=== PATIENT | female | born 1965 | race Caucasian/White ===

== ENCOUNTER 2020-07-19 11:17 | Inpatient (IN) | payer MEDICARE, MEDICAID ==
[2020-07-19] MEDS ORDERED: Sodium Chloride 0.9% 10 ML Syringe FLUSH PRN (11:39)
[2020-07-19] MEDS ORDERED: Sodium Chloride 0.9% 1,000 ML IV ONE (12:42)
--- NOTE | 2020-07-19 14:11 | EDM.PDOC ---
ED HPI GENERAL MEDICAL PROBLEM - General Chief Complaint: Respiratory Problem Stated Complaint: [facility] Time Seen by Provider: 07/19/20 11:24 Source of Information: Reports: Patient History Limitations: Reports: No Limitations - History of Present Illness INITIAL COMMENTS - FREE TEXT/NARRATIVE: The patient presents by [facility] ambulance from [facility] for a cough, fever, chills, shortness of breath and low oxygen saturations. She is there for chronic A-fib, obesity, schizophrenia, and CHF. Her oxygen saturations were 86% no room air. Four liters of oxygen did bring her up. She was isolated in the COVID unit but no test was done yet. She has no chest pain, abdominal pain, nausea, vomiting or diarrhea. Onset: Gradual Duration: Day(s): Severity: Moderate Improves with: Reports: None Worsens with: Reports: None Associated Symptoms: Reports: Cough, Fever/Chills, Shortness of Breath. Denies: Chest Pain, Headaches, Nausea/Vomiting - Related Data Allergies Allergy/AdvReac Type Severity Reaction Status Date / Time amoxicillin Allergy Rash Verified 07/19/20 11:26 Home Meds: Home Meds B/P/Diuretic 1 tab PO DAILY 12/25/14 [History] Hydrocodone/Acetaminophen [Hydrocodone-Acetamin 5-325 mg] 1 each PO Q8H PRN #8 tablet 12/25/14 [Rx] LORazepam [Ativan] 1 mg PO BID 12/25/14 [History] Potassium Chloride 0 meq PO DAILY 12/25/14 [History] Sertraline [Zoloft] 25 mg PO DAILY 12/25/14 [History] allopurinoL [Zyloprim] 100 mg PO DAILY 12/25/14 [History] Diltiazem IR [Cardizem] 60 mg PO TID #90 tablet 01/05/15 [Rx] predniSONE [Prednisone] 20 mg PO DAILY #10 tablet 01/05/15 [Rx] Warfarin [Coumadin] 7 mg PO DAILY #15 tab 01/12/15 [Rx] Past Medical History Cardiovascular History: Reports: Afib Gastrointestinal History: Reports: GERD Psychiatric History: Reports: Anxiety, Depression Social & Family History - Tobacco Use Smoking Status *Q: Never Smoker ED ROS GENERAL - Review of Systems Review Of Systems: See Below Constitutional: Reports: Fever, Chills, Malaise, Weakness HEENT: Reports: No Symptoms Respiratory: Reports: Shortness of Breath, Cough Cardiovascular: Reports: No Symptoms Endocrine: Reports: No Symptoms GI/Abdominal: Reports: No Symptoms : Reports: No Symptoms Musculoskeletal: Reports: No Symptoms Skin: Reports: No Symptoms ED EXAM, GENERAL - Physical Exam Exam: See Below Exam Limited By: No Limitations General Appearance: Alert, No Apparent Distress Ears: Normal External Exam Nose: Normal Inspection Head: Atraumatic, Normocephalic Neck: Normal Inspection Respiratory/Chest: No Respiratory Distress, Rhonchi Cardiovascular: Regular Rate, Rhythm, No Edema, No Murmur GI/Abdominal: Soft, Non-Tender, No Organomegaly, No Mass Back Exam: Normal Inspection Extremities: Normal Inspection EKG INTERPRETATION EKG Date: 07/19/20 Time: 11:28 Rhythm: A-Fib Rate (Beats/Min): 112 [place]: Normal P-Wave: Absent QRS: Normal ST-T: Normal QT: Normal Course - Vital Signs Last Recorded V/S: Last Vital Signs Temp 97.7 F 07/19/20 11:23 Pulse 102 H 07/19/20 11:23 Resp 24 H 07/19/20 11:23 BP 95/81 07/19/20 11:23 Pulse Ox 86 L 07/19/20 11:23 - Orders/Labs/Meds Orders: Active Orders 24 hr Category Date Time Status Cardiac Monitoring [RC] . DIRECTED Care 07/19/20 11:39 Active EKG Documentation Completion [RC] STAT Care 07/19/20 11:40 Active Oxygen Therapy [RC] PRN Care 07/19/20 11:39 Active Peripheral IV Care [RC] . DIRECTED Care 07/19/20 11:40 Active Chest 1V Frontal [CR] Stat Exams 07/19/20 11:40 Taken CULTURE BLOOD [BC] Stat Lab 07/19/20 12:05 Received CULTURE BLOOD [BC] Stat Lab 07/19/20 12:10 Received Sodium Chloride 0.9% [Saline Flush] Med 07/19/20 11:39 Active 10 ml FLUSH ASDIRECTED PRN Blood Culture x2 Reflex Set [OM.PC] Stat Oth 07/19/20 11:41 Ordered Peripheral IV Insertion Adult [OM.PC] Stat Oth 07/19/20 11:39 Ordered Medication Orders Sodium Chloride (Saline Flush) 10 ml FLUSH ASDIRECTED PRN PRN Reason: Keep Vein Open Last Admin: 07/19/20 11:46 Dose: 10 ml Documented by: NELA Labs: Laboratory Tests 07/19/20 07/19/20 07/19/20 Range/Units 11:30 11:30 11:30 WBC 7.05 (3.98-10.04) K/mm3 RBC 4.72 (3.98-5.22) M/mm3 Hgb 15.4 D (11.2-15.7) gm/dl Hct 46.9 H (34.1-44.9) % MCV 99.4 H (79.4-94.8) fl MCH 32.6 H (25.6-32.2) pg MCHC 32.8 (32.2-35.5) g/dl RDW Std Deviation 55.9 H (36.4-46.3) fL Plt Count 214 D (182-369) K/mm3 MPV 8.9 L (9.4-12.3) fl Neut % (Auto) 80.3 H (34.0-71.1) % Lymph % (Auto) 10.4 L (19.3-51.7) % [place] % (Auto) 8.7 (4.7-12.5) % Eos % (Auto) 0.1 L (0.7-5.8) Baso % (Auto) 0.1 (0.1-1.2) % Neut # (Auto) 5.66 (1.56-6.13) K/mm3 Lymph # (Auto) 0.73 L (1.18-3.74) K/mm3 [place] # (Auto) 0.61 H (0.24-0.36) K/mm3 Eos # (Auto) 0.01 L (0.04-0.36) K/mm3 Baso # (Auto) 0.01 (0.01-0.08) K/mm3 PT 16.1 H (9.7-11.7) SECONDS INR 1.52 APTT 33 H (22-31) SECONDS D-Dimer, Quantitative 0.34 (0.19-0.50) mg/L Puncture Site ABG pH (7.35-7.45) ABG pCO2 (35.0-45.0) mmHg ABG pO2 (80.0-100.0) mmHg ABG HCO3 (22.0-26.0) meq/L ABG O2 Saturation (96.0-97.0) % ABG Base Excess (-2-2.0) Salvatore Test A-a Gradient mmHg O2 Delivery Device Oxygen Flow Rate FiO2 (21.00-100.00) % Sodium 142 (136-145) mEq/L Potassium 4.0 (3.5-5.1) mEq/L Chloride 102 (98-107) mEq/L Carbon Dioxide 29 (21-32) mEq/L Anion Gap 15.0 (5-15) BUN 23 H (7-18) mg/dL Creatinine 1.3 H (0.55-1.02) mg/dL Est Cr Clr Drug Dosing TNP Estimated GFR (MDRD) 43 (>60) mL/min BUN/Creatinine Ratio 17.7 (14-18) Glucose 139 H (74-106) mg/dL Lactic Acid (0.4-2.0) mmol/L Calcium 9.3 (8.5-10.1) mg/dL Ferritin (8-252) ng/ml Total Bilirubin 0.4 (0.2-1.0) mg/dL AST 27 (15-37) U/L ALT 25 (14-59) U/L Alkaline Phosphatase 40 L (46-116) U/L Lactate Dehydrogenase 262 H (81-234) U/L C-Reactive Protein 10.1 H* (<1.0) mg/dL Total Protein 9.0 H (6.4-8.2) g/dl Albumin 3.3 L (3.4-5.0) g/dl Globulin 5.7 gm/dL Albumin/Globulin Ratio 0.6 L (1-2) SARS-CoV-2 RNA (GIOVANNI) (NEGATIVE) 07/19/20 07/19/20 07/19/20 Range/Units 11:30 11:30 12:03 WBC (3.98-10.04) K/mm3 RBC (3.98-5.22) M/mm3 Hgb (11.2-15.7) gm/dl Hct (34.1-44.9) % MCV (79.4-94.8) fl MCH (25.6-32.2) pg MCHC (32.2-35.5) g/dl RDW Std Deviation (36.4-46.3) fL Plt Count (182-369) K/mm3 MPV (9.4-12.3) fl Neut % (Auto) (34.0-71.1) % Lymph % (Auto) (19.3-51.7) % [place] % (Auto) (4.7-12.5) % Eos % (Auto) (0.7-5.8) Baso % (Auto) (0.1-1.2) % Neut # (Auto) (1.56-6.13) K/mm3 Lymph # (Auto) (1.18-3.74) K/mm3 [place] # (Auto) (0.24-0.36) K/mm3 Eos # (Auto) (0.04-0.36) K/mm3 Baso # (Auto) (0.01-0.08) K/mm3 PT (9.7-11.7) SECONDS INR APTT (22-31) SECONDS D-Dimer, Quantitative (0.19-0.50) mg/L Puncture Site Rt radial ABG pH 7.42 (7.35-7.45) ABG pCO2 45.0 (35.0-45.0) mmHg ABG pO2 64.0 L (80.0-100.0) mmHg ABG HCO3 28.4 H (22.0-26.0) meq/L ABG O2 Saturation 90.4 L (96.0-97.0) % ABG Base Excess 3.7 H (-2-2.0) Salvatore Test Positive A-a Gradient 150 mmHg O2 Delivery Device Nasal cannula Oxygen Flow Rate 4.5 FiO2 38.00 (21.00-100.00) % Sodium (136-145) mEq/L Potassium (3.5-5.1) mEq/L Chloride (98-107) mEq/L Carbon Dioxide (21-32) mEq/L Anion Gap (5-15) BUN (7-18) mg/dL Creatinine (0.55-1.02) mg/dL Est Cr Clr Drug Dosing Estimated GFR (MDRD) (>60) mL/min BUN/Creatinine Ratio (14-18) Glucose (74-106) mg/dL Lactic Acid 3.1 H* (0.4-2.0) mmol/L Calcium (8.5-10.1) mg/dL Ferritin 226 (8-252) ng/ml Total Bilirubin (0.2-1.0) mg/dL AST (15-37) U/L ALT (14-59) U/L Alkaline Phosphatase (46-116) U/L Lactate Dehydrogenase (81-234) U/L C-Reactive Protein (<1.0) mg/dL Total Protein (6.4-8.2) g/dl Albumin (3.4-5.0) g/dl Globulin gm/dL Albumin/Globulin Ratio (1-2) SARS-CoV-2 RNA (GIOVANNI) (NEGATIVE) 07/19/20 Range/Units 12:25 WBC (3.98-10.04) K/mm3 RBC (3.98-5.22) M/mm3 Hgb (11.2-15.7) gm/dl Hct (34.1-44.9) % MCV (79.4-94.8) fl MCH (25.6-32.2) pg MCHC (32.2-35.5) g/dl RDW Std Deviation (36.4-46.3) fL Plt Count (182-369) K/mm3 MPV (9.4-12.3) fl Neut % (Auto) (34.0-71.1) % Lymph % (Auto) (19.3-51.7) % [place] % (Auto) (4.7-12.5) % Eos % (Auto) (0.7-5.8) Baso % (Auto) (0.1-1.2) % Neut # (Auto) (1.56-6.13) K/mm3 Lymph # (Auto) (1.18-3.74) K/mm3 [place] # (Auto) (0.24-0.36) K/mm3 Eos # (Auto) (0.04-0.36) K/mm3 Baso # (Auto) (0.01-0.08) K/mm3 PT (9.7-11.7) SECONDS INR APTT (22-31) SECONDS D-Dimer, Quantitative (0.19-0.50) mg/L Puncture Site ABG pH (7.35-7.45) ABG pCO2 (35.0-45.0) mmHg ABG pO2 (80.0-100.0) mmHg ABG HCO3 (22.0-26.0) meq/L ABG O2 Saturation (96.0-97.0) % ABG Base Excess (-2-2.0) Salvatore Test A-a Gradient mmHg O2 Delivery Device Oxygen Flow Rate FiO2 (21.00-100.00) % Sodium (136-145) mEq/L Potassium (3.5-5.1) mEq/L Chloride (98-107) mEq/L Carbon Dioxide (21-32) mEq/L Anion Gap (5-15) BUN (7-18) mg/dL Creatinine (0.55-1.02) mg/dL Est Cr Clr Drug Dosing Estimated GFR (MDRD) (>60) mL/min BUN/Creatinine Ratio (14-18) Glucose (74-106) mg/dL Lactic Acid (0.4-2.0) mmol/L Calcium (8.5-10.1) mg/dL Ferritin (8-252) ng/ml Total Bilirubin (0.2-1.0) mg/dL AST (15-37) U/L ALT (14-59) U/L Alkaline Phosphatase (46-116) U/L Lactate Dehydrogenase (81-234) U/L C-Reactive Protein (<1.0) mg/dL Total Protein (6.4-8.2) g/dl Albumin (3.4-5.0) g/dl Globulin gm/dL Albumin/Globulin Ratio (1-2) SARS-CoV-2 RNA (GIOVANNI) Positive H (NEGATIVE) Meds: Medications Generic Name Dose Route Start Last Admin Trade Name Freq PRN Reason Stop Dose Admin Sodium Chloride 10 ml 07/19/20 11:39 07/19/20 11:46 Saline Flush FLUSH 10 ml ASDIRECTED PRN Administration Keep Vein Open Discontinued Medications Generic Name Dose Route Start Last Admin Trade Name Freq PRN Reason Stop Dose Admin Sodium Chloride 1,000 mls @ 1,000 mls/hr 07/19/20 12:42 Normal Saline IV 07/19/20 13:41 ONETIME ONE - Re-Assessments/Exams Free Text/Narrative Re-Assessment/Exam: 07/19/20 14:12 I ordered oxygen, EKG, CXR, labs, COVID 19, blood cultures, lactic acid and ABG. Her EKG shows atrial fibrillation with no acute changes. Her CXR shows multiple abnormalities including focal left upper lobe lung consolidation suspicious for acute disease including pneumonia and other findings indicating pulmonary edema. In the absence of any signs or symptoms of pneumonia, consideration should be given to other disease such as pulmonary embolism and lung infarct. Her CBC looks good. Her D-dimer is negative. Her ph was 7.42. Her pCO2 is 45. Her pO2 is 64. Her creatinine is elevated at 1.3. Her glucose is 139. Her lactic acid is elevated at 3.1. I have ordered a liter of fluid. Her LDH is elevated at 262. Her CRP is elevated at 10.4. Her COVID 19 is positive. She has COVID pneumonia with hypoxia. 07/19/20 14:[address] Allen and he agreed to the admission. Departure - Departure Time of Disposition: 14:20 Disposition: Admitted As Inpatient 66 Condition: Fair Clinical Impression: COVID-19, Pneumonia due to COVID-19 virus, Hypoxia, Renal insufficiency - Discharge Information Referrals: Mark Anthony Burns MD [Primary Care Provider] - Sepsis Event Note (ED) - Evaluation Sepsis Screening Result: No Definite Risk - Focused Exam Vital Signs: Vital Signs Temp Pulse Resp BP Pulse Ox 07/19/20 11:23 97.7 F 102 H 24 H 95/81 86 L - My Orders Last 24 Hours: My Active Orders 07/19/20 11:39 Cardiac Monitoring [RC] . DIRECTED Oxygen Therapy [RC] PRN Sodium Chloride 0.9% [Saline Flush] 10 ml FLUSH ASDIRECTED PRN Peripheral IV Insertion Adult [OM.PC] Stat 07/19/20 11:40 EKG Documentation Completion [RC] STAT Peripheral IV Care [RC] . DIRECTED Chest 1V Frontal [CR] Stat 07/19/20 11:41 Blood Culture x2 Reflex Set [OM.PC] Stat 07/19/20 12:05 CULTURE BLOOD [BC] Stat 07/19/20 12:10 CULTURE BLOOD [BC] Stat - Assessment/Plan Last 24 Hours: My Active Orders 07/19/20 11:39 Cardiac Monitoring [RC] . DIRECTED Oxygen Therapy [RC] PRN Sodium Chloride 0.9% [Saline Flush] 10 ml FLUSH ASDIRECTED PRN Peripheral IV Insertion Adult [OM.PC] Stat 07/19/20 11:40 EKG Documentation Completion [RC] STAT Peripheral IV Care [RC] . DIRECTED Chest 1V Frontal [CR] Stat 07/19/20 11:41 Blood Culture x2 Reflex Set [OM.PC] Stat 07/19/20 12:05 CULTURE BLOOD [BC] Stat 07/19/20 12:10 CULTURE BLOOD [BC] Stat
[2020-07-19] MEDS ORDERED: Dexamethasone 4 MG/ML SDV IVPUSH ONE (14:19)
[2020-07-19] MEDS ORDERED: Ondansetron 4 MG/2 ML SDV IV PRN (19:04)
[2020-07-19] MEDS ORDERED: Calcium Carbonate 500 MG Tab.Chew PO PRN (19:09)
[2020-07-19] MEDS ORDERED: Sodium Chloride 0.9% 1,000 ML IV SCH (19:15)
--- NOTE | 2020-07-19 19:17 | PCM.HP.2 ---
H&P History of Present Illness - General Date of Service: 07/19/20 Admit Problem/Dx: Admission Diagnosis/Problem Admission Diagnosis/Problem Pneumonia - History of Present Illness Initial Comments - Free Text/Narative: 55-year-old female from [facility] presented to the emergency department with cough, fever, chills, shortness of breath, and previously diagnosed with COVID- 19. Patient states that on Saturday they put her in isolation because she had a positive COVID test. She has a history of chronic atrial fibrillation, obesity, schizophrenia, and CHF. When she arrived to the emergency department her oxygen saturations were 86% on room air. In the emergency department they also started her on 4 L which improved her oxygen saturations. Patient is a poor historian and history was partly obtained through the chart notes. Initial lab work significant for white count of 7.05, INR 1.52 (she is on Coumadin) d-dimer 0.34, C-reactive protein 10.1, LDH 262, estimated GFR 43, creatinine 1.3, BUN 23. ABG: pH 7.42, PCO2 45, PO2 64, HCO3 28.4, oxygen saturation 90.4% on 4.5 L of O2 via nasal cannula, lactic acid 3.1, ferritin 226, SARS-CoV-2 RNA positive chest x-ray shows multiple diffuse infiltrates suspicious for viral pneumonia. - Related Data Allergies/Adverse Reactions: Allergies Allergy/AdvReac Type Severity Reaction Status Date / Time amoxicillin Allergy Rash Verified 07/19/20 11:26 Home Medications: Home Meds Acetaminophen 650 mg PO Q4H PRN 07/19/20 [History] Acetaminophen [Tylenol] 650 mg PO DAILY 07/19/20 [History] Allopurinol [Zyloprim] 200 mg PO DAILY 07/19/20 [History] Benzoyl Peroxide [Benzoyl Peroxide 10% Lotion] 1 applic TOP BID PRN 07/19/20 [History] Calcium Carbonate [Tums] 500 mg PO DAILY PRN 07/19/20 [History] Clotrimazole [Clotrimazole 1%] 1 applic TOP BID PRN 07/19/20 [History] Diltiazem [Cardizem] 60 mg PO BID 07/19/20 [History] Fish Oil/Jewett-3 Fatty Acids [Fish Oil 1,000 MG] 2,000 mg PO BID 07/19/20 [History] LORazepam [Ativan] 1 mg PO BEDTIME 07/19/20 [History] Mag Hydrox/Aluminum Hyd/Simeth [Mylanta Maximum Strength Liq] 10 ml PO DAILY PRN 07/19/20 [History] Multivitamin 1 tab PO DAILY 07/19/20 [History] PARoxetine HCL [Paxil] 30 mg PO DAILY 07/19/20 [History] Pantoprazole Sodium [Protonix] 20 mg PO DAILY 07/19/20 [History] Potassium Chloride 20 meq PO DAILY 07/19/20 [History] Sertraline [Zoloft] 150 mg PO DAILY 07/19/20 [History] Triamcinolone Acetonide [Triamcinolone Acetonide 0.5% Oint] 1 applic TOP BID PRN 07/19/20 [History] Warfarin [Coumadin] 5 mg PO DAILY 07/19/20 [History] atenoloL [Atenolol] 25 mg PO DAILY 07/19/20 [History] hydroCHLOROthiazide [Hydrochlorothiazide] 12.5 mg PO DAILY 07/19/20 [History] risperiDONE [Risperdal] 2 mg PO DAILY 07/19/20 [History] risperiDONE [Risperdal] 4 mg PO BEDTIME 07/19/20 [History] Past Medical History Cardiovascular History: Reports: Afib, Hypertension, SOB on Exertion Respiratory History: Reports: SOB Gastrointestinal History: Reports: GERD Genitourinary History: Reports: UTI, Recurrent, Other (See Below) Musculoskeletal History: Reports: Arthritis, Gout Other Musculoskeletal History: athritis/gout to bilateral lower extremities Neurological History: Reports: Headaches, Chronic Psychiatric History: Reports: Anxiety, Depression, Panic Attack Endocrine/Metabolic History: Reports: Obesity/BMI 30+ Oncologic (Cancer) History: Reports: Other (See Below) Other Oncologic History: 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 - Infectious Disease History Infectious Disease History: Reports: Novel Coronavirus - Past Surgical History GI Surgical History: Reports: None Female Surgical History: Reports: Hysterectomy Endocrine Surgical History: Reports: None Neurological Surgical History: Reports: None Musculoskeletal Surgical History: Reports: None Oncologic Surgical History: Reports: None Dermatological Surgical History: Reports: None Social & Family History - Family History Cardiac: Reports: [place] Respiratory: Reports: COPD GI: Reports: None Hematologic: Reports: None Immunologic: Reports: None Oncologic: Reports: Brain, Lung - Tobacco Use Smoking Status *Q: Never Smoker Used Tobacco, but Quit: No Second Hand Smoke Exposure: No - Caffeine Use Caffeine Use: Reports: None - Recreational Drug Use Recreational Drug Use: No H&P Review of Systems - Review of Systems: Review Of Systems: Comprehensive ROS is negative, except as noted in HPI. Exam - Exam Exam: See Below - Vital Signs Vital Signs: Last Vital Signs Temp 99.0 F 07/19/20 16:31 Pulse 76 07/19/20 16:31 Resp 24 H 07/19/20 16:31 BP 143/90 H 07/19/20 16:31 Pulse Ox 91 L 07/19/20 18:52 Weight: 171.458 kg - Exam Quality Assessment: Supplemental Oxygen General: Alert, Oriented, 4 HEENT: Conjunctiva Clear, Hearing Intact, Mucosa Moist & [place], Normal Nasal Sept um Neck: Supple, Trachea Midline. No: JVD (Unable to determine secondary to obesity) Cardiovascular: Irregular Rhythm (Irregularly irregular) GI/Abdominal Exam: Normal Bowel Sounds, Soft, Non-Tender, No Distention Extremities: Normal Inspection, Non-Tender, Normal Capillary Refill, Pedal Edema (1+) Peripheral Pulses: 1+: Posterior Tibial (L), Posterior Tibial (R), Dorsalis Pedis (L), Dorsalis Pedis (R) Skin: Warm, Dry, Intact Neuro Extensive - Mental Status: Alert, Oriented x3, Normal Mood/Affect, Normal Cognition, Memory Intact Neuro Extensive - Motor, Sensory, Reflexes: CN II-XII Intact Psychiatric: Alert, Normal Affect, Normal Mood - Patient Data Lab Results Last 24 hrs: Laboratory Results - last 24 hr 07/19/20 07/19/20 07/19/20 Range/Units 11:30 11:30 11:30 WBC 7.05 (3.98-10.04) K/mm3 RBC 4.72 (3.98-5.22) M/mm3 Hgb 15.4 D (11.2-15.7) gm/dl Hct 46.9 H (34.1-44.9) % MCV 99.4 H (79.4-94.8) fl MCH 32.6 H (25.6-32.2) pg MCHC 32.8 (32.2-35.5) g/dl RDW Std Deviation 55.9 H (36.4-46.3) fL Plt Count 214 D (182-369) K/mm3 MPV 8.9 L (9.4-12.3) fl Neut % (Auto) 80.3 H (34.0-71.1) % Lymph % (Auto) 10.4 L (19.3-51.7) % [place] % (Auto) 8.7 (4.7-12.5) % Eos % (Auto) 0.1 L (0.7-5.8) Baso % (Auto) 0.1 (0.1-1.2) % Neut # (Auto) 5.66 (1.56-6.13) K/mm3 Lymph # (Auto) 0.73 L (1.18-3.74) K/mm3 [place] # (Auto) 0.61 H (0.24-0.36) K/mm3 Eos # (Auto) 0.01 L (0.04-0.36) K/mm3 Baso # (Auto) 0.01 (0.01-0.08) K/mm3 PT 16.1 H (9.7-11.7) SECONDS INR 1.52 APTT 33 H (22-31) SECONDS D-Dimer, Quantitative 0.34 (0.19-0.50) mg/L Puncture Site ABG pH (7.35-7.45) ABG pCO2 (35.0-45.0) mmHg ABG pO2 (80.0-100.0) mmHg ABG HCO3 (22.0-26.0) meq/L ABG O2 Saturation (96.0-97.0) % ABG Base Excess (-2-2.0) Salvatore Test A-a Gradient mmHg O2 Delivery Device Oxygen Flow Rate FiO2 (21.00-100.00) % Sodium 142 (136-145) mEq/L Potassium 4.0 (3.5-5.1) mEq/L Chloride 102 (98-107) mEq/L Carbon Dioxide 29 (21-32) mEq/L Anion Gap 15.0 (5-15) BUN 23 H (7-18) mg/dL Creatinine 1.3 H (0.55-1.02) mg/dL Est Cr Clr Drug Dosing TNP Estimated GFR (MDRD) 43 (>60) mL/min BUN/Creatinine Ratio 17.7 (14-18) Glucose 139 H (74-106) mg/dL Lactic Acid (0.4-2.0) mmol/L Calcium 9.3 (8.5-10.1) mg/dL Ferritin (8-252) ng/ml Total Bilirubin 0.4 (0.2-1.0) mg/dL AST 27 (15-37) U/L ALT 25 (14-59) U/L Alkaline Phosphatase 40 L (46-116) U/L Lactate Dehydrogenase 262 H (81-234) U/L C-Reactive Protein 10.1 H* (<1.0) mg/dL Total Protein 9.0 H (6.4-8.2) g/dl Albumin 3.3 L (3.4-5.0) g/dl Globulin 5.7 gm/dL Albumin/Globulin Ratio 0.6 L (1-2) SARS-CoV-2 RNA (GIOVANNI) (NEGATIVE) 07/19/20 07/19/20 07/19/20 Range/Units 11:30 11:30 12:03 WBC (3.98-10.04) K/mm3 RBC (3.98-5.22) M/mm3 Hgb (11.2-15.7) gm/dl Hct (34.1-44.9) % MCV (79.4-94.8) fl MCH (25.6-32.2) pg MCHC (32.2-35.5) g/dl RDW Std Deviation (36.4-46.3) fL Plt Count (182-369) K/mm3 MPV (9.4-12.3) fl Neut % (Auto) (34.0-71.1) % Lymph % (Auto) (19.3-51.7) % [place] % (Auto) (4.7-12.5) % Eos % (Auto) (0.7-5.8) Baso % (Auto) (0.1-1.2) % Neut # (Auto) (1.56-6.13) K/mm3 Lymph # (Auto) (1.18-3.74) K/mm3 [place] # (Auto) (0.24-0.36) K/mm3 Eos # (Auto) (0.04-0.36) K/mm3 Baso # (Auto) (0.01-0.08) K/mm3 PT (9.7-11.7) SECONDS INR APTT (22-31) SECONDS D-Dimer, Quantitative (0.19-0.50) mg/L Puncture Site Rt radial ABG pH 7.42 (7.35-7.45) ABG pCO2 45.0 (35.0-45.0) mmHg ABG pO2 64.0 L (80.0-100.0) mmHg ABG HCO3 28.4 H (22.0-26.0) meq/L ABG O2 Saturation 90.4 L (96.0-97.0) % ABG Base Excess 3.7 H (-2-2.0) Salvatore Test Positive A-a Gradient 150 mmHg O2 Delivery Device Nasal cannula Oxygen Flow Rate 4.5 FiO2 38.00 (21.00-100.00) % Sodium (136-145) mEq/L Potassium (3.5-5.1) mEq/L Chloride (98-107) mEq/L Carbon Dioxide (21-32) mEq/L Anion Gap (5-15) BUN (7-18) mg/dL Creatinine (0.55-1.02) mg/dL Est Cr Clr Drug Dosing Estimated GFR (MDRD) (>60) mL/min BUN/Creatinine Ratio (14-18) Glucose (74-106) mg/dL Lactic Acid 3.1 H* (0.4-2.0) mmol/L Calcium (8.5-10.1) mg/dL Ferritin 226 (8-252) ng/ml Total Bilirubin (0.2-1.0) mg/dL AST (15-37) U/L ALT (14-59) U/L Alkaline Phosphatase (46-116) U/L Lactate Dehydrogenase (81-234) U/L C-Reactive Protein (<1.0) mg/dL Total Protein (6.4-8.2) g/dl Albumin (3.4-5.0) g/dl Globulin gm/dL Albumin/Globulin Ratio (1-2) SARS-CoV-2 RNA (GIOVANNI) (NEGATIVE) 07/19/20 Range/Units 12:25 WBC (3.98-10.04) K/mm3 RBC (3.98-5.22) M/mm3 Hgb (11.2-15.7) gm/dl Hct (34.1-44.9) % MCV (79.4-94.8) fl MCH (25.6-32.2) pg MCHC (32.2-35.5) g/dl RDW Std Deviation (36.4-46.3) fL Plt Count (182-369) K/mm3 MPV (9.4-12.3) fl Neut % (Auto) (34.0-71.1) % Lymph % (Auto) (19.3-51.7) % [place] % (Auto) (4.7-12.5) % Eos % (Auto) (0.7-5.8) Baso % (Auto) (0.1-1.2) % Neut # (Auto) (1.56-6.13) K/mm3 Lymph # (Auto) (1.18-3.74) K/mm3 [place] # (Auto) (0.24-0.36) K/mm3 Eos # (Auto) (0.04-0.36) K/mm3 Baso # (Auto) (0.01-0.08) K/mm3 PT (9.7-11.7) SECONDS INR APTT (22-31) SECONDS D-Dimer, Quantitative (0.19-0.50) mg/L Puncture Site ABG pH (7.35-7.45) ABG pCO2 (35.0-45.0) mmHg ABG pO2 (80.0-100.0) mmHg ABG HCO3 (22.0-26.0) meq/L ABG O2 Saturation (96.0-97.0) % ABG Base Excess (-2-2.0) Salvatore Test A-a Gradient mmHg O2 Delivery Device Oxygen Flow Rate FiO2 (21.00-100.00) % Sodium (136-145) mEq/L Potassium (3.5-5.1) mEq/L Chloride (98-107) mEq/L Carbon Dioxide (21-32) mEq/L Anion Gap (5-15) BUN (7-18) mg/dL Creatinine (0.55-1.02) mg/dL Est Cr Clr Drug Dosing Estimated GFR (MDRD) (>60) mL/min BUN/Creatinine Ratio (14-18) Glucose (74-106) mg/dL Lactic Acid (0.4-2.0) mmol/L Calcium (8.5-10.1) mg/dL Ferritin (8-252) ng/ml Total Bilirubin (0.2-1.0) mg/dL AST (15-37) U/L ALT (14-59) U/L Alkaline Phosphatase (46-116) U/L Lactate Dehydrogenase (81-234) U/L C-Reactive Protein (<1.0) mg/dL Total Protein (6.4-8.2) g/dl Albumin (3.4-5.0) g/dl Globulin gm/dL Albumin/Globulin Ratio (1-2) SARS-CoV-2 RNA (GIOVANNI) Positive H (NEGATIVE) Result Diagrams: 07/19/20 11:30 07/19/20 11:30 Sepsis Event Note - Evaluation Sepsis Screening Result: Severe Sepsis Risk - Focused Exam Vital Signs: Vital Signs Temp Pulse Resp BP Pulse Ox Pulse Ox 07/19/20 18:52 91 L 07/19/20 16:31 99.0 F 76 24 H 143/90 H 87 L 07/19/20 11:23 97.7 F 102 H 24 H 95/81 86 L - Problem List (1) Pneumonia due to COVID-19 virus SNOMED Code(s): 073862165552233261 ICD Code: U07.1 - COVID-19; J12.89 - OTHER VIRAL PNEUMONIA Status: Acute Current Visit: No (2) Renal insufficiency SNOMED Code(s): 917661572, 791736501 ICD Code: N28.9 - DISORDER OF KIDNEY AND URETER, UNSPECIFIED Status: Acute Current Visit: No (3) Afib, Atrial fibrillation SNOMED Code(s): 99099849 ICD Code: I48.91 - UNSPECIFIED ATRIAL FIBRILLATION Status: Chronic Priority: Medium Current Visit: No (4) HTN, Essential hypertension SNOMED Code(s): 23034722 ICD Code: I10 - ESSENTIAL (PRIMARY) HYPERTENSION Status: Chronic Priority: Medium Current Visit: No (5) Morbid obesity SNOMED Code(s): 790886710 ICD Code: E66.01 - MORBID (SEVERE) OBESITY DUE TO EXCESS CALORIES Status: C hronic Priority: Medium Current Visit: No Problem List Initiated/Reviewed/Updated: Yes Orders Last 24hrs: Active Orders 24 hr Category Date Time Status Admission Status [Patient Status] [ADT] Routine ADT 07/19/20 16:01 Active Acapella [RT Chest Physiotherapy] [RC] ASDIRECTED Care 07/19/20 19:09 Ordered Cardiac Monitoring [RC] . DIRECTED Care 07/19/20 11:39 Active EKG Documentation Completion [RC] STAT Care 07/19/20 11:40 Active Oxygen Therapy [RC] PRN Care 07/19/20 11:39 Active Peripheral IV Care [RC] . DIRECTED Care 07/19/20 11:40 Active RT Incentive Spirometry [RC] ASDIRECTED Care 07/19/20 19:08 Ordered Up With Assistance [RC] ASDIRECTED Care 07/19/20 19:04 Ordered VTE/DVT Education [RC] PER UNIT ROUTINE Care 07/19/20 19:04 Ordered Verify Patient Consent Obtain [RC] ASDIRECTED Care 07/19/20 19:04 Ordered Vital Signs [RC] Q4H Care 07/19/20 19:04 Ordered Respiratory Care Assess and Treatment [CONS] Routine Cons 07/19/20 19:04 Ordered Regular Diet [DIET] Diet 07/19/20 Dinner Ordered Chest 1V Frontal [CR] Stat Exams 07/19/20 11:40 Taken ABO/RH TYPE [BBK] Routine Lab 07/19/20 19:04 Ordered C-REACTIVE PROTEIN [CHEM] AM Lab 07/20/20 05:11 Ordered C-REACTIVE PROTEIN [CHEM] AM Lab 07/21/20 05:11 Ordered C-REACTIVE PROTEIN [CHEM] AM Lab 07/22/20 05:11 Ordered C-REACTIVE PROTEIN [CHEM] AM Lab 07/23/20 05:11 Ordered CBC WITH AUTO DIFF [HEME] AM Lab 07/20/20 05:11 Ordered CBC WITH AUTO DIFF [HEME] AM Lab 07/21/20 05:11 Ordered CBC WITH AUTO DIFF [HEME] AM Lab 07/22/20 05:11 Ordered CBC WITH AUTO DIFF [HEME] AM Lab 07/23/20 05:11 Ordered CMP [COMPREHENSIVE METABOLIC PN,CMP] [CHEM] AM Lab 07/20/20 05:11 Ordered CMP [COMPREHENSIVE METABOLIC PN,CMP] [CHEM] AM Lab 07/21/20 05:11 Ordered CMP [COMPREHENSIVE METABOLIC PN,CMP] [CHEM] AM Lab 07/22/20 05:11 Ordered CMP [COMPREHENSIVE METABOLIC PN,CMP] [CHEM] AM Lab 07/23/20 05:11 Ordered CULTURE BLOOD [BC] Stat Lab 07/19/20 12:05 Received CULTURE BLOOD [BC] Stat Lab 07/19/20 12:10 Received DD [D-DIMER QUANTITATIVE] [COAG] AM Lab 07/20/20 05:11 Ordered DD [D-DIMER QUANTITATIVE] [COAG] AM Lab 07/21/20 05:11 Ordered DD [D-DIMER QUANTITATIVE] [COAG] AM Lab 07/22/20 05:11 Ordered DD [D-DIMER QUANTITATIVE] [COAG] AM Lab 07/23/20 05:11 Ordered FRESH FROZEN PLASMA [BBK] Routine Lab 07/19/20 19:04 Ordered INR,PT,PROTHROMBIN TIME [COAG] AM Lab 07/20/20 05:11 Ordered INR,PT,PROTHROMBIN TIME [COAG] AM Lab 07/21/20 05:11 Ordered INR,PT,PROTHROMBIN TIME [COAG] AM Lab 07/22/20 05:11 Ordered INR,PT,PROTHROMBIN TIME [COAG] AM Lab 07/23/20 05:11 Ordered LACTIC ACID [CHEM] Stat Lab 07/19/20 19:04 Ordered MAGNESIUM [CHEM] AM Lab 07/20/20 05:11 Ordered MAGNESIUM [CHEM] AM Lab 07/21/20 05:11 Ordered MAGNESIUM [CHEM] AM Lab 07/22/20 05:11 Ordered MAGNESIUM [CHEM] AM Lab 07/23/20 05:11 Ordered PHOSPHORUS [CHEM] AM Lab 07/20/20 05:11 Ordered PHOSPHORUS [CHEM] AM Lab 07/21/20 05:11 Ordered PHOSPHORUS [CHEM] AM Lab 07/22/20 05:11 Ordered PHOSPHORUS [CHEM] AM Lab 07/23/20 05:11 Ordered UA RFX JUWAN AND CULT IF INDIC [URIN] Stat Lab 07/19/20 14:18 Ordered VITAMIN D,25-HYDROXY [CHEM] AM Lab 07/20/20 05:11 Ordered Acetaminophen [TylenoL] Med 07/19/20 19:04 Ordered 650 mg PO Q4H PRN Calcium Carbonate [Tums] Med 07/19/20 19:09 Ordered 500 mg PO DAILY PRN Diltiazem [Cardizem] Med 07/19/20 21:00 Ordered 60 mg PO BID LORazepam [Ativan] Med 07/19/20 21:00 Ordered 1 mg PO BEDTIME Ondansetron [Zofran] Med 07/19/20 19:04 Ordered 4 mg IV Q4H PRN Pantoprazole Sodium Med 07/20/20 09:00 Ordered 20 mg PO DAILY Pharmacy to Dose - Warfarin Med 07/19/20 19:15 Ordered 1 dose .XX ASDIRECTED Potassium Chloride [Potassium Chloride] Med 07/20/20 09:00 Ordered 20 meq PO DAILY Remdesivir (Eua) [Remdesivir (EUA)] 100 mg Med 07/20/20 09:00 Ordered Sodium Chloride 0.9% [Normal Saline] 100 ml IV DAILY Remdesivir (Eua) [Remdesivir (EUA)] 200 mg Med 07/19/20 19:04 Ordered Sodium Chloride 0.9% [Normal Saline] 250 ml IV ONETIME Sodium Chloride 0.9% @ 75 MLS/HR(1000ml Bag) Med 07/19/20 19:15 Ordered Sodium Chloride 0.9% [Normal Saline] 1,000 ml IV ASDIRECTED Sodium Chloride 0.9% [Saline Flush] Med 07/19/20 11:39 Active 10 ml FLUSH ASDIRECTED PRN allopurinoL [Zyloprim] Med 07/20/20 09:00 Ordered 200 mg PO DAILY atenoloL [Tenormin] Med 07/20/20 09:00 Ordered 25 mg PO DAILY hydroCHLOROthiazide Med 07/20/20 09:00 Ordered 12.5 mg PO DAILY risperiDONE [Risperdal] Med 07/20/20 09:00 Ordered 2 mg PO DAILY risperiDONE [Risperdal] Med 07/19/20 21:00 Ordered 4 mg PO BEDTIME Blood Culture x2 Reflex Set [OM.PC] Stat Oth 07/19/20 11:41 Ordered Isolation [COMM] Stat Oth 07/19/20 19:04 Ordered Peripheral IV Insertion Adult [OM.PC] Stat Oth 07/19/20 11:39 Ordered Transfuse Fresh Frozen Plasma [COMM] Routine Oth 07/19/20 19:04 Ordered Resuscitation Status Routine Resus Stat 07/19/20 19:03 Ordered Medication Orders Acetaminophen (Tylenol) 650 mg PO Q4H PRN PRN Reason: Fever Greater Than 101 Allopurinol (Zyloprim) 200 mg PO DAILY ALYSON Atenolol (Tenormin) 25 mg PO DAILY ALYSON Calcium Carbonate/Glycine (Tums) 500 mg PO DAILY PRN PRN Reason: GERD Hydrochlorothiazide (Hydrochlorothiazide) 12.5 mg PO DAILY ALYSON Sodium Chloride (Normal Saline) 1,000 mls @ 75 mls/hr IV ASDIRECTED ALYSON Remdesivir 200 mg/ Sodium (Chloride) 250 mls @ 250 mls/hr IV ONETIME ONE Stop: 07/19/20 21:29 Remdesivir 100 mg/ Sodium (Chloride) 100 mls @ 100 mls/hr IV DAILY ALYSON Stop: 07/24/20 19:06 Lorazepam (Ativan) 1 mg PO BEDTIME AL[facility] Non-Formulary Medication (Diltiazem [Cardizem]) 60 mg PO BID [facility] Non-Formulary Medication (Pantoprazole Sodium) 20 mg PO DAILY [facility] Non-Formulary Medication (Potassium Chloride [Potassium Chloride]) 20 meq PO DAILY [facility] Non-Formulary Medication (Risperidone [Risperdal]) 2 mg PO DAILY [facility] Non-Formulary Medication (Risperidone [Risperdal]) 4 mg PO BEDTIME ALYSON Ondansetron HCl (Zofran) 4 mg IV Q4H PRN PRN Reason: Nausea/Vomiting Sodium Chloride (Saline Flush) 10 ml FLUSH ASDIRECTED PRN PRN Reason: Keep Vein Open Last Admin: 07/19/20 11:46 Dose: 10 ml Documented by: NELA Warfarin Sodium (Pharmacy To Dose - Warfarin) 1 dose .XX ASDIRECTED [facility] Assessment/Plan Comment:: COVID-19 with pneumonia and hypoxemia Lactic acidosis * Requiring 4+ liters per minute of FiO2 to keep SPO2 greater than 90%. * WBC 7.0, C-reactive protein 10.1, LDH 262, ferritin is normal at 226, normal d -dimer at 0.34 * Lactic acid 3.1. No signs of bacterial infection. Likely secondary to hypovolemia. Recheck after fluid bolus: Lactic acid 1.0 * ABG: PO2 64 on 4-1/2 L nasal cannula Atrial fibrillation, hypertension, CHF, hyperlipidemia, peripheral edema * Currently not rate controlled on atenolol and diltiazem. Unknown when she got her last medication. * On warfarin 5 mg daily. INR is subtherapeutic at 1.5. Anxiety, depression, schizophrenia * It appears she is on both Zoloft and Paxil at [place]. * Risperdal twice daily Plan * Admit to medical floor and telemetry on continuous oximetry * Start remdesivir, dexamethasone, and convalescent plasma * I spoke with the patient to provide information about remdesivir and convalescent plasma. I offered the "fax sheet for patients and parents/caregivers, for COVID-19 convalescent plasma to read and review. I stated that therapy has been approved by an emergency use authorization process and has not fully been FDA reviewed or approved. I shared potential r isks from the therapy including transmission of blood borne pathogen such as HIV and hepatitis C, allergic and transfusion related reactions, post transfusion purpura. Additionally theoretical risks include a phenomenon called antibodydependent enhancement of infection such as is seen in dengue or attenuation of an immune response that may make patients more susceptible to reinfection. . Patient meets the EUA requirements. I shared that the drug may cause l liver abnormalities and infusion related side effects. Additionally, other side effects are possible but are not known as the drug has limited studies. I discussed there are other potential treatment options that are currently not FDA approved to treat COVID-19. Offered opportunity to ask questions and all questions were answered. Patient voiced understanding and agreed to proceed with treatment. * Chest x-ray in the morning * FiO2 to keep SPO2 between 88 and 94%. Currently on 5 L. * Monitor I's and O's closely. Patient is at risk for fluid overload which is dangerous in this patient population. * Get proBNP, troponin. * Continue atenolol and diltiazem for rate control. * Pharmacy to dose warfarin. * Continue Zoloft. Hold Paxil at this time. I am uncomfortable with patient being on 2 SSRIs at moderately high dose. * Continue Risperdal * CBC, CMP, mag, phosphorus, CRP, d-dimer in the morning * Mcneal catheter for strict I's and O's * Limited echocardiogram in the morning to assess for left heart function and diastolic dysfunction VTE prophylaxis with warfarin CODE STATUS: Full code Disposition: Admit to medical floor for treatment of COVID-19. - Mortality Measure Prognosis:: Poor (Due to history of heart disease and obesity.)
[2020-07-19] MEDS ORDERED: Sodium Chloride 0.9% 250 ML IV SCH (21:15)
[2020-07-19] MEDS: Acetaminophen 325 MG Tab PO PRN (21:55)
[2020-07-19] MEDS: LORazepam 1 MG Tab PO SCH (21:56)
[2020-07-19] MEDS: Diltiazem IR 60 MG Tab PO SCH (21:56)
[2020-07-19] MEDS: risperiDONE 1 MG Tab PO SCH (21:57)
[2020-07-19] MEDS ORDERED: Warfarin 5 MG Tab PO ONE (23:00)
[2020-07-19] MEDS ORDERED: Furosemide 20 MG/2 ML VIAL IVPUSH ONE (23:30)
[2020-07-19] MEDS ORDERED: Azithromycin 500 MG AdvVial IV SCH (23:45)
[2020-07-20] MEDS: cefTRIAXone 2 GM in Sodium Chloride 0.9% 100 ML IV SCH ×2 (00:49→23:23)
[2020-07-20] MEDS: Azithromycin 500 MG in Sodium Chloride 0.9% 250 ML IV SCH (01:14)
[2020-07-20] MEDS: Pantoprazole 40 MG Tab.CR PO SCH (06:38)
[2020-07-20] MEDS ORDERED: Pantoprazole 40 MG Tab.CR PO SCH (07:00)
[2020-07-20] MEDS: Hydrochlorothiazide 12.5 MG Cap PO SCH (09:00)
[2020-07-20] MEDS: risperiDONE 1 MG Tab PO SCH ×2 (09:01→21:39)
[2020-07-20] MEDS: Diltiazem IR 60 MG Tab PO SCH ×2 (09:01→21:38)
[2020-07-20] MEDS: Allopurinol 100 MG Tab PO SCH (09:02)
[2020-07-20] MEDS: Sertraline 50 MG Tab PO SCH (09:02)
[2020-07-20] MEDS: Acetaminophen 325 MG Tab PO PRN ×3 (09:03→22:44)
[2020-07-20] MEDS: Potassium Chloride 20 MEQ Tab.ER PO SCH (09:04)
[2020-07-20] MEDS: Atenolol 25 MG Tab PO SCH (09:05)
--- NOTE | 2020-07-20 10:04 | PCM.PN ---
- General Info Date of Service: 07/20/20 Admission Dx/Problem (Free Text): Admission Diagnosis/Problem Admission Diagnosis/Problem Pneumonia Subjective Update: States that she feels ok but is more short of breath today. Functional Status: Reports: Pain Controlled, Tolerating Diet, Urinating (teixeira catheter), Incentive Spirometry - Review of Systems General: Reports: Fatigue, Appetite HEENT: Reports: Headaches Pulmonary: Reports: Shortness of Breath, Cough. Denies: Sputum, Wheezing Cardiovascular: Reports: No Symptoms Gastrointestinal: Reports: Diarrhea Genitourinary: Reports: Other (teixeira catheter) Musculoskeletal: Reports: No Symptoms Skin: Reports: No Symptoms Neurological: Reports: No Symptoms Psychiatric: Reports: No Symptoms - Patient Data Vitals - Most Recent: Last Vital Signs Temp 97.9 F 07/20/20 08:17 Pulse 101 H 07/20/20 09:05 Resp 28 H 07/20/20 04:27 BP 130/84 07/20/20 09:05 Pulse Ox 90 L 07/20/20 08:17 Weight - Most Recent: 379 lb 9.6 oz I&O - Last 24 Hours: Intake & Output 07/19/20 07/20/20 07/20/20 22:59 06:59 14:59 Intake Total 1065 50 Output Total 1775 100 Balance -710 -50 Lab Results Last 24 Hours: Laboratory Results - last 24 hr 07/19/20 07/19/20 07/19/20 Range/Units 11:30 11:30 11:30 WBC 7.05 (3.98-10.04) K/mm3 RBC 4.72 (3.98-5.22) M/mm3 Hgb 15.4 D (11.2-15.7) gm/dl Hct 46.9 H (34.1-44.9) % MCV 99.4 H (79.4-94.8) fl MCH 32.6 H (25.6-32.2) pg MCHC 32.8 (32.2-35.5) g/dl RDW Std Deviation 55.9 H (36.4-46.3) fL Plt Count 214 D (182-369) K/mm3 MPV 8.9 L (9.4-12.3) fl Neut % (Auto) 80.3 H (34.0-71.1) % Lymph % (Auto) 10.4 L (19.3-51.7) % [place] % (Auto) 8.7 (4.7-12.5) % Eos % (Auto) 0.1 L (0.7-5.8) Baso % (Auto) 0.1 (0.1-1.2) % Neut # (Auto) 5.66 (1.56-6.13) K/mm3 Lymph # (Auto) 0.73 L (1.18-3.74) K/mm3 [place] # (Auto) 0.61 H (0.24-0.36) K/mm3 Eos # (Auto) 0.01 L (0.04-0.36) K/mm3 Baso # (Auto) 0.01 (0.01-0.08) K/mm3 Manual Slide Review PT 16.1 H (9.7-11.7) SECONDS INR 1.52 APTT 33 H (22-31) SECONDS D-Dimer, Quantitative 0.34 (0.19-0.50) mg/L Puncture Site ABG pH (7.35-7.45) ABG pCO2 (35.0-45.0) mmHg ABG pO2 (80.0-100.0) mmHg ABG HCO3 (22.0-26.0) meq/L ABG O2 Saturation (96.0-97.0) % ABG Base Excess (-2-2.0) Salvatore Test A-a Gradient mmHg O2 Delivery Device Oxygen Flow Rate FiO2 (21.00-100.00) % Sodium 142 (136-145) mEq/L Potassium 4.0 (3.5-5.1) mEq/L Chloride 102 (98-107) mEq/L Carbon Dioxide 29 (21-32) mEq/L Anion Gap 15.0 (5-15) BUN 23 H (7-18) mg/dL Creatinine 1.3 H (0.55-1.02) mg/dL Est Cr Clr Drug Dosing TNP Estimated GFR (MDRD) 43 (>60) mL/min BUN/Creatinine Ratio 17.7 (14-18) Glucose 139 H (74-106) mg/dL Lactic Acid (0.4-2.0) mmol/L Calcium 9.3 (8.5-10.1) mg/dL Phosphorus (2.6-4.7) mg/dL Magnesium (1.8-2.4) mg/dl Ferritin (8-252) ng/ml Total Bilirubin 0.4 (0.2-1.0) mg/dL AST 27 (15-37) U/L ALT 25 (14-59) U/L Alkaline Phosphatase 40 L (46-116) U/L Lactate Dehydrogenase 262 H (81-234) U/L Troponin I (0.00-0.056) ng/mL C-Reactive Protein 10.1 H* (<1.0) mg/dL Total Protein 9.0 H (6.4-8.2) g/dl Albumin 3.3 L (3.4-5.0) g/dl Globulin 5.7 gm/dL Albumin/Globulin Ratio 0.6 L (1-2) Urine Color (Yellow) Urine Appearance (Clear) Urine pH (5.0-8.0) Ur Specific [place] (1.005-1.030) Urine Protein (Negative) Urine Glucose (UA) (Negative) Urine Ketones (Negative) Urine Occult Blood (Negative) Urine Nitrite (Negative) Urine Bilirubin (Negative) Urine Urobilinogen (0.2-1.0) Ur Leukocyte Esterase (Negative) Urine RBC (0-5) /hpf Urine WBC (0-5) /hpf Ur Squamous Epith Cells (0-5) /hpf Urine Bacteria (FEW) /hpf Urine Mucus (FEW) /hpf SARS-CoV-2 RNA (GIOVANNI) (NEGATIVE) MRSA (PCR) Blood Type 07/19/20 07/19/20 07/19/20 Range/Units 11:30 11:30 11:30 WBC (3.98-10.04) K/mm3 RBC (3.98-5.22) M/mm3 Hgb (11.2-15.7) gm/dl Hct (34.1-44.9) % MCV (79.4-94.8) fl MCH (25.6-32.2) pg MCHC (32.2-35.5) g/dl RDW Std Deviation (36.4-46.3) fL Plt Count (182-369) K/mm3 MPV (9.4-12.3) fl Neut % (Auto) (34.0-71.1) % Lymph % (Auto) (19.3-51.7) % [place] % (Auto) (4.7-12.5) % Eos % (Auto) (0.7-5.8) Baso % (Auto) (0.1-1.2) % Neut # (Auto) (1.56-6.13) K/mm3 Lymph # (Auto) (1.18-3.74) K/mm3 [place] # (Auto) (0.24-0.36) K/mm3 Eos # (Auto) (0.04-0.36) K/mm3 Baso # (Auto) (0.01-0.08) K/mm3 Manual Slide Review PT (9.7-11.7) SECONDS INR APTT (22-31) SECONDS D-Dimer, Quantitative (0.19-0.50) mg/L Puncture Site ABG pH (7.35-7.45) ABG pCO2 (35.0-45.0) mmHg ABG pO2 (80.0-100.0) mmHg ABG HCO3 (22.0-26.0) meq/L ABG O2 Saturation (96.0-97.0) % ABG Base Excess (-2-2.0) Salvatore Test A-a Gradient mmHg O2 Delivery Device Oxygen Flow Rate FiO2 (21.00-100.00) % Sodium (136-145) mEq/L Potassium (3.5-5.1) mEq/L Chloride (98-107) mEq/L Carbon Dioxide (21-32) mEq/L Anion Gap (5-15) BUN (7-18) mg/dL Creatinine (0.55-1.02) mg/dL Est Cr Clr Drug Dosing Estimated GFR (MDRD) (>60) mL/min BUN/Creatinine Ratio (14-18) Glucose (74-106) mg/dL Lactic Acid 3.1 H* (0.4-2.0) mmol/L Calcium (8.5-10.1) mg/dL Phosphorus (2.6-4.7) mg/dL Magnesium (1.8-2.4) mg/dl Ferritin 226 (8-252) ng/ml Total Bilirubin (0.2-1.0) mg/dL AST (15-37) U/L ALT (14-59) U/L Alkaline Phosphatase (46-116) U/L Lactate Dehydrogenase (81-234) U/L Troponin I (0.00-0.056) ng/mL C-Reactive Protein (<1.0) mg/dL Total Protein (6.4-8.2) g/dl Albumin (3.4-5.0) g/dl Globulin gm/dL Albumin/Globulin Ratio (1-2) Urine Color (Yellow) Urine Appearance (Clear) Urine pH (5.0-8.0) Ur Specific [place] (1.005-1.030) Urine Protein (Negative) Urine Glucose (UA) (Negative) Urine Ketones (Negative) Urine Occult Blood (Negative) Urine Nitrite (Negative) Urine Bilirubin (Negative) Urine Urobilinogen (0.2-1.0) Ur Leukocyte Esterase (Negative) Urine RBC (0-5) /hpf Urine WBC (0-5) /hpf Ur Squamous Epith Cells (0-5) /hpf Urine Bacteria (FEW) /hpf Urine Mucus (FEW) /hpf SARS-CoV-2 RNA (GIOVANNI) (NEGATIVE) MRSA (PCR) Blood Type B POSITIVE 07/19/20 07/19/20 07/19/20 Range/Units 12:03 12:25 17:35 WBC (3.98-10.04) K/mm3 RBC (3.98-5.22) M/mm3 Hgb (11.2-15.7) gm/dl Hct (34.1-44.9) % MCV (79.4-94.8) fl MCH (25.6-32.2) pg MCHC (32.2-35.5) g/dl RDW Std Deviation (36.4-46.3) fL Plt Count (182-369) K/mm3 MPV (9.4-12.3) fl Neut % (Auto) (34.0-71.1) % Lymph % (Auto) (19.3-51.7) % [place] % (Auto) (4.7-12.5) % Eos % (Auto) (0.7-5.8) Baso % (Auto) (0.1-1.2) % Neut # (Auto) (1.56-6.13) K/mm3 Lymph # (Auto) (1.18-3.74) K/mm3 [place] # (Auto) (0.24-0.36) K/mm3 Eos # (Auto) (0.04-0.36) K/mm3 Baso # (Auto) (0.01-0.08) K/mm3 Manual Slide Review PT (9.7-11.7) SECONDS INR APTT (22-31) SECONDS D-Dimer, Quantitative (0.19-0.50) mg/L Puncture Site Rt radial ABG pH 7.42 (7.35-7.45) ABG pCO2 45.0 (35.0-45.0) mmHg ABG pO2 64.0 L (80.0-100.0) mmHg ABG HCO3 28.4 H (22.0-26.0) meq/L ABG O2 Saturation 90.4 L (96.0-97.0) % ABG Base Excess 3.7 H (-2-2.0) Salvatore Test Positive A-a Gradient 150 mmHg O2 Delivery Device Nasal cannula Oxygen Flow Rate 4.5 FiO2 38.00 (21.00-100.00) % Sodium (136-145) mEq/L Potassium (3.5-5.1) mEq/L Chloride (98-107) mEq/L Carbon Dioxide (21-32) mEq/L Anion Gap (5-15) BUN (7-18) mg/dL Creatinine (0.55-1.02) mg/dL Est Cr Clr Drug Dosing Estimated GFR (MDRD) (>60) mL/min BUN/Creatinine Ratio (14-18) Glucose (74-106) mg/dL Lactic Acid 1.0 (0.4-2.0) mmol/L Calcium (8.5-10.1) mg/dL Phosphorus (2.6-4.7) mg/dL Magnesium (1.8-2.4) mg/dl Ferritin (8-252) ng/ml Total Bilirubin (0.2-1.0) mg/dL AST (15-37) U/L ALT (14-59) U/L Alkaline Phosphatase (46-116) U/L Lactate Dehydrogenase (81-234) U/L Troponin I (0.00-0.056) ng/mL C-Reactive Protein (<1.0) mg/dL Total Protein (6.4-8.2) g/dl Albumin (3.4-5.0) g/dl Globulin gm/dL Albumin/Globulin Ratio (1-2) Urine Color (Yellow) Urine Appearance (Clear) Urine pH (5.0-8.0) Ur Specific [place] (1.005-1.030) Urine Protein (Negative) Urine Glucose (UA) (Negative) Urine Ketones (Negative) Urine Occult Blood (Negative) Urine Nitrite (Negative) Urine Bilirubin (Negative) Urine Urobilinogen (0.2-1.0) Ur Leukocyte Esterase (Negative) Urine RBC (0-5) /hpf Urine WBC (0-5) /hpf Ur Squamous Epith Cells (0-5) /hpf Urine Bacteria (FEW) /hpf Urine Mucus (FEW) /hpf SARS-CoV-2 RNA (GIOVANNI) Positive H (NEGATIVE) MRSA (PCR) Blood Type 07/19/20 07/19/20 07/20/20 Range/Units 20:34 21:02 04:37 WBC 5.24 (3.98-10.04) K/mm3 RBC 4.40 (3.98-5.22) M/mm3 Hgb 13.8 D (11.2-15.7) gm/dl Hct 44.6 (34.1-44.9) % MCV 101.4 H (79.4-94.8) fl MCH 31.4 (25.6-32.2) pg MCHC 30.9 L (32.2-35.5) g/dl RDW Std Deviation 55.2 H (36.4-46.3) fL Plt Count 188 (182-369) K/mm3 MPV 8.9 L (9.4-12.3) fl Neut % (Auto) 80.8 H (34.0-71.1) % Lymph % (Auto) 9.4 L (19.3-51.7) % [place] % (Auto) 9.2 (4.7-12.5) % Eos % (Auto) 0 L (0.7-5.8) Baso % (Auto) 0.2 (0.1-1.2) % Neut # (Auto) 4.24 (1.56-6.13) K/mm3 Lymph # (Auto) 0.49 L (1.18-3.74) K/mm3 [place] # (Auto) 0.48 H (0.24-0.36) K/mm3 Eos # (Auto) 0.00 L (0.04-0.36) K/mm3 Baso # (Auto) 0.01 (0.01-0.08) K/mm3 Manual Slide Review Abnormal smear PT (9.7-11.7) SECONDS INR APTT (22-31) SECONDS D-Dimer, Quantitative (0.19-0.50) mg/L Puncture Site ABG pH (7.35-7.45) ABG pCO2 (35.0-45.0) mmHg ABG pO2 (80.0-100.0) mmHg ABG HCO3 (22.0-26.0) meq/L ABG O2 Saturation (96.0-97.0) % ABG Base Excess (-2-2.0) Salvatore Test A-a Gradient mmHg O2 Delivery Device Oxygen Flow Rate FiO2 (21.00-100.00) % Sodium (136-145) mEq/L Potassium (3.5-5.1) mEq/L Chloride (98-107) mEq/L Carbon Dioxide (21-32) mEq/L Anion Gap (5-15) BUN (7-18) mg/dL Creatinine (0.55-1.02) mg/dL Est Cr Clr Drug Dosing Estimated GFR (MDRD) (>60) mL/min BUN/Creatinine Ratio (14-18) Glucose (74-106) mg/dL Lactic Acid (0.4-2.0) mmol/L Calcium (8.5-10.1) mg/dL Phosphorus (2.6-4.7) mg/dL Magnesium (1.8-2.4) mg/dl Ferritin (8-252) ng/ml Total Bilirubin (0.2-1.0) mg/dL AST (15-37) U/L ALT (14-59) U/L Alkaline Phosphatase (46-116) U/L Lactate Dehydrogenase (81-234) U/L Troponin I (0.00-0.056) ng/mL C-Reactive Protein (<1.0) mg/dL Total Protein (6.4-8.2) g/dl Albumin (3.4-5.0) g/dl Globulin gm/dL Albumin/Globulin Ratio (1-2) Urine Color Yellow (Yellow) Urine Appearance Slt cloudy H (Clear) Urine pH 6.0 (5.0-8.0) Ur Specific [place] > or = 1.030 (1.005-1.030) Urine Protein 3+ H (Negative) Urine Glucose (UA) Negative (Negative) Urine Ketones Negative (Negative) Urine Occult Blood 2+ H (Negative) Urine Nitrite Positive H (Negative) Urine Bilirubin Negative (Negative) Urine Urobilinogen 0.2 (0.2-1.0) Ur Leukocyte Esterase Negative (Negative) Urine RBC 10-20 H (0-5) /hpf Urine WBC 20-30 H (0-5) /hpf Ur Squamous Epith Cells 5-10 H (0-5) /hpf Urine Bacteria Many H (FEW) /hpf Urine Mucus Few (FEW) /hpf SARS-CoV-2 RNA (GIOVANNI) (NEGATIVE) MRSA (PCR) Negative Blood Type 07/20/20 07/20/20 Range/Units 04:37 04:37 WBC (3.98-10.04) K/mm3 RBC (3.98-5.22) M/mm3 Hgb (11.2-15.7) gm/dl Hct (34.1-44.9) % MCV (79.4-94.8) fl MCH (25.6-32.2) pg MCHC (32.2-35.5) g/dl RDW Std Deviation (36.4-46.3) fL Plt Count (182-369) K/mm3 MPV (9.4-12.3) fl Neut % (Auto) (34.0-71.1) % Lymph % (Auto) (19.3-51.7) % [place] % (Auto) (4.7-12.5) % Eos % (Auto) (0.7-5.8) Baso % (Auto) (0.1-1.2) % Neut # (Auto) (1.56-6.13) K/mm3 Lymph # (Auto) (1.18-3.74) K/mm3 [place] # (Auto) (0.24-0.36) K/mm3 Eos # (Auto) (0.04-0.36) K/mm3 Baso # (Auto) (0.01-0.08) K/mm3 Manual Slide Review PT 15.1 H (9.7-11.7) SECONDS INR 1.42 APTT (22-31) SECONDS D-Dimer, Quantitative 0.27 (0.19-0.50) mg/L Puncture Site ABG pH (7.35-7.45) ABG pCO2 (35.0-45.0) mmHg ABG pO2 (80.0-100.0) mmHg ABG HCO3 (22.0-26.0) meq/L ABG O2 Saturation (96.0-97.0) % ABG Base Excess (-2-2.0) Salvatore Test A-a Gradient mmHg O2 Delivery Device Oxygen Flow Rate FiO2 (21.00-100.00) % Sodium 142 (136-145) mEq/L Potassium 3.6 (3.5-5.1) mEq/L Chloride 103 (98-107) mEq/L Carbon Dioxide 29 (21-32) mEq/L Anion Gap 13.6 (5-15) BUN 22 H (7-18) mg/dL Creatinine 1.0 (0.55-1.02) mg/dL Est Cr Clr Drug Dosing 59.51 Estimated GFR (MDRD) 58 (>60) mL/min BUN/Creatinine Ratio 22.0 H (14-18) Glucose 202 H (74-106) mg/dL Lactic Acid (0.4-2.0) mmol/L Calcium 8.7 (8.5-10.1) mg/dL Phosphorus 2.7 (2.6-4.7) mg/dL Magnesium 1.9 (1.8-2.4) mg/dl Ferritin (8-252) ng/ml Total Bilirubin 0.2 (0.2-1.0) mg/dL AST 23 (15-37) U/L ALT 23 (14-59) U/L Alkaline Phosphatase 39 L (46-116) U/L Lactate Dehydrogenase (81-234) U/L Troponin I < 0.017 (0.00-0.056) ng/mL C-Reactive Protein 8.0 H* (<1.0) mg/dL Total Protein 8.1 (6.4-8.2) g/dl Albumin 3.0 L (3.4-5.0) g/dl Globulin 5.1 gm/dL Albumin/Globulin Ratio 0.6 L (1-2) Urine Color (Yellow) Urine Appearance (Clear) Urine pH (5.0-8.0) Ur Specific [place] (1.005-1.030) Urine Protein (Negative) Urine Glucose (UA) (Negative) Urine Ketones (Negative) Urine Occult Blood (Negative) Urine Nitrite (Negative) Urine Bilirubin (Negative) Urine Urobilinogen (0.2-1.0) Ur Leukocyte Esterase (Negative) Urine RBC (0-5) /hpf Urine WBC (0-5) /hpf Ur Squamous Epith Cells (0-5) /hpf Urine Bacteria (FEW) /hpf Urine Mucus (FEW) /hpf SARS-CoV-2 RNA (GIOVANNI) (NEGATIVE) MRSA (PCR) Blood Type Med Orders - Current: Current Medications Acetaminophen (Tylenol) 650 mg PO Q4H PRN PRN Reason: Fever Greater Than 101 Last Admin: 07/20/20 09:03 Dose: 650 mg Documented by: Allopurinol (Zyloprim) 200 mg PO DAILY ON LICENSE OF [facility] Last Admin: 07/20/20 09:02 Dose: 200 mg Documented by: Atenolol (Tenormin) 25 mg PO DAILY ON LICENSE OF [facility] Last Admin: 07/20/20 09:05 Dose: 25 mg Documented by: Calcium Carbonate/Glycine (Tums) 500 mg PO DAILY PRN PRN Reason: GERD Diltiazem HCl (Cardizem) 60 mg PO BID ON LICENSE OF [facility] Last Admin: 07/20/20 09:01 Dose: 60 mg Documented by: Hydrochlorothiazide (Hydrochlorothiazide) 12.5 mg PO DAILY ON LICENSE OF [facility] Last Admin: 07/20/20 09:00 Dose: 12.5 mg Documented by: Remdesivir 100 mg/ Sodium (Chloride) 100 mls @ 100 mls/hr IV Q24H ON LICENSE OF [facility] Stop: 07/23/20 21:59 Ceftriaxone Sodium 2 gm/ (Sodium Chloride) 100 mls @ 200 mls/hr IV Q24H ON LICENSE OF [facility] Stop: 07/24/20 00:29 Last Admin: 07/20/20 00:49 Dose: 200 mls/hr Documented by: Azithromycin 500 mg/ Sodium (Chloride) 250 mls @ 250 mls/hr IV Q24H ON LICENSE OF [facility] Stop: 07/22/20 01:29 Last Admin: 07/20/20 01:14 Dose: 250 mls/hr Documented by: Insulin Human Lispro (Humalog) 0 unit SUBCUT QIDACANDBED ON LICENSE OF [facility]; Protocol Lorazepam (Ativan) 1 mg PO BEDTIME ON LICENSE OF [facility] Last Admin: 07/19/20 21:56 Dose: 1 mg Documented by: Ondansetron HCl (Zofran) 4 mg IV Q4H PRN PRN Reason: Nausea/Vomiting Pantoprazole Sodium (Protonix) 40 mg PO DAILY@0700 ON LICENSE OF [facility] Last Admin: 07/20/20 06:38 Dose: 40 mg Documented by: Potassium Chloride (Klor-Con M20) 20 meq PO DAILY ON LICENSE OF [facility] Last Admin: 07/20/20 09:04 Dose: 20 meq Documented by: Risperidone (Risperidal) 2 mg PO DAILY ON LICENSE OF [facility] Last Admin: 07/20/20 09:01 Dose: 2 mg Documented by: Risperidone (Risperidal) 4 mg PO BEDTIME ON LICENSE OF [facility] Last Admin: 07/19/20 21:57 Dose: 4 mg Documented by: Sertraline HCl (Zoloft) 150 mg PO DAILY ON LICENSE OF [facility] Last Admin: 07/20/20 09:02 Dose: 150 mg Documented by: Simvastatin (Zocor) 20 mg PO BEDTIME ON LICENSE OF [facility] Sodium Chloride (Saline Flush) 10 ml FLUSH ASDIRECTED PRN PRN Reason: Keep Vein Open Last Admin: 07/19/20 11:46 Dose: 10 ml Documented by: Warfarin Sodium (Pharmacy To Dose - Warfarin) 1 dose .XX ASDIRECTED PRN PRN Reason: RX TO DOSE WARFARIN Discontinued Medications Dexamethasone (Dexamethasone) 6 mg IVPUSH ONETIME ONE Stop: 07/19/20 14:20 Last Admin: 07/19/20 15:07 Dose: 6 mg Documented by: Furosemide (Lasix) 20 mg IVPUSH ONETIME ONE Stop: 07/19/20 23:31 Last Admin: 07/20/20 00:05 Dose: 20 mg Documented by: Sodium Chloride (Normal Saline) 1,000 mls @ 1,000 mls/hr IV ONETIME ONE Stop: 07/19/20 13:41 Last Admin: 07/19/20 14:24 Dose: 1,000 mls/hr Documented by: Sodium Chloride (Normal Saline) 1,000 mls @ 75 mls/hr IV ASDIRECTED ALYSON Remdesivir 200 mg/ Sodium (Chloride) 250 mls @ 250 mls/hr IV ONETIME ONE Stop: 07/19/20 21:29 Last Admin: 07/19/20 21:49 Dose: 250 mls/hr Documented by: Sodium Chloride (Normal Saline) 250 mls @ 50 mls/hr IV ASDIRECTED ON LICENSE OF [facility] Last Admin: 07/19/20 23:30 Dose: 50 mls/hr Documented by: Pantoprazole Sodium (Protonix) 40 mg PO DAILY@0700 ON LICENSE OF [facility] Warfarin Sodium (Coumadin) 5 mg PO ONETIME ONE Stop: 07/19/20 23:01 Last Admin: 07/19/20 23:32 Dose: 5 mg Documented by: - Exam Quality Assessment: Supplemental Oxygen General: Alert, Oriented, Cooperative, Moderate Distress HEENT: Pupils Equal, Pupils Reactive, Mucous Membr. Moist/[place] Neck: Supple, Trachea Midline. No: Lymphadenopathy Lungs: Normal Respiratory Effort, Decreased Breath Sounds Cardiovascular: Irregular Rhythm GI/Abdominal Exam: Normal Bowel Sounds, Soft, Non-Tender, No Distention (Female) Exam: Deferred Back Exam: Normal Inspection, Full Range of Motion Extremities: Normal Inspection, Normal Range of Motion, Non-Tender, No Pedal Edema, Normal Capillary Refill Peripheral Pulses: 2+: Radial (L), Radial (R), Dorsalis Pedis (L), Dorsalis Pedis (R) Skin: Warm, Dry, Intact Neurological: No New Focal Deficit Psy/Mental Status: Alert, Normal Affect, Normal Mood Sepsis Event Note - Evaluation Sepsis Screening Result: Sepsis Risk - Focused Exam Vital Signs: Vital Signs Temp Pulse Pulse Resp BP BP Pulse Ox 07/20/20 09:05 101 H 130/84 07/20/20 08:17 97.9 F 101 H 130/84 90 L 07/20/20 05:44 07/20/20 04:27 97.7 F 98 28 H 129/85 87 L 07/20/20 00:46 97.6 F 89 28 H 132/88 07/20/20 00:45 91 L 07/20/20 00:44 97.5 F 95 28 H 122/76 07/20/20 00:30 97.5 F 68 28 H 122/76 07/20/20 00:15 98.1 F 90 28 H 134/79 07/20/20 00:11 98.1 F 98 28 H 134/79 90 L 07/20/20 00:08 98.1 F 114 H 28 H 134/79 90 L 07/19/20 23:53 98.2 F 90 28 H 127/81 91 L 07/19/20 23:46 98.2 F 64 28 H 127/81 92 L 07/19/20 23:28 98.1 F 109 H 90 L 07/19/20 23:27 85 24 H 141/96 H 90 L 07/19/20 23:24 98.1 F 107 H 24 H 141/96 H Pulse Ox 07/20/20 09:05 07/20/20 08:17 07/20/20 05:44 91 L 07/20/20 04:27 07/20/20 00:46 07/20/20 00:45 07/20/20 00:44 07/20/20 00:30 07/20/20 00:15 07/20/20 00:11 07/20/20 00:08 07/19/20 23:53 07/19/20 23:46 07/19/20 23:28 07/19/20 23:27 07/19/20 23:24 - Problem List & Annotations (1) Pneumonia due to COVID-19 virus SNOMED Code(s): 015061793777097669 Code(s): U07.1 - COVID-19; J12.89 - OTHER VIRAL PNEUMONIA Status: Acute Priority: High Current Visit: Yes (2) Renal insufficiency SNOMED Code(s): 023222429, 505534901 Code(s): N28.9 - DISORDER OF KIDNEY AND URETER, UNSPECIFIED Status: Acute Priority: High Current Visit: Yes (3) Afib, Atrial fibrillation SNOMED Code(s): 94595247 Code(s): I48.91 - UNSPECIFIED ATRIAL FIBRILLATION Status: Chronic Priority: Medium Current Visit: No (4) HTN, Essential hypertension SNOMED Code(s): 73347665 Code(s): I10 - ESSENTIAL (PRIMARY) HYPERTENSION Status: Chronic Priority: Medium Current Visit: No (5) Morbid obesity SNOMED Code(s): 663595495 Code(s): E66.01 - MORBID (SEVERE) OBESITY DUE TO EXCESS CALORIES Status: Chronic Priority: Medium Current Visit: No - Problem List Review Problem List Initiated/Reviewed/Updated: Yes - My Orders Last 24 Hours: My Active Orders 07/20/20 04:37 A1C [GLYCOSYLATED HEMOGLOBIN,HGBA1C] [CHEM] Stat 07/20/20 08:23 Accu Check [Blood Glucose Check, Bedside] [RC] QIDACANDBED 07/20/20 11:00 Insulin Lispro [HumaLOG] See Protocol SUBCUT QIDACANDBED - Assessment Assessment:: 07/20/20 * Requiring 6L/NC * Requiring sliding scale insulin starting today * Day 2 Remdesivir and Dexamethasone * Day 2 Rocephin and Zithromax * Awaiting BC results * Diabetic diet * Awaiting A1C results Plan * Chest x-ray in the morning * FiO2 to keep SPO2 between 88 and 94%. Currently on 6L/NC * Monitor I's and O's closely. Patient is at risk for fluid overload which is dangerous in this patient population. * Continue atenolol and diltiazem for rate control. * Pharmacy to dose warfarin. * Teixeira catheter for strict I's and O's * Limited echocardiogram in the morning to assess for left heart function and diastolic dysfunction * Monitor for hypoxemia - Plan Plan:: COVID-19 with pneumonia and hypoxemia Lactic acidosis * On 6L/NC to keep O2 sats >90% * Day 2 Remdesivir and Dexamethasone * Has received convalescent plasma * Sliding scale started due to hyperglycemic effects of Dexamethasone * Incentive spirometer * Encourage prone positioning * Repeat labs as needed. * Repeat chest xray today * CRP and D-dimer trending down Atrial fibrillation, hypertension, CHF, hyperlipidemia, peripheral edema * Limited echo today * On warfarin 5 mg daily. INR is subtherapeutic at 1.5. * Continue strict I&O Anxiety, depression, schizophrenia * It appears she is on both Zoloft and Paxil at [place]. * Risperdal twice daily PROPHYLAXIS: DVT- home Warfarin GI-home CODE STATUS: Full Code DISPOSITION: Admit to medical floor for treatment of COVID-19. Length of stay will likely be greater than 96 hours due to treatment for COVID.
[2020-07-20] MEDS: Insulin Lispro 100 Units/ML 3 ML Vial SUBCUT SCH ×3 (11:21→22:49)
[2020-07-20 15:46] LABS: HEMOGLOBIN A1C 6.4 % (4.50-6.20)
[2020-07-20 15:56] LABS: VITAMIN D,25-HYDROXY 15.3 ng/ml (30.0-100.0)
[2020-07-20] MEDS: Dexamethasone 4 MG Tab PO SCH (16:16)
[2020-07-20] MEDS ORDERED: Warfarin 7.5 MG Tab PO SCH (18:00)
[2020-07-20] MEDS ORDERED: Non-Formulary Medication 1 Each (Pravastatin Sodium 40 MG) PO SCH (21:00)
[2020-07-20] MEDS: REMDESIVIR (EUA) 100 MG in Sodium Chloride 0.9% 100 ML IV SCH (21:38)
[2020-07-20] MEDS: LORazepam 1 MG Tab PO SCH (21:39)
[2020-07-20] MEDS: Simvastatin 20 MG Tab PO SCH (21:39)
[2020-07-21] MEDS: Azithromycin 500 MG in Sodium Chloride 0.9% 250 ML IV SCH (01:02)
[2020-07-21] MEDS: Pantoprazole 40 MG Tab.CR PO SCH (06:55)
[2020-07-21] MEDS: Acetaminophen 325 MG Tab PO PRN ×3 (07:30→16:35)
[2020-07-21] MEDS: Insulin Lispro 100 Units/ML 3 ML Vial SUBCUT SCH ×4 (08:17→21:11)
[2020-07-21] MEDS: Diltiazem IR 60 MG Tab PO SCH ×2 (08:18→21:09)
[2020-07-21] MEDS: Hydrochlorothiazide 12.5 MG Cap PO SCH (08:19)
[2020-07-21] MEDS: risperiDONE 1 MG Tab PO SCH ×2 (08:19→21:09)
[2020-07-21] MEDS: Allopurinol 100 MG Tab PO SCH (08:19)
[2020-07-21] MEDS: Atenolol 25 MG Tab PO SCH (08:20)
[2020-07-21] MEDS: Sertraline 50 MG Tab PO SCH (08:20)
[2020-07-21] MEDS: Potassium Chloride 20 MEQ Tab.ER PO SCH (08:24)
--- NOTE | 2020-07-21 11:31 | PCM.PN ---
- General Info Date of Service: 07/21/20 Admission Dx/Problem (Free Text): Admission Diagnosis/Problem Admission Diagnosis/Problem Pneumonia Subjective Update: Increasing O2 demands. Now on high-flow O2. Lungs are course with rales and rhonchi throughout. Functional Status: Reports: Pain Controlled, Tolerating Diet, Urinating (teixeira catheter), Incentive Spirometry - Review of Systems General: Reports: Weakness, Fatigue HEENT: Reports: Headaches Pulmonary: Reports: Shortness of Breath, Cough. Denies: Sputum Cardiovascular: Reports: Dyspnea on Exertion Gastrointestinal: Reports: No Symptoms Genitourinary: Reports: No Symptoms (teixeira catheter in place) Musculoskeletal: Reports: No Symptoms Skin: Reports: No Symptoms Neurological: Reports: No Symptoms Psychiatric: Reports: No Symptoms - Patient Data Vitals - Most Recent: Last Vital Signs Temp 98.2 F 07/21/20 08:23 Pulse 87 07/21/20 08:23 Resp 24 H 07/21/20 08:23 BP 149/78 H 07/21/20 08:23 Pulse Ox 92 L 07/21/20 08:23 Weight - Most Recent: 379 lb 11.2 oz I&O - Last 24 Hours: Intake & Output 07/20/20 07/21/20 07/21/20 22:59 06:59 14:59 Intake Total 2110 1450 430 Output Total 625 400 95 Balance 1485 1050 335 Lab Results Last 24 Hours: Laboratory Results - last 24 hr 07/20/20 07/20/20 07/20/20 Range/Units 04:37 04:37 17:06 WBC (3.98-10.04) K/mm3 RBC (3.98-5.22) M/mm3 Hgb (11.2-15.7) gm/dl Hct (34.1-44.9) % MCV (79.4-94.8) fl MCH (25.6-32.2) pg MCHC (32.2-35.5) g/dl RDW Std Deviation (36.4-46.3) fL Plt Count (182-369) K/mm3 MPV (9.4-12.3) fl Neut % (Auto) (34.0-71.1) % Lymph % (Auto) (19.3-51.7) % Burt % (Auto) (4.7-12.5) % Eos % (Auto) (0.7-5.8) Baso % (Auto) (0.1-1.2) % Neut # (Auto) (1.56-6.13) K/mm3 Lymph # (Auto) (1.18-3.74) K/mm3 Burt # (Auto) (0.24-0.36) K/mm3 Eos # (Auto) (0.04-0.36) K/mm3 Baso # (Auto) (0.01-0.08) K/mm3 Manual Slide Review PT (9.7-11.7) SECONDS INR D-Dimer, Quantitative (0.19-0.50) mg/L Sodium (136-145) mEq/L Potassium (3.5-5.1) mEq/L Chloride (98-107) mEq/L Carbon Dioxide (21-32) mEq/L Anion Gap (5-15) BUN (7-18) mg/dL Creatinine (0.55-1.02) mg/dL Est Cr Clr Drug Dosing mL/min Estimated GFR (MDRD) (>60) mL/min BUN/Creatinine Ratio (14-18) Glucose (74-106) mg/dL POC Glucose 129 H (70-105) mg/dL Hemoglobin A1c 6.40 H (4.50-6.20) % Calcium (8.5-10.1) mg/dL Phosphorus (2.6-4.7) mg/dL Magnesium (1.8-2.4) mg/dl Total Bilirubin (0.2-1.0) mg/dL AST (15-37) U/L ALT (14-59) U/L Alkaline Phosphatase (46-116) U/L C-Reactive Protein (<1.0) mg/dL Total Protein (6.4-8.2) g/dl Albumin (3.4-5.0) g/dl Globulin gm/dL Albumin/Globulin Ratio (1-2) Vitamin D 25-Hydroxy 15.3 L (30.0-100.0) ng/ml 07/20/20 07/21/20 07/21/20 Range/Units 22:46 05:44 05:44 WBC 6.81 (3.98-10.04) K/mm3 RBC 4.43 (3.98-5.22) M/mm3 Hgb 14.0 (11.2-15.7) gm/dl Hct 45.2 H (34.1-44.9) % MCV 102.0 H (79.4-94.8) fl MCH 31.6 (25.6-32.2) pg MCHC 31.0 L (32.2-35.5) g/dl RDW Std Deviation 55.5 H (36.4-46.3) fL Plt Count 229 (182-369) K/mm3 MPV 8.9 L (9.4-12.3) fl Neut % (Auto) 87.4 H (34.0-71.1) % Lymph % (Auto) 6.8 L (19.3-51.7) % Burt % (Auto) 5.3 (4.7-12.5) % Eos % (Auto) 0 L (0.7-5.8) Baso % (Auto) 0.1 (0.1-1.2) % Neut # (Auto) 5.95 (1.56-6.13) K/mm3 Lymph # (Auto) 0.46 L (1.18-3.74) K/mm3 Burt # (Auto) 0.36 (0.24-0.36) K/mm3 Eos # (Auto) 0.00 L (0.04-0.36) K/mm3 Baso # (Auto) 0.01 (0.01-0.08) K/mm3 Manual Slide Review Abnormal smear PT 17.2 H (9.7-11.7) SECONDS INR 1.62 D-Dimer, Quantitative 0.32 (0.19-0.50) mg/L Sodium (136-145) mEq/L Potassium (3.5-5.1) mEq/L Chloride (98-107) mEq/L Carbon Dioxide (21-32) mEq/L Anion Gap (5-15) BUN (7-18) mg/dL Creatinine (0.55-1.02) mg/dL Est Cr Clr Drug Dosing mL/min Estimated GFR (MDRD) (>60) mL/min BUN/Creatinine Ratio (14-18) Glucose (74-106) mg/dL POC Glucose 192 H (70-105) mg/dL Hemoglobin A1c (4.50-6.20) % Calcium (8.5-10.1) mg/dL Phosphorus (2.6-4.7) mg/dL Magnesium (1.8-2.4) mg/dl Total Bilirubin (0.2-1.0) mg/dL AST (15-37) U/L ALT (14-59) U/L Alkaline Phosphatase (46-116) U/L C-Reactive Protein (<1.0) mg/dL Total Protein (6.4-8.2) g/dl Albumin (3.4-5.0) g/dl Globulin gm/dL Albumin/Globulin Ratio (1-2) Vitamin D 25-Hydroxy (30.0-100.0) ng/ml 07/21/20 07/21/20 07/21/20 Range/Units 05:44 06:58 10:59 WBC (3.98-10.04) K/mm3 RBC (3.98-5.22) M/mm3 Hgb (11.2-15.7) gm/dl Hct (34.1-44.9) % MCV (79.4-94.8) fl MCH (25.6-32.2) pg MCHC (32.2-35.5) g/dl RDW Std Deviation (36.4-46.3) fL Plt Count (182-369) K/mm3 MPV (9.4-12.3) fl Neut % (Auto) (34.0-71.1) % Lymph % (Auto) (19.3-51.7) % Burt % (Auto) (4.7-12.5) % Eos % (Auto) (0.7-5.8) Baso % (Auto) (0.1-1.2) % Neut # (Auto) (1.56-6.13) K/mm3 Lymph # (Auto) (1.18-3.74) K/mm3 Burt # (Auto) (0.24-0.36) K/mm3 Eos # (Auto) (0.04-0.36) K/mm3 Baso # (Auto) (0.01-0.08) K/mm3 Manual Slide Review PT (9.7-11.7) SECONDS INR D-Dimer, Quantitative (0.19-0.50) mg/L Sodium 140 (136-145) mEq/L Potassium 4.1 (3.5-5.1) mEq/L Chloride 101 (98-107) mEq/L Carbon Dioxide 30 (21-32) mEq/L Anion Gap 13.1 (5-15) BUN 24 H (7-18) mg/dL Creatinine 0.8 (0.55-1.02) mg/dL Est Cr Clr Drug Dosing 74.38 mL/min Estimated GFR (MDRD) > 60 (>60) mL/min BUN/Creatinine Ratio 30.0 H (14-18) Glucose 194 H (74-106) mg/dL POC Glucose 152 H 218 H (70-105) mg/dL Hemoglobin A1c (4.50-6.20) % Calcium 9.0 (8.5-10.1) mg/dL Phosphorus 3.2 (2.6-4.7) mg/dL Magnesium 1.9 (1.8-2.4) mg/dl Total Bilirubin 0.3 (0.2-1.0) mg/dL AST 23 (15-37) U/L ALT 20 (14-59) U/L Alkaline Phosphatase 36 L (46-116) U/L C-Reactive Protein 6.7 H* (<1.0) mg/dL Total Protein 8.1 (6.4-8.2) g/dl Albumin 2.8 L (3.4-5.0) g/dl Globulin 5.3 gm/dL Albumin/Globulin Ratio 0.5 L (1-2) Vitamin D 25-Hydroxy (30.0-100.0) ng/ml [place] Results Last 24 Hours: Microbiology 07/19/20 12:05 Aerobic Blood Culture - Preliminary Blood - Venous NO GROWTH AFTER 1 DAY Anaerobic Blood Culture - Preliminary NO GROWTH AFTER 1 DAY 07/19/20 12:10 Aerobic Blood Culture - Preliminary Blood - Venous - Lab Draw NO GROWTH AFTER 1 DAY Anaerobic Blood Culture - Preliminary NO GROWTH AFTER 1 DAY Med Orders - Current: Current Medications Acetaminophen (Tylenol) 650 mg PO Q4H PRN PRN Reason: Fever Greater Than 101 Last Admin: 07/21/20 07:30 Dose: 650 mg Documented by: Allopurinol (Zyloprim) 200 mg PO DAILY [facility] Last Admin: 07/21/20 08:19 Dose: 200 mg Documented by: Atenolol (Tenormin) 25 mg PO DAILY [facility] Last Admin: 07/21/20 08:20 Dose: 25 mg Documented by: Calcium Carbonate/Glycine (Tums) 500 mg PO DAILY PRN PRN Reason: GERD Dexamethasone (Dexamethasone) 6 mg PO Q24H [facility] Stop: 07/28/20 15:01 Last Admin: 07/20/20 16:16 Dose: 6 mg Documented by: Diltiazem HCl (Cardizem) 60 mg PO BID [facility] Last Admin: 07/21/20 08:18 Dose: 60 mg Documented by: Hydrochlorothiazide (Hydrochlorothiazide) 12.5 mg PO DAILY [facility] Last Admin: 07/21/20 08:19 Dose: 12.5 mg Documented by: Remdesivir 100 mg/ Sodium (Chloride) 100 mls @ 100 mls/hr IV Q24H [facility] Stop: 07/23/20 21:59 Last Admin: 07/20/20 21:38 Dose: 100 mls/hr Documented by: Ceftriaxone Sodium 2 gm/ (Sodium Chloride) 100 mls @ 200 mls/hr IV Q24H [facility] Stop: 07/24/20 00:29 Last Admin: 07/20/20 23:23 Dose: 200 mls/hr Documented by: Azithromycin 500 mg/ Sodium (Chloride) 250 mls @ 250 mls/hr IV Q24H [facility] Stop: 07/22/20 01:29 Last Admin: 07/21/20 01:02 Dose: 250 mls/hr Documented by: Insulin Human Lispro (Humalog) 0 unit SUBCUT QIDACANDBED [facility]; Protocol Last Admin: 07/21/20 08:17 Dose: 1 units Documented by: Lorazepam (Ativan) 1 mg PO BEDTIME [facility] Last Admin: 07/20/20 21:39 Dose: 1 mg Documented by: Ondansetron HCl (Zofran) 4 mg IV Q4H PRN PRN Reason: Nausea/Vomiting Pantoprazole Sodium (Protonix) 40 mg PO DAILY@0700 [facility] Last Admin: 07/21/20 06:55 Dose: 40 mg Documented by: Potassium Chloride (Klor-Con M20) 20 meq PO DAILY [facility] Last Admin: 07/21/20 08:24 Dose: 20 meq Documented by: Risperidone (Risperidal) 2 mg PO DAILY [facility] Last Admin: 07/21/20 08:19 Dose: 2 mg Documented by: Risperidone (Risperidal) 4 mg PO BEDTIME [facility] Last Admin: 07/20/20 21:39 Dose: 4 mg Documented by: Sertraline HCl (Zoloft) 150 mg PO DAILY [facility] Last Admin: 07/21/20 08:20 Dose: 150 mg Documented by: Simvastatin (Zocor) 20 mg PO BEDTIME [facility] Last Admin: 07/20/20 21:39 Dose: 20 mg Documented by: Sodium Chloride (Saline Flush) 10 ml FLUSH ASDIRECTED PRN PRN Reason: Keep Vein Open Last Admin: 07/19/20 11:46 Dose: 10 ml Documented by: Warfarin Sodium (Pharmacy To Dose - Warfarin) 1 dose .XX ASDIRECTED PRN PRN Reason: RX TO DOSE WARFARIN Warfarin Sodium (Coumadin) 7.5 mg PO QPM [facility] Stop: 07/21/20 18:01 Discontinued Medications Dexamethasone (Dexamethasone) 6 mg IVPUSH ONETIME ONE Stop: 07/19/20 14:20 Last Admin: 07/19/20 15:07 Dose: 6 mg Documented by: Furosemide (Lasix) 20 mg IVPUSH ONETIME ONE Stop: 07/19/20 23:31 Last Admin: 07/20/20 00:05 Dose: 20 mg Documented by: Sodium Chloride (Normal Saline) 1,000 mls @ 1,000 mls/hr IV ONETIME ONE Stop: 07/19/20 13:41 Last Admin: 07/19/20 14:24 Dose: 1,000 mls/hr Documented by: Sodium Chloride (Normal Saline) 1,000 mls @ 75 mls/hr IV ASDIRECTED [facility] Remdesivir 200 mg/ Sodium (Chloride) 250 mls @ 250 mls/hr IV ONETIME ONE Stop: 07/19/20 21:29 Last Admin: 07/19/20 21:49 Dose: 250 mls/hr Documented by: Sodium Chloride (Normal Saline) 250 mls @ 50 mls/hr IV ASDIRECTED [facility] Last Admin: 07/19/20 23:30 Dose: 50 mls/hr Documented by: Pantoprazole Sodium (Protonix) 40 mg PO DAILY@0700 [facility] Warfarin Sodium (Coumadin) 5 mg PO ONETIME ONE Stop: 07/19/20 23:01 Last Admin: 07/19/20 23:32 Dose: 5 mg Documented by: Warfarin Sodium (Coumadin) 7.5 mg PO QPM [facility] Stop: 07/20/20 18:01 Last Admin: 07/20/20 17:09 Dose: 7.5 mg Documented by: - Exam Quality Assessment: Supplemental Oxygen (high flow O2), Urine Catheter, DVT Prophylaxis (on coumadin) General: Alert, Oriented, Cooperative, Moderate Distress HEENT: Pupils Equal, Mucous Membr. Moist/[place] Neck: Supple, Trachea Midline. No: Lymphadenopathy Lungs: Decreased Breath Sounds, Rales, Rhonchi (throughout) Cardiovascular: Irregular Rhythm GI/Abdominal Exam: Normal Bowel Sounds, Soft, Non-Tender, No Distention, Other (obese) (Female) Exam: Deferred Back Exam: Normal Inspection, Full Range of Motion Extremities: Normal Inspection, Normal Range of Motion, Non-Tender, No Pedal Edema, Normal Capillary Refill Peripheral Pulses: 2+: Radial (L), Radial (R), Dorsalis Pedis (L), Dorsalis Pedis (R) Skin: Warm, Dry, Intact Neurological: No New Focal Deficit Psy/Mental Status: Alert, Normal Affect, Normal Mood Sepsis Event Note - Evaluation Sepsis Screening Result: Sepsis Risk - Focused Exam Vital Signs: Vital Signs Temp Pulse Resp BP Pulse Ox Pulse Ox 07/21/20 08:23 98.2 F 87 24 H 149/78 H 92 L 07/21/20 08:20 82 149/78 H 07/21/20 06:48 98.4 F 110 H 18 130/98 H 92 L 07/21/20 05:58 90 L 07/21/20 02:40 90 L - Problem List & Annotations (1) Pneumonia due to COVID-19 virus SNOMED Code(s): 619832644511943237 Code(s): U07.1 - COVID-19; J12.89 - OTHER VIRAL PNEUMONIA Status: Acute Priority: High Current Visit: Yes (2) Renal insufficiency SNOMED Code(s): 849342703, 656484532 Code(s): N28.9 - DISORDER OF KIDNEY AND URETER, UNSPECIFIED Status: Acute Priority: High Current Visit: Yes (3) Afib, Atrial fibrillation SNOMED Code(s): 93921511 Code(s): I48.91 - UNSPECIFIED ATRIAL FIBRILLATION Status: Chronic Priority: Medium Current Visit: No (4) HTN, Essential hypertension SNOMED Code(s): 22325631 Code(s): I10 - ESSENTIAL (PRIMARY) HYPERTENSION Status: Chronic Priority: Medium Current Visit: No (5) Morbid obesity SNOMED Code(s): 201143952 Code(s): E66.01 - MORBID (SEVERE) OBESITY DUE TO EXCESS CALORIES Status: Chronic Priority: Medium Current Visit: No - Problem List Review Problem List Initiated/Reviewed/Updated: Yes - My Orders Last 24 Hours: My Active Orders 07/20/20 10:27 Chest 1V Frontal [CR] Routine 07/20/20 11:00 Insulin Lispro [HumaLOG] See Protocol SUBCUT QIDACANDBED 07/20/20 15:00 dexAMETHasone 6 mg PO Q24H 07/20/20 Dinner Consistent Carbohydrate Diet [DIET] - Assessment Assessment:: 07/20/20 * Requiring 6L/NC * Requiring sliding scale insulin starting today * Day 2 Remdesivir and Dexamethasone * Day 2 Rocephin and Zithromax * Awaiting BC results * Diabetic diet * Awaiting A1C Plan * Chest x-ray in the morning * FiO2 to keep SPO2 between 88 and 94%. Currently on 6L/NC * Monitor I's and O's closely. Patient is at risk for fluid overload which is dangerous in this patient population. * Continue atenolol and diltiazem for rate control. * Pharmacy to dose warfarin. * Teixeira catheter for strict I's and O's * Limited echocardiogram in the morning to assess for left heart function and diastolic dysfunction * Monitor for hypoxemia 07/21/20 * Requiring high-flow O2. * Requiring sliding scale insulin starting today * Day 3 Remdesivir and Dexamethasone * Day 3 Rocephin and Zithromax * Blood cultures show no growth after 24 hours * Diabetic diet * A1C is 6.40 * Limited echo technically difficult study with suboptimal image quality related to body habitus. Unable to assess left ventricular ejection fraction or regional wall motion. Valves not well visualized. Recommend use of Definity contrast with future studies. * D-dimer is up from 0.27 to 0.32 * BUN 24 * creatinine 0.8 * GFR greater than 60 * C-reactive protein 6.7 * Blood cultures show no growth after two days * UA is unremarkable for infection. Plan * FiO2 to keep SPO2 between 88 and 94%. High flow O2 * Monitor I's and O's closely. Patient is at risk for fluid overload which is dangerous in this patient population. * Continue atenolol and diltiazem for rate control. * Pharmacy to dose warfarin. * Teixeira catheter for strict I's and O's * Start alogliptin today * Monitor for hypoxemia - Plan Plan:: COVID-19 with pneumonia and hypoxemia Lactic acidosis * On high-flow O2 to keep O2 sats >90% * Day 3 Remdesivir and Dexamethasone * Has received convalescent plasma * Sliding scale started due to hyperglycemic effects of Dexamethasone * Incentive spirometer * Encourage prone positioning * Repeat labs as needed. * Day 3 of zithromax and rocephin Atrial fibrillation, hypertension, CHF, hyperlipidemia, peripheral edema * On warfarin 5 mg daily. * Continue strict I&O * Pharmacy to dose warfarin Anxiety, depression, schizophrenia * It appears she is on both Zoloft and Paxil at [place]. * Risperdal twice daily PROPHYLAXIS: DVT- home Warfarin GI-home CODE STATUS: Full Code DISPOSITION: Admit to medical floor for treatment of COVID-19. Length of stay will likely be greater than 96 hours due to treatment for COVID. PT/OT to eval and treat patient.
[2020-07-21] MEDS: Dexamethasone 4 MG Tab PO SCH (14:24)
[2020-07-21] MEDS ORDERED: Warfarin 7.5 MG Tab PO SCH (18:00)
[2020-07-21] MEDS: Aluminum Hydroxide/Magnesium Hydroxide/Simethicone Susp 30 ML Cup PO PRN (18:58)
[2020-07-21] MEDS: REMDESIVIR (EUA) 100 MG in Sodium Chloride 0.9% 100 ML IV SCH (21:05)
[2020-07-21] MEDS: Simvastatin 20 MG Tab PO SCH (21:10)
[2020-07-21] MEDS: LORazepam 1 MG Tab PO SCH (21:10)
[2020-07-22] MEDS: cefTRIAXone 2 GM in Sodium Chloride 0.9% 100 ML IV SCH (00:06)
[2020-07-22] MEDS: Azithromycin 500 MG in Sodium Chloride 0.9% 250 ML IV SCH (00:45)
[2020-07-22] MEDS: Pantoprazole 40 MG Tab.CR PO SCH (06:29)
[2020-07-22] MEDS ORDERED: Potassium Chloride 20 MEQ Tab.ER PO ONE (09:01)
[2020-07-22] MEDS: Sertraline 50 MG Tab PO SCH (09:29)
[2020-07-22] MEDS: risperiDONE 1 MG Tab PO SCH ×2 (09:30→21:17)
[2020-07-22] MEDS: Diltiazem IR 60 MG Tab PO SCH ×2 (09:30→21:16)
[2020-07-22] MEDS ORDERED: Magnesium Sulfate/Water 2 GM/50 ML BAG IV ONE (09:30)
[2020-07-22] MEDS: Allopurinol 100 MG Tab PO SCH (09:31)
[2020-07-22] MEDS: Hydrochlorothiazide 12.5 MG Cap PO SCH (09:32)
[2020-07-22] MEDS: Atenolol 25 MG Tab PO SCH (09:32)
[2020-07-22] MEDS: Potassium Chloride 20 MEQ Tab.ER PO SCH (09:33)
[2020-07-22] MEDS: Insulin Lispro 100 Units/ML 3 ML Vial SUBCUT SCH ×4 (09:34→22:30)
--- NOTE | 2020-07-22 11:42 | PCM.PN ---
- General Info Date of Service: 07/22/20 Admission Dx/Problem (Free Text): Admission Diagnosis/Problem Admission Diagnosis/Problem Pneumonia Subjective Update: Feels tired. More shortness of breath noted. Functional Status: Reports: Pain Controlled, Tolerating Diet, Urinating (catheter), Incentive Spirometry - Review of Systems General: Reports: Weakness, Fatigue HEENT: Reports: No Symptoms Pulmonary: Reports: Shortness of Breath, Cough, Wheezing. Denies: Sputum Cardiovascular: Reports: Dyspnea on Exertion. Denies: Edema Gastrointestinal: Reports: No Symptoms Genitourinary: Reports: Other (teixeira catheter for strict I&O) Musculoskeletal: Reports: No Symptoms Skin: Reports: No Symptoms Neurological: Reports: No Symptoms Psychiatric: Reports: No Symptoms - Patient Data Vitals - Most Recent: Last Vital Signs Temp 98.1 F 07/22/20 09:07 Pulse 65 07/22/20 09:32 Resp 24 H 07/22/20 09:07 BP 134/91 H 07/22/20 09:32 Pulse Ox 92 L 07/22/20 09:07 Weight - Most Recent: 384 lb I&O - Last 24 Hours: Intake & Output 07/21/20 07/22/20 07/22/20 22:59 06:59 14:59 Intake Total 390 1100 Output Total 350 Balance 40 1100 Lab Results Last 24 Hours: Laboratory Results - last 24 hr 07/21/20 07/21/20 07/21/20 Range/Units 12:15 16:21 20:56 WBC (3.98-10.04) K/mm3 RBC (3.98-5.22) M/mm3 Hgb (11.2-15.7) gm/dl Hct (34.1-44.9) % MCV (79.4-94.8) fl MCH (25.6-32.2) pg MCHC (32.2-35.5) g/dl RDW Std Deviation (36.4-46.3) fL Plt Count (182-369) K/mm3 MPV (9.4-12.3) fl Neut % (Auto) (34.0-71.1) % Lymph % (Auto) (19.3-51.7) % [place] % (Auto) (4.7-12.5) % Eos % (Auto) (0.7-5.8) Baso % (Auto) (0.1-1.2) % Neut # (Auto) (1.56-6.13) K/mm3 Lymph # (Auto) (1.18-3.74) K/mm3 [place] # (Auto) (0.24-0.36) K/mm3 Eos # (Auto) (0.04-0.36) K/mm3 Baso # (Auto) (0.01-0.08) K/mm3 Manual Slide Review PT (9.7-11.7) SECONDS INR D-Dimer, Quantitative (0.19-0.50) mg/L Sodium (136-145) mEq/L Potassium (3.5-5.1) mEq/L Chloride (98-107) mEq/L Carbon Dioxide (21-32) mEq/L Anion Gap (5-15) BUN (7-18) mg/dL Creatinine (0.55-1.02) mg/dL Est Cr Clr Drug Dosing mL/min Estimated GFR (MDRD) (>60) mL/min BUN/Creatinine Ratio (14-18) Glucose (74-106) mg/dL POC Glucose 130 H 264 H (70-105) mg/dL Calcium (8.5-10.1) mg/dL Phosphorus (2.6-4.7) mg/dL Magnesium (1.8-2.4) mg/dl Total Bilirubin (0.2-1.0) mg/dL AST (15-37) U/L ALT (14-59) U/L Alkaline Phosphatase (46-116) U/L C-Reactive Protein (<1.0) mg/dL Total Protein (6.4-8.2) g/dl Albumin (3.4-5.0) g/dl Globulin gm/dL Albumin/Globulin Ratio (1-2) Urine Color Yellow (Yellow) Urine Appearance Clear (Clear) Urine pH 5.5 (5.0-8.0) Ur Specific [place] > or = 1.030 (1.005-1.030) Urine Protein 3+ H (Negative) Urine Glucose (UA) Negative (Negative) Urine Ketones Negative (Negative) Urine Occult Blood 3+ H (Negative) Urine Nitrite Negative (Negative) Urine Bilirubin Negative (Negative) Urine Urobilinogen 0.2 (0.2-1.0) Ur Leukocyte Esterase Negative (Negative) Urine RBC 30-40 H (0-5) /hpf Urine WBC 0-5 (0-5) /hpf Ur Squamous Epith Cells 0-5 (0-5) /hpf Urine Bacteria Few (FEW) /hpf Urine Mucus Few (FEW) /hpf 07/22/20 07/22/20 07/22/20 Range/Units 04:28 04:28 04:28 WBC 5.20 (3.98-10.04) K/mm3 RBC 4.14 (3.98-5.22) M/mm3 Hgb 12.9 (11.2-15.7) gm/dl Hct 41.9 (34.1-44.9) % MCV 101.2 H (79.4-94.8) fl MCH 31.2 (25.6-32.2) pg MCHC 30.8 L (32.2-35.5) g/dl RDW Std Deviation 53.2 H (36.4-46.3) fL Plt Count 228 (182-369) K/mm3 MPV 8.9 L (9.4-12.3) fl Neut % (Auto) 85.2 H (34.0-71.1) % Lymph % (Auto) 7.3 L (19.3-51.7) % [place] % (Auto) 6.9 (4.7-12.5) % Eos % (Auto) 0 L (0.7-5.8) Baso % (Auto) 0.0 L (0.1-1.2) % Neut # (Auto) 4.43 (1.56-6.13) K/mm3 Lymph # (Auto) 0.38 L (1.18-3.74) K/mm3 [place] # (Auto) 0.36 (0.24-0.36) K/mm3 Eos # (Auto) 0.00 L (0.04-0.36) K/mm3 Baso # (Auto) 0.00 L (0.01-0.08) K/mm3 Manual Slide Review Abnormal smear PT 19.9 H (9.7-11.7) SECONDS INR 1.88 D-Dimer, Quantitative 0.35 (0.19-0.50) mg/L Sodium 141 (136-145) mEq/L Potassium 3.8 (3.5-5.1) mEq/L Chloride 103 (98-107) mEq/L Carbon Dioxide 32 (21-32) mEq/L Anion Gap 9.8 (5-15) BUN 22 H (7-18) mg/dL Creatinine 0.8 (0.55-1.02) mg/dL Est Cr Clr Drug Dosing 74.38 mL/min Estimated GFR (MDRD) > 60 (>60) mL/min BUN/Creatinine Ratio 27.5 H (14-18) Glucose 239 H (74-106) mg/dL POC Glucose (70-105) mg/dL Calcium 8.7 (8.5-10.1) mg/dL Phosphorus 2.8 (2.6-4.7) mg/dL Magnesium 1.8 (1.8-2.4) mg/dl Total Bilirubin 0.2 (0.2-1.0) mg/dL AST 19 (15-37) U/L ALT 22 (14-59) U/L Alkaline Phosphatase 31 L (46-116) U/L C-Reactive Protein 5.8 H* (<1.0) mg/dL Total Protein 7.1 (6.4-8.2) g/dl Albumin 2.4 L (3.4-5.0) g/dl Globulin 4.7 gm/dL Albumin/Globulin Ratio 0.5 L (1-2) Urine Color (Yellow) Urine Appearance (Clear) Urine pH (5.0-8.0) Ur Specific [place] (1.005-1.030) Urine Protein (Negative) Urine Glucose (UA) (Negative) Urine Ketones (Negative) Urine Occult Blood (Negative) Urine Nitrite (Negative) Urine Bilirubin (Negative) Urine Urobilinogen (0.2-1.0) Ur Leukocyte Esterase (Negative) Urine RBC (0-5) /hpf Urine WBC (0-5) /hpf Ur Squamous Epith Cells (0-5) /hpf Urine Bacteria (FEW) /hpf Urine Mucus (FEW) /hpf 07/22/20 Range/Units 06:31 WBC (3.98-10.04) K/mm3 RBC (3.98-5.22) M/mm3 Hgb (11.2-15.7) gm/dl Hct (34.1-44.9) % MCV (79.4-94.8) fl MCH (25.6-32.2) pg MCHC (32.2-35.5) g/dl RDW Std Deviation (36.4-46.3) fL Plt Count (182-369) K/mm3 MPV (9.4-12.3) fl Neut % (Auto) (34.0-71.1) % Lymph % (Auto) (19.3-51.7) % [place] % (Auto) (4.7-12.5) % Eos % (Auto) (0.7-5.8) Baso % (Auto) (0.1-1.2) % Neut # (Auto) (1.56-6.13) K/mm3 Lymph # (Auto) (1.18-3.74) K/mm3 [place] # (Auto) (0.24-0.36) K/mm3 Eos # (Auto) (0.04-0.36) K/mm3 Baso # (Auto) (0.01-0.08) K/mm3 Manual Slide Review PT (9.7-11.7) SECONDS INR D-Dimer, Quantitative (0.19-0.50) mg/L Sodium (136-145) mEq/L Potassium (3.5-5.1) mEq/L Chloride (98-107) mEq/L Carbon Dioxide (21-32) mEq/L Anion Gap (5-15) BUN (7-18) mg/dL Creatinine (0.55-1.02) mg/dL Est Cr Clr Drug Dosing mL/min Estimated GFR (MDRD) (>60) mL/min BUN/Creatinine Ratio (14-18) Glucose (74-106) mg/dL POC Glucose 173 H (70-105) mg/dL Calcium (8.5-10.1) mg/dL Phosphorus (2.6-4.7) mg/dL Magnesium (1.8-2.4) mg/dl Total Bilirubin (0.2-1.0) mg/dL AST (15-37) U/L ALT (14-59) U/L Alkaline Phosphatase (46-116) U/L C-Reactive Protein (<1.0) mg/dL Total Protein (6.4-8.2) g/dl Albumin (3.4-5.0) g/dl Globulin gm/dL Albumin/Globulin Ratio (1-2) Urine Color (Yellow) Urine Appearance (Clear) Urine pH (5.0-8.0) Ur Specific [place] (1.005-1.030) Urine Protein (Negative) Urine Glucose (UA) (Negative) Urine Ketones (Negative) Urine Occult Blood (Negative) Urine Nitrite (Negative) Urine Bilirubin (Negative) Urine Urobilinogen (0.2-1.0) Ur Leukocyte Esterase (Negative) Urine RBC (0-5) /hpf Urine WBC (0-5) /hpf Ur Squamous Epith Cells (0-5) /hpf Urine Bacteria (FEW) /hpf Urine Mucus (FEW) /hpf [place] Results Last 24 Hours: Microbiology 07/19/20 12:05 Aerobic Blood Culture - Preliminary Blood - Venous NO GROWTH AFTER 2 DAYS Anaerobic Blood Culture - Preliminary NO GROWTH AFTER 2 DAYS 07/19/20 12:10 Aerobic Blood Culture - Preliminary Blood - Venous - Lab Draw NO GROWTH AFTER 2 DAYS Anaerobic Blood Culture - Preliminary NO GROWTH AFTER 2 DAYS Med Orders - Current: Current Medications Acetaminophen (Tylenol) 650 mg PO Q4H PRN PRN Reason: Fever Greater Than 101 Last Admin: 07/21/20 16:35 Dose: 650 mg Documented by: Al Hydroxide/Mg Hydroxide (Mag-Al Plus) 30 ml PO Q4H PRN PRN Reason: Dyspepsia Last Admin: 07/21/20 18:58 Dose: 30 ml Documented by: Allopurinol (Zyloprim) 200 mg PO DAILY [facility] Last Admin: 07/22/20 09:31 Dose: 200 mg Documented by: Alogliptin Benzoate (Alogliptin) 25 mg PO DAILY [facility] Last Admin: 07/22/20 09:32 Dose: 25 mg Documented by: Atenolol (Tenormin) 25 mg PO DAILY [facility] Last Admin: 07/22/20 09:32 Dose: 25 mg Documented by: Calcium Carbonate/Glycine (Tums) 500 mg PO DAILY PRN PRN Reason: GERD Dexamethasone (Dexamethasone) 6 mg PO Q24H [facility] Stop: 07/28/20 15:01 Last Admin: 07/21/20 14:24 Dose: 6 mg Documented by: Diltiazem HCl (Cardizem) 60 mg PO BID [facility] Last Admin: 07/22/20 09:30 Dose: 60 mg Documented by: Hydrochlorothiazide (Hydrochlorothiazide) 12.5 mg PO DAILY [facility] Last Admin: 07/22/20 09:32 Dose: 12.5 mg Documented by: Remdesivir 100 mg/ Sodium (Chloride) 100 mls @ 100 mls/hr IV Q24H [facility] Stop: 07/23/20 21:59 Last Admin: 07/21/20 21:05 Dose: 100 mls/hr Documented by: Ceftriaxone Sodium 2 gm/ (Sodium Chloride) 100 mls @ 200 mls/hr IV Q24H [facility] Stop: 07/24/20 00:29 Last Admin: 07/22/20 00:06 Dose: 200 mls/hr Documented by: Insulin Human Lispro (Humalog) 0 unit SUBCUT QIDACANDBED [facility]; Protocol Last Admin: 07/22/20 09:34 Dose: 1 units Documented by: Lorazepam (Ativan) 1 mg PO BEDTIME [facility] Last Admin: 07/21/20 21:10 Dose: 1 mg Documented by: Ondansetron HCl (Zofran) 4 mg IV Q4H PRN PRN Reason: Nausea/Vomiting Pantoprazole Sodium (Protonix) 40 mg PO DAILY@0700 [facility] Last Admin: 07/22/20 06:29 Dose: 40 mg Documented by: Potassium Chloride (Klor-Con M20) 20 meq PO DAILY [facility] Last Admin: 07/22/20 09:33 Dose: 20 meq Documented by: Risperidone (Risperidal) 2 mg PO DAILY [facility] Last Admin: 07/22/20 09:30 Dose: 2 mg Documented by: Risperidone (Risperidal) 4 mg PO BEDTIME [facility] Last Admin: 07/21/20 21:09 Dose: 4 mg Documented by: Sertraline HCl (Zoloft) 150 mg PO DAILY [facility] Last Admin: 07/22/20 09:29 Dose: 150 mg Documented by: Simvastatin (Zocor) 20 mg PO BEDTIME [facility] Last Admin: 07/21/20 21:10 Dose: 20 mg Documented by: Sodium Chloride (Saline Flush) 10 ml FLUSH ASDIRECTED PRN PRN Reason: Keep Vein Open Last Admin: 07/19/20 11:46 Dose: 10 ml Documented by: Warfarin Sodium (Pharmacy To Dose - Warfarin) 1 dose .XX ASDIRECTED PRN PRN Reason: RX TO DOSE WARFARIN Warfarin Sodium (Coumadin) 7.5 mg PO QPM [facility] Stop: 07/22/20 18:01 Discontinued Medications Dexamethasone (Dexamethasone) 6 mg IVPUSH ONETIME ONE Stop: 07/19/20 14:20 Last Admin: 07/19/20 15:07 Dose: 6 mg Documented by: Furosemide (Lasix) 20 mg IVPUSH ONETIME ONE Stop: 07/19/20 23:31 Last Admin: 07/20/20 00:05 Dose: 20 mg Documented by: Sodium Chloride (Normal Saline) 1,000 mls @ 1,000 mls/hr IV ONETIME ONE Stop: 07/19/20 13:41 Last Admin: 07/19/20 14:24 Dose: 1,000 mls/hr Documented by: Sodium Chloride (Normal Saline) 1,000 mls @ 75 mls/hr IV ASDIRECTED [facility] Remdesivir 200 mg/ Sodium (Chloride) 250 mls @ 250 mls/hr IV ONETIME ONE Stop: 07/19/20 21:29 Last Admin: 07/19/20 21:49 Dose: 250 mls/hr Documented by: Sodium Chloride (Normal Saline) 250 mls @ 50 mls/hr IV ASDIRECTED [facility] Last Admin: 07/19/20 23:30 Dose: 50 mls/hr Documented by: Azithromycin 500 mg/ Sodium (Chloride) 250 mls @ 250 mls/hr IV Q24H [facility] Stop: 07/22/20 01:29 Last Admin: 07/22/20 00:45 Dose: 250 mls/hr Documented by: Magnesium Sulfate (Magnesium Sulfate In Water Premix) 2 gm in 50 mls @ 25 mls/hr IV ONETIME ONE Stop: 07/22/20 11:29 Last Admin: 07/22/20 09:34 Dose: 25 mls/hr Documented by: Pantoprazole Sodium (Protonix) 40 mg PO DAILY@0700 [facility] Potassium Chloride (Klor-Con M20) 20 meq PO ONETIME ONE Stop: 07/22/20 09:02 Last Admin: 07/22/20 09:33 Dose: 20 meq Documented by: Warfarin Sodium (Coumadin) 5 mg PO ONETIME ONE Stop: 07/19/20 23:01 Last Admin: 07/19/20 23:32 Dose: 5 mg Documented by: Warfarin Sodium (Coumadin) 7.5 mg PO QPM [facility] Stop: 07/20/20 18:01 Last Admin: 07/20/20 17:09 Dose: 7.5 mg Documented by: Warfarin Sodium (Coumadin) 7.5 mg PO QPM [facility] Stop: 07/21/20 18:01 Last Admin: 07/21/20 17:33 Dose: 7.5 mg Documented by: - Exam Quality Assessment: Supplemental Oxygen (high flow O2), Urine Catheter, DVT Prophylaxis (on coumadin for afib) General: Alert, Oriented, Cooperative, Moderate Distress HEENT: Pupils Equal, Mucous Membr. Moist/[place] Neck: Supple, Trachea Midline. No: Lymphadenopathy Lungs: Decreased Breath Sounds, Rales, Rhonchi, Wheezing Cardiovascular: Irregular Rhythm GI/Abdominal Exam: Normal Bowel Sounds, Soft, Non-Tender, No Distention (Female) Exam: Deferred Back Exam: Normal Inspection, Full Range of Motion Extremities: Normal Inspection, Normal Range of Motion, Non-Tender, No Pedal Edema, Normal Capillary Refill Peripheral Pulses: 2+: Radial (L), Radial (R), Dorsalis Pedis (L), Dorsalis Pedis (R) Skin: Warm, Dry, Intact Neurological: No New Focal Deficit Psy/Mental Status: Alert, Normal Affect, Normal Mood Sepsis Event Note - Evaluation Sepsis Screening Result: No Definite Risk - Focused Exam Vital Signs: Vital Signs Temp Pulse Resp BP Pulse Ox Pulse Ox 07/22/20 09:32 65 134/91 H 07/22/20 09:07 98.1 F 65 24 H 134/91 H 92 L 07/22/20 09:04 90 L 07/22/20 05:37 91 L 07/22/20 03:43 98.1 F 79 16 130/51 L 91 L 07/22/20 01:14 94 L 07/22/20 00:14 97.5 F 96 20 144/78 H 91 L - Problem List & Annotations (1) Pneumonia due to COVID-19 virus SNOMED Code(s): 918188230956224283 Code(s): U07.1 - COVID-19; J12.89 - OTHER VIRAL PNEUMONIA Status: Acute Priority: High Current Visit: Yes (2) Renal insufficiency SNOMED Code(s): 121530658, 618714207 Code(s): N28.9 - DISORDER OF KIDNEY AND URETER, UNSPECIFIED Status: Acute Priority: High Current Visit: Yes (3) Afib, Atrial fibrillation SNOMED Code(s): 66640121 Code(s): I48.91 - UNSPECIFIED ATRIAL FIBRILLATION Status: Chronic Priority: Medium Current Visit: No (4) HTN, Essential hypertension SNOMED Code(s): 96964795 Code(s): I10 - ESSENTIAL (PRIMARY) HYPERTENSION Status: Chronic Priority: Medium Current Visit: No (5) Morbid obesity SNOMED Code(s): 475517683 Code(s): E66.01 - MORBID (SEVERE) OBESITY DUE TO EXCESS CALORIES Status: Chronic Priority: Medium Current Visit: No - Problem List Review Problem List Initiated/Reviewed/Updated: Yes - My Orders Last 24 Hours: My Active Orders 07/21/20 12:00 Alogliptin Benzoate [Alogliptin] 25 mg PO DAILY - Assessment Assessment:: 07/20/20 * Requiring 6L/NC * Requiring sliding scale insulin starting today * Day 2 Remdesivir and Dexamethasone * Day 2 Rocephin and Zithromax * Awaiting BC results * Diabetic diet * Awaiting A1C Plan * Chest x-ray in the morning * FiO2 to keep SPO2 between 88 and 94%. Currently on 6L/NC * Monitor I's and O's closely. Patient is at risk for fluid overload which is dangerous in this patient population. * Continue atenolol and diltiazem for rate control. * Pharmacy to dose warfarin. * Teixeira catheter for strict I's and O's * Limited echocardiogram in the morning to assess for left heart function and diastolic dysfunction * Monitor for hypoxemia 07/21/20 * Requiring high-flow O2. * Requiring sliding scale insulin starting today * Day 3 Remdesivir and Dexamethasone * Day 3 Rocephin and Zithromax * Blood cultures show no growth after 24 hours * Diabetic diet * A1C is 6.40 * Limited echo technically difficult study with suboptimal image quality related to body habitus. Unable to assess left ventricular ejection fraction or regional wall motion. Valves not well visualized. Recommend use of Definity contrast with future studies. * D-dimer is up from 0.27 to 0.32 * BUN 24 * creatinine 0.8 * GFR greater than 60 * C-reactive protein 6.7 * Blood cultures show no growth after two days * UA is unremarkable for infection. Plan * FiO2 to keep SPO2 between 88 and 94%. High flow O2 * Monitor I's and O's closely. Patient is at risk for fluid overload which is dangerous in this patient population. * Continue atenolol and diltiazem for rate control. * Pharmacy to dose warfarin. * Teixeira catheter for strict I's and O's * Start alogliptin today * Monitor for hypoxemia 07/22/20 * Requiring high-flow O2. * Requiring sliding scale insulin * Day 4 Remdesivir and Dexamethasone * Day 4 Rocephin * Diabetiic diet * D-dimer 0.35 * Potassium 3.8 * BUN 22 * Creatinine 0.8 * Phosphorus 2.8 * Magnesium 1.8 * CRP 5.8 * Blood cultures show no growth after 3 days Plan * FiO2 to keep SPO2 between 88 and 94%. High flow O2 * Monitor I's and O's closely. Patient is at risk for fluid overload which is dangerous in this patient population. * Continue atenolol and diltiazem for rate control. * Pharmacy to dose warfarin. * Teixeira catheter for strict I's and O's * Monitor for hypoxemia * Magnesium 2 g IV today * Potassium 20 mEq by mouth today * Respiratory therapy to continue monitor and attempting to titrate O2 for patient - Plan Plan:: COVID-19 with pneumonia and hypoxemia Lactic acidosis * On high-flow O2 to keep O2 sats >90% * Day 4 Remdesivir and Dexamethasone * Has received convalescent plasma * Continue on sliding scale insulin * Incentive spirometer * Encourage prone positioning * Repeat labs as needed. * Day 4 Rocephin Atrial fibrillation, hypertension, CHF, hyperlipidemia, peripheral edema * On warfarin 5 mg daily. * Continue strict I&O * Pharmacy to dose warfarin Anxiety, depression, schizophrenia * It appears she is on both Zoloft and Paxil at [place]. * Risperdal twice daily PROPHYLAXIS: DVT- home Warfarin GI-home CODE STATUS: Full Code DISPOSITION: Admit to medical floor for treatment of COVID-19. Length of stay will likely be greater than 96 hours due to treatment for COVID. PT/OT to eval and treat patient.
[2020-07-22] MEDS: Acetaminophen 325 MG Tab PO PRN (12:14)
[2020-07-22] MEDS: Dexamethasone 4 MG Tab PO SCH (15:58)
[2020-07-22] MEDS ORDERED: Warfarin 7.5 MG Tab PO SCH (18:00)
[2020-07-22] MEDS: LORazepam 1 MG Tab PO SCH (21:16)
[2020-07-22] MEDS: REMDESIVIR (EUA) 100 MG in Sodium Chloride 0.9% 100 ML IV SCH (21:16)
[2020-07-22] MEDS: Simvastatin 20 MG Tab PO SCH (21:18)
[2020-07-23] MEDS: cefTRIAXone 2 GM in Sodium Chloride 0.9% 100 ML IV SCH (01:12)
[2020-07-23] MEDS: Pantoprazole 40 MG Tab.CR PO SCH (07:02)
[2020-07-23] MEDS: Sertraline 50 MG Tab PO SCH (09:17)
[2020-07-23] MEDS: risperiDONE 1 MG Tab PO SCH ×2 (09:18→21:41)
[2020-07-23] MEDS: Allopurinol 100 MG Tab PO SCH (09:19)
[2020-07-23] MEDS: Atenolol 25 MG Tab PO SCH (09:19)
[2020-07-23] MEDS: Potassium Chloride 20 MEQ Tab.ER PO SCH (09:20)
[2020-07-23] MEDS: Diltiazem IR 60 MG Tab PO SCH ×2 (09:20→21:42)
[2020-07-23] MEDS: Hydrochlorothiazide 12.5 MG Cap PO SCH (09:20)
[2020-07-23] MEDS: Insulin Lispro 100 Units/ML 3 ML Vial SUBCUT SCH ×4 (09:21→21:43)
--- NOTE | 2020-07-23 09:49 | PCM.PN ---
- General Info Date of Service: 07/23/20 Admission Dx/Problem (Free Text): Admission Diagnosis/Problem Admission Diagnosis/Problem Pneumonia Subjective Update: The patient is a 55-year-old lady who was admitted on July 19, 2022 acute hospitalization. This was secondary to cough, fever and chills. Patient today says that she is feeling better. She has been tolerating diet. Functional Status: Reports: Pain Controlled, Tolerating Diet - Review of Systems General: Reports: Weakness HEENT: Reports: No Symptoms Pulmonary: Reports: Shortness of Breath Cardiovascular: Reports: No Symptoms Gastrointestinal: Reports: No Symptoms Genitourinary: Reports: No Symptoms Musculoskeletal: Reports: No Symptoms Skin: Reports: No Symptoms Neurological: Reports: No Symptoms Psychiatric: Reports: No Symptoms - Patient Data Vitals - Most Recent: Last Vital Signs Temp 36.5 C 07/23/20 07:56 Pulse 79 07/23/20 09:19 Resp 21 H 07/23/20 07:56 BP 142/68 H 07/23/20 09:19 Pulse Ox 90 L 07/23/20 08:45 Weight - Most Recent: 174.089 kg I&O - Last 24 Hours: Intake & Output 07/22/20 07/23/20 07/23/20 22:59 06:59 14:59 Intake Total 1880 680 Output Total 300 Balance 1880 380 Lab Results Last 24 Hours: Laboratory Results - last 24 hr 07/22/20 07/22/20 07/22/20 Range/Units 04:28 12:59 17:23 WBC (3.98-10.04) K/mm3 RBC (3.98-5.22) M/mm3 Hgb (11.2-15.7) gm/dl Hct (34.1-44.9) % MCV (79.4-94.8) fl MCH (25.6-32.2) pg MCHC (32.2-35.5) g/dl RDW Std Deviation (36.4-46.3) fL Plt Count (182-369) K/mm3 MPV (9.4-12.3) fl Neut % (Auto) (34.0-71.1) % Lymph % (Auto) (19.3-51.7) % [place] % (Auto) (4.7-12.5) % Eos % (Auto) (0.7-5.8) Baso % (Auto) (0.1-1.2) % Neut # (Auto) (1.56-6.13) K/mm3 Lymph # (Auto) (1.18-3.74) K/mm3 [place] # (Auto) (0.24-0.36) K/mm3 Eos # (Auto) (0.04-0.36) K/mm3 Baso # (Auto) (0.01-0.08) K/mm3 Manual Slide Review PT (9.7-11.7) SECONDS INR D-Dimer, Quantitative (0.19-0.50) mg/L Sodium (136-145) mEq/L Potassium (3.5-5.1) mEq/L Chloride (98-107) mEq/L Carbon Dioxide (21-32) mEq/L Anion Gap (5-15) BUN (7-18) mg/dL Creatinine (0.55-1.02) mg/dL Est Cr Clr Drug Dosing mL/min Estimated GFR (MDRD) (>60) mL/min BUN/Creatinine Ratio (14-18) Glucose (74-106) mg/dL POC Glucose 152 H 203 H (70-105) mg/dL Calcium (8.5-10.1) mg/dL Phosphorus (2.6-4.7) mg/dL Magnesium (1.8-2.4) mg/dl Total Bilirubin (0.2-1.0) mg/dL AST (15-37) U/L ALT (14-59) U/L Alkaline Phosphatase (46-116) U/L C-Reactive Protein (<1.0) mg/dL Total Protein (6.4-8.2) g/dl Albumin (3.4-5.0) g/dl Globulin gm/dL Albumin/Globulin Ratio (1-2) Procalcitonin <0.05 (<0.10) ng/mL 07/22/20 07/23/20 07/23/20 Range/Units 21:35 04:57 04:57 WBC 4.49 (3.98-10.04) K/mm3 RBC 4.43 (3.98-5.22) M/mm3 Hgb 13.9 (11.2-15.7) gm/dl Hct 44.5 (34.1-44.9) % MCV 100.5 H (79.4-94.8) fl MCH 31.4 (25.6-32.2) pg MCHC 31.2 L (32.2-35.5) g/dl RDW Std Deviation 51.7 H (36.4-46.3) fL Plt Count 243 (182-369) K/mm3 MPV 9.1 L (9.4-12.3) fl Neut % (Auto) 82.6 H (34.0-71.1) % Lymph % (Auto) 9.4 L (19.3-51.7) % [place] % (Auto) 7.1 (4.7-12.5) % Eos % (Auto) 0 L (0.7-5.8) Baso % (Auto) 0.2 (0.1-1.2) % Neut # (Auto) 3.71 (1.56-6.13) K/mm3 Lymph # (Auto) 0.42 L (1.18-3.74) K/mm3 [place] # (Auto) 0.32 (0.24-0.36) K/mm3 Eos # (Auto) 0.00 L (0.04-0.36) K/mm3 Baso # (Auto) 0.01 (0.01-0.08) K/mm3 Manual Slide Review Abnormal smear PT 25.5 H (9.7-11.7) SECONDS INR 2.42 D-Dimer, Quantitative 0.37 (0.19-0.50) mg/L Sodium (136-145) mEq/L Potassium (3.5-5.1) mEq/L Chloride (98-107) mEq/L Carbon Dioxide (21-32) mEq/L Anion Gap (5-15) BUN (7-18) mg/dL Creatinine (0.55-1.02) mg/dL Est Cr Clr Drug Dosing mL/min Estimated GFR (MDRD) (>60) mL/min BUN/Creatinine Ratio (14-18) Glucose (74-106) mg/dL POC Glucose 268 H (70-105) mg/dL Calcium (8.5-10.1) mg/dL Phosphorus (2.6-4.7) mg/dL Magnesium (1.8-2.4) mg/dl Total Bilirubin (0.2-1.0) mg/dL AST (15-37) U/L ALT (14-59) U/L Alkaline Phosphatase (46-116) U/L C-Reactive Protein (<1.0) mg/dL Total Protein (6.4-8.2) g/dl Albumin (3.4-5.0) g/dl Globulin gm/dL Albumin/Globulin Ratio (1-2) Procalcitonin (<0.10) ng/mL 07/23/20 07/23/20 Range/Units 04:57 07:03 WBC (3.98-10.04) K/mm3 RBC (3.98-5.22) M/mm3 Hgb (11.2-15.7) gm/dl Hct (34.1-44.9) % MCV (79.4-94.8) fl MCH (25.6-32.2) pg MCHC (32.2-35.5) g/dl RDW Std Deviation (36.4-46.3) fL Plt Count (182-369) K/mm3 MPV (9.4-12.3) fl Neut % (Auto) (34.0-71.1) % Lymph % (Auto) (19.3-51.7) % [place] % (Auto) (4.7-12.5) % Eos % (Auto) (0.7-5.8) Baso % (Auto) (0.1-1.2) % Neut # (Auto) (1.56-6.13) K/mm3 Lymph # (Auto) (1.18-3.74) K/mm3 [place] # (Auto) (0.24-0.36) K/mm3 Eos # (Auto) (0.04-0.36) K/mm3 Baso # (Auto) (0.01-0.08) K/mm3 Manual Slide Review PT (9.7-11.7) SECONDS INR D-Dimer, Quantitative (0.19-0.50) mg/L Sodium 139 (136-145) mEq/L Potassium 4.1 (3.5-5.1) mEq/L Chloride 101 (98-107) mEq/L Carbon Dioxide 31 (21-32) mEq/L Anion Gap 11.1 (5-15) BUN 23 H (7-18) mg/dL Creatinine 0.8 (0.55-1.02) mg/dL Est Cr Clr Drug Dosing 74.38 mL/min Estimated GFR (MDRD) > 60 (>60) mL/min BUN/Creatinine Ratio 28.8 H (14-18) Glucose 245 H (74-106) mg/dL POC Glucose 218 H (70-105) mg/dL Calcium 9.3 (8.5-10.1) mg/dL Phosphorus 3.4 (2.6-4.7) mg/dL Magnesium 1.8 (1.8-2.4) mg/dl Total Bilirubin 0.3 (0.2-1.0) mg/dL AST 17 (15-37) U/L ALT 25 (14-59) U/L Alkaline Phosphatase 33 L (46-116) U/L C-Reactive Protein 4.7 H* (<1.0) mg/dL Total Protein 7.7 (6.4-8.2) g/dl Albumin 2.6 L (3.4-5.0) g/dl Globulin 5.1 gm/dL Albumin/Globulin Ratio 0.5 L (1-2) Procalcitonin (<0.10) ng/mL [place] Results Last 24 Hours: Microbiology 07/19/20 12:05 Aerobic Blood Culture - Preliminary Blood - Venous NO GROWTH AFTER 3 DAYS Anaerobic Blood Culture - Preliminary NO GROWTH AFTER 3 DAYS 07/19/20 12:10 Aerobic Blood Culture - Preliminary Blood - Venous - Lab Draw NO GROWTH AFTER 3 DAYS Anaerobic Blood Culture - Preliminary NO GROWTH AFTER 3 DAYS Med Orders - Current: Current Medications Acetaminophen (Tylenol) 650 mg PO Q4H PRN PRN Reason: Fever Greater Than 101 Last Admin: 07/22/20 12:14 Dose: 650 mg Documented by: Al Hydroxide/Mg Hydroxide (Mag-Al Plus) 30 ml PO Q4H PRN PRN Reason: Dyspepsia Last Admin: 07/21/20 18:58 Dose: 30 ml Documented by: Allopurinol (Zyloprim) 200 mg PO DAILY [facility] Last Admin: 07/23/20 09:19 Dose: 200 mg Documented by: Alogliptin Benzoate (Alogliptin) 25 mg PO DAILY [facility] Last Admin: 07/23/20 09:20 Dose: 25 mg Documented by: Atenolol (Tenormin) 25 mg PO DAILY [facility] Last Admin: 07/23/20 09:19 Dose: 25 mg Documented by: Calcium Carbonate/Glycine (Tums) 500 mg PO DAILY PRN PRN Reason: GERD Dexamethasone (Dexamethasone) 6 mg PO Q24H [facility] Stop: 07/28/20 15:01 Last Admin: 07/22/20 15:58 Dose: 6 mg Documented by: Diltiazem HCl (Cardizem) 60 mg PO BID [facility] Last Admin: 07/23/20 09:20 Dose: 60 mg Documented by: Hydrochlorothiazide (Hydrochlorothiazide) 12.5 mg PO DAILY [facility] Last Admin: 07/23/20 09:20 Dose: 12.5 mg Documented by: Remdesivir 100 mg/ Sodium (Chloride) 100 mls @ 100 mls/hr IV Q24H [facility] Stop: 07/23/20 21:59 Last Admin: 07/22/20 21:16 Dose: 100 mls/hr Documented by: Ceftriaxone Sodium 2 gm/ (Sodium Chloride) 100 mls @ 200 mls/hr IV Q24H [facility] Stop: 07/24/20 00:29 Last Admin: 07/23/20 01:12 Dose: 200 mls/hr Documented by: Insulin Human Lispro (Humalog) 0 unit SUBCUT QIDACANDBED [facility]; Protocol Last Admin: 07/23/20 09:21 Dose: 2 units Documented by: Lorazepam (Ativan) 1 mg PO BEDTIME [facility] Last Admin: 07/22/20 21:16 Dose: 1 mg Documented by: Ondansetron HCl (Zofran) 4 mg IV Q4H PRN PRN Reason: Nausea/Vomiting Pantoprazole Sodium (Protonix) 40 mg PO DAILY@0700 [facility] Last Admin: 07/23/20 07:02 Dose: 40 mg Documented by: Potassium Chloride (Klor-Con M20) 20 meq PO DAILY [facility] Last Admin: 07/23/20 09:20 Dose: 20 meq Documented by: Risperidone (Risperidal) 2 mg PO DAILY [facility] Last Admin: 07/23/20 09:18 Dose: 2 mg Documented by: Risperidone (Risperidal) 4 mg PO BEDTIME [facility] Last Admin: 07/22/20 21:17 Dose: 4 mg Documented by: Sertraline HCl (Zoloft) 150 mg PO DAILY [facility] Last Admin: 07/23/20 09:17 Dose: 150 mg Documented by: Simvastatin (Zocor) 20 mg PO BEDTIME [facility] Last Admin: 07/22/20 21:18 Dose: 20 mg Documented by: Sodium Chloride (Saline Flush) 10 ml FLUSH ASDIRECTED PRN PRN Reason: Keep Vein Open Last Admin: 07/19/20 11:46 Dose: 10 ml Documented by: Warfarin Sodium (Pharmacy To Dose - Warfarin) 1 dose .XX ASDIRECTED PRN PRN Reason: RX TO DOSE WARFARIN Discontinued Medications Dexamethasone (Dexamethasone) 6 mg IVPUSH ONETIME ONE Stop: 07/19/20 14:20 Last Admin: 07/19/20 15:07 Dose: 6 mg Documented by: Furosemide (Lasix) 20 mg IVPUSH ONETIME ONE Stop: 07/19/20 23:31 Last Admin: 07/20/20 00:05 Dose: 20 mg Documented by: Sodium Chloride (Normal Saline) 1,000 mls @ 1,000 mls/hr IV ONETIME ONE Stop: 07/19/20 13:41 Last Admin: 07/19/20 14:24 Dose: 1,000 mls/hr Documented by: Sodium Chloride (Normal Saline) 1,000 mls @ 75 mls/hr IV ASDIRECTED [facility] Remdesivir 200 mg/ Sodium (Chloride) 250 mls @ 250 mls/hr IV ONETIME ONE Stop: 07/19/20 21:29 Last Admin: 07/19/20 21:49 Dose: 250 mls/hr Documented by: Sodium Chloride (Normal Saline) 250 mls @ 50 mls/hr IV ASDIRECTED [facility] Last Admin: 07/19/20 23:30 Dose: 50 mls/hr Documented by: Azithromycin 500 mg/ Sodium (Chloride) 250 mls @ 250 mls/hr IV Q24H [facility] Stop: 07/22/20 01:29 Last Admin: 07/22/20 00:45 Dose: 250 mls/hr Documented by: Magnesium Sulfate (Magnesium Sulfate In Water Premix) 2 gm in 50 mls @ 25 mls/hr IV ONETIME ONE Stop: 07/22/20 11:29 Last Admin: 07/22/20 09:34 Dose: 25 mls/hr Documented by: Pantoprazole Sodium (Protonix) 40 mg PO DAILY@0700 [facility] Potassium Chloride (Klor-Con M20) 20 meq PO ONETIME ONE Stop: 07/22/20 09:02 Last Admin: 07/22/20 09:33 Dose: 20 meq Documented by: Warfarin Sodium (Coumadin) 5 mg PO ONETIME ONE Stop: 07/19/20 23:01 Last Admin: 07/19/20 23:32 Dose: 5 mg Documented by: Warfarin Sodium (Coumadin) 7.5 mg PO QPM [facility] Stop: 07/20/20 18:01 Last Admin: 07/20/20 17:09 Dose: 7.5 mg Documented by: Warfarin Sodium (Coumadin) 7.5 mg PO QPM [facility] Stop: 07/21/20 18:01 Last Admin: 07/21/20 17:33 Dose: 7.5 mg Documented by: Warfarin Sodium (Coumadin) 7.5 mg PO QPM [facility] Stop: 07/22/20 18:01 Last Admin: 07/22/20 18:10 Dose: 7.5 mg Documented by: - Exam Quality Assessment: Supplemental Oxygen General: Alert, Oriented, Cooperative, No Acute Distress HEENT: Pupils Equal, Pupils Reactive Neck: Supple, Trachea Midline Lungs: Clear to Auscultation, Normal Respiratory Effort Cardiovascular: Regular Rate, Regular Rhythm GI/Abdominal Exam: Normal Bowel Sounds, No Distention (Obese) (Female) Exam: Deferred Back Exam: Normal Inspection, Full Range of Motion Extremities: Normal Inspection, No Pedal Edema Skin: Warm, Dry, Intact Neurological: No New Focal Deficit Psy/Mental Status: Alert, Normal Affect Sepsis Event Note - Evaluation Sepsis Screening Result: No Definite Risk - Focused Exam Vital Signs: Vital Signs Temp Pulse Pulse Resp BP BP Pulse Ox 07/23/20 09:19 79 142/68 H 07/23/20 08:45 07/23/20 07:56 36.5 C 79 21 H 142/68 H 90 L 07/23/20 05:44 07/23/20 05:10 136/88 94 L 07/23/20 05:01 36.8 C 80 13 152/94 H 07/23/20 00:43 07/23/20 00:00 68 93 L Pulse Ox 07/23/20 09:19 07/23/20 08:45 90 L 07/23/20 07:56 07/23/20 05:44 93 L 07/23/20 05:10 07/23/20 05:01 07/23/20 00:43 92 L 07/23/20 00:00 - Problem List & Annotations (1) Pneumonia due to COVID-19 virus SNOMED Code(s): 229460165329262322 Code(s): U07.1 - COVID-19; J12.89 - OTHER VIRAL PNEUMONIA Status: Acute Priority: High Current Visit: Yes (2) HTN, Essential hypertension SNOMED Code(s): 31440162 Code(s): I10 - ESSENTIAL (PRIMARY) HYPERTENSION Status: Chronic Priority: Medium Current Visit: No (3) Morbid obesity SNOMED Code(s): 201614946 Code(s): E66.01 - MORBID (SEVERE) OBESITY DUE TO EXCESS CALORIES Status: Chronic Priority: Medium Current Visit: No - Problem List Review Problem List Initiated/Reviewed/Updated: Yes - Assessment Assessment:: 07/20/20 * Requiring 6L/NC * Requiring sliding scale insulin starting today * Day 2 Remdesivir and Dexamethasone * Day 2 Rocephin and Zithromax * Awaiting BC results * Diabetic diet * Awaiting A1C Plan * Chest x-ray in the morning * FiO2 to keep SPO2 between 88 and 94%. Currently on 6L/NC * Monitor I's and O's closely. Patient is at risk for fluid overload which is dangerous in this patient population. * Continue atenolol and diltiazem for rate control. * Pharmacy to dose warfarin. * Mcneal catheter for strict I's and O's * Limited echocardiogram in the morning to assess for left heart function and diastolic dysfunction * Monitor for hypoxemia 07/21/20 * Requiring high-flow O2. * Requiring sliding scale insulin starting today * Day 3 Remdesivir and Dexamethasone * Day 3 Rocephin and Zithromax * Blood cultures show no growth after 24 hours * Diabetic diet * A1C is 6.40 * Limited echo technically difficult study with suboptimal image quality related to body habitus. Unable to assess left ventricular ejection fraction or regional wall motion. Valves not well visualized. Recommend use of Definity contrast with future studies. * D-dimer is up from 0.27 to 0.32 * BUN 24 * creatinine 0.8 * GFR greater than 60 * C-reactive protein 6.7 * Blood cultures show no growth after two days * UA is unremarkable for infection. Plan * FiO2 to keep SPO2 between 88 and 94%. High flow O2 * Monitor I's and O's closely. Patient is at risk for fluid overload which is dangerous in this patient population. * Continue atenolol and diltiazem for rate control. * Pharmacy to dose warfarin. * Mcneal catheter for strict I's and O's * Start alogliptin today * Monitor for hypoxemia 07/22/20 * Requiring high-flow O2. * Requiring sliding scale insulin * Day 4 Remdesivir and Dexamethasone * Day 4 Rocephin * Diabetiic diet * D-dimer 0.35 * Potassium 3.8 * BUN 22 * Creatinine 0.8 * Phosphorus 2.8 * Magnesium 1.8 * CRP 5.8 * Blood cultures show no growth after 3 days Plan * FiO2 to keep SPO2 between 88 and 94%. High flow O2 * Monitor I's and O's closely. Patient is at risk for fluid overload which is dangerous in this patient population. * Continue atenolol and diltiazem for rate control. * Pharmacy to dose warfarin. * Mcneal catheter for strict I's and O's * Monitor for hypoxemia * Magnesium 2 g IV today * Potassium 20 mEq by mouth today * Respiratory therapy to continue monitor and attempting to titrate O2 for patient - Plan Plan:: COVID-19 with pneumonia and hypoxemia Lactic acidosis * On high-flow O2 to keep O2 sats >90% * Day 4 Remdesivir and Dexamethasone * Has received convalescent plasma * Continue on sliding scale insulin * Incentive spirometer * Encourage prone positioning * Repeat labs as needed. * Day 4 Rocephin Atrial fibrillation, hypertension, CHF, hyperlipidemia, peripheral edema * On warfarin 5 mg daily. * Continue strict I&O * Pharmacy to dose warfarin Anxiety, depression, schizophrenia * It appears she is on both Zoloft and Paxil at [facility]. * Risperdal twice daily PROPHYLAXIS: DVT- home Warfarin GI-home CODE STATUS: Full Code DISPOSITION: Admit to medical floor for treatment of COVID-19. Length of stay will likely be greater than 96 hours due to treatment for COVID. PT/OT to eval and treat patient. 07/23/2020 The patient will be kept on high flow oxygen to keep her saturations greater than 90%. The patient will also be maintained on appropriate ADA diet and sliding scale insulin for her blood sugars. She also has been encouraged and taught how to use the incentive spirometer. Patient has been encouraged to ambulate. We will continue with DVT prophylaxis with use of warfarin. Repeat laboratory studies have been ordered.
[2020-07-23] MEDS: Dexamethasone 4 MG Tab PO SCH (16:20)
[2020-07-23] MEDS ORDERED: Warfarin 4 MG Tab PO SCH (18:00)
[2020-07-23] MEDS: Acetaminophen 325 MG Tab PO PRN (18:07)
[2020-07-23] MEDS: LORazepam 1 MG Tab PO SCH (21:42)
[2020-07-23] MEDS: Simvastatin 20 MG Tab PO SCH (21:42)
[2020-07-23] MEDS: REMDESIVIR (EUA) 100 MG in Sodium Chloride 0.9% 100 ML IV SCH (21:43)
[2020-07-24] MEDS: cefTRIAXone 2 GM in Sodium Chloride 0.9% 100 ML IV SCH (00:01)
[2020-07-24] MEDS: Pantoprazole 40 MG Tab.CR PO SCH (06:46)
[2020-07-24] MEDS: Potassium Chloride 20 MEQ Tab.ER PO SCH ×2 (07:57→10:24)
[2020-07-24] MEDS: Sertraline 50 MG Tab PO SCH ×2 (07:57→10:25)
[2020-07-24] MEDS: Atenolol 25 MG Tab PO SCH ×2 (07:58→10:24)
[2020-07-24] MEDS: Hydrochlorothiazide 12.5 MG Cap PO SCH ×2 (07:58→10:24)
[2020-07-24] MEDS: risperiDONE 1 MG Tab PO SCH ×2 (07:59→23:02)
[2020-07-24] MEDS: Diltiazem IR 60 MG Tab PO SCH ×2 (07:59→23:02)
[2020-07-24] MEDS: Allopurinol 100 MG Tab PO SCH (07:59)
[2020-07-24] MEDS: Insulin Lispro 100 Units/ML 3 ML Vial SUBCUT SCH ×4 (08:00→23:03)
--- NOTE | 2020-07-24 12:36 | PCM.PN ---
- General Info Date of Service: 07/24/20 Admission Dx/Problem (Free Text): Admission Diagnosis/Problem Admission Diagnosis/Problem Pneumonia Subjective Update: The patient is a 55-year-old lady who was admitted on July 19, 2022 acute hospitalization. The patient has no other complaints today. She says that she is doing better. The patient has been up in a chair. She has been tolerating diet. Functional Status: Reports: Pain Controlled - Review of Systems General: Reports: Weakness HEENT: Reports: No Symptoms Pulmonary: Reports: No Symptoms Cardiovascular: Reports: No Symptoms Gastrointestinal: Reports: No Symptoms Genitourinary: Reports: No Symptoms Musculoskeletal: Reports: No Symptoms Skin: Reports: No Symptoms Neurological: Reports: No Symptoms Psychiatric: Reports: No Symptoms - Patient Data Vitals - Most Recent: Last Vital Signs Temp 36.4 C 07/24/20 07:27 Pulse 79 07/24/20 07:58 Resp 18 07/24/20 07:27 BP 138/69 07/24/20 07:58 Pulse Ox 93 L 07/24/20 07:27 Weight - Most Recent: 174.316 kg I&O - Last 24 Hours: Intake & Output 07/23/20 07/24/20 07/24/20 22:59 06:59 14:59 Intake Total 1150 680 120 Output Total 400 Balance 750 680 120 Lab Results Last 24 Hours: Laboratory Results - last 24 hr 07/23/20 07/23/20 07/24/20 Range/Units 16:22 21:37 04:40 WBC (3.98-10.04) K/mm3 RBC (3.98-5.22) M/mm3 Hgb (11.2-15.7) gm/dl Hct (34.1-44.9) % MCV (79.4-94.8) fl MCH (25.6-32.2) pg MCHC (32.2-35.5) g/dl RDW Std Deviation (36.4-46.3) fL Plt Count (182-369) K/mm3 MPV (9.4-12.3) fl Neut % (Auto) (34.0-71.1) % Lymph % (Auto) (19.3-51.7) % [place] % (Auto) (4.7-12.5) % Eos % (Auto) (0.7-5.8) Baso % (Auto) (0.1-1.2) % Neut # (Auto) (1.56-6.13) K/mm3 Lymph # (Auto) (1.18-3.74) K/mm3 [place] # (Auto) (0.24-0.36) K/mm3 Eos # (Auto) (0.04-0.36) K/mm3 Baso # (Auto) (0.01-0.08) K/mm3 Manual Slide Review PT 28.9 H (9.7-11.7) SECONDS INR 2.76 D-Dimer, Quantitative 0.44 (0.19-0.50) mg/L Sodium (136-145) mEq/L Potassium (3.5-5.1) mEq/L Chloride (98-107) mEq/L Carbon Dioxide (21-32) mEq/L Anion Gap (5-15) BUN (7-18) mg/dL Creatinine (0.55-1.02) mg/dL Est Cr Clr Drug Dosing mL/min Estimated GFR (MDRD) (>60) mL/min BUN/Creatinine Ratio (14-18) Glucose (74-106) mg/dL POC Glucose 206 H 295 H (70-105) mg/dL Calcium (8.5-10.1) mg/dL 07/24/20 07/24/20 07/24/20 Range/Units 04:40 04:40 06:45 WBC 4.82 (3.98-10.04) K/mm3 RBC 5.06 (3.98-5.22) M/mm3 Hgb 15.6 D (11.2-15.7) gm/dl Hct 49.6 H (34.1-44.9) % MCV 98.0 H (79.4-94.8) fl MCH 30.8 (25.6-32.2) pg MCHC 31.5 L (32.2-35.5) g/dl RDW Std Deviation 49.8 H (36.4-46.3) fL Plt Count 263 (182-369) K/mm3 MPV 9.0 L (9.4-12.3) fl Neut % (Auto) 75.5 H (34.0-71.1) % Lymph % (Auto) 15.8 L (19.3-51.7) % [place] % (Auto) 7.7 (4.7-12.5) % Eos % (Auto) 0 L (0.7-5.8) Baso % (Auto) 0.2 (0.1-1.2) % Neut # (Auto) 3.64 (1.56-6.13) K/mm3 Lymph # (Auto) 0.76 L (1.18-3.74) K/mm3 [place] # (Auto) 0.37 H (0.24-0.36) K/mm3 Eos # (Auto) 0.00 L (0.04-0.36) K/mm3 Baso # (Auto) 0.01 (0.01-0.08) K/mm3 Manual Slide Review Normal smear PT (9.7-11.7) SECONDS INR D-Dimer, Quantitative (0.19-0.50) mg/L Sodium 138 (136-145) mEq/L Potassium 4.3 (3.5-5.1) mEq/L Chloride 99 (98-107) mEq/L Carbon Dioxide 28 (21-32) mEq/L Anion Gap 15.3 H (5-15) BUN 26 H (7-18) mg/dL Creatinine 0.8 (0.55-1.02) mg/dL Est Cr Clr Drug Dosing 74.38 mL/min Estimated GFR (MDRD) > 60 (>60) mL/min BUN/Creatinine Ratio 32.5 H (14-18) Glucose 272 H (74-106) mg/dL POC Glucose 251 H (70-105) mg/dL Calcium 9.8 (8.5-10.1) mg/dL 07/24/20 Range/Units 12:04 WBC (3.98-10.04) K/mm3 RBC (3.98-5.22) M/mm3 Hgb (11.2-15.7) gm/dl Hct (34.1-44.9) % MCV (79.4-94.8) fl MCH (25.6-32.2) pg MCHC (32.2-35.5) g/dl RDW Std Deviation (36.4-46.3) fL Plt Count (182-369) K/mm3 MPV (9.4-12.3) fl Neut % (Auto) (34.0-71.1) % Lymph % (Auto) (19.3-51.7) % [place] % (Auto) (4.7-12.5) % Eos % (Auto) (0.7-5.8) Baso % (Auto) (0.1-1.2) % Neut # (Auto) (1.56-6.13) K/mm3 Lymph # (Auto) (1.18-3.74) K/mm3 [place] # (Auto) (0.24-0.36) K/mm3 Eos # (Auto) (0.04-0.36) K/mm3 Baso # (Auto) (0.01-0.08) K/mm3 Manual Slide Review PT (9.7-11.7) SECONDS INR D-Dimer, Quantitative (0.19-0.50) mg/L Sodium (136-145) mEq/L Potassium (3.5-5.1) mEq/L Chloride (98-107) mEq/L Carbon Dioxide (21-32) mEq/L Anion Gap (5-15) BUN (7-18) mg/dL Creatinine (0.55-1.02) mg/dL Est Cr Clr Drug Dosing mL/min Estimated GFR (MDRD) (>60) mL/min BUN/Creatinine Ratio (14-18) Glucose (74-106) mg/dL POC Glucose 200 H (70-105) mg/dL Calcium (8.5-10.1) mg/dL [place] Results Last 24 Hours: Microbiology 07/19/20 12:05 Aerobic Blood Culture - Preliminary Blood - Venous NO GROWTH AFTER 5 DAYS Anaerobic Blood Culture - Preliminary NO GROWTH AFTER 5 DAYS 07/19/20 12:10 Aerobic Blood Culture - Preliminary Blood - Venous - Lab Draw NO GROWTH AFTER 5 DAYS Anaerobic Blood Culture - Preliminary NO GROWTH AFTER 5 DAYS Med Orders - Current: Current Medications Acetaminophen (Tylenol) 650 mg PO Q4H PRN PRN Reason: Fever Greater Than 101 Last Admin: 07/23/20 18:07 Dose: 650 mg Documented by: Al Hydroxide/Mg Hydroxide (Mag-Al Plus) 30 ml PO Q4H PRN PRN Reason: Dyspepsia Last Admin: 07/21/20 18:58 Dose: 30 ml Documented by: Allopurinol (Zyloprim) 200 mg PO DAILY [facility] Last Admin: 07/24/20 07:59 Dose: 200 mg Documented by: Alogliptin Benzoate (Alogliptin) 25 mg PO DAILY [facility] Last Admin: 07/24/20 07:59 Dose: 25 mg Documented by: Atenolol (Tenormin) 25 mg PO DAILY [facility] Last Admin: 07/24/20 10:24 Dose: Not Given Documented by: Calcium Carbonate/Glycine (Tums) 500 mg PO DAILY PRN PRN Reason: GERD Dexamethasone (Dexamethasone) 6 mg PO Q24H [facility] Stop: 07/28/20 15:01 Last Admin: 07/23/20 16:20 Dose: 6 mg Documented by: Diltiazem HCl (Cardizem) 60 mg PO BID [facility] Last Admin: 07/24/20 07:59 Dose: 60 mg Documented by: Hydrochlorothiazide (Hydrochlorothiazide) 12.5 mg PO DAILY [facility] Last Admin: 07/24/20 10:24 Dose: Not Given Documented by: Insulin Human Lispro (Humalog) 0 unit SUBCUT QIDACANDBED [facility]; Protocol Last Admin: 07/24/20 12:23 Dose: 2 units Documented by: Lorazepam (Ativan) 1 mg PO BEDTIME [facility] Last Admin: 07/23/20 21:42 Dose: 1 mg Documented by: Ondansetron HCl (Zofran) 4 mg IV Q4H PRN PRN Reason: Nausea/Vomiting Pantoprazole Sodium (Protonix) 40 mg PO DAILY@0700 [facility] Last Admin: 07/24/20 06:46 Dose: 40 mg Documented by: Potassium Chloride (Klor-Con M20) 20 meq PO DAILY [facility] Last Admin: 07/24/20 10:24 Dose: Not Given Documented by: Risperidone (Risperidal) 2 mg PO DAILY [facility] Last Admin: 07/24/20 07:59 Dose: 2 mg Documented by: Risperidone (Risperidal) 4 mg PO BEDTIME [facility] Last Admin: 07/23/20 21:41 Dose: 4 mg Documented by: Sertraline HCl (Zoloft) 150 mg PO DAILY [facility] Last Admin: 07/24/20 10:25 Dose: Not Given Documented by: Simvastatin (Zocor) 20 mg PO BEDTIME [facility] Last Admin: 07/23/20 21:42 Dose: 20 mg Documented by: Sodium Chloride (Saline Flush) 10 ml FLUSH ASDIRECTED PRN PRN Reason: Keep Vein Open Last Admin: 07/19/20 11:46 Dose: 10 ml Documented by: Warfarin Sodium (Pharmacy To Dose - Warfarin) 1 dose .XX ASDIRECTED PRN PRN Reason: RX TO DOSE WARFARIN Warfarin Sodium (Coumadin) 4 mg PO QPM [facility] Stop: 07/24/20 18:01 Discontinued Medications Dexamethasone (Dexamethasone) 6 mg IVPUSH ONETIME ONE Stop: 07/19/20 14:20 Last Admin: 07/19/20 15:07 Dose: 6 mg Documented by: Furosemide (Lasix) 20 mg IVPUSH ONETIME ONE Stop: 07/19/20 23:31 Last Admin: 07/20/20 00:05 Dose: 20 mg Documented by: Sodium Chloride (Normal Saline) 1,000 mls @ 1,000 mls/hr IV ONETIME ONE Stop: 07/19/20 13:41 Last Admin: 07/19/20 14:24 Dose: 1,000 mls/hr Documented by: Sodium Chloride (Normal Saline) 1,000 mls @ 75 mls/hr IV ASDIRECTED [facility] Remdesivir 200 mg/ Sodium (Chloride) 250 mls @ 250 mls/hr IV ONETIME ONE Stop: 07/19/20 21:29 Last Admin: 07/19/20 21:49 Dose: 250 mls/hr Documented by: Remdesivir 100 mg/ Sodium (Chloride) 100 mls @ 100 mls/hr IV Q24H [facility] Stop: 07/23/20 21:59 Last Admin: 07/23/20 21:43 Dose: 100 mls/hr Documented by: Sodium Chloride (Normal Saline) 250 mls @ 50 mls/hr IV ASDIRECTED [facility] Last Admin: 07/19/20 23:30 Dose: 50 mls/hr Documented by: Ceftriaxone Sodium 2 gm/ (Sodium Chloride) 100 mls @ 200 mls/hr IV Q24H [facility] Stop: 07/24/20 00:29 Last Admin: 07/24/20 00:01 Dose: 200 mls/hr Documented by: Azithromycin 500 mg/ Sodium (Chloride) 250 mls @ 250 mls/hr IV Q24H [facility] Stop: 07/22/20 01:29 Last Admin: 07/22/20 00:45 Dose: 250 mls/hr Documented by: Magnesium Sulfate (Magnesium Sulfate In Water Premix) 2 gm in 50 mls @ 25 mls/hr IV ONETIME ONE Stop: 07/22/20 11:29 Last Admin: 07/22/20 09:34 Dose: 25 mls/hr Documented by: Pantoprazole Sodium (Protonix) 40 mg PO DAILY@0700 [facility] Potassium Chloride (Klor-Con M20) 20 meq PO ONETIME ONE Stop: 07/22/20 09:02 Last Admin: 07/22/20 09:33 Dose: 20 meq Documented by: Warfarin Sodium (Coumadin) 5 mg PO ONETIME ONE Stop: 07/19/20 23:01 Last Admin: 07/19/20 23:32 Dose: 5 mg Documented by: Warfarin Sodium (Coumadin) 7.5 mg PO QPM [facility] Stop: 07/20/20 18:01 Last Admin: 07/20/20 17:09 Dose: 7.5 mg Documented by: Warfarin Sodium (Coumadin) 7.5 mg PO QPM [facility] Stop: 07/21/20 18:01 Last Admin: 07/21/20 17:33 Dose: 7.5 mg Documented by: Warfarin Sodium (Coumadin) 7.5 mg PO QPM [facility] Stop: 07/22/20 18:01 Last Admin: 07/22/20 18:10 Dose: 7.5 mg Documented by: Warfarin Sodium (Coumadin) 4 mg PO QPM [facility] Stop: 07/23/20 18:01 Last Admin: 07/23/20 18:07 Dose: 4 mg Documented by: - Exam Quality Assessment: Supplemental Oxygen General: Alert, Oriented, Cooperative, Other (Morbidly obese) HEENT: Pupils Equal, Pupils Reactive Neck: Supple, Trachea Midline Lungs: Clear to Auscultation, Decreased Breath Sounds Cardiovascular: Regular Rate, Regular Rhythm GI/Abdominal Exam: Normal Bowel Sounds, Soft, No Distention (Female) Exam: Deferred Back Exam: Normal Inspection Extremities: Normal Inspection, No Pedal Edema Skin: Warm, Dry, Intact Neurological: No New Focal Deficit Psy/Mental Status: Alert, Normal Affect Sepsis Event Note - Evaluation Sepsis Screening Result: No Definite Risk - Focused Exam Vital Signs: Vital Signs Temp Temp Pulse Pulse Resp BP BP 07/24/20 07:58 79 138/69 07/24/20 07:27 36.4 C 79 18 138/69 07/24/20 05:38 07/24/20 03:42 36.7 C 68 18 126/78 07/24/20 00:40 Pulse Ox Pulse Ox 07/24/20 07:58 07/24/20 07:27 93 L 07/24/20 05:38 98 07/24/20 03:42 93 L 07/24/20 00:40 92 L - Problem List & Annotations (1) Pneumonia due to COVID-19 virus SNOMED Code(s): 506382637153574348 Code(s): U07.1 - COVID-19; J12.89 - OTHER VIRAL PNEUMONIA Status: Acute Priority: High Current Visit: Yes (2) HTN, Essential hypertension SNOMED Code(s): 44258241 Code(s): I10 - ESSENTIAL (PRIMARY) HYPERTENSION Status: Chronic Priority: Medium Current Visit: No (3) Morbid obesity SNOMED Code(s): 423790997 Code(s): E66.01 - MORBID (SEVERE) OBESITY DUE TO EXCESS CALORIES Status: Chronic Priority: Medium Current Visit: No - Problem List Review Problem List Initiated/Reviewed/Updated: Yes - My Orders Last 24 Hours: My Active Orders 07/24/20 04:40 CRP, HIGH SENSITIVITY [REF] Routine - Assessment Assessment:: 07/20/20 * Requiring 6L/NC * Requiring sliding scale insulin starting today * Day 2 Remdesivir and Dexamethasone * Day 2 Rocephin and Zithromax * Awaiting BC results * Diabetic diet * Awaiting A1C Plan * Chest x-ray in the morning * FiO2 to keep SPO2 between 88 and 94%. Currently on 6L/NC * Monitor I's and O's closely. Patient is at risk for fluid overload which is dangerous in this patient population. * Continue atenolol and diltiazem for rate control. * Pharmacy to dose warfarin. * Mcneal catheter for strict I's and O's * Limited echocardiogram in the morning to assess for left heart function and diastolic dysfunction * Monitor for hypoxemia 07/21/20 * Requiring high-flow O2. * Requiring sliding scale insulin starting today * Day 3 Remdesivir and Dexamethasone * Day 3 Rocephin and Zithromax * Blood cultures show no growth after 24 hours * Diabetic diet * A1C is 6.40 * Limited echo technically difficult study with suboptimal image quality related to body habitus. Unable to assess left ventricular ejection fraction or regional wall motion. Valves not well visualized. Recommend use of Definity contrast with future studies. * D-dimer is up from 0.27 to 0.32 * BUN 24 * creatinine 0.8 * GFR greater than 60 * C-reactive protein 6.7 * Blood cultures show no growth after two days * UA is unremarkable for infection. Plan * FiO2 to keep SPO2 between 88 and 94%. High flow O2 * Monitor I's and O's closely. Patient is at risk for fluid overload which is dangerous in this patient population. * Continue atenolol and diltiazem for rate control. * Pharmacy to dose warfarin. * Mcneal catheter for strict I's and O's * Start alogliptin today * Monitor for hypoxemia 07/22/20 * Requiring high-flow O2. * Requiring sliding scale insulin * Day 4 Remdesivir and Dexamethasone * Day 4 Rocephin * Diabetiic diet * D-dimer 0.35 * Potassium 3.8 * BUN 22 * Creatinine 0.8 * Phosphorus 2.8 * Magnesium 1.8 * CRP 5.8 * Blood cultures show no growth after 3 days Plan * FiO2 to keep SPO2 between 88 and 94%. High flow O2 * Monitor I's and O's closely. Patient is at risk for fluid overload which is dangerous in this patient population. * Continue atenolol and diltiazem for rate control. * Pharmacy to dose warfarin. * Mcneal catheter for strict I's and O's * Monitor for hypoxemia * Magnesium 2 g IV today * Potassium 20 mEq by mouth today * Respiratory therapy to continue monitor and attempting to titrate O2 for patient - Plan Plan:: COVID-19 with pneumonia and hypoxemia Lactic acidosis * On high-flow O2 to keep O2 sats >90% * Day 4 Remdesivir and Dexamethasone * Has received convalescent plasma * Continue on sliding scale insulin * Incentive spirometer * Encourage prone positioning * Repeat labs as needed. * Day 4 Rocephin Atrial fibrillation, hypertension, CHF, hyperlipidemia, peripheral edema * On warfarin 5 mg daily. * Continue strict I&O * Pharmacy to dose warfarin Anxiety, depression, schizophrenia * It appears she is on both Zoloft and Paxil at [place]. * Risperdal twice daily PROPHYLAXIS: DVT- home Warfarin GI-home CODE STATUS: Full Code DISPOSITION: Admit to medical floor for treatment of COVID-19. Length of stay will likely be greater than 96 hours due to treatment for COVID. PT/OT to eval and treat patient. 07/23/2020 The patient will be kept on high flow oxygen to keep her saturations greater than 90%. The patient will also be maintained on appropriate ADA diet and sliding scale insulin for her blood sugars. She also has been encouraged and taught how to use the incentive spirometer. Patient has been encouraged to ambulate. We will continue with DVT prophylaxis with use of warfarin. Repeat laboratory studies have been ordered. 07/24/2020 Patient would kept on oxygen to help keep her saturations above 90%. She will be maintained on appropriate diet as tolerated. The patient is to be using the incentive spirometer. Continue with DVT prophylaxis with use of warfarin. Repeat laboratory studies have been ordered. It should be appropriate for discharge back to [facility] once her oxygen demands have improved.
[2020-07-24] MEDS: Dexamethasone 4 MG Tab PO SCH (15:29)
[2020-07-24] MEDS ORDERED: Warfarin 4 MG Tab PO SCH (18:00)
[2020-07-24] MEDS: Acetaminophen 325 MG Tab PO PRN (18:04)
[2020-07-24] MEDS: Simvastatin 20 MG Tab PO SCH (23:02)
[2020-07-24] MEDS: LORazepam 1 MG Tab PO SCH (23:02)
[2020-07-25] MEDS: Pantoprazole 40 MG Tab.CR PO SCH (06:45)
[2020-07-25] MEDS: Insulin Lispro 100 Units/ML 3 ML Vial SUBCUT SCH ×4 (08:48→22:48)
[2020-07-25] MEDS: Sertraline 50 MG Tab PO SCH (08:50)
[2020-07-25] MEDS: Hydrochlorothiazide 12.5 MG Cap PO SCH (08:51)
[2020-07-25] MEDS: risperiDONE 1 MG Tab PO SCH ×2 (08:51→22:11)
[2020-07-25] MEDS: Atenolol 25 MG Tab PO SCH (08:51)
[2020-07-25] MEDS: Potassium Chloride 20 MEQ Tab.ER PO SCH (08:54)
[2020-07-25] MEDS: Diltiazem IR 60 MG Tab PO SCH ×2 (08:54→22:11)
[2020-07-25] MEDS: Allopurinol 100 MG Tab PO SCH (08:54)
[2020-07-25] MEDS ORDERED: Magnesium Sulfate/Water 2 GM/50 ML BAG IV ONE (11:00)
--- NOTE | 2020-07-25 12:53 | PCM.PN ---
<Sarah Bryant M - Last Filed: 07/25/20 13:39> - General Info Date of Service: 07/25/20 Admission Dx/Problem (Free Text): Admission Diagnosis/Problem Admission Diagnosis/Problem Pneumonia Subjective Update: States she is feeling better. Still is short of breath with activity, but is able to tolerate activity better. Still having diarrhea stools. Functional Status: Reports: Tolerating Diet, Urinating (incontinent), Incentive Spirometry (needs encouragement) - Review of Systems General: Reports: Fatigue HEENT: Reports: No Symptoms Pulmonary: Reports: Shortness of Breath, Cough. Denies: Sputum Cardiovascular: Reports: Dyspnea on Exertion Gastrointestinal: Reports: Diarrhea Genitourinary: Reports: Incontinence Musculoskeletal: Reports: No Symptoms Skin: Reports: No Symptoms Neurological: Reports: No Symptoms Psychiatric: Reports: No Symptoms - Patient Data Vitals - Most Recent: Last Vital Signs Temp 97.5 F 07/25/20 11:29 Pulse 82 07/25/20 11:29 Resp 26 H 07/25/20 11:29 BP 116/79 07/25/20 11:29 Pulse Ox 93 L 07/25/20 11:29 Weight - Most Recent: 173.544 kg I&O - Last 24 Hours: Intake & Output 07/24/20 07/25/20 07/25/20 22:59 06:59 14:59 Intake Total 500 500 240 Balance 500 500 240 Lab Results Last 24 Hours: Laboratory Results - last 24 hr 07/24/20 07/24/20 07/25/20 Range/Units 17:03 21:02 04:46 WBC (3.98-10.04) K/mm3 RBC (3.98-5.22) M/mm3 Hgb (11.2-15.7) gm/dl Hct (34.1-44.9) % MCV (79.4-94.8) fl MCH (25.6-32.2) pg MCHC (32.2-35.5) g/dl RDW Std Deviation (36.4-46.3) fL Plt Count (182-369) K/mm3 MPV (9.4-12.3) fl Neut % (Auto) (34.0-71.1) % Lymph % (Auto) (19.3-51.7) % [place] % (Auto) (4.7-12.5) % Eos % (Auto) (0.7-5.8) Baso % (Auto) (0.1-1.2) % Neut # (Auto) (1.56-6.13) K/mm3 Lymph # (Auto) (1.18-3.74) K/mm3 [place] # (Auto) (0.24-0.36) K/mm3 Eos # (Auto) (0.04-0.36) K/mm3 Baso # (Auto) (0.01-0.08) K/mm3 PT 25.4 H (9.7-11.7) SECONDS INR 2.42 D-Dimer, Quantitative (0.19-0.50) mg/L Sodium (136-145) mEq/L Potassium (3.5-5.1) mEq/L Chloride (98-107) mEq/L Carbon Dioxide (21-32) mEq/L Anion Gap (5-15) BUN (7-18) mg/dL Creatinine (0.55-1.02) mg/dL Est Cr Clr Drug Dosing mL/min Estimated GFR (MDRD) (>60) mL/min BUN/Creatinine Ratio (14-18) Glucose (74-106) mg/dL POC Glucose 224 H 254 H (70-105) mg/dL Calcium (8.5-10.1) mg/dL Phosphorus (2.6-4.7) mg/dL Magnesium (1.8-2.4) mg/dl Total Bilirubin (0.2-1.0) mg/dL AST (15-37) U/L ALT (14-59) U/L Alkaline Phosphatase (46-116) U/L Total Protein (6.4-8.2) g/dl Albumin (3.4-5.0) g/dl Globulin gm/dL Albumin/Globulin Ratio (1-2) 07/25/20 07/25/20 07/25/20 Range/Units 06:43 07:57 07:57 WBC 6.44 (3.98-10.04) K/mm3 RBC 4.77 (3.98-5.22) M/mm3 Hgb 15.0 (11.2-15.7) gm/dl Hct 46.4 H (34.1-44.9) % MCV 97.3 H (79.4-94.8) fl MCH 31.4 (25.6-32.2) pg MCHC 32.3 (32.2-35.5) g/dl RDW Std Deviation 49.0 H (36.4-46.3) fL Plt Count 305 (182-369) K/mm3 MPV 8.7 L (9.4-12.3) fl Neut % (Auto) 78.4 H (34.0-71.1) % Lymph % (Auto) 12.4 L (19.3-51.7) % [place] % (Auto) 7.3 (4.7-12.5) % Eos % (Auto) 0.2 L (0.7-5.8) Baso % (Auto) 0.3 (0.1-1.2) % Neut # (Auto) 5.05 (1.56-6.13) K/mm3 Lymph # (Auto) 0.80 L (1.18-3.74) K/mm3 [place] # (Auto) 0.47 H (0.24-0.36) K/mm3 Eos # (Auto) 0.01 L (0.04-0.36) K/mm3 Baso # (Auto) 0.02 (0.01-0.08) K/mm3 PT (9.7-11.7) SECONDS INR D-Dimer, Quantitative 0.33 (0.19-0.50) mg/L Sodium (136-145) mEq/L Potassium (3.5-5.1) mEq/L Chloride (98-107) mEq/L Carbon Dioxide (21-32) mEq/L Anion Gap (5-15) BUN (7-18) mg/dL Creatinine (0.55-1.02) mg/dL Est Cr Clr Drug Dosing mL/min Estimated GFR (MDRD) (>60) mL/min BUN/Creatinine Ratio (14-18) Glucose (74-106) mg/dL POC Glucose 211 H (70-105) mg/dL Calcium (8.5-10.1) mg/dL Phosphorus (2.6-4.7) mg/dL Magnesium (1.8-2.4) mg/dl Total Bilirubin (0.2-1.0) mg/dL AST (15-37) U/L ALT (14-59) U/L Alkaline Phosphatase (46-116) U/L Total Protein (6.4-8.2) g/dl Albumin (3.4-5.0) g/dl Globulin gm/dL Albumin/Globulin Ratio (1-2) 07/25/20 07/25/20 Range/Units 07:57 11:10 WBC (3.98-10.04) K/mm3 RBC (3.98-5.22) M/mm3 Hgb (11.2-15.7) gm/dl Hct (34.1-44.9) % MCV (79.4-94.8) fl MCH (25.6-32.2) pg MCHC (32.2-35.5) g/dl RDW Std Deviation (36.4-46.3) fL Plt Count (182-369) K/mm3 MPV (9.4-12.3) fl Neut % (Auto) (34.0-71.1) % Lymph % (Auto) (19.3-51.7) % [place] % (Auto) (4.7-12.5) % Eos % (Auto) (0.7-5.8) Baso % (Auto) (0.1-1.2) % Neut # (Auto) (1.56-6.13) K/mm3 Lymph # (Auto) (1.18-3.74) K/mm3 [place] # (Auto) (0.24-0.36) K/mm3 Eos # (Auto) (0.04-0.36) K/mm3 Baso # (Auto) (0.01-0.08) K/mm3 PT (9.7-11.7) SECONDS INR D-Dimer, Quantitative (0.19-0.50) mg/L Sodium 140 (136-145) mEq/L Potassium 4.1 (3.5-5.1) mEq/L Chloride 101 (98-107) mEq/L Carbon Dioxide 29 (21-32) mEq/L Anion Gap 14.1 (5-15) BUN 30 H (7-18) mg/dL Creatinine 0.9 (0.55-1.02) mg/dL Est Cr Clr Drug Dosing 66.12 mL/min Estimated GFR (MDRD) > 60 (>60) mL/min BUN/Creatinine Ratio 33.3 H (14-18) Glucose 217 H (74-106) mg/dL POC Glucose 197 H (70-105) mg/dL Calcium 9.8 (8.5-10.1) mg/dL Phosphorus 4.0 (2.6-4.7) mg/dL Magnesium 1.7 L (1.8-2.4) mg/dl Total Bilirubin 0.4 (0.2-1.0) mg/dL AST 17 (15-37) U/L ALT 28 (14-59) U/L Alkaline Phosphatase 33 L (46-116) U/L Total Protein 7.5 (6.4-8.2) g/dl Albumin 2.6 L (3.4-5.0) g/dl Globulin 4.9 gm/dL Albumin/Globulin Ratio 0.5 L (1-2) [place] Results Last 24 Hours: Microbiology 07/19/20 12:05 Aerobic Blood Culture - Preliminary Blood - Venous NO GROWTH AFTER 6 DAYS Anaerobic Blood Culture - Preliminary NO GROWTH AFTER 6 DAYS 07/19/20 12:10 Aerobic Blood Culture - Preliminary Blood - Venous - Lab Draw NO GROWTH AFTER 6 DAYS Anaerobic Blood Culture - Preliminary NO GROWTH AFTER 6 DAYS Med Orders - Current: Current Medications Acetaminophen (Tylenol) 650 mg PO Q4H PRN PRN Reason: Fever Greater Than 101 Last Admin: 07/24/20 18:04 Dose: 650 mg Documented by: Al Hydroxide/Mg Hydroxide (Mag-Al Plus) 30 ml PO Q4H PRN PRN Reason: Dyspepsia Last Admin: 07/21/20 18:58 Dose: 30 ml Documented by: Allopurinol (Zyloprim) 200 mg PO DAILY [facility] Last Admin: 07/25/20 08:54 Dose: 200 mg Documented by: Alogliptin Benzoate (Alogliptin) 25 mg PO DAILY [facility] Last Admin: 07/25/20 08:54 Dose: 25 mg Documented by: Atenolol (Tenormin) 25 mg PO DAILY [facility] Last Admin: 07/25/20 08:51 Dose: 25 mg Documented by: Calcium Carbonate/Glycine (Tums) 500 mg PO DAILY PRN PRN Reason: GERD Dexamethasone (Dexamethasone) 6 mg PO Q24H [facility] Stop: 07/28/20 15:01 Last Admin: 07/24/20 15:29 Dose: 6 mg Documented by: Diltiazem HCl (Cardizem) 60 mg PO BID [facility] Last Admin: 07/25/20 08:54 Dose: 60 mg Documented by: Hydrochlorothiazide (Hydrochlorothiazide) 12.5 mg PO DAILY [facility] Last Admin: 07/25/20 08:51 Dose: 12.5 mg Documented by: Magnesium Sulfate (Magnesium Sulfate In Water Premix) 2 gm in 50 mls @ 25 mls/hr IV ONETIME ONE Stop: 07/25/20 12:59 Last Admin: 07/25/20 11:13 Dose: 25 mls/hr Documented by: Insulin Human Lispro (Humalog) 0 unit SUBCUT QIDACANDBED [facility]; Protocol Last Admin: 07/25/20 11:12 Dose: 1 units Documented by: Lorazepam (Ativan) 1 mg PO BEDTIME [facility] Last Admin: 07/24/20 23:02 Dose: 1 mg Documented by: Ondansetron HCl (Zofran) 4 mg IV Q4H PRN PRN Reason: Nausea/Vomiting Pantoprazole Sodium (Protonix) 40 mg PO DAILY@0700 [facility] Last Admin: 07/25/20 06:45 Dose: 40 mg Documented by: Potassium Chloride (Klor-Con M20) 20 meq PO DAILY [facility] Last Admin: 07/25/20 08:54 Dose: 20 meq Documented by: Risperidone (Risperidal) 2 mg PO DAILY [facility] Last Admin: 07/25/20 08:51 Dose: 2 mg Documented by: Risperidone (Risperidal) 4 mg PO BEDTIME [facility] Last Admin: 07/24/20 23:02 Dose: 4 mg Documented by: Sertraline HCl (Zoloft) 150 mg PO DAILY [facility] Last Admin: 07/25/20 08:50 Dose: 150 mg Documented by: Simvastatin (Zocor) 20 mg PO BEDTIME [facility] Last Admin: 07/24/20 23:02 Dose: 20 mg Documented by: Sodium Chloride (Saline Flush) 10 ml FLUSH ASDIRECTED PRN PRN Reason: Keep Vein Open Last Admin: 07/19/20 11:46 Dose: 10 ml Documented by: Warfarin Sodium (Pharmacy To Dose - Warfarin) 1 dose .XX ASDIRECTED PRN PRN Reason: RX TO DOSE WARFARIN Discontinued Medications Dexamethasone (Dexamethasone) 6 mg IVPUSH ONETIME ONE Stop: 07/19/20 14:20 Last Admin: 07/19/20 15:07 Dose: 6 mg Documented by: Furosemide (Lasix) 20 mg IVPUSH ONETIME ONE Stop: 07/19/20 23:31 Last Admin: 07/20/20 00:05 Dose: 20 mg Documented by: Sodium Chloride (Normal Saline) 1,000 mls @ 1,000 mls/hr IV ONETIME ONE Stop: 07/19/20 13:41 Last Admin: 07/19/20 14:24 Dose: 1,000 mls/hr Documented by: Sodium Chloride (Normal Saline) 1,000 mls @ 75 mls/hr IV ASDIRECTED [facility] Remdesivir 200 mg/ Sodium (Chloride) 250 mls @ 250 mls/hr IV ONETIME ONE Stop: 07/19/20 21:29 Last Admin: 07/19/20 21:49 Dose: 250 mls/hr Documented by: Remdesivir 100 mg/ Sodium (Chloride) 100 mls @ 100 mls/hr IV Q24H [facility] Stop: 07/23/20 21:59 Last Admin: 07/23/20 21:43 Dose: 100 mls/hr Documented by: Sodium Chloride (Normal Saline) 250 mls @ 50 mls/hr IV ASDIRECTED [facility] Last Admin: 07/19/20 23:30 Dose: 50 mls/hr Documented by: Ceftriaxone Sodium 2 gm/ (Sodium Chloride) 100 mls @ 200 mls/hr IV Q24H [facility] Stop: 07/24/20 00:29 Last Admin: 07/24/20 00:01 Dose: 200 mls/hr Documented by: Azithromycin 500 mg/ Sodium (Chloride) 250 mls @ 250 mls/hr IV Q24H [facility] Stop: 07/22/20 01:29 Last Admin: 07/22/20 00:45 Dose: 250 mls/hr Documented by: Magnesium Sulfate (Magnesium Sulfate In Water Premix) 2 gm in 50 mls @ 25 mls/hr IV ONETIME ONE Stop: 07/22/20 11:29 Last Admin: 07/22/20 09:34 Dose: 25 mls/hr Documented by: Pantoprazole Sodium (Protonix) 40 mg PO DAILY@0700 [facility] Potassium Chloride (Klor-Con M20) 20 meq PO ONETIME ONE Stop: 07/22/20 09:02 Last Admin: 07/22/20 09:33 Dose: 20 meq Documented by: Warfarin Sodium (Coumadin) 5 mg PO ONETIME ONE Stop: 07/19/20 23:01 Last Admin: 07/19/20 23:32 Dose: 5 mg Documented by: Warfarin Sodium (Coumadin) 7.5 mg PO QPM [facility] Stop: 07/20/20 18:01 Last Admin: 07/20/20 17:09 Dose: 7.5 mg Documented by: Warfarin Sodium (Coumadin) 7.5 mg PO QPM [facility] Stop: 07/21/20 18:01 Last Admin: 07/21/20 17:33 Dose: 7.5 mg Documented by: Warfarin Sodium (Coumadin) 7.5 mg PO QPM [facility] Stop: 07/22/20 18:01 Last Admin: 07/22/20 18:10 Dose: 7.5 mg Documented by: Warfarin Sodium (Coumadin) 4 mg PO QPM [facility] Stop: 07/23/20 18:01 Last Admin: 07/23/20 18:07 Dose: 4 mg Documented by: Warfarin Sodium (Coumadin) 4 mg PO QPM [facility] Stop: 07/24/20 18:01 Last Admin: 07/24/20 17:17 Dose: 4 mg Documented by: - Exam Quality Assessment: Supplemental Oxygen (high flow O2), DVT Prophylaxis (on coumadin) General: Alert, Oriented, Cooperative, Moderate Distress HEENT: Pupils Equal, Pupils Reactive, Mucous Membr. Moist/[place] Neck: Supple, Trachea Midline. No: Lymphadenopathy Lungs: Decreased Breath Sounds, Wheezing (fine exp wheeze on the right side) Cardiovascular: Regular Rate, Irregular Rhythm GI/Abdominal Exam: Normal Bowel Sounds, Soft, Non-Tender, No Distention (Female) Exam: Deferred Back Exam: Normal Inspection, Full Range of Motion Extremities: Normal Inspection, Normal Range of Motion, Non-Tender, No Pedal Edema, Normal Capillary Refill Peripheral Pulses: 2+: Radial (L), Radial (R), Dorsalis Pedis (L), Dorsalis Pedis (R) Skin: Warm, Dry, Intact Neurological: No New Focal Deficit Psy/Mental Status: Alert, Normal Affect, Normal Mood Sepsis Event Note - Evaluation Sepsis Screening Result: Sepsis Risk - Focused Exam Vital Signs: Vital Signs Temp Pulse Resp BP Pulse Ox Pulse Ox 07/25/20 11:29 97.5 F 82 26 H 116/79 93 L 07/25/20 08:53 97.9 F 105 H 23 H 137/60 94 L 07/25/20 08:51 105 H 137/60 07/25/20 05:29 92 L 07/25/20 04:55 97.9 F 63 20 123/71 95 - Problem List & Annotations (1) Pneumonia due to COVID-19 virus SNOMED Code(s): 349510771579441888 Code(s): U07.1 - COVID-19; J12.89 - OTHER VIRAL PNEUMONIA Status: Acute Priority: High Current Visit: Yes (2) Renal insufficiency SNOMED Code(s): 921472596, 533376255 Code(s): N28.9 - DISORDER OF KIDNEY AND URETER, UNSPECIFIED Status: Acute Priority: High Current Visit: Yes (3) Afib, Atrial fibrillation SNOMED Code(s): 01305615 Code(s): I48.91 - UNSPECIFIED ATRIAL FIBRILLATION Status: Chronic Priority: Medium Current Visit: No (4) HTN, Essential hypertension SNOMED Code(s): 36814946 Code(s): I10 - ESSENTIAL (PRIMARY) HYPERTENSION Status: Chronic Priority: Medium Current Visit: No (5) Morbid obesity SNOMED Code(s): 925299330 Code(s): E66.01 - MORBID (SEVERE) OBESITY DUE TO EXCESS CALORIES Status: Chronic Priority: Medium Current Visit: No - Problem List Review Problem List Initiated/Reviewed/Updated: Yes - My Orders Last 24 Hours: My Active Orders 07/25/20 11:00 Magnesium Sulfate/Water [Magnesium Sulfate in Water Premix] 2 gm in 50 ml IV ONETIME - Assessment Assessment:: 07/20/20 * Requiring 6L/NC * Requiring sliding scale insulin starting today * Day 2 Remdesivir and Dexamethasone * Day 2 Rocephin and Zithromax * Awaiting BC results * Diabetic diet * Awaiting A1C Plan * Chest x-ray in the morning * FiO2 to keep SPO2 between 88 and 94%. Currently on 6L/NC * Monitor I's and O's closely. Patient is at risk for fluid overload which is dangerous in this patient population. * Continue atenolol and diltiazem for rate control. * Pharmacy to dose warfarin. * Mcneal catheter for strict I's and O's * Limited echocardiogram in the morning to assess for left heart function and diastolic dysfunction * Monitor for hypoxemia 07/21/20 * Requiring high-flow O2. * Requiring sliding scale insulin starting today * Day 3 Remdesivir and Dexamethasone * Day 3 Rocephin and Zithromax * Blood cultures show no growth after 24 hours * Diabetic diet * A1C is 6.40 * Limited echo technically difficult study with suboptimal image quality related to body habitus. Unable to assess left ventricular ejection fraction or regional wall motion. Valves not well visualized. Recommend use of Definity contrast with future studies. * D-dimer is up from 0.27 to 0.32 * BUN 24 * creatinine 0.8 * GFR greater than 60 * C-reactive protein 6.7 * Blood cultures show no growth after two days * UA is unremarkable for infection. Plan * FiO2 to keep SPO2 between 88 and 94%. High flow O2 * Monitor I's and O's closely. Patient is at risk for fluid overload which is dangerous in this patient population. * Continue atenolol and diltiazem for rate control. * Pharmacy to dose warfarin. * Mcneal catheter for strict I's and O's * Start alogliptin today * Monitor for hypoxemia 07/22/20 * Requiring high-flow O2. * Requiring sliding scale insulin * Day 4 Remdesivir and Dexamethasone * Day 4 Rocephin * Diabetiic diet * D-dimer 0.35 * Potassium 3.8 * BUN 22 * Creatinine 0.8 * Phosphorus 2.8 * Magnesium 1.8 * CRP 5.8 * Blood cultures show no growth after 3 days Plan * FiO2 to keep SPO2 between 88 and 94%. High flow O2 * Monitor I's and O's closely. Patient is at risk for fluid overload which is dangerous in this patient population. * Continue atenolol and diltiazem for rate control. * Pharmacy to dose warfarin. * Mcneal catheter for strict I's and O's * Monitor for hypoxemia * Magnesium 2 g IV today * Potassium 20 mEq by mouth today * Respiratory therapy to continue monitor and attempting to titrate O2 for patient 07/23/2020 The patient will be kept on high flow oxygen to keep her saturations greater than 90%. The patient will also be maintained on appropriate ADA diet and sliding scale insulin for her blood sugars. She also has been encouraged and taught how to use the incentive spirometer. Patient has been encouraged to ambulate. We will continue with DVT prophylaxis with use of warfarin. Repeat laboratory studies have been ordered. 07/24/2020 Patient would kept on oxygen to help keep her saturations above 90%. She will be maintained on appropriate diet as tolerated. The patient is to be using the incentive spirometer. Continue with DVT prophylaxis with use of warfarin. Repeat laboratory studies have been ordered. It should be appropriate [facility] back [facility] once her oxygen demands have improved. 07/25/20 Patient is still requiring high flow O2 to keep saturations greater than 90%. Respiratory care continues to titrate this down. She continues to use her incentive spirometer. Magnesium was 1.7 today she received 2 g of IV magnesium for replacement. Continue to monitor intake and output. Pharmacy is dosing Coumadin. Patient will remain in the hospital until we can get her oxygen levels titrated down. Hopefully we can look at discharge back to the jail towards the end of this week. - Plan Plan:: COVID-19 with pneumonia and hypoxemia Lactic acidosis * On high-flow O2 to keep O2 sats >90% * Day 4 Remdesivir and Dexamethasone * Has received convalescent plasma * Continue on sliding scale insulin * Incentive spirometer * Encourage prone positioning * Repeat labs as needed. * Day 4 Rocephin Atrial fibrillation, hypertension, CHF, hyperlipidemia, peripheral edema * On warfarin 5 mg daily. * Continue strict I&O * Pharmacy to dose warfarin Anxiety, depression, schizophrenia * It appears she is on both Zoloft and Paxil at [place]. * Risperdal twice daily PROPHYLAXIS: DVT- home Warfarin GI-home CODE STATUS: Full Code DISPOSITION: Admit to medical floor for treatment of COVID-19. Length of stay will likely be greater than 96 hours due to treatment for COVID. PT/OT to eval and treat patient. 07/23/2020 The patient will be kept on high flow oxygen to keep her saturations greater ellen n 90%. The patient will also be maintained on appropriate ADA diet and sliding scale insulin for her blood sugars. She also has been encouraged and taught how to use the incentive spirometer. Patient has been encouraged to ambulate. We will continue with DVT prophylaxis with use of warfarin. Repeat laboratory studies have been ordered. 07/24/2020 Patient would kept on oxygen to help keep her saturations above 90%. She will be maintained on appropriate diet as tolerated. The patient is to be using the incentive spirometer. Continue with DVT prophylaxis with use of warfarin. Repeat laboratory studies have been ordered. It should be appropriate for discharge back to jail once her oxygen demands have improved. 07/25/20 Continue on oxygen to keep O2 saturations greater than 90%. Once O2 is titrated down to around 2 L we can anticipate discharge back to the jail. PT and OT are no longer working with this patient. Will repeat labs in the morning. <Minh Amaya - Last Filed: 07/25/20 14:41> - Patient Data Vitals - Most Recent: Last Vital Signs Temp 36.4 C 07/25/20 11:29 Pulse 82 07/25/20 11:29 Resp 26 H 07/25/20 11:29 BP 116/79 07/25/20 11:29 Pulse Ox 93 L 07/25/20 13:14 I&O - Last 24 Hours: Intake & Output 07/24/20 07/25/20 07/25/20 22:59 06:59 14:59 Intake Total 500 500 240 Balance 500 500 240 Lab Results Last 24 Hours: Laboratory Results - last 24 hr 07/24/20 07/24/20 07/25/20 Range/Units 17:03 21:02 04:46 WBC (3.98-10.04) K/mm3 RBC (3.98-5.22) M/mm3 Hgb (11.2-15.7) gm/dl Hct (34.1-44.9) % MCV (79.4-94.8) fl MCH (25.6-32.2) pg MCHC (32.2-35.5) g/dl RDW Std Deviation (36.4-46.3) fL Plt Count (182-369) K/mm3 MPV (9.4-12.3) fl Neut % (Auto) (34.0-71.1) % Lymph % (Auto) (19.3-51.7) % [place] % (Auto) (4.7-12.5) % Eos % (Auto) (0.7-5.8) Baso % (Auto) (0.1-1.2) % Neut # (Auto) (1.56-6.13) K/mm3 Lymph # (Auto) (1.18-3.74) K/mm3 [place] # (Auto) (0.24-0.36) K/mm3 Eos # (Auto) (0.04-0.36) K/mm3 Baso # (Auto) (0.01-0.08) K/mm3 PT 25.4 H (9.7-11.7) SECONDS INR 2.42 D-Dimer, Quantitative (0.19-0.50) mg/L Sodium (136-145) mEq/L Potassium (3.5-5.1) mEq/L Chloride (98-107) mEq/L Carbon Dioxide (21-32) mEq/L Anion Gap (5-15) BUN (7-18) mg/dL Creatinine (0.55-1.02) mg/dL Est Cr Clr Drug Dosing mL/min Estimated GFR (MDRD) (>60) mL/min BUN/Creatinine Ratio (14-18) Glucose (74-106) mg/dL POC Glucose 224 H 254 H (70-105) mg/dL Calcium (8.5-10.1) mg/dL Phosphorus (2.6-4.7) mg/dL Magnesium (1.8-2.4) mg/dl Total Bilirubin (0.2-1.0) mg/dL AST (15-37) U/L ALT (14-59) U/L Alkaline Phosphatase (46-116) U/L Total Protein (6.4-8.2) g/dl Albumin (3.4-5.0) g/dl Globulin gm/dL Albumin/Globulin Ratio (1-2) 07/25/20 07/25/20 07/25/20 Range/Units 06:43 07:57 07:57 WBC 6.44 (3.98-10.04) K/mm3 RBC 4.77 (3.98-5.22) M/mm3 Hgb 15.0 (11.2-15.7) gm/dl Hct 46.4 H (34.1-44.9) % MCV 97.3 H (79.4-94.8) fl MCH 31.4 (25.6-32.2) pg MCHC 32.3 (32.2-35.5) g/dl RDW Std Deviation 49.0 H (36.4-46.3) fL Plt Count 305 (182-369) K/mm3 MPV 8.7 L (9.4-12.3) fl Neut % (Auto) 78.4 H (34.0-71.1) % Lymph % (Auto) 12.4 L (19.3-51.7) % [place] % (Auto) 7.3 (4.7-12.5) % Eos % (Auto) 0.2 L (0.7-5.8) Baso % (Auto) 0.3 (0.1-1.2) % Neut # (Auto) 5.05 (1.56-6.13) K/mm3 Lymph # (Auto) 0.80 L (1.18-3.74) K/mm3 [place] # (Auto) 0.47 H (0.24-0.36) K/mm3 Eos # (Auto) 0.01 L (0.04-0.36) K/mm3 Baso # (Auto) 0.02 (0.01-0.08) K/mm3 PT (9.7-11.7) SECONDS INR D-Dimer, Quantitative 0.33 (0.19-0.50) mg/L Sodium (136-145) mEq/L Potassium (3.5-5.1) mEq/L Chloride (98-107) mEq/L Carbon Dioxide (21-32) mEq/L Anion Gap (5-15) BUN (7-18) mg/dL Creatinine (0.55-1.02) mg/dL Est Cr Clr Drug Dosing mL/min Estimated GFR (MDRD) (>60) mL/min BUN/Creatinine Ratio (14-18) Glucose (74-106) mg/dL POC Glucose 211 H (70-105) mg/dL Calcium (8.5-10.1) mg/dL Phosphorus (2.6-4.7) mg/dL Magnesium (1.8-2.4) mg/dl Total Bilirubin (0.2-1.0) mg/dL AST (15-37) U/L ALT (14-59) U/L Alkaline Phosphatase (46-116) U/L Total Protein (6.4-8.2) g/dl Albumin (3.4-5.0) g/dl Globulin gm/dL Albumin/Globulin Ratio (1-2) 07/25/20 07/25/20 Range/Units 07:57 11:10 WBC (3.98-10.04) K/mm3 RBC (3.98-5.22) M/mm3 Hgb (11.2-15.7) gm/dl Hct (34.1-44.9) % MCV (79.4-94.8) fl MCH (25.6-32.2) pg MCHC (32.2-35.5) g/dl RDW Std Deviation (36.4-46.3) fL Plt Count (182-369) K/mm3 MPV (9.4-12.3) fl Neut % (Auto) (34.0-71.1) % Lymph % (Auto) (19.3-51.7) % [place] % (Auto) (4.7-12.5) % Eos % (Auto) (0.7-5.8) Baso % (Auto) (0.1-1.2) % Neut # (Auto) (1.56-6.13) K/mm3 Lymph # (Auto) (1.18-3.74) K/mm3 [place] # (Auto) (0.24-0.36) K/mm3 Eos # (Auto) (0.04-0.36) K/mm3 Baso # (Auto) (0.01-0.08) K/mm3 PT (9.7-11.7) SECONDS INR D-Dimer, Quantitative (0.19-0.50) mg/L Sodium 140 (136-145) mEq/L Potassium 4.1 (3.5-5.1) mEq/L Chloride 101 (98-107) mEq/L Carbon Dioxide 29 (21-32) mEq/L Anion Gap 14.1 (5-15) BUN 30 H (7-18) mg/dL Creatinine 0.9 (0.55-1.02) mg/dL Est Cr Clr Drug Dosing 66.12 mL/min Estimated GFR (MDRD) > 60 (>60) mL/min BUN/Creatinine Ratio 33.3 H (14-18) Glucose 217 H (74-106) mg/dL POC Glucose 197 H (70-105) mg/dL Calcium 9.8 (8.5-10.1) mg/dL Phosphorus 4.0 (2.6-4.7) mg/dL Magnesium 1.7 L (1.8-2.4) mg/dl Total Bilirubin 0.4 (0.2-1.0) mg/dL AST 17 (15-37) U/L ALT 28 (14-59) U/L Alkaline Phosphatase 33 L (46-116) U/L Total Protein 7.5 (6.4-8.2) g/dl Albumin 2.6 L (3.4-5.0) g/dl Globulin 4.9 gm/dL Albumin/Globulin Ratio 0.5 L (1-2) [place] Results Last 24 Hours: Microbiology 07/19/20 12:05 Aerobic Blood Culture - Preliminary Blood - Venous NO GROWTH AFTER 6 DAYS Anaerobic Blood Culture - Preliminary NO GROWTH AFTER 6 DAYS 07/19/20 12:10 Aerobic Blood Culture - Preliminary Blood - Venous - Lab Draw NO GROWTH AFTER 6 DAYS Anaerobic Blood Culture - Preliminary NO GROWTH AFTER 6 DAYS Med Orders - Current: Current Medications Acetaminophen (Tylenol) 650 mg PO Q4H PRN PRN Reason: Fever Greater Than 101 Last Admin: 07/24/20 18:04 Dose: 650 mg Documented by: Al Hydroxide/Mg Hydroxide (Mag-Al Plus) 30 ml PO Q4H PRN PRN Reason: Dyspepsia Last Admin: 07/21/20 18:58 Dose: 30 ml Documented by: Allopurinol (Zyloprim) 200 mg PO DAILY [facility] Last Admin: 07/25/20 08:54 Dose: 200 mg Documented by: Alogliptin Benzoate (Alogliptin) 25 mg PO DAILY [facility] Last Admin: 07/25/20 08:54 Dose: 25 mg Documented by: Atenolol (Tenormin) 25 mg PO DAILY [facility] Last Admin: 07/25/20 08:51 Dose: 25 mg Documented by: Calcium Carbonate/Glycine (Tums) 500 mg PO DAILY PRN PRN Reason: GERD Dexamethasone (Dexamethasone) 6 mg PO Q24H [facility] Stop: 07/28/20 15:01 Last Admin: 07/24/20 15:29 Dose: 6 mg Documented by: Diltiazem HCl (Cardizem) 60 mg PO BID [facility] Last Admin: 07/25/20 08:54 Dose: 60 mg Documented by: Hydrochlorothiazide (Hydrochlorothiazide) 12.5 mg PO DAILY [facility] Last Admin: 07/25/20 08:51 Dose: 12.5 mg Documented by: Insulin Human Lispro (Humalog) 0 unit SUBCUT QIDACANDBED [facility]; Protocol Last Admin: 07/25/20 11:12 Dose: 1 units Documented by: Lorazepam (Ativan) 1 mg PO BEDTIME [facility] Last Admin: 07/24/20 23:02 Dose: 1 mg Documented by: Ondansetron HCl (Zofran) 4 mg IV Q4H PRN PRN Reason: Nausea/Vomiting Pantoprazole Sodium (Protonix) 40 mg PO DAILY@0700 [facility] Last Admin: 07/25/20 06:45 Dose: 40 mg Documented by: Potassium Chloride (Klor-Con M20) 20 meq PO DAILY [facility] Last Admin: 07/25/20 08:54 Dose: 20 meq Documented by: Risperidone (Risperidal) 2 mg PO DAILY [facility] Last Admin: 07/25/20 08:51 Dose: 2 mg Documented by: Risperidone (Risperidal) 4 mg PO BEDTIME [facility] Last Admin: 07/24/20 23:02 Dose: 4 mg Documented by: Sertraline HCl (Zoloft) 150 mg PO DAILY [facility] Last Admin: 07/25/20 08:50 Dose: 150 mg Documented by: Simvastatin (Zocor) 20 mg PO BEDTIME [facility] Last Admin: 07/24/20 23:02 Dose: 20 mg Documented by: Sodium Chloride (Saline Flush) 10 ml FLUSH ASDIRECTED PRN PRN Reason: Keep Vein Open Last Admin: 07/19/20 11:46 Dose: 10 ml Documented by: Warfarin Sodium (Pharmacy To Dose - Warfarin) 1 dose .XX ASDIRECTED PRN PRN Reason: RX TO DOSE WARFARIN Warfarin Sodium (Coumadin) 5 mg PO QPM [facility] Stop: 07/25/20 18:01 Discontinued Medications Dexamethasone (Dexamethasone) 6 mg IVPUSH ONETIME ONE Stop: 07/19/20 14:20 Last Admin: 07/19/20 15:07 Dose: 6 mg Documented by: Furosemide (Lasix) 20 mg IVPUSH ONETIME ONE Stop: 07/19/20 23:31 Last Admin: 07/20/20 00:05 Dose: 20 mg Documented by: Sodium Chloride (Normal Saline) 1,000 mls @ 1,000 mls/hr IV ONETIME ONE Stop: 07/19/20 13:41 Last Admin: 07/19/20 14:24 Dose: 1,000 mls/hr Documented by: Sodium Chloride (Normal Saline) 1,000 mls @ 75 mls/hr IV ASDIRECTED [facility] Remdesivir 200 mg/ Sodium (Chloride) 250 mls @ 250 mls/hr IV ONETIME ONE Stop: 07/19/20 21:29 Last Admin: 07/19/20 21:49 Dose: 250 mls/hr Documented by: Remdesivir 100 mg/ Sodium (Chloride) 100 mls @ 100 mls/hr IV Q24H [facility] Stop: 07/23/20 21:59 Last Admin: 07/23/20 21:43 Dose: 100 mls/hr Documented by: Sodium Chloride (Normal Saline) 250 mls @ 50 mls/hr IV ASDIRECTED [facility] Last Admin: 07/19/20 23:30 Dose: 50 mls/hr Documented by: Ceftriaxone Sodium 2 gm/ (Sodium Chloride) 100 mls @ 200 mls/hr IV Q24H [facility] Stop: 07/24/20 00:29 Last Admin: 07/24/20 00:01 Dose: 200 mls/hr Documented by: Azithromycin 500 mg/ Sodium (Chloride) 250 mls @ 250 mls/hr IV Q24H [facility] Stop: 07/22/20 01:29 Last Admin: 07/22/20 00:45 Dose: 250 mls/hr Documented by: Magnesium Sulfate (Magnesium Sulfate In Water Premix) 2 gm in 50 mls @ 25 mls/hr IV ONETIME ONE Stop: 07/22/20 11:29 Last Admin: 07/22/20 09:34 Dose: 25 mls/hr Documented by: Magnesium Sulfate (Magnesium Sulfate In Water Premix) 2 gm in 50 mls @ 25 mls/hr IV ONETIME ONE Stop: 07/25/20 12:59 Last Admin: 07/25/20 11:13 Dose: 25 mls/hr Documented by: Pantoprazole Sodium (Protonix) 40 mg PO DAILY@0700 [facility] Potassium Chloride (Klor-Con M20) 20 meq PO ONETIME ONE Stop: 07/22/20 09:02 Last Admin: 07/22/20 09:33 Dose: 20 meq Documented by: Warfarin Sodium (Coumadin) 5 mg PO ONETIME ONE Stop: 07/19/20 23:01 Last Admin: 07/19/20 23:32 Dose: 5 mg Documented by: Warfarin Sodium (Coumadin) 7.5 mg PO QPM [facility] Stop: 07/20/20 18:01 Last Admin: 07/20/20 17:09 Dose: 7.5 mg Documented by: Warfarin Sodium (Coumadin) 7.5 mg PO QPM [facility] Stop: 07/21/20 18:01 Last Admin: 07/21/20 17:33 Dose: 7.5 mg Documented by: Warfarin Sodium (Coumadin) 7.5 mg PO QPM [facility] Stop: 07/22/20 18:01 Last Admin: 07/22/20 18:10 Dose: 7.5 mg Documented by: Warfarin Sodium (Coumadin) 4 mg PO QPM [facility] Stop: 07/23/20 18:01 Last Admin: 07/23/20 18:07 Dose: 4 mg Documented by: Warfarin Sodium (Coumadin) 4 mg PO QPM [facility] Stop: 07/24/20 18:01 Last Admin: 07/24/20 17:17 Dose: 4 mg Documented by: Sepsis Event Note - Focused Exam Vital Signs: Vital Signs Temp Pulse Resp BP Pulse Ox Pulse Ox 07/25/20 13:14 93 L 07/25/20 11:29 36.4 C 82 26 H 116/79 93 L 07/25/20 08:53 36.6 C 105 H 23 H 137/60 94 L 07/25/20 08:51 105 H 137/60 07/25/20 05:29 92 L 07/25/20 04:55 36.6 C 63 20 123/71 95 - Problem List & Annotations (1) Pneumonia due to COVID-19 virus SNOMED Code(s): 286339544184906968 Code(s): U07.1 - COVID-19; J12.89 - OTHER VIRAL PNEUMONIA Status: Acute Priority: High Current Visit: Yes (2) HTN, Essential hypertension SNOMED Code(s): 94972246 Code(s): I10 - ESSENTIAL (PRIMARY) HYPERTENSION Status: Chronic Priority: Medium Current Visit: No (3) Morbid obesity SNOMED Code(s): 770617229 Code(s): E66.01 - MORBID (SEVERE) OBESITY DUE TO EXCESS CALORIES Status: Chronic Priority: Medium Current Visit: No - My Orders Last 24 Hours: My Active Orders 07/25/20 18:00 Warfarin [Coumadin] 5 mg PO QPM - Plan Plan:: I have seen valuated the patient independently of Sarah Bryant, Nurse Practitioner, and have discussed the case with her. I have reviewed and agree with the orders placed by her. Please see orders.
[2020-07-25] MEDS: Acetaminophen 325 MG Tab PO PRN (16:35)
[2020-07-25] MEDS: Dexamethasone 4 MG Tab PO SCH ×2 (16:36→20:24)
[2020-07-25] MEDS ORDERED: Warfarin 5 MG Tab PO SCH (18:00)
[2020-07-25] MEDS: Simvastatin 20 MG Tab PO SCH (22:12)
[2020-07-25] MEDS: LORazepam 1 MG Tab PO SCH (22:12)
[2020-07-26] MEDS: Pantoprazole 40 MG Tab.CR PO SCH (06:44)
[2020-07-26] MEDS: Sertraline 50 MG Tab PO SCH (10:54)
[2020-07-26] MEDS: Potassium Chloride 20 MEQ Tab.ER PO SCH (10:54)
[2020-07-26] MEDS: Acetaminophen 325 MG Tab PO PRN ×2 (10:56→16:02)
[2020-07-26] MEDS: Hydrochlorothiazide 12.5 MG Cap PO SCH (10:56)
[2020-07-26] MEDS: Allopurinol 100 MG Tab PO SCH (10:57)
[2020-07-26] MEDS: Atenolol 25 MG Tab PO SCH (10:57)
[2020-07-26] MEDS: Diltiazem IR 60 MG Tab PO SCH ×2 (10:57→21:48)
[2020-07-26] MEDS: risperiDONE 1 MG Tab PO SCH ×2 (10:58→21:48)
[2020-07-26] MEDS: Insulin Lispro 100 Units/ML 3 ML Vial SUBCUT SCH ×4 (10:58→22:14)
--- NOTE | 2020-07-26 13:22 | PCM.PN ---
<Sarah Bryant M - Last Filed: 07/26/20 13:28> - General Info Date of Service: 07/26/20 Admission Dx/Problem (Free Text): Admission Diagnosis/Problem Admission Diagnosis/Problem Pneumonia Subjective Update: Continues to require less oxygen. Doing much better overall. Used cough. And states she has not had diarrhea today. Functional Status: Reports: Pain Controlled, Tolerating Diet, Urinating (Continent), Incentive Spirometry - Review of Systems General: Reports: No Symptoms HEENT: Reports: No Symptoms Pulmonary: Reports: Cough. Denies: Sputum Cardiovascular: Reports: No Symptoms Gastrointestinal: Reports: No Symptoms. Denies: Diarrhea Genitourinary: Reports: Incontinence Musculoskeletal: Reports: No Symptoms Skin: Reports: No Symptoms Neurological: Reports: No Symptoms Psychiatric: Reports: No Symptoms - Patient Data Vitals - Most Recent: Last Vital Signs Temp 97.7 F 07/26/20 10:56 Pulse 81 07/26/20 10:57 Resp 16 07/26/20 10:56 BP 121/74 07/26/20 10:57 Pulse Ox 94 L 07/26/20 12:07 Weight - Most Recent: 168.147 kg I&O - Last 24 Hours: Intake & Output 07/25/20 07/26/20 07/26/20 22:59 06:59 14:59 Intake Total 110 400 120 Output Total 50 Balance 60 400 120 Lab Results Last 24 Hours: Laboratory Results - last 24 hr 07/24/20 07/24/20 07/25/20 Range/Units 04:40 04:40 16:30 WBC (3.98-10.04) K/mm3 RBC (3.98-5.22) M/mm3 Hgb (11.2-15.7) gm/dl Hct (34.1-44.9) % MCV (79.4-94.8) fl MCH (25.6-32.2) pg MCHC (32.2-35.5) g/dl RDW Std Deviation (36.4-46.3) fL Plt Count (182-369) K/mm3 MPV (9.4-12.3) fl Neut % (Auto) (34.0-71.1) % Lymph % (Auto) (19.3-51.7) % [place] % (Auto) (4.7-12.5) % Eos % (Auto) (0.7-5.8) Baso % (Auto) (0.1-1.2) % Neut # (Auto) (1.56-6.13) K/mm3 Lymph # (Auto) (1.18-3.74) K/mm3 [place] # (Auto) (0.24-0.36) K/mm3 Eos # (Auto) (0.04-0.36) K/mm3 Baso # (Auto) (0.01-0.08) K/mm3 Manual Slide Review PT (9.7-11.7) SECONDS INR Sodium (136-145) mEq/L Potassium (3.5-5.1) mEq/L Chloride (98-107) mEq/L Carbon Dioxide (21-32) mEq/L Anion Gap (5-15) BUN (7-18) mg/dL Creatinine (0.55-1.02) mg/dL Est Cr Clr Drug Dosing mL/min Estimated GFR (MDRD) (>60) mL/min BUN/Creatinine Ratio (14-18) Glucose (74-106) mg/dL POC Glucose 223 H (70-105) mg/dL Calcium (8.5-10.1) mg/dL Magnesium (1.8-2.4) mg/dl Total Bilirubin (0.2-1.0) mg/dL AST (15-37) U/L ALT (14-59) U/L Alkaline Phosphatase (46-116) U/L C-React Prot High Sens 21.34 mg/L Total Protein (6.4-8.2) g/dl Albumin (3.4-5.0) g/dl Globulin gm/dL Albumin/Globulin Ratio (1-2) Procalcitonin <0.05 (<0.10) ng/mL 07/25/20 07/26/20 07/26/20 Range/Units 22:40 05:58 06:00 WBC (3.98-10.04) K/mm3 RBC (3.98-5.22) M/mm3 Hgb (11.2-15.7) gm/dl Hct (34.1-44.9) % MCV (79.4-94.8) fl MCH (25.6-32.2) pg MCHC (32.2-35.5) g/dl RDW Std Deviation (36.4-46.3) fL Plt Count (182-369) K/mm3 MPV (9.4-12.3) fl Neut % (Auto) (34.0-71.1) % Lymph % (Auto) (19.3-51.7) % [place] % (Auto) (4.7-12.5) % Eos % (Auto) (0.7-5.8) Baso % (Auto) (0.1-1.2) % Neut # (Auto) (1.56-6.13) K/mm3 Lymph # (Auto) (1.18-3.74) K/mm3 [place] # (Auto) (0.24-0.36) K/mm3 Eos # (Auto) (0.04-0.36) K/mm3 Baso # (Auto) (0.01-0.08) K/mm3 Manual Slide Review PT 25.6 H (9.7-11.7) SECONDS INR 2.43 Sodium (136-145) mEq/L Potassium (3.5-5.1) mEq/L Chloride (98-107) mEq/L Carbon Dioxide (21-32) mEq/L Anion Gap (5-15) BUN (7-18) mg/dL Creatinine (0.55-1.02) mg/dL Est Cr Clr Drug Dosing mL/min Estimated GFR (MDRD) (>60) mL/min BUN/Creatinine Ratio (14-18) Glucose (74-106) mg/dL POC Glucose 330 H 207 H (70-105) mg/dL Calcium (8.5-10.1) mg/dL Magnesium (1.8-2.4) mg/dl Total Bilirubin (0.2-1.0) mg/dL AST (15-37) U/L ALT (14-59) U/L Alkaline Phosphatase (46-116) U/L C-React Prot High Sens mg/L Total Protein (6.4-8.2) g/dl Albumin (3.4-5.0) g/dl Globulin gm/dL Albumin/Globulin Ratio (1-2) Procalcitonin (<0.10) ng/mL 07/26/20 07/26/20 07/26/20 Range/Units 06:00 06:00 12:14 WBC 7.62 (3.98-10.04) K/mm3 RBC 4.70 (3.98-5.22) M/mm3 Hgb 14.8 (11.2-15.7) gm/dl Hct 46.1 H (34.1-44.9) % MCV 98.1 H (79.4-94.8) fl MCH 31.5 (25.6-32.2) pg MCHC 32.1 L (32.2-35.5) g/dl RDW Std Deviation 49.2 H (36.4-46.3) fL Plt Count 317 (182-369) K/mm3 MPV 9.2 L (9.4-12.3) fl Neut % (Auto) 79.9 H (34.0-71.1) % Lymph % (Auto) 9.7 L (19.3-51.7) % [place] % (Auto) 8.5 (4.7-12.5) % Eos % (Auto) 0 L (0.7-5.8) Baso % (Auto) 0.1 (0.1-1.2) % Neut # (Auto) 6.08 (1.56-6.13) K/mm3 Lymph # (Auto) 0.74 L (1.18-3.74) K/mm3 [place] # (Auto) 0.65 H (0.24-0.36) K/mm3 Eos # (Auto) 0.00 L (0.04-0.36) K/mm3 Baso # (Auto) 0.01 (0.01-0.08) K/mm3 Manual Slide Review Normal smear PT (9.7-11.7) SECONDS INR Sodium 139 (136-145) mEq/L Potassium 4.2 (3.5-5.1) mEq/L Chloride 100 (98-107) mEq/L Carbon Dioxide 28 (21-32) mEq/L Anion Gap 15.2 H (5-15) BUN 34 H (7-18) mg/dL Creatinine 0.8 (0.55-1.02) mg/dL Est Cr Clr Drug Dosing 74.38 mL/min Estimated GFR (MDRD) > 60 (>60) mL/min BUN/Creatinine Ratio 42.5 H (14-18) Glucose 221 H (74-106) mg/dL POC Glucose 201 H (70-105) mg/dL Calcium 9.1 (8.5-10.1) mg/dL Magnesium 1.8 (1.8-2.4) mg/dl Total Bilirubin 0.4 (0.2-1.0) mg/dL AST 19 (15-37) U/L ALT 27 (14-59) U/L Alkaline Phosphatase 37 L (46-116) U/L C-React Prot High Sens mg/L Total Protein 7.2 (6.4-8.2) g/dl Albumin 2.6 L (3.4-5.0) g/dl Globulin 4.6 gm/dL Albumin/Globulin Ratio 0.6 L (1-2) Procalcitonin (<0.10) ng/mL [place] Results Last 24 Hours: Microbiology 07/19/20 12:05 Aerobic Blood Culture - Final Blood - Venous NO GROWTH AFTER 7 DAYS Anaerobic Blood Culture - Final NO GROWTH AFTER 7 DAYS 07/19/20 12:10 Aerobic Blood Culture - Final Blood - Venous - Lab Draw NO GROWTH AFTER 7 DAYS Anaerobic Blood Culture - Final NO GROWTH AFTER 7 DAYS Med Orders - Current: Current Medications Acetaminophen (Tylenol) 650 mg PO Q4H PRN PRN Reason: Fever Greater Than 101 Last Admin: 07/26/20 10:56 Dose: 650 mg Documented by: Al Hydroxide/Mg Hydroxide (Mag-Al Plus) 30 ml PO Q4H PRN PRN Reason: Dyspepsia Last Admin: 07/21/20 18:58 Dose: 30 ml Documented by: Allopurinol (Zyloprim) 200 mg PO DAILY [facility] Last Admin: 07/26/20 10:57 Dose: 200 mg Documented by: Alogliptin Benzoate (Alogliptin) 25 mg PO DAILY [facility] Last Admin: 07/26/20 10:58 Dose: 25 mg Documented by: Atenolol (Tenormin) 25 mg PO DAILY [facility] Last Admin: 07/26/20 10:57 Dose: 25 mg Documented by: Calcium Carbonate/Glycine (Tums) 500 mg PO DAILY PRN PRN Reason: GERD Dexamethasone (Dexamethasone) 6 mg PO Q24H [facility] Stop: 07/28/20 17:01 Last Admin: 07/25/20 16:36 Dose: 6 mg Documented by: Diltiazem HCl (Cardizem) 60 mg PO BID [facility] Last Admin: 07/26/20 10:57 Dose: 60 mg Documented by: Hydrochlorothiazide (Hydrochlorothiazide) 12.5 mg PO DAILY [facility] Last Admin: 07/26/20 10:56 Dose: 12.5 mg Documented by: Insulin Human Lispro (Humalog) 0 unit SUBCUT QIDACANDBED [facility]; Protocol Last Admin: 07/26/20 10:58 Dose: 2 units Documented by: Lorazepam (Ativan) 1 mg PO BEDTIME [facility] Last Admin: 07/25/20 22:12 Dose: 1 mg Documented by: Ondansetron HCl (Zofran) 4 mg IV Q4H PRN PRN Reason: Nausea/Vomiting Pantoprazole Sodium (Protonix) 40 mg PO DAILY@0700 [facility] Last Admin: 07/26/20 06:44 Dose: 40 mg Documented by: Potassium Chloride (Klor-Con M20) 20 meq PO DAILY [facility] Last Admin: 07/26/20 10:54 Dose: 20 meq Documented by: Risperidone (Risperidal) 2 mg PO DAILY [facility] Last Admin: 07/26/20 10:58 Dose: 2 mg Documented by: Risperidone (Risperidal) 4 mg PO BEDTIME [facility] Last Admin: 07/25/20 22:11 Dose: 4 mg Documented by: Sertraline HCl (Zoloft) 150 mg PO DAILY [facility] Last Admin: 07/26/20 10:54 Dose: 150 mg Documented by: Simvastatin (Zocor) 20 mg PO BEDTIME [facility] Last Admin: 07/25/20 22:12 Dose: 20 mg Documented by: Sodium Chloride (Saline Flush) 10 ml FLUSH ASDIRECTED PRN PRN Reason: Keep Vein Open Last Admin: 07/19/20 11:46 Dose: 10 ml Documented by: Warfarin Sodium (Pharmacy To Dose - Warfarin) 1 dose .XX ASDIRECTED PRN PRN Reason: RX TO DOSE WARFARIN Warfarin Sodium (Coumadin) 5 mg PO ONETIME ONE Stop: 07/26/20 18:01 Discontinued Medications Dexamethasone (Dexamethasone) 6 mg IVPUSH ONETIME ONE Stop: 07/19/20 14:20 Last Admin: 07/19/20 15:07 Dose: 6 mg Documented by: Dexamethasone (Dexamethasone) 6 mg PO Q24H [facility] Stop: 07/28/20 15:01 Last Admin: 07/25/20 20:24 Dose: Not Given Documented by: Furosemide (Lasix) 20 mg IVPUSH ONETIME ONE Stop: 07/19/20 23:31 Last Admin: 07/20/20 00:05 Dose: 20 mg Documented by: Sodium Chloride (Normal Saline) 1,000 mls @ 1,000 mls/hr IV ONETIME ONE Stop: 07/19/20 13:41 Last Admin: 07/19/20 14:24 Dose: 1,000 mls/hr Documented by: Sodium Chloride (Normal Saline) 1,000 mls @ 75 mls/hr IV ASDIRECTED [facility] Remdesivir 200 mg/ Sodium (Chloride) 250 mls @ 250 mls/hr IV ONETIME ONE Stop: 07/19/20 21:29 Last Admin: 07/19/20 21:49 Dose: 250 mls/hr Documented by: Remdesivir 100 mg/ Sodium (Chloride) 100 mls @ 100 mls/hr IV Q24H [facility] Stop: 07/23/20 21:59 Last Admin: 07/23/20 21:43 Dose: 100 mls/hr Documented by: Sodium Chloride (Normal Saline) 250 mls @ 50 mls/hr IV ASDIRECTED [facility] Last Admin: 07/19/20 23:30 Dose: 50 mls/hr Documented by: Ceftriaxone Sodium 2 gm/ (Sodium Chloride) 100 mls @ 200 mls/hr IV Q24H [facility] Stop: 07/24/20 00:29 Last Admin: 07/24/20 00:01 Dose: 200 mls/hr Documented by: Azithromycin 500 mg/ Sodium (Chloride) 250 mls @ 250 mls/hr IV Q24H [facility] Stop: 07/22/20 01:29 Last Admin: 07/22/20 00:45 Dose: 250 mls/hr Documented by: Magnesium Sulfate (Magnesium Sulfate In Water Premix) 2 gm in 50 mls @ 25 mls/hr IV ONETIME ONE Stop: 07/22/20 11:29 Last Admin: 07/22/20 09:34 Dose: 25 mls/hr Documented by: Magnesium Sulfate (Magnesium Sulfate In Water Premix) 2 gm in 50 mls @ 25 mls/hr IV ONETIME ONE Stop: 07/25/20 12:59 Last Admin: 07/25/20 11:13 Dose: 25 mls/hr Documented by: Pantoprazole Sodium (Protonix) 40 mg PO DAILY@0700 [facility] Potassium Chloride (Klor-Con M20) 20 meq PO ONETIME ONE Stop: 07/22/20 09:02 Last Admin: 07/22/20 09:33 Dose: 20 meq Documented by: Warfarin Sodium (Coumadin) 5 mg PO ONETIME ONE Stop: 07/19/20 23:01 Last Admin: 07/19/20 23:32 Dose: 5 mg Documented by: Warfarin Sodium (Coumadin) 7.5 mg PO QPM [facility] Stop: 07/20/20 18:01 Last Admin: 07/20/20 17:09 Dose: 7.5 mg Documented by: Warfarin Sodium (Coumadin) 7.5 mg PO QPM [facility] Stop: 07/21/20 18:01 Last Admin: 07/21/20 17:33 Dose: 7.5 mg Documented by: Warfarin Sodium (Coumadin) 7.5 mg PO QPM [facility] Stop: 07/22/20 18:01 Last Admin: 07/22/20 18:10 Dose: 7.5 mg Documented by: Warfarin Sodium (Coumadin) 4 mg PO QPM [facility] Stop: 07/23/20 18:01 Last Admin: 07/23/20 18:07 Dose: 4 mg Documented by: Warfarin Sodium (Coumadin) 4 mg PO QPM [facility] Stop: 07/24/20 18:01 Last Admin: 07/24/20 17:17 Dose: 4 mg Documented by: Warfarin Sodium (Coumadin) 5 mg PO QPM [facility] Stop: 07/25/20 18:01 Last Admin: 07/25/20 19:36 Dose: 5 mg Documented by: - Exam Quality Assessment: Supplemental Oxygen (Flow O2 30 L 40% FiO2), DVT Prophylaxis (Limited) General: Alert, Oriented, Cooperative, Mild Distress HEENT: Pupils Equal, Pupils Reactive, Mucous Membr. Moist/[place] Neck: Supple, Trachea Midline. No: Lymphadenopathy Lungs: Decreased Breath Sounds, Crackles (Fine crackles in the posterior bases) Cardiovascular: Irregular Rhythm GI/Abdominal Exam: Normal Bowel Sounds, Soft, Non-Tender, No Distention (Female) Exam: Deferred Back Exam: Normal Inspection, Full Range of Motion Extremities: Normal Inspection, Normal Range of Motion, Non-Tender, No Pedal Edema, Normal Capillary Refill Peripheral Pulses: 2+: Radial (L), Radial (R), Dorsalis Pedis (L), Dorsalis Pedis (R) Skin: Warm, Dry, Intact Neurological: No New Focal Deficit Psy/Mental Status: Alert, Normal Affect, Normal Mood Sepsis Event Note - Evaluation Sepsis Screening Result: No Definite Risk - Focused Exam Vital Signs: Vital Signs Temp Pulse Resp BP Pulse Ox Pulse Ox Pulse Ox 07/26/20 12:07 94 L 07/26/20 10:57 81 121/74 07/26/20 10:56 97.7 F 81 16 121/74 95 07/26/20 08:53 94 L 07/26/20 07:24 97.9 F 73 149/71 H 88 L 07/26/20 06:25 97 07/26/20 03:25 97.9 F 72 20 148/94 H 93 L 07/26/20 02:47 95 - Problem List & Annotations (1) Pneumonia due to COVID-19 virus SNOMED Code(s): 465056449467190462 Code(s): U07.1 - COVID-19; J12.89 - OTHER VIRAL PNEUMONIA Status: Acute Priority: High Current Visit: Yes (2) Renal insufficiency SNOMED Code(s): 003431515, 722766169 Code(s): N28.9 - DISORDER OF KIDNEY AND URETER, UNSPECIFIED Status: Acute Priority: High Current Visit: Yes (3) Afib, Atrial fibrillation SNOMED Code(s): 74420006 Code(s): I48.91 - UNSPECIFIED ATRIAL FIBRILLATION Status: Chronic Priority: Medium Current Visit: No (4) HTN, Essential hypertension SNOMED Code(s): 26287480 Code(s): I10 - ESSENTIAL (PRIMARY) HYPERTENSION Status: Chronic Priority: Medium Current Visit: No (5) Morbid obesity SNOMED Code(s): 222773563 Code(s): E66.01 - MORBID (SEVERE) OBESITY DUE TO EXCESS CALORIES Status: Chronic Priority: Medium Current Visit: No - Problem List Review Problem List Initiated/Reviewed/Updated: Yes - My Orders Last 24 Hours: My Active Orders 07/25/20 17:00 dexAMETHasone 6 mg PO Q24H 07/27/20 05:11 C-REACTIVE PROTEIN [CHEM] AM CBC WITH AUTO DIFF [HEME] AM COMPREHENSIVE METABOLIC PN,CMP [CHEM] AM D-DIMER QUANTITATIVE [COAG] AM MAGNESIUM [CHEM] AM PHOSPHORUS [CHEM] AM - Assessment Assessment:: 07/20/20 * Requiring 6L/NC * Requiring sliding scale insulin starting today * Day 2 Remdesivir and Dexamethasone * Day 2 Rocephin and Zithromax * Awaiting BC results * Diabetic diet * Awaiting A1C Plan * Chest x-ray in the morning * FiO2 to keep SPO2 between 88 and 94%. Currently on 6L/NC * Monitor I's and O's closely. Patient is at risk for fluid overload which is dangerous in this patient population. * Continue atenolol and diltiazem for rate control. * Pharmacy to dose warfarin. * Mcneal catheter for strict I's and O's * Limited echocardiogram in the morning to assess for left heart function and diastolic dysfunction * Monitor for hypoxemia 07/21/20 * Requiring high-flow O2. * Requiring sliding scale insulin starting today * Day 3 Remdesivir and Dexamethasone * Day 3 Rocephin and Zithromax * Blood cultures show no growth after 24 hours * Diabetic diet * A1C is 6.40 * Limited echo technically difficult study with suboptimal image quality related to body habitus. Unable to assess left ventricular ejection fraction or regional wall motion. Valves not well visualized. Recommend use of Definity contrast with future studies. * D-dimer is up from 0.27 to 0.32 * BUN 24 * creatinine 0.8 * GFR greater than 60 * C-reactive protein 6.7 * Blood cultures show no growth after two days * UA is unremarkable for infection. Plan * FiO2 to keep SPO2 between 88 and 94%. High flow O2 * Monitor I's and O's closely. Patient is at risk for fluid overload which is dangerous in this patient population. * Continue atenolol and diltiazem for rate control. * Pharmacy to dose warfarin. * Mcneal catheter for strict I's and O's * Start alogliptin today * Monitor for hypoxemia 07/22/20 * Requiring high-flow O2. * Requiring sliding scale insulin * Day 4 Remdesivir and Dexamethasone * Day 4 Rocephin * Diabetiic diet * D-dimer 0.35 * Potassium 3.8 * BUN 22 * Creatinine 0.8 * Phosphorus 2.8 * Magnesium 1.8 * CRP 5.8 * Blood cultures show no growth after 3 days Plan * FiO2 to keep SPO2 between 88 and 94%. High flow O2 * Monitor I's and O's closely. Patient is at risk for fluid overload which is dangerous in this patient population. * Continue atenolol and diltiazem for rate control. * Pharmacy to dose warfarin. * Mcneal catheter for strict I's and O's * Monitor for hypoxemia * Magnesium 2 g IV today * Potassium 20 mEq by mouth today * Respiratory therapy to continue monitor and attempting to titrate O2 for patient 07/23/2020 The patient will be kept on high flow oxygen to keep her saturations greater than 90%. The patient will also be maintained on appropriate ADA diet and sliding scale insulin for her blood sugars. She also has been encouraged and taught how to use the incentive spirometer. Patient has been encouraged to ambulate. We will continue with DVT prophylaxis with use of warfarin. Repeat laboratory studies have been ordered. 07/24/2020 Patient would kept on oxygen to help keep her saturations above 90%. She will be maintained on appropriate diet as tolerated. The patient is to be using the incentive spirometer. Continue with DVT prophylaxis with use of warfarin. Repeat laboratory studies have been ordered. It should be appropriate for discharge back to assisted once her oxygen demands have improved. 07/25/20 Patient is still requiring high flow O2 to keep saturations greater than 90%. Respiratory care continues to titrate this down. She continues to use her incentive spirometer. Magnesium was 1.7 today she received 2 g of IV magnesium for replacement. Continue to monitor intake and output. Pharmacy is dosing Coumadin. Patient will remain in the hospital until we can get her oxygen levels titrated down. Hopefully we can look at discharge back to the assisted towards the end of this week. 07/26/20 Still on high flow O2, but respiratory is able to decrease this. She is down to 30 L and 40% FiO2. She is on day 8 of dexamethasone. Blood sugars remain elevated with this. And ranging from 197-330. Have increased her sliding scale dosage to medium range. Continue Accu-Checks 4 times daily. Continue strict I&O. Respiratory therapy to continue to titrate oxygen. I anticipate discharge back to the assisted towards the end of the week when her O2 requirements are less. - Plan Plan:: I have seen valuated the patient independently of Sarah Bryant, Nurse Practitioner, and have discussed the case with her. I have reviewed and agree with the orders placed by her. Please see orders. 07/26/20 Continue to monitor for hypoxia Continue to titrate oxygen Strict I&O's and daily weights. Accu-Cheks 4 times daily with sliding scale insulin coverage PT and OT to work with patient. Will repeat lab work in the a.m. Pharmacy dosing Coumadin Dietitian consulting on caloric needs. The patient has received Rocephin and Zithromax for treatment of COVID associated pneumonia. The patient has received convalescent plasma, remdesivir, and dexamethasone for treatment of COVID. nutrition services associate for assistance with discharge planning and patient returning to the assisted. <Mnih Amaya - Last Filed: 07/26/20 14:55> - Patient Data Vitals - Most Recent: Last Vital Signs Temp 36.5 C 07/26/20 10:56 Pulse 81 07/26/20 10:57 Resp 16 07/26/20 10:56 BP 121/74 07/26/20 10:57 Pulse Ox 94 L 07/26/20 12:07 I&O - Last 24 Hours: Intake & Output 07/25/20 07/26/20 07/26/20 22:59 06:59 14:59 Intake Total 110 400 120 Output Total 50 Balance 60 400 120 Lab Results Last 24 Hours: Laboratory Results - last 24 hr 07/24/20 07/24/20 07/25/20 Range/Units 04:40 04:40 16:30 WBC (3.98-10.04) K/mm3 RBC (3.98-5.22) M/mm3 Hgb (11.2-15.7) gm/dl Hct (34.1-44.9) % MCV (79.4-94.8) fl MCH (25.6-32.2) pg MCHC (32.2-35.5) g/dl RDW Std Deviation (36.4-46.3) fL Plt Count (182-369) K/mm3 MPV (9.4-12.3) fl Neut % (Auto) (34.0-71.1) % Lymph % (Auto) (19.3-51.7) % [place] % (Auto) (4.7-12.5) % Eos % (Auto) (0.7-5.8) Baso % (Auto) (0.1-1.2) % Neut # (Auto) (1.56-6.13) K/mm3 Lymph # (Auto) (1.18-3.74) K/mm3 [place] # (Auto) (0.24-0.36) K/mm3 Eos # (Auto) (0.04-0.36) K/mm3 Baso # (Auto) (0.01-0.08) K/mm3 Manual Slide Review PT (9.7-11.7) SECONDS INR Sodium (136-145) mEq/L Potassium (3.5-5.1) mEq/L Chloride (98-107) mEq/L Carbon Dioxide (21-32) mEq/L Anion Gap (5-15) BUN (7-18) mg/dL Creatinine (0.55-1.02) mg/dL Est Cr Clr Drug Dosing mL/min Estimated GFR (MDRD) (>60) mL/min BUN/Creatinine Ratio (14-18) Glucose (74-106) mg/dL POC Glucose 223 H (70-105) mg/dL Calcium (8.5-10.1) mg/dL Magnesium (1.8-2.4) mg/dl Total Bilirubin (0.2-1.0) mg/dL AST (15-37) U/L ALT (14-59) U/L Alkaline Phosphatase (46-116) U/L C-React Prot High Sens 21.34 mg/L Total Protein (6.4-8.2) g/dl Albumin (3.4-5.0) g/dl Globulin gm/dL Albumin/Globulin Ratio (1-2) Procalcitonin <0.05 (<0.10) ng/mL 07/25/20 07/26/20 07/26/20 Range/Units 22:40 05:58 06:00 WBC (3.98-10.04) K/mm3 RBC (3.98-5.22) M/mm3 Hgb (11.2-15.7) gm/dl Hct (34.1-44.9) % MCV (79.4-94.8) fl MCH (25.6-32.2) pg MCHC (32.2-35.5) g/dl RDW Std Deviation (36.4-46.3) fL Plt Count (182-369) K/mm3 MPV (9.4-12.3) fl Neut % (Auto) (34.0-71.1) % Lymph % (Auto) (19.3-51.7) % [place] % (Auto) (4.7-12.5) % Eos % (Auto) (0.7-5.8) Baso % (Auto) (0.1-1.2) % Neut # (Auto) (1.56-6.13) K/mm3 Lymph # (Auto) (1.18-3.74) K/mm3 [place] # (Auto) (0.24-0.36) K/mm3 Eos # (Auto) (0.04-0.36) K/mm3 Baso # (Auto) (0.01-0.08) K/mm3 Manual Slide Review PT 25.6 H (9.7-11.7) SECONDS INR 2.43 Sodium (136-145) mEq/L Potassium (3.5-5.1) mEq/L Chloride (98-107) mEq/L Carbon Dioxide (21-32) mEq/L Anion Gap (5-15) BUN (7-18) mg/dL Creatinine (0.55-1.02) mg/dL Est Cr Clr Drug Dosing mL/min Estimated GFR (MDRD) (>60) mL/min BUN/Creatinine Ratio (14-18) Glucose (74-106) mg/dL POC Glucose 330 H 207 H (70-105) mg/dL Calcium (8.5-10.1) mg/dL Magnesium (1.8-2.4) mg/dl Total Bilirubin (0.2-1.0) mg/dL AST (15-37) U/L ALT (14-59) U/L Alkaline Phosphatase (46-116) U/L C-React Prot High Sens mg/L Total Protein (6.4-8.2) g/dl Albumin (3.4-5.0) g/dl Globulin gm/dL Albumin/Globulin Ratio (1-2) Procalcitonin (<0.10) ng/mL 07/26/20 07/26/20 07/26/20 Range/Units 06:00 06:00 12:14 WBC 7.62 (3.98-10.04) K/mm3 RBC 4.70 (3.98-5.22) M/mm3 Hgb 14.8 (11.2-15.7) gm/dl Hct 46.1 H (34.1-44.9) % MCV 98.1 H (79.4-94.8) fl MCH 31.5 (25.6-32.2) pg MCHC 32.1 L (32.2-35.5) g/dl RDW Std Deviation 49.2 H (36.4-46.3) fL Plt Count 317 (182-369) K/mm3 MPV 9.2 L (9.4-12.3) fl Neut % (Auto) 79.9 H (34.0-71.1) % Lymph % (Auto) 9.7 L (19.3-51.7) % [place] % (Auto) 8.5 (4.7-12.5) % Eos % (Auto) 0 L (0.7-5.8) Baso % (Auto) 0.1 (0.1-1.2) % Neut # (Auto) 6.08 (1.56-6.13) K/mm3 Lymph # (Auto) 0.74 L (1.18-3.74) K/mm3 [place] # (Auto) 0.65 H (0.24-0.36) K/mm3 Eos # (Auto) 0.00 L (0.04-0.36) K/mm3 Baso # (Auto) 0.01 (0.01-0.08) K/mm3 Manual Slide Review Normal smear PT (9.7-11.7) SECONDS INR Sodium 139 (136-145) mEq/L Potassium 4.2 (3.5-5.1) mEq/L Chloride 100 (98-107) mEq/L Carbon Dioxide 28 (21-32) mEq/L Anion Gap 15.2 H (5-15) BUN 34 H (7-18) mg/dL Creatinine 0.8 (0.55-1.02) mg/dL Est Cr Clr Drug Dosing 74.38 mL/min Estimated GFR (MDRD) > 60 (>60) mL/min BUN/Creatinine Ratio 42.5 H (14-18) Glucose 221 H (74-106) mg/dL POC Glucose 201 H (70-105) mg/dL Calcium 9.1 (8.5-10.1) mg/dL Magnesium 1.8 (1.8-2.4) mg/dl Total Bilirubin 0.4 (0.2-1.0) mg/dL AST 19 (15-37) U/L ALT 27 (14-59) U/L Alkaline Phosphatase 37 L (46-116) U/L C-React Prot High Sens mg/L Total Protein 7.2 (6.4-8.2) g/dl Albumin 2.6 L (3.4-5.0) g/dl Globulin 4.6 gm/dL Albumin/Globulin Ratio 0.6 L (1-2) Procalcitonin (<0.10) ng/mL [place] Results Last 24 Hours: Microbiology 07/19/20 12:05 Aerobic Blood Culture - Final Blood - Venous NO GROWTH AFTER 7 DAYS Anaerobic Blood Culture - Final NO GROWTH AFTER 7 DAYS 07/19/20 12:10 Aerobic Blood Culture - Final Blood - Venous - Lab Draw NO GROWTH AFTER 7 DAYS Anaerobic Blood Culture - Final NO GROWTH AFTER 7 DAYS Med Orders - Current: Current Medications Acetaminophen (Tylenol) 650 mg PO Q4H PRN PRN Reason: Fever Greater Than 101 Last Admin: 07/26/20 10:56 Dose: 650 mg Documented by: Al Hydroxide/Mg Hydroxide (Mag-Al Plus) 30 ml PO Q4H PRN PRN Reason: Dyspepsia Last Admin: 07/21/20 18:58 Dose: 30 ml Documented by: Allopurinol (Zyloprim) 200 mg PO DAILY [facility] Last Admin: 07/26/20 10:57 Dose: 200 mg Documented by: Alogliptin Benzoate (Alogliptin) 25 mg PO DAILY [facility] Last Admin: 07/26/20 10:58 Dose: 25 mg Documented by: Atenolol (Tenormin) 25 mg PO DAILY [facility] Last Admin: 07/26/20 10:57 Dose: 25 mg Documented by: Calcium Carbonate/Glycine (Tums) 500 mg PO DAILY PRN PRN Reason: GERD Dexamethasone (Dexamethasone) 6 mg PO Q24H [facility] Stop: 07/28/20 17:01 Last Admin: 07/25/20 16:36 Dose: 6 mg Documented by: Diltiazem HCl (Cardizem) 60 mg PO BID [facility] Last Admin: 07/26/20 10:57 Dose: 60 mg Documented by: Hydrochlorothiazide (Hydrochlorothiazide) 12.5 mg PO DAILY [facility] Last Admin: 07/26/20 10:56 Dose: 12.5 mg Documented by: Insulin Human Lispro (Humalog) 0 unit SUBCUT QIDACANDBED [facility]; Protocol Last Admin: 07/26/20 13:18 Dose: 4 units Documented by: Lorazepam (Ativan) 1 mg PO BEDTIME [facility] Last Admin: 07/25/20 22:12 Dose: 1 mg Documented by: Ondansetron HCl (Zofran) 4 mg IV Q4H PRN PRN Reason: Nausea/Vomiting Pantoprazole Sodium (Protonix) 40 mg PO DAILY@0700 [facility] Last Admin: 07/26/20 06:44 Dose: 40 mg Documented by: Potassium Chloride (Klor-Con M20) 20 meq PO DAILY [facility] Last Admin: 07/26/20 10:54 Dose: 20 meq Documented by: Risperidone (Risperidal) 2 mg PO DAILY [facility] Last Admin: 07/26/20 10:58 Dose: 2 mg Documented by: Risperidone (Risperidal) 4 mg PO BEDTIME [facility] Last Admin: 07/25/20 22:11 Dose: 4 mg Documented by: Sertraline HCl (Zoloft) 150 mg PO DAILY [facility] Last Admin: 07/26/20 10:54 Dose: 150 mg Documented by: Simvastatin (Zocor) 20 mg PO BEDTIME [facility] Last Admin: 07/25/20 22:12 Dose: 20 mg Documented by: Sodium Chloride (Saline Flush) 10 ml FLUSH ASDIRECTED PRN PRN Reason: Keep Vein Open Last Admin: 07/19/20 11:46 Dose: 10 ml Documented by: Warfarin Sodium (Pharmacy To Dose - Warfarin) 1 dose .XX ASDIRECTED PRN PRN Reason: RX TO DOSE WARFARIN Warfarin Sodium (Coumadin) 5 mg PO ONETIME ONE Stop: 07/26/20 18:01 Discontinued Medications Dexamethasone (Dexamethasone) 6 mg IVPUSH ONETIME ONE Stop: 07/19/20 14:20 Last Admin: 07/19/20 15:07 Dose: 6 mg Documented by: Dexamethasone (Dexamethasone) 6 mg PO Q24H [facility] Stop: 07/28/20 15:01 Last Admin: 07/25/20 20:24 Dose: Not Given Documented by: Furosemide (Lasix) 20 mg IVPUSH ONETIME ONE Stop: 07/19/20 23:31 Last Admin: 07/20/20 00:05 Dose: 20 mg Documented by: Sodium Chloride (Normal Saline) 1,000 mls @ 1,000 mls/hr IV ONETIME ONE Stop: 07/19/20 13:41 Last Admin: 07/19/20 14:24 Dose: 1,000 mls/hr Documented by: Sodium Chloride (Normal Saline) 1,000 mls @ 75 mls/hr IV ASDIRECTED [facility] Remdesivir 200 mg/ Sodium (Chloride) 250 mls @ 250 mls/hr IV ONETIME ONE Stop: 07/19/20 21:29 Last Admin: 07/19/20 21:49 Dose: 250 mls/hr Documented by: Remdesivir 100 mg/ Sodium (Chloride) 100 mls @ 100 mls/hr IV Q24H [facility] Stop: 07/23/20 21:59 Last Admin: 07/23/20 21:43 Dose: 100 mls/hr Documented by: Sodium Chloride (Normal Saline) 250 mls @ 50 mls/hr IV ASDIRECTED [facility] Last Admin: 07/19/20 23:30 Dose: 50 mls/hr Documented by: Ceftriaxone Sodium 2 gm/ (Sodium Chloride) 100 mls @ 200 mls/hr IV Q24H [facility] Stop: 07/24/20 00:29 Last Admin: 07/24/20 00:01 Dose: 200 mls/hr Documented by: Azithromycin 500 mg/ Sodium (Chloride) 250 mls @ 250 mls/hr IV Q24H [facility] Stop: 07/22/20 01:29 Last Admin: 07/22/20 00:45 Dose: 250 mls/hr Documented by: Magnesium Sulfate (Magnesium Sulfate In Water Premix) 2 gm in 50 mls @ 25 mls/hr IV ONETIME ONE Stop: 07/22/20 11:29 Last Admin: 07/22/20 09:34 Dose: 25 mls/hr Documented by: Magnesium Sulfate (Magnesium Sulfate In Water Premix) 2 gm in 50 mls @ 25 mls/hr IV ONETIME ONE Stop: 07/25/20 12:59 Last Admin: 07/25/20 11:13 Dose: 25 mls/hr Documented by: Pantoprazole Sodium (Protonix) 40 mg PO DAILY@0700 [facility] Potassium Chloride (Klor-Con M20) 20 meq PO ONETIME ONE Stop: 07/22/20 09:02 Last Admin: 07/22/20 09:33 Dose: 20 meq Documented by: Warfarin Sodium (Coumadin) 5 mg PO ONETIME ONE Stop: 07/19/20 23:01 Last Admin: 07/19/20 23:32 Dose: 5 mg Documented by: Warfarin Sodium (Coumadin) 7.5 mg PO QPM [facility] Stop: 07/20/20 18:01 Last Admin: 07/20/20 17:09 Dose: 7.5 mg Documented by: Warfarin Sodium (Coumadin) 7.5 mg PO QPM [facility] Stop: 07/21/20 18:01 Last Admin: 07/21/20 17:33 Dose: 7.5 mg Documented by: Warfarin Sodium (Coumadin) 7.5 mg PO QPM [facility] Stop: 07/22/20 18:01 Last Admin: 07/22/20 18:10 Dose: 7.5 mg Documented by: Warfarin Sodium (Coumadin) 4 mg PO QPM [facility] Stop: 07/23/20 18:01 Last Admin: 07/23/20 18:07 Dose: 4 mg Documented by: Warfarin Sodium (Coumadin) 4 mg PO QPM [facility] Stop: 07/24/20 18:01 Last Admin: 07/24/20 17:17 Dose: 4 mg Documented by: Warfarin Sodium (Coumadin) 5 mg PO QPM [facility] Stop: 07/25/20 18:01 Last Admin: 07/25/20 19:36 Dose: 5 mg Documented by: Sepsis Event Note - Focused Exam Vital Signs: Vital Signs Temp Pulse Resp BP Pulse Ox Pulse Ox Pulse Ox 07/26/20 12:07 94 L 07/26/20 10:57 81 121/74 07/26/20 10:56 36.5 C 81 16 121/74 95 07/26/20 08:53 94 L 07/26/20 07:24 36.6 C 73 149/71 H 88 L 07/26/20 06:25 97 07/26/20 03:25 36.6 C 72 20 148/94 H 93 L - Problem List & Annotations (1) Pneumonia due to COVID-19 virus SNOMED Code(s): 929155566374122985 Code(s): U07.1 - COVID-19; J12.89 - OTHER VIRAL PNEUMONIA Status: Acute Priority: High Current Visit: Yes (2) HTN, Essential hypertension SNOMED Code(s): 69143720 Code(s): I10 - ESSENTIAL (PRIMARY) HYPERTENSION Status: Chronic Priority: Medium Current Visit: No (3) Morbid obesity SNOMED Code(s): 942938239 Code(s): E66.01 - MORBID (SEVERE) OBESITY DUE TO EXCESS CALORIES Status: Chronic Priority: Medium Current Visit: No - My Orders Last 24 Hours: My Active Orders 07/26/20 18:00 Warfarin [Coumadin] 5 mg PO ONETIME ONE - Plan Plan:: I have seen and examined the patient independent of nurse practitioner Sarah Bryant and I have discussed the case with her. I have reviewed and agree with the assessment and plan as outlined for this patient by her. Please see orders.
[2020-07-26] MEDS: Dexamethasone 4 MG Tab PO SCH (17:53)
[2020-07-26] MEDS ORDERED: Warfarin 5 MG Tab PO ONE (18:00)
[2020-07-26] MEDS: LORazepam 1 MG Tab PO SCH (21:47)
[2020-07-26] MEDS: Simvastatin 20 MG Tab PO SCH (21:48)
[2020-07-27] MEDS: Pantoprazole 40 MG Tab.CR PO SCH (06:51)
[2020-07-27] MEDS: Insulin Lispro 100 Units/ML 3 ML Vial SUBCUT SCH ×4 (09:00→21:45)
[2020-07-27] MEDS: Potassium Chloride 20 MEQ Tab.ER PO SCH (09:01)
[2020-07-27] MEDS: Sertraline 50 MG Tab PO SCH (09:01)
[2020-07-27] MEDS: Atenolol 25 MG Tab PO SCH (09:02)
[2020-07-27] MEDS: risperiDONE 1 MG Tab PO SCH ×2 (09:02→21:43)
[2020-07-27] MEDS: Hydrochlorothiazide 12.5 MG Cap PO SCH (09:02)
[2020-07-27] MEDS: Allopurinol 100 MG Tab PO SCH (09:02)
[2020-07-27] MEDS: Diltiazem IR 60 MG Tab PO SCH ×2 (09:03→21:45)
--- NOTE | 2020-07-27 14:25 | PCM.PN ---
<Sarah Bryant M - Last Filed: 07/27/20 14:26> - General Info Date of Service: 07/27/20 Admission Dx/Problem (Free Text): Admission Diagnosis/Problem Admission Diagnosis/Problem Pneumonia Subjective Update: Doing very well today. She feels much stronger and has no shortness of breath when doing activities. Her appetite is good she denies cough headache body aches or diarrhea. Functional Status: Reports: Pain Controlled, Tolerating Diet, Urinating, Incentive Spirometry (Needs encouragement) - Review of Systems General: Reports: No Symptoms HEENT: Reports: No Symptoms Pulmonary: Reports: No Symptoms Cardiovascular: Reports: No Symptoms Gastrointestinal: Reports: No Symptoms Genitourinary: Reports: No Symptoms Musculoskeletal: Reports: No Symptoms Skin: Reports: No Symptoms Neurological: Reports: No Symptoms Psychiatric: Reports: No Symptoms - Patient Data Vitals - Most Recent: Last Vital Signs Temp 96.1 F L 07/27/20 07:59 Pulse 76 07/27/20 11:02 Resp 20 07/27/20 11:02 BP 125/65 07/27/20 11:02 Pulse Ox 98 07/27/20 11:02 Weight - Most Recent: 167.648 kg I&O - Last 24 Hours: Intake & Output 07/26/20 07/27/20 07/27/20 22:59 06:59 14:59 Intake Total 940 400 Balance 940 400 Lab Results Last 24 Hours: Laboratory Results - last 24 hr 07/26/20 07/26/20 07/27/20 Range/Units 16:46 21:41 06:18 WBC (3.98-10.04) K/mm3 RBC (3.98-5.22) M/mm3 Hgb (11.2-15.7) gm/dl Hct (34.1-44.9) % MCV (79.4-94.8) fl MCH (25.6-32.2) pg MCHC (32.2-35.5) g/dl RDW Std Deviation (36.4-46.3) fL Plt Count (182-369) K/mm3 MPV (9.4-12.3) fl Neut % (Auto) (34.0-71.1) % Lymph % (Auto) (19.3-51.7) % [place] % (Auto) (4.7-12.5) % Eos % (Auto) (0.7-5.8) Baso % (Auto) (0.1-1.2) % Neut # (Auto) (1.56-6.13) K/mm3 Lymph # (Auto) (1.18-3.74) K/mm3 [place] # (Auto) (0.24-0.36) K/mm3 Eos # (Auto) (0.04-0.36) K/mm3 Baso # (Auto) (0.01-0.08) K/mm3 Manual Slide Review PT 29.2 H (9.7-11.7) SECONDS INR 2.78 D-Dimer, Quantitative 0.24 (0.19-0.50) mg/L Sodium (136-145) mEq/L Potassium (3.5-5.1) mEq/L Chloride (98-107) mEq/L Carbon Dioxide (21-32) mEq/L Anion Gap (5-15) BUN (7-18) mg/dL Creatinine (0.55-1.02) mg/dL Est Cr Clr Drug Dosing mL/min Estimated GFR (MDRD) (>60) mL/min BUN/Creatinine Ratio (14-18) Glucose (74-106) mg/dL POC Glucose 142 H 185 H (70-105) mg/dL Calcium (8.5-10.1) mg/dL Phosphorus (2.6-4.7) mg/dL Magnesium (1.8-2.4) mg/dl Total Bilirubin (0.2-1.0) mg/dL AST (15-37) U/L ALT (14-59) U/L Alkaline Phosphatase (46-116) U/L C-Reactive Protein (<1.0) mg/dL Total Protein (6.4-8.2) g/dl Albumin (3.4-5.0) g/dl Globulin gm/dL Albumin/Globulin Ratio (1-2) 07/27/20 07/27/20 07/27/20 Range/Units 06:18 06:18 06:28 WBC 8.57 (3.98-10.04) K/mm3 RBC 4.90 (3.98-5.22) M/mm3 Hgb 15.3 (11.2-15.7) gm/dl Hct 48.3 H (34.1-44.9) % MCV 98.6 H (79.4-94.8) fl MCH 31.2 (25.6-32.2) pg MCHC 31.7 L (32.2-35.5) g/dl RDW Std Deviation 50.4 H (36.4-46.3) fL Plt Count 339 (182-369) K/mm3 MPV 9.0 L (9.4-12.3) fl Neut % (Auto) 84.6 H (34.0-71.1) % Lymph % (Auto) 6.9 L (19.3-51.7) % [place] % (Auto) 6.1 (4.7-12.5) % Eos % (Auto) 0.1 L (0.7-5.8) Baso % (Auto) 0.1 (0.1-1.2) % Neut # (Auto) 7.25 H (1.56-6.13) K/mm3 Lymph # (Auto) 0.59 L (1.18-3.74) K/mm3 [place] # (Auto) 0.52 H (0.24-0.36) K/mm3 Eos # (Auto) 0.01 L (0.04-0.36) K/mm3 Baso # (Auto) 0.01 (0.01-0.08) K/mm3 Manual Slide Review Abnormal smear PT (9.7-11.7) SECONDS INR D-Dimer, Quantitative (0.19-0.50) mg/L Sodium 139 (136-145) mEq/L Potassium 4.4 (3.5-5.1) mEq/L Chloride 101 (98-107) mEq/L Carbon Dioxide 30 (21-32) mEq/L Anion Gap 12.4 (5-15) BUN 35 H (7-18) mg/dL Creatinine 0.9 (0.55-1.02) mg/dL Est Cr Clr Drug Dosing 66.12 mL/min Estimated GFR (MDRD) > 60 (>60) mL/min BUN/Creatinine Ratio 38.9 H (14-18) Glucose 210 H (74-106) mg/dL POC Glucose 192 H (70-105) mg/dL Calcium 9.0 (8.5-10.1) mg/dL Phosphorus 3.6 (2.6-4.7) mg/dL Magnesium 1.8 (1.8-2.4) mg/dl Total Bilirubin 0.4 (0.2-1.0) mg/dL AST 20 (15-37) U/L ALT 33 (14-59) U/L Alkaline Phosphatase 38 L (46-116) U/L C-Reactive Protein 0.3 (<1.0) mg/dL Total Protein 7.2 (6.4-8.2) g/dl Albumin 2.7 L (3.4-5.0) g/dl Globulin 4.5 gm/dL Albumin/Globulin Ratio 0.6 L (1-2) 07/27/20 Range/Units 11:15 WBC (3.98-10.04) K/mm3 RBC (3.98-5.22) M/mm3 Hgb (11.2-15.7) gm/dl Hct (34.1-44.9) % MCV (79.4-94.8) fl MCH (25.6-32.2) pg MCHC (32.2-35.5) g/dl RDW Std Deviation (36.4-46.3) fL Plt Count (182-369) K/mm3 MPV (9.4-12.3) fl Neut % (Auto) (34.0-71.1) % Lymph % (Auto) (19.3-51.7) % [place] % (Auto) (4.7-12.5) % Eos % (Auto) (0.7-5.8) Baso % (Auto) (0.1-1.2) % Neut # (Auto) (1.56-6.13) K/mm3 Lymph # (Auto) (1.18-3.74) K/mm3 [place] # (Auto) (0.24-0.36) K/mm3 Eos # (Auto) (0.04-0.36) K/mm3 Baso # (Auto) (0.01-0.08) K/mm3 Manual Slide Review PT (9.7-11.7) SECONDS INR D-Dimer, Quantitative (0.19-0.50) mg/L Sodium (136-145) mEq/L Potassium (3.5-5.1) mEq/L Chloride (98-107) mEq/L Carbon Dioxide (21-32) mEq/L Anion Gap (5-15) BUN (7-18) mg/dL Creatinine (0.55-1.02) mg/dL Est Cr Clr Drug Dosing mL/min Estimated GFR (MDRD) (>60) mL/min BUN/Creatinine Ratio (14-18) Glucose (74-106) mg/dL POC Glucose 228 H (70-105) mg/dL Calcium (8.5-10.1) mg/dL Phosphorus (2.6-4.7) mg/dL Magnesium (1.8-2.4) mg/dl Total Bilirubin (0.2-1.0) mg/dL AST (15-37) U/L ALT (14-59) U/L Alkaline Phosphatase (46-116) U/L C-Reactive Protein (<1.0) mg/dL Total Protein (6.4-8.2) g/dl Albumin (3.4-5.0) g/dl Globulin gm/dL Albumin/Globulin Ratio (1-2) [place] Results Last 24 Hours: Microbiology 07/19/20 12:05 Aerobic Blood Culture - Final Blood - Venous NO GROWTH AFTER 7 DAYS Anaerobic Blood Culture - Final NO GROWTH AFTER 7 DAYS 07/19/20 12:10 Aerobic Blood Culture - Final Blood - Venous - Lab Draw NO GROWTH AFTER 7 DAYS Anaerobic Blood Culture - Final NO GROWTH AFTER 7 DAYS Med Orders - Current: Current Medications Acetaminophen (Tylenol) 650 mg PO Q4H PRN PRN Reason: Fever Greater Than 101 Last Admin: 07/26/20 16:02 Dose: 650 mg Documented by: Al Hydroxide/Mg Hydroxide (Mag-Al Plus) 30 ml PO Q4H PRN PRN Reason: Dyspepsia Last Admin: 07/21/20 18:58 Dose: 30 ml Documented by: Allopurinol (Zyloprim) 200 mg PO DAILY [facility] Last Admin: 07/27/20 09:02 Dose: 200 mg Documented by: Alogliptin Benzoate (Alogliptin) 25 mg PO DAILY [facility] Last Admin: 07/27/20 09:03 Dose: 25 mg Documented by: Atenolol (Tenormin) 25 mg PO DAILY [facility] Last Admin: 07/27/20 09:02 Dose: 25 mg Documented by: Calcium Carbonate/Glycine (Tums) 500 mg PO DAILY PRN PRN Reason: GERD Dexamethasone (Dexamethasone) 6 mg PO Q24H [facility] Stop: 07/28/20 17:01 Last Admin: 07/26/20 17:53 Dose: 6 mg Documented by: Diltiazem HCl (Cardizem) 60 mg PO BID [facility] Last Admin: 07/27/20 09:03 Dose: 60 mg Documented by: Hydrochlorothiazide (Hydrochlorothiazide) 12.5 mg PO DAILY [facility] Last Admin: 07/27/20 09:02 Dose: 12.5 mg Documented by: Insulin Human Lispro (Humalog) 0 unit SUBCUT QIDACANDBED [facility]; Protocol Last Admin: 07/27/20 11:30 Dose: 4 units Documented by: Lorazepam (Ativan) 1 mg PO BEDTIME [facility] Last Admin: 07/26/20 21:47 Dose: 1 mg Documented by: Ondansetron HCl (Zofran) 4 mg IV Q4H PRN PRN Reason: Nausea/Vomiting Pantoprazole Sodium (Protonix) 40 mg PO DAILY@0700 [facility] Last Admin: 07/27/20 06:51 Dose: 40 mg Documented by: Potassium Chloride (Klor-Con M20) 20 meq PO DAILY [facility] Last Admin: 07/27/20 09:01 Dose: 20 meq Documented by: Risperidone (Risperidal) 2 mg PO DAILY [facility] Last Admin: 07/27/20 09:02 Dose: 2 mg Documented by: Risperidone (Risperidal) 4 mg PO BEDTIME [facility] Last Admin: 07/26/20 21:48 Dose: 4 mg Documented by: Sertraline HCl (Zoloft) 150 mg PO DAILY [facility] Last Admin: 07/27/20 09:01 Dose: 150 mg Documented by: Simvastatin (Zocor) 20 mg PO BEDTIME [facility] Last Admin: 07/26/20 21:48 Dose: 20 mg Documented by: Sodium Chloride (Saline Flush) 10 ml FLUSH ASDIRECTED PRN PRN Reason: Keep Vein Open Last Admin: 07/19/20 11:46 Dose: 10 ml Documented by: Warfarin Sodium (Pharmacy To Dose - Warfarin) 1 dose .XX ASDIRECTED PRN PRN Reason: RX TO DOSE WARFARIN Warfarin Sodium (Coumadin) 5 mg PO QPM [facility] Stop: 07/27/20 18:01 Discontinued Medications Dexamethasone (Dexamethasone) 6 mg IVPUSH ONETIME ONE Stop: 07/19/20 14:20 Last Admin: 07/19/20 15:07 Dose: 6 mg Documented by: Dexamethasone (Dexamethasone) 6 mg PO Q24H [facility] Stop: 07/28/20 15:01 Last Admin: 07/25/20 20:24 Dose: Not Given Documented by: Furosemide (Lasix) 20 mg IVPUSH ONETIME ONE Stop: 07/19/20 23:31 Last Admin: 07/20/20 00:05 Dose: 20 mg Documented by: Sodium Chloride (Normal Saline) 1,000 mls @ 1,000 mls/hr IV ONETIME ONE Stop: 07/19/20 13:41 Last Admin: 07/19/20 14:24 Dose: 1,000 mls/hr Documented by: Sodium Chloride (Normal Saline) 1,000 mls @ 75 mls/hr IV ASDIRECTED [facility] Remdesivir 200 mg/ Sodium (Chloride) 250 mls @ 250 mls/hr IV ONETIME ONE Stop: 07/19/20 21:29 Last Admin: 07/19/20 21:49 Dose: 250 mls/hr Documented by: Remdesivir 100 mg/ Sodium (Chloride) 100 mls @ 100 mls/hr IV Q24H [facility] Stop: 07/23/20 21:59 Last Admin: 07/23/20 21:43 Dose: 100 mls/hr Documented by: Sodium Chloride (Normal Saline) 250 mls @ 50 mls/hr IV ASDIRECTED [facility] Last Admin: 07/19/20 23:30 Dose: 50 mls/hr Documented by: Ceftriaxone Sodium 2 gm/ (Sodium Chloride) 100 mls @ 200 mls/hr IV Q24H [facility] Stop: 07/24/20 00:29 Last Admin: 07/24/20 00:01 Dose: 200 mls/hr Documented by: Azithromycin 500 mg/ Sodium (Chloride) 250 mls @ 250 mls/hr IV Q24H [facility] Stop: 07/22/20 01:29 Last Admin: 07/22/20 00:45 Dose: 250 mls/hr Documented by: Magnesium Sulfate (Magnesium Sulfate In Water Premix) 2 gm in 50 mls @ 25 mls/hr IV ONETIME ONE Stop: 07/22/20 11:29 Last Admin: 07/22/20 09:34 Dose: 25 mls/hr Documented by: Magnesium Sulfate (Magnesium Sulfate In Water Premix) 2 gm in 50 mls @ 25 mls/hr IV ONETIME ONE Stop: 07/25/20 12:59 Last Admin: 07/25/20 11:13 Dose: 25 mls/hr Documented by: Pantoprazole Sodium (Protonix) 40 mg PO DAILY@0700 [facility] Potassium Chloride (Klor-Con M20) 20 meq PO ONETIME ONE Stop: 07/22/20 09:02 Last Admin: 07/22/20 09:33 Dose: 20 meq Documented by: Warfarin Sodium (Coumadin) 5 mg PO ONETIME ONE Stop: 07/19/20 23:01 Last Admin: 07/19/20 23:32 Dose: 5 mg Documented by: Warfarin Sodium (Coumadin) 7.5 mg PO QPM [facility] Stop: 07/20/20 18:01 Last Admin: 07/20/20 17:09 Dose: 7.5 mg Documented by: Warfarin Sodium (Coumadin) 7.5 mg PO QPM [facility] Stop: 07/21/20 18:01 Last Admin: 07/21/20 17:33 Dose: 7.5 mg Documented by: Warfarin Sodium (Coumadin) 7.5 mg PO QPM [facility] Stop: 07/22/20 18:01 Last Admin: 07/22/20 18:10 Dose: 7.5 mg Documented by: Warfarin Sodium (Coumadin) 4 mg PO QPM [facility] Stop: 07/23/20 18:01 Last Admin: 07/23/20 18:07 Dose: 4 mg Documented by: Warfarin Sodium (Coumadin) 4 mg PO QPM [facility] Stop: 07/24/20 18:01 Last Admin: 07/24/20 17:17 Dose: 4 mg Documented by: Warfarin Sodium (Coumadin) 5 mg PO QPM [facility] Stop: 07/25/20 18:01 Last Admin: 07/25/20 19:36 Dose: 5 mg Documented by: Warfarin Sodium (Coumadin) 5 mg PO ONETIME ONE Stop: 07/26/20 18:01 Last Admin: 07/26/20 17:53 Dose: 5 mg Documented by: - Exam Quality Assessment: Supplemental Oxygen (5 L per nasal cannula), DVT Prophylaxis (Coumadin) General: Alert, Oriented, Cooperative, Mild Distress HEENT: Pupils Equal, Pupils Reactive, Mucous Membr. Moist/[place] Neck: Supple, Trachea Midline. No: Lymphadenopathy Lungs: Clear to Auscultation, Normal Respiratory Effort Cardiovascular: Irregular Rhythm GI/Abdominal Exam: Normal Bowel Sounds, Soft, Non-Tender, No Distention (Female) Exam: Deferred Back Exam: Normal Inspection, Full Range of Motion Extremities: Normal Inspection, Normal Range of Motion, Non-Tender, No Pedal Edema, Normal Capillary Refill Peripheral Pulses: 2+: Radial (L), Radial (R), Dorsalis Pedis (L), Dorsalis Pedis (R) Skin: Warm, Dry, Intact Neurological: No New Focal Deficit Psy/Mental Status: Alert, Normal Affect, Normal Mood Sepsis Event Note - Evaluation Sepsis Screening Result: No Definite Risk - Focused Exam Vital Signs: Vital Signs Temp Pulse Resp BP Pulse Ox Pulse Ox 07/27/20 11:02 76 20 125/65 98 07/27/20 09:02 83 106/75 07/27/20 08:45 95 07/27/20 08:00 83 106/75 94 L 07/27/20 07:59 96.1 F L 90 20 90/23 L 96 07/27/20 07:35 94 L 07/27/20 06:33 98 07/27/20 05:13 97.9 F 51 L 20 116/58 L 97 - Problem List & Annotations (1) Pneumonia due to COVID-19 virus SNOMED Code(s): 811545756880859342 Code(s): U07.1 - COVID-19; J12.89 - OTHER VIRAL PNEUMONIA Status: Acute Priority: High Current Visit: Yes (2) Renal insufficiency SNOMED Code(s): 141078465, 277234201 Code(s): N28.9 - DISORDER OF KIDNEY AND URETER, UNSPECIFIED Status: Acute Priority: High Current Visit: Yes (3) Afib, Atrial fibrillation SNOMED Code(s): 03731638 Code(s): I48.91 - UNSPECIFIED ATRIAL FIBRILLATION Status: Chronic Priority: Medium Current Visit: No (4) HTN, Essential hypertension SNOMED Code(s): 93635083 Code(s): I10 - ESSENTIAL (PRIMARY) HYPERTENSION Status: Chronic Priority: Medium Current Visit: No (5) Morbid obesity SNOMED Code(s): 328762531 Code(s): E66.01 - MORBID (SEVERE) OBESITY DUE TO EXCESS CALORIES Status: Chronic Priority: Medium Current Visit: No - Problem List Review Problem List Initiated/Reviewed/Updated: Yes - Assessment Assessment:: 07/20/20 * Requiring 6L/NC * Requiring sliding scale insulin starting today * Day 2 Remdesivir and Dexamethasone * Day 2 Rocephin and Zithromax * Awaiting BC results * Diabetic diet * Awaiting A1C Plan * Chest x-ray in the morning * FiO2 to keep SPO2 between 88 and 94%. Currently on 6L/NC * Monitor I's and O's closely. Patient is at risk for fluid overload which is dangerous in this patient population. * Continue atenolol and diltiazem for rate control. * Pharmacy to dose warfarin. * Mcneal catheter for strict I's and O's * Limited echocardiogram in the morning to assess for left heart function and diastolic dysfunction * Monitor for hypoxemia 07/21/20 * Requiring high-flow O2. * Requiring sliding scale insulin starting today * Day 3 Remdesivir and Dexamethasone * Day 3 Rocephin and Zithromax * Blood cultures show no growth after 24 hours * Diabetic diet * A1C is 6.40 * Limited echo technically difficult study with suboptimal image quality related to body habitus. Unable to assess left ventricular ejection fraction or regional wall motion. Valves not well visualized. Recommend use of Definity contrast with future studies. * D-dimer is up from 0.27 to 0.32 * BUN 24 * creatinine 0.8 * GFR greater than 60 * C-reactive protein 6.7 * Blood cultures show no growth after two days * UA is unremarkable for infection. Plan * FiO2 to keep SPO2 between 88 and 94%. High flow O2 * Monitor I's and O's closely. Patient is at risk for fluid overload which is dangerous in this patient population. * Continue atenolol and diltiazem for rate control. * Pharmacy to dose warfarin. * Mcneal catheter for strict I's and O's * Start alogliptin today * Monitor for hypoxemia 07/22/20 * Requiring high-flow O2. * Requiring sliding scale insulin * Day 4 Remdesivir and Dexamethasone * Day 4 Rocephin * Diabetiic diet * D-dimer 0.35 * Potassium 3.8 * BUN 22 * Creatinine 0.8 * Phosphorus 2.8 * Magnesium 1.8 * CRP 5.8 * Blood cultures show no growth after 3 days Plan * FiO2 to keep SPO2 between 88 and 94%. High flow O2 * Monitor I's and O's closely. Patient is at risk for fluid overload which is dangerous in this patient population. * Continue atenolol and diltiazem for rate control. * Pharmacy to dose warfarin. * Mcneal catheter for strict I's and O's * Monitor for hypoxemia * Magnesium 2 g IV today * Potassium 20 mEq by mouth today * Respiratory therapy to continue monitor and attempting to titrate O2 for patient 07/23/2020 The patient will be kept on high flow oxygen to keep her saturations greater than 90%. The patient will also be maintained on appropriate ADA diet and sliding scale insulin for her blood sugars. She also has been encouraged and taught how to use the incentive spirometer. Patient has been encouraged to ambulate. We will continue with DVT prophylaxis with use of warfarin. Repeat laboratory studies have been ordered. 07/24/2020 Patient would kept on oxygen to help keep her saturations above 90%. She will be maintained on appropriate diet as tolerated. The patient is to be using the incentive spirometer. Continue with DVT prophylaxis with use of warfarin. Repeat laboratory studies have been ordered. It should be appropriate for discharge back to [facility] once her oxygen demands have improved. 07/25/20 Patient is still requiring high flow O2 to keep saturations greater than 90%. Respiratory care continues to titrate this down. She continues to use her incentive spirometer. Magnesium was 1.7 today she received 2 g of IV magnesium for replacement. Continue to monitor intake and output. Pharmacy is dosing Coumadin. Patient will remain in the hospital until we can get her oxygen levels titrated down. Hopefully we can look at discharge back to the [place] [facility] towards the end of this week. 07/26/20 Still on high flow O2, but respiratory is able to decrease this. She is down to 30 L and 40% FiO2. She is on day 8 of dexamethasone. Blood sugars remain elevated with this. And ranging from 197-330. Have increased her sliding scale dosage to medium range. Continue Accu-Checks 4 times daily. Continue strict I&O. Respiratory therapy to continue to titrate oxygen. I anticipate discharge back to the [place] [facility] towards the end of the week when her O2 requirements are less. 07/27/20 Doing much better today. Only on 5 L of oxygen per nasal cannula satting 95%. Respiratory care continues to titrate oxygen down. She is on day 9 of dexamethasone. blood sugars are more controlled on sliding scale insulin today. Continue Accu-Cheks 4 times daily. Continue strict intake and output. Anticipating a discharge back to [facility] tomorrow or Saturday - Plan Plan:: I have seen and examined the patient independent of nurse practitioner Sarah Bryant and I have discussed the case with her. I have reviewed and agree with the assessment and plan as outlined for this patient by her. Please see orders. 07/27/20 Continue to monitor for hypoxia Continue to titrate oxygen Strict I&O's and daily weights. Accu-Cheks 4 times daily with sliding scale insulin coverage PT and OT no longer working with the patient Pharmacy dosing Coumadin Dietitian consulting on caloric needs. The patient has received Rocephin and Zithromax for treatment of COVID associated pneumonia. The patient has received convalescent plasma, remdesivir, and dexamethasone for treatment of COVID. director of casework services for assistance with discharge planning and patient returning to the [place] [facility] tomorrow or Saturday. <Minh Amaya - Last Filed: 07/27/20 15:33> - Patient Data Vitals - Most Recent: Last Vital Signs Temp 35.6 C L 07/27/20 07:59 Pulse 76 07/27/20 11:02 Resp 20 07/27/20 11:02 BP 125/65 07/27/20 11:02 Pulse Ox 95 07/27/20 13:44 I&O - Last 24 Hours: Intake & Output 07/27/20 07/27/20 07/27/20 06:59 14:59 22:59 Intake Total 400 240 Balance 400 240 Lab Results Last 24 Hours: Laboratory Results - last 24 hr 07/26/20 07/26/20 07/27/20 Range/Units 16:46 21:41 06:18 WBC (3.98-10.04) K/mm3 RBC (3.98-5.22) M/mm3 Hgb (11.2-15.7) gm/dl Hct (34.1-44.9) % MCV (79.4-94.8) fl MCH (25.6-32.2) pg MCHC (32.2-35.5) g/dl RDW Std Deviation (36.4-46.3) fL Plt Count (182-369) K/mm3 MPV (9.4-12.3) fl Neut % (Auto) (34.0-71.1) % Lymph % (Auto) (19.3-51.7) % [place] % (Auto) (4.7-12.5) % Eos % (Auto) (0.7-5.8) Baso % (Auto) (0.1-1.2) % Neut # (Auto) (1.56-6.13) K/mm3 Lymph # (Auto) (1.18-3.74) K/mm3 [place] # (Auto) (0.24-0.36) K/mm3 Eos # (Auto) (0.04-0.36) K/mm3 Baso # (Auto) (0.01-0.08) K/mm3 Manual Slide Review PT 29.2 H (9.7-11.7) SECONDS INR 2.78 D-Dimer, Quantitative 0.24 (0.19-0.50) mg/L Sodium (136-145) mEq/L Potassium (3.5-5.1) mEq/L Chloride (98-107) mEq/L Carbon Dioxide (21-32) mEq/L Anion Gap (5-15) BUN (7-18) mg/dL Creatinine (0.55-1.02) mg/dL Est Cr Clr Drug Dosing mL/min Estimated GFR (MDRD) (>60) mL/min BUN/Creatinine Ratio (14-18) Glucose (74-106) mg/dL POC Glucose 142 H 185 H (70-105) mg/dL Calcium (8.5-10.1) mg/dL Phosphorus (2.6-4.7) mg/dL Magnesium (1.8-2.4) mg/dl Total Bilirubin (0.2-1.0) mg/dL AST (15-37) U/L ALT (14-59) U/L Alkaline Phosphatase (46-116) U/L C-Reactive Protein (<1.0) mg/dL Total Protein (6.4-8.2) g/dl Albumin (3.4-5.0) g/dl Globulin gm/dL Albumin/Globulin Ratio (1-2) 07/27/20 07/27/20 07/27/20 Range/Units 06:18 06:18 06:28 WBC 8.57 (3.98-10.04) K/mm3 RBC 4.90 (3.98-5.22) M/mm3 Hgb 15.3 (11.2-15.7) gm/dl Hct 48.3 H (34.1-44.9) % MCV 98.6 H (79.4-94.8) fl MCH 31.2 (25.6-32.2) pg MCHC 31.7 L (32.2-35.5) g/dl RDW Std Deviation 50.4 H (36.4-46.3) fL Plt Count 339 (182-369) K/mm3 MPV 9.0 L (9.4-12.3) fl Neut % (Auto) 84.6 H (34.0-71.1) % Lymph % (Auto) 6.9 L (19.3-51.7) % [place] % (Auto) 6.1 (4.7-12.5) % Eos % (Auto) 0.1 L (0.7-5.8) Baso % (Auto) 0.1 (0.1-1.2) % Neut # (Auto) 7.25 H (1.56-6.13) K/mm3 Lymph # (Auto) 0.59 L (1.18-3.74) K/mm3 [place] # (Auto) 0.52 H (0.24-0.36) K/mm3 Eos # (Auto) 0.01 L (0.04-0.36) K/mm3 Baso # (Auto) 0.01 (0.01-0.08) K/mm3 Manual Slide Review Abnormal smear PT (9.7-11.7) SECONDS INR D-Dimer, Quantitative (0.19-0.50) mg/L Sodium 139 (136-145) mEq/L Potassium 4.4 (3.5-5.1) mEq/L Chloride 101 (98-107) mEq/L Carbon Dioxide 30 (21-32) mEq/L Anion Gap 12.4 (5-15) BUN 35 H (7-18) mg/dL Creatinine 0.9 (0.55-1.02) mg/dL Est Cr Clr Drug Dosing 66.12 mL/min Estimated GFR (MDRD) > 60 (>60) mL/min BUN/Creatinine Ratio 38.9 H (14-18) Glucose 210 H (74-106) mg/dL POC Glucose 192 H (70-105) mg/dL Calcium 9.0 (8.5-10.1) mg/dL Phosphorus 3.6 (2.6-4.7) mg/dL Magnesium 1.8 (1.8-2.4) mg/dl Total Bilirubin 0.4 (0.2-1.0) mg/dL AST 20 (15-37) U/L ALT 33 (14-59) U/L Alkaline Phosphatase 38 L (46-116) U/L C-Reactive Protein 0.3 (<1.0) mg/dL Total Protein 7.2 (6.4-8.2) g/dl Albumin 2.7 L (3.4-5.0) g/dl Globulin 4.5 gm/dL Albumin/Globulin Ratio 0.6 L (1-2) 07/27/20 Range/Units 11:15 WBC (3.98-10.04) K/mm3 RBC (3.98-5.22) M/mm3 Hgb (11.2-15.7) gm/dl Hct (34.1-44.9) % MCV (79.4-94.8) fl MCH (25.6-32.2) pg MCHC (32.2-35.5) g/dl RDW Std Deviation (36.4-46.3) fL Plt Count (182-369) K/mm3 MPV (9.4-12.3) fl Neut % (Auto) (34.0-71.1) % Lymph % (Auto) (19.3-51.7) % [place] % (Auto) (4.7-12.5) % Eos % (Auto) (0.7-5.8) Baso % (Auto) (0.1-1.2) % Neut # (Auto) (1.56-6.13) K/mm3 Lymph # (Auto) (1.18-3.74) K/mm3 [place] # (Auto) (0.24-0.36) K/mm3 Eos # (Auto) (0.04-0.36) K/mm3 Baso # (Auto) (0.01-0.08) K/mm3 Manual Slide Review PT (9.7-11.7) SECONDS INR D-Dimer, Quantitative (0.19-0.50) mg/L Sodium (136-145) mEq/L Potassium (3.5-5.1) mEq/L Chloride (98-107) mEq/L Carbon Dioxide (21-32) mEq/L Anion Gap (5-15) BUN (7-18) mg/dL Creatinine (0.55-1.02) mg/dL Est Cr Clr Drug Dosing mL/min Estimated GFR (MDRD) (>60) mL/min BUN/Creatinine Ratio (14-18) Glucose (74-106) mg/dL POC Glucose 228 H (70-105) mg/dL Calcium (8.5-10.1) mg/dL Phosphorus (2.6-4.7) mg/dL Magnesium (1.8-2.4) mg/dl Total Bilirubin (0.2-1.0) mg/dL AST (15-37) U/L ALT (14-59) U/L Alkaline Phosphatase (46-116) U/L C-Reactive Protein (<1.0) mg/dL Total Protein (6.4-8.2) g/dl Albumin (3.4-5.0) g/dl Globulin gm/dL Albumin/Globulin Ratio (1-2) [place] Results Last 24 Hours: Microbiology 07/19/20 12:05 Aerobic Blood Culture - Final Blood - Venous NO GROWTH AFTER 7 DAYS Anaerobic Blood Culture - Final NO GROWTH AFTER 7 DAYS 07/19/20 12:10 Aerobic Blood Culture - Final Blood - Venous - Lab Draw NO GROWTH AFTER 7 DAYS Anaerobic Blood Culture - Final NO GROWTH AFTER 7 DAYS Med Orders - Current: Current Medications Acetaminophen (Tylenol) 650 mg PO Q4H PRN PRN Reason: Fever Greater Than 101 Last Admin: 07/27/20 14:46 Dose: 650 mg Documented by: Al Hydroxide/Mg Hydroxide (Mag-Al Plus) 30 ml PO Q4H PRN PRN Reason: Dyspepsia Last Admin: 07/21/20 18:58 Dose: 30 ml Documented by: Allopurinol (Zyloprim) 200 mg PO DAILY [facility] Last Admin: 07/27/20 09:02 Dose: 200 mg Documented by: Alogliptin Benzoate (Alogliptin) 25 mg PO DAILY [facility] Last Admin: 07/27/20 09:03 Dose: 25 mg Documented by: Atenolol (Tenormin) 25 mg PO DAILY [facility] Last Admin: 07/27/20 09:02 Dose: 25 mg Documented by: Calcium Carbonate/Glycine (Tums) 500 mg PO DAILY PRN PRN Reason: GERD Dexamethasone (Dexamethasone) 6 mg PO Q24H [facility] Stop: 07/28/20 17:01 Last Admin: 07/26/20 17:53 Dose: 6 mg Documented by: Diltiazem HCl (Cardizem) 60 mg PO BID [facility] Last Admin: 07/27/20 09:03 Dose: 60 mg Documented by: Hydrochlorothiazide (Hydrochlorothiazide) 12.5 mg PO DAILY [facility] Last Admin: 07/27/20 09:02 Dose: 12.5 mg Documented by: Insulin Human Lispro (Humalog) 0 unit SUBCUT QIDACANDBED [facility]; Protocol Last Admin: 07/27/20 11:30 Dose: 4 units Documented by: Lorazepam (Ativan) 1 mg PO BEDTIME [facility] Last Admin: 07/26/20 21:47 Dose: 1 mg Documented by: Ondansetron HCl (Zofran) 4 mg IV Q4H PRN PRN Reason: Nausea/Vomiting Pantoprazole Sodium (Protonix) 40 mg PO DAILY@0700 [facility] Last Admin: 07/27/20 06:51 Dose: 40 mg Documented by: Potassium Chloride (Klor-Con M20) 20 meq PO DAILY [facility] Last Admin: 07/27/20 09:01 Dose: 20 meq Documented by: Risperidone (Risperidal) 2 mg PO DAILY [facility] Last Admin: 07/27/20 09:02 Dose: 2 mg Documented by: Risperidone (Risperidal) 4 mg PO BEDTIME [facility] Last Admin: 07/26/20 21:48 Dose: 4 mg Documented by: Sertraline HCl (Zoloft) 150 mg PO DAILY [facility] Last Admin: 07/27/20 09:01 Dose: 150 mg Documented by: Simvastatin (Zocor) 20 mg PO BEDTIME [facility] Last Admin: 07/26/20 21:48 Dose: 20 mg Documented by: Sodium Chloride (Saline Flush) 10 ml FLUSH ASDIRECTED PRN PRN Reason: Keep Vein Open Last Admin: 07/19/20 11:46 Dose: 10 ml Documented by: Warfarin Sodium (Pharmacy To Dose - Warfarin) 1 dose .XX ASDIRECTED PRN PRN Reason: RX TO DOSE WARFARIN Warfarin Sodium (Coumadin) 5 mg PO QPM [facility] Stop: 07/27/20 18:01 Discontinued Medications Dexamethasone (Dexamethasone) 6 mg IVPUSH ONETIME ONE Stop: 07/19/20 14:20 Last Admin: 07/19/20 15:07 Dose: 6 mg Documented by: Dexamethasone (Dexamethasone) 6 mg PO Q24H [facility] Stop: 07/28/20 15:01 Last Admin: 07/25/20 20:24 Dose: Not Given Documented by: Furosemide (Lasix) 20 mg IVPUSH ONETIME ONE Stop: 07/19/20 23:31 Last Admin: 07/20/20 00:05 Dose: 20 mg Documented by: Sodium Chloride (Normal Saline) 1,000 mls @ 1,000 mls/hr IV ONETIME ONE Stop: 07/19/20 13:41 Last Admin: 07/19/20 14:24 Dose: 1,000 mls/hr Documented by: Sodium Chloride (Normal Saline) 1,000 mls @ 75 mls/hr IV ASDIRECTED [facility] Remdesivir 200 mg/ Sodium (Chloride) 250 mls @ 250 mls/hr IV ONETIME ONE Stop: 07/19/20 21:29 Last Admin: 07/19/20 21:49 Dose: 250 mls/hr Documented by: Remdesivir 100 mg/ Sodium (Chloride) 100 mls @ 100 mls/hr IV Q24H [facility] Stop: 07/23/20 21:59 Last Admin: 07/23/20 21:43 Dose: 100 mls/hr Documented by: Sodium Chloride (Normal Saline) 250 mls @ 50 mls/hr IV ASDIRECTED [facility] Last Admin: 07/19/20 23:30 Dose: 50 mls/hr Documented by: Ceftriaxone Sodium 2 gm/ (Sodium Chloride) 100 mls @ 200 mls/hr IV Q24H [facility] Stop: 07/24/20 00:29 Last Admin: 07/24/20 00:01 Dose: 200 mls/hr Documented by: Azithromycin 500 mg/ Sodium (Chloride) 250 mls @ 250 mls/hr IV Q24H [facility] Stop: 07/22/20 01:29 Last Admin: 07/22/20 00:45 Dose: 250 mls/hr Documented by: Magnesium Sulfate (Magnesium Sulfate In Water Premix) 2 gm in 50 mls @ 25 mls/hr IV ONETIME ONE Stop: 07/22/20 11:29 Last Admin: 07/22/20 09:34 Dose: 25 mls/hr Documented by: Magnesium Sulfate (Magnesium Sulfate In Water Premix) 2 gm in 50 mls @ 25 mls/hr IV ONETIME ONE Stop: 07/25/20 12:59 Last Admin: 07/25/20 11:13 Dose: 25 mls/hr Documented by: Pantoprazole Sodium (Protonix) 40 mg PO DAILY@0700 [facility] Potassium Chloride (Klor-Con M20) 20 meq PO ONETIME ONE Stop: 07/22/20 09:02 Last Admin: 07/22/20 09:33 Dose: 20 meq Documented by: Warfarin Sodium (Coumadin) 5 mg PO ONETIME ONE Stop: 07/19/20 23:01 Last Admin: 07/19/20 23:32 Dose: 5 mg Documented by: Warfarin Sodium (Coumadin) 7.5 mg PO QPM [facility] Stop: 07/20/20 18:01 Last Admin: 07/20/20 17:09 Dose: 7.5 mg Documented by: Warfarin Sodium (Coumadin) 7.5 mg PO QPM [facility] Stop: 07/21/20 18:01 Last Admin: 07/21/20 17:33 Dose: 7.5 mg Documented by: Warfarin Sodium (Coumadin) 7.5 mg PO QPM [facility] Stop: 07/22/20 18:01 Last Admin: 07/22/20 18:10 Dose: 7.5 mg Documented by: Warfarin Sodium (Coumadin) 4 mg PO QPM [facility] Stop: 07/23/20 18:01 Last Admin: 07/23/20 18:07 Dose: 4 mg Documented by: Warfarin Sodium (Coumadin) 4 mg PO QPM [facility] Stop: 07/24/20 18:01 Last Admin: 07/24/20 17:17 Dose: 4 mg Documented by: Warfarin Sodium (Coumadin) 5 mg PO QPM [facility] Stop: 07/25/20 18:01 Last Admin: 07/25/20 19:36 Dose: 5 mg Documented by: Warfarin Sodium (Coumadin) 5 mg PO ONETIME ONE Stop: 07/26/20 18:01 Last Admin: 07/26/20 17:53 Dose: 5 mg Documented by: Sepsis Event Note - Focused Exam Vital Signs: Vital Signs Temp Pulse Resp BP Pulse Ox Pulse Ox 07/27/20 13:44 95 07/27/20 13:14 95 07/27/20 11:02 76 20 125/65 98 07/27/20 09:02 83 106/75 07/27/20 08:45 95 07/27/20 08:00 83 106/75 94 L 07/27/20 07:59 35.6 C L 90 20 90/23 L 96 07/27/20 07:35 94 L 07/27/20 06:33 98 07/27/20 05:13 36.6 C 51 L 20 116/58 L 97 - Problem List & Annotations (1) Pneumonia due to COVID-19 virus SNOMED Code(s): 968364410513463942 Code(s): U07.1 - COVID-19; J12.89 - OTHER VIRAL PNEUMONIA Status: Acute Priority: High Current Visit: Yes (2) HTN, Essential hypertension SNOMED Code(s): 45237775 Code(s): I10 - ESSENTIAL (PRIMARY) HYPERTENSION Status: Chronic Priority: Medium Current Visit: No (3) Morbid obesity SNOMED Code(s): 519007528 Code(s): E66.01 - MORBID (SEVERE) OBESITY DUE TO EXCESS CALORIES Status: Chronic Priority: Medium Current Visit: No - My Orders Last 24 Hours: My Active Orders 07/27/20 18:00 Warfarin [Coumadin] 5 mg PO QPM 07/28/20 05:11 INR,PT,PROTHROMBIN TIME [[facility]] AM 07/29/20 05:11 INR,PT,PROTHROMBIN TIME [[facility]] AM - Plan Plan:: I have seen and examined the patient independent of nurse practitioner Sarah Bryant and I have discussed the case with her. I have reviewed and agree with the assessment and plan as outlined for this patient by her. Please see orders.
[2020-07-27] MEDS: Acetaminophen 325 MG Tab PO PRN ×2 (14:46→18:42)
[2020-07-27] MEDS: Dexamethasone 4 MG Tab PO SCH (16:32)
[2020-07-27] MEDS ORDERED: Warfarin 5 MG Tab PO SCH (18:00)
[2020-07-27] MEDS: Aluminum Hydroxide/Magnesium Hydroxide/Simethicone Susp 30 ML Cup PO PRN (18:41)
[2020-07-27] MEDS: LORazepam 1 MG Tab PO SCH (21:44)
[2020-07-27] MEDS: Simvastatin 20 MG Tab PO SCH (21:44)
[2020-07-28] MEDS: Pantoprazole 40 MG Tab.CR PO SCH (07:00)
[2020-07-28] MEDS: Insulin Lispro 100 Units/ML 3 ML Vial SUBCUT SCH ×4 (08:12→21:17)
[2020-07-28] MEDS: Hydrochlorothiazide 12.5 MG Cap PO SCH (08:15)
[2020-07-28] MEDS: Diltiazem IR 60 MG Tab PO SCH ×2 (08:15→21:13)
[2020-07-28] MEDS: Atenolol 25 MG Tab PO SCH (08:16)
[2020-07-28] MEDS: Allopurinol 100 MG Tab PO SCH (08:19)
[2020-07-28] MEDS: Potassium Chloride 20 MEQ Tab.ER PO SCH (08:19)
[2020-07-28] MEDS: risperiDONE 1 MG Tab PO SCH ×2 (08:19→21:14)
[2020-07-28] MEDS: Sertraline 50 MG Tab PO SCH (08:19)
--- NOTE | 2020-07-28 11:38 | PCM.PN ---
- General Info Date of Service: 07/28/20 Admission Dx/Problem (Free Text): Admission Diagnosis/Problem Admission Diagnosis/Problem Pneumonia Subjective Update: Doing very well today. Feels good denies a cough. Is requesting to go back to [facility] today. Functional Status: Reports: Pain Controlled, Tolerating Diet, Ambulating, Urinating, Incentive Spirometry - Review of Systems General: Reports: No Symptoms HEENT: Reports: No Symptoms Pulmonary: Reports: No Symptoms Cardiovascular: Reports: No Symptoms Gastrointestinal: Reports: No Symptoms Genitourinary: Reports: No Symptoms Musculoskeletal: Reports: No Symptoms Skin: Reports: No Symptoms Neurological: Reports: No Symptoms Psychiatric: Reports: No Symptoms - Patient Data Vitals - Most Recent: Last Vital Signs Temp 98.1 F 07/28/20 04:14 Pulse 87 07/28/20 08:16 Resp 16 07/28/20 07:44 BP 126/81 07/28/20 08:16 Pulse Ox 88 L 07/28/20 09:56 Weight - Most Recent: 369 lb 6.4 oz I&O - Last 24 Hours: Intake & Output 07/27/20 07/28/20 07/28/20 22:59 06:59 14:59 Intake Total 1740 400 120 Balance 1740 400 120 Lab Results Last 24 Hours: Laboratory Results - last 24 hr 07/27/20 07/27/20 07/28/20 Range/Units 16:15 21:41 06:20 PT 31.1 H (9.7-11.7) SECONDS INR 2.97 POC Glucose 194 H 213 H (70-105) mg/dL 07/28/20 Range/Units 06:40 PT (9.7-11.7) SECONDS INR POC Glucose 180 H (70-105) mg/dL Med Orders - Current: Current Medications Acetaminophen (Tylenol) 650 mg PO Q4H PRN PRN Reason: Fever Greater Than 101 Last Admin: 07/27/20 18:42 Dose: 650 mg Documented by: Al Hydroxide/Mg Hydroxide (Mag-Al Plus) 30 ml PO Q4H PRN PRN Reason: Dyspepsia Last Admin: 07/27/20 18:41 Dose: 30 ml Documented by: Allopurinol (Zyloprim) 200 mg PO DAILY [facility] Last Admin: 07/28/20 08:19 Dose: 200 mg Documented by: Alogliptin Benzoate (Alogliptin) 25 mg PO DAILY [facility] Last Admin: 07/28/20 08:14 Dose: 25 mg Documented by: Atenolol (Tenormin) 25 mg PO DAILY [facility] Last Admin: 07/28/20 08:16 Dose: 25 mg Documented by: Calcium Carbonate/Glycine (Tums) 500 mg PO DAILY PRN PRN Reason: GERD Dexamethasone (Dexamethasone) 6 mg PO Q24H [facility] Stop: 07/28/20 17:01 Last Admin: 07/27/20 16:32 Dose: 6 mg Documented by: Diltiazem HCl (Cardizem) 60 mg PO BID [facility] Last Admin: 07/28/20 08:15 Dose: 60 mg Documented by: Hydrochlorothiazide (Hydrochlorothiazide) 12.5 mg PO DAILY [facility] Last Admin: 07/28/20 08:15 Dose: 12.5 mg Documented by: Insulin Human Lispro (Humalog) 0 unit SUBCUT QIDACANDBED [facility]; Protocol Last Admin: 07/28/20 08:12 Dose: 2 units Documented by: Lorazepam (Ativan) 1 mg PO BEDTIME [facility] Last Admin: 07/27/20 21:44 Dose: 1 mg Documented by: Ondansetron HCl (Zofran) 4 mg IV Q4H PRN PRN Reason: Nausea/Vomiting Pantoprazole Sodium (Protonix) 40 mg PO DAILY@0700 [facility] Last Admin: 07/28/20 07:00 Dose: 40 mg Documented by: Potassium Chloride (Klor-Con M20) 20 meq PO DAILY [facility] Last Admin: 07/28/20 08:19 Dose: 20 meq Documented by: Risperidone (Risperidal) 2 mg PO DAILY [facility] Last Admin: 07/28/20 08:19 Dose: 2 mg Documented by: Risperidone (Risperidal) 4 mg PO BEDTIME [facility] Last Admin: 07/27/20 21:43 Dose: 4 mg Documented by: Sertraline HCl (Zoloft) 150 mg PO DAILY [facility] Last Admin: 07/28/20 08:19 Dose: 150 mg Documented by: Simvastatin (Zocor) 20 mg PO BEDTIME [facility] Last Admin: 07/27/20 21:44 Dose: 20 mg Documented by: Sodium Chloride (Saline Flush) 10 ml FLUSH ASDIRECTED PRN PRN Reason: Keep Vein Open Last Admin: 07/19/20 11:46 Dose: 10 ml Documented by: Warfarin Sodium (Pharmacy To Dose - Warfarin) 1 dose .XX ASDIRECTED PRN PRN Reason: RX TO DOSE WARFARIN Discontinued Medications Dexamethasone (Dexamethasone) 6 mg IVPUSH ONETIME ONE Stop: 07/19/20 14:20 Last Admin: 07/19/20 15:07 Dose: 6 mg Documented by: Dexamethasone (Dexamethasone) 6 mg PO Q24H [facility] Stop: 07/28/20 15:01 Last Admin: 07/25/20 20:24 Dose: Not Given Documented by: Furosemide (Lasix) 20 mg IVPUSH ONETIME ONE Stop: 07/19/20 23:31 Last Admin: 07/20/20 00:05 Dose: 20 mg Documented by: Sodium Chloride (Normal Saline) 1,000 mls @ 1,000 mls/hr IV ONETIME ONE Stop: 07/19/20 13:41 Last Admin: 07/19/20 14:24 Dose: 1,000 mls/hr Documented by: Sodium Chloride (Normal Saline) 1,000 mls @ 75 mls/hr IV ASDIRECTED [facility] Remdesivir 200 mg/ Sodium (Chloride) 250 mls @ 250 mls/hr IV ONETIME ONE Stop: 07/19/20 21:29 Last Admin: 07/19/20 21:49 Dose: 250 mls/hr Documented by: Remdesivir 100 mg/ Sodium (Chloride) 100 mls @ 100 mls/hr IV Q24H [facility] Stop: 07/23/20 21:59 Last Admin: 07/23/20 21:43 Dose: 100 mls/hr Documented by: Sodium Chloride (Normal Saline) 250 mls @ 50 mls/hr IV ASDIRECTED [facility] Last Admin: 07/19/20 23:30 Dose: 50 mls/hr Documented by: Ceftriaxone Sodium 2 gm/ (Sodium Chloride) 100 mls @ 200 mls/hr IV Q24H [facility] Stop: 07/24/20 00:29 Last Admin: 07/24/20 00:01 Dose: 200 mls/hr Documented by: Azithromycin 500 mg/ Sodium (Chloride) 250 mls @ 250 mls/hr IV Q24H [facility] Stop: 07/22/20 01:29 Last Admin: 07/22/20 00:45 Dose: 250 mls/hr Documented by: Magnesium Sulfate (Magnesium Sulfate In Water Premix) 2 gm in 50 mls @ 25 mls/hr IV ONETIME ONE Stop: 07/22/20 11:29 Last Admin: 07/22/20 09:34 Dose: 25 mls/hr Documented by: Magnesium Sulfate (Magnesium Sulfate In Water Premix) 2 gm in 50 mls @ 25 mls/hr IV ONETIME ONE Stop: 07/25/20 12:59 Last Admin: 07/25/20 11:13 Dose: 25 mls/hr Documented by: Pantoprazole Sodium (Protonix) 40 mg PO DAILY@0700 [facility] Potassium Chloride (Klor-Con M20) 20 meq PO ONETIME ONE Stop: 07/22/20 09:02 Last Admin: 07/22/20 09:33 Dose: 20 meq Documented by: Warfarin Sodium (Coumadin) 5 mg PO ONETIME ONE Stop: 07/19/20 23:01 Last Admin: 07/19/20 23:32 Dose: 5 mg Documented by: Warfarin Sodium (Coumadin) 7.5 mg PO QPM [facility] Stop: 07/20/20 18:01 Last Admin: 07/20/20 17:09 Dose: 7.5 mg Documented by: Warfarin Sodium (Coumadin) 7.5 mg PO QPM [facility] Stop: 07/21/20 18:01 Last Admin: 07/21/20 17:33 Dose: 7.5 mg Documented by: Warfarin Sodium (Coumadin) 7.5 mg PO QPM [facility] Stop: 07/22/20 18:01 Last Admin: 07/22/20 18:10 Dose: 7.5 mg Documented by: Warfarin Sodium (Coumadin) 4 mg PO QPM [facility] Stop: 07/23/20 18:01 Last Admin: 07/23/20 18:07 Dose: 4 mg Documented by: Warfarin Sodium (Coumadin) 4 mg PO QPM [facility] Stop: 07/24/20 18:01 Last Admin: 07/24/20 17:17 Dose: 4 mg Documented by: Warfarin Sodium (Coumadin) 5 mg PO QPM [facility] Stop: 07/25/20 18:01 Last Admin: 07/25/20 19:36 Dose: 5 mg Documented by: Warfarin Sodium (Coumadin) 5 mg PO ONETIME ONE Stop: 07/26/20 18:01 Last Admin: 07/26/20 17:53 Dose: 5 mg Documented by: Warfarin Sodium (Coumadin) 5 mg PO QPM [facility] Stop: 07/27/20 18:01 Last Admin: 07/27/20 18:42 Dose: 5 mg Documented by: - Exam Quality Assessment: Supplemental Oxygen (2 L per nasal cannula), DVT Prophylaxis (Coumadin) General: Alert, Oriented, Cooperative, No Acute Distress HEENT: Pupils Equal, Mucous Membr. Moist/[place] Neck: Supple, Trachea Midline. No: Lymphadenopathy Lungs: Clear to Auscultation, Normal Respiratory Effort Cardiovascular: Regular Rate GI/Abdominal Exam: Normal Bowel Sounds, Soft, Non-Tender, No Distention (Female) Exam: Deferred Back Exam: Normal Inspection, Full Range of Motion Extremities: Normal Inspection, Normal Range of Motion, Non-Tender, No Pedal Edema, Normal Capillary Refill Peripheral Pulses: 2+: Radial (L), Radial (R), Dorsalis Pedis (L), Dorsalis Pedis (R) Skin: Warm, Dry, Intact Neurological: No New Focal Deficit Psy/Mental Status: Alert, Normal Affect, Normal Mood Sepsis Event Note - Evaluation Sepsis Screening Result: No Definite Risk - Focused Exam Vital Signs: Vital Signs Temp Pulse Pulse Resp BP BP Pulse Ox 07/28/20 09:56 07/28/20 08:16 87 126/81 07/28/20 07:58 07/28/20 07:44 87 16 126/81 97 07/28/20 06:36 143/84 H 07/28/20 05:44 07/28/20 04:30 141/76 H 07/28/20 04:14 98.1 F 92 18 94 L 07/28/20 00:20 97.7 F 88 20 137/69 92 L 07/27/20 23:51 78 94 L Pulse Ox 07/28/20 09:56 88 L 07/28/20 08:16 07/28/20 07:58 98 07/28/20 07:44 07/28/20 06:36 07/28/20 05:44 91 L 07/28/20 04:30 07/28/20 04:14 07/28/20 00:20 07/27/20 23:51 - Problem List & Annotations (1) Pneumonia due to COVID-19 virus SNOMED Code(s): 131181603077390776 Code(s): U07.1 - COVID-19; J12.89 - OTHER VIRAL PNEUMONIA Status: Acute Priority: High Current Visit: Yes (2) Renal insufficiency SNOMED Code(s): 680515471, 792138789 Code(s): N28.9 - DISORDER OF KIDNEY AND URETER, UNSPECIFIED Status: Acute Priority: High Current Visit: Yes (3) Afib, Atrial fibrillation SNOMED Code(s): 59581223 Code(s): I48.91 - UNSPECIFIED ATRIAL FIBRILLATION Status: Chronic Priority: Medium Current Visit: No (4) HTN, Essential hypertension SNOMED Code(s): 57181105 Code(s): I10 - ESSENTIAL (PRIMARY) HYPERTENSION Status: Chronic Priority: Medium Current Visit: No (5) Morbid obesity SNOMED Code(s): 564840795 Code(s): E66.01 - MORBID (SEVERE) OBESITY DUE TO EXCESS CALORIES Status: Chronic Priority: Medium Current Visit: No - Problem List Review Problem List Initiated/Reviewed/Updated: Yes - Assessment Assessment:: 07/20/20 * Requiring 6L/NC * Requiring sliding scale insulin starting today * Day 2 Remdesivir and Dexamethasone * Day 2 Rocephin and Zithromax * Awaiting BC results * Diabetic diet * Awaiting A1C Plan * Chest x-ray in the morning * FiO2 to keep SPO2 between 88 and 94%. Currently on 6L/NC * Monitor I's and O's closely. Patient is at risk for fluid overload which is dangerous in this patient population. * Continue atenolol and diltiazem for rate control. * Pharmacy to dose warfarin. * Mcneal catheter for strict I's and O's * Limited echocardiogram in the morning to assess for left heart function and diastolic dysfunction * Monitor for hypoxemia 07/21/20 * Requiring high-flow O2. * Requiring sliding scale insulin starting today * Day 3 Remdesivir and Dexamethasone * Day 3 Rocephin and Zithromax * Blood cultures show no growth after 24 hours * Diabetic diet * A1C is 6.40 * Limited echo technically difficult study with suboptimal image quality related to body habitus. Unable to assess left ventricular ejection fraction or regional wall motion. Valves not well visualized. Recommend use of Definity contrast with future studies. * D-dimer is up from 0.27 to 0.32 * BUN 24 * creatinine 0.8 * GFR greater than 60 * C-reactive protein 6.7 * Blood cultures show no growth after two days * UA is unremarkable for infection. Plan * FiO2 to keep SPO2 between 88 and 94%. High flow O2 * Monitor I's and O's closely. Patient is at risk for fluid overload which is dangerous in this patient population. * Continue atenolol and diltiazem for rate control. * Pharmacy to dose warfarin. * Mcneal catheter for strict I's and O's * Start alogliptin today * Monitor for hypoxemia 07/22/20 * Requiring high-flow O2. * Requiring sliding scale insulin * Day 4 Remdesivir and Dexamethasone * Day 4 Rocephin * Diabetiic diet * D-dimer 0.35 * Potassium 3.8 * BUN 22 * Creatinine 0.8 * Phosphorus 2.8 * Magnesium 1.8 * CRP 5.8 * Blood cultures show no growth after 3 days Plan * FiO2 to keep SPO2 between 88 and 94%. High flow O2 * Monitor I's and O's closely. Patient is at risk for fluid overload which is dangerous in this patient population. * Continue atenolol and diltiazem for rate control. * Pharmacy to dose warfarin. * Mcneal catheter for strict I's and O's * Monitor for hypoxemia * Magnesium 2 g IV today * Potassium 20 mEq by mouth today * Respiratory therapy to continue monitor and attempting to titrate O2 for patient 07/23/2020 The patient will be kept on high flow oxygen to keep her saturations greater than 90%. The patient will also be maintained on appropriate ADA diet and sliding scale insulin for her blood sugars. She also has been encouraged and t aught how to use the incentive spirometer. Patient has been encouraged to ambulate. We will continue with DVT prophylaxis with use of warfarin. Repeat laboratory studies have been ordered. 07/24/2020 Patient would kept on oxygen to help keep her saturations above 90%. She will be maintained on appropriate diet as tolerated. The patient is to be using the incentive spirometer. Continue with DVT prophylaxis with use of warfarin. Repeat laboratory studies have been ordered. It should be appropriate for discharge back to care home once her oxygen demands have improved. 07/25/20 Patient is still requiring high flow O2 to keep saturations greater than 90%. Respiratory care continues to titrate this down. She continues to use her incentive spirometer. Magnesium was 1.7 today she received 2 g of IV magnesium for replacement. Continue to monitor intake and output. Pharmacy is dosing Coumadin. Patient will remain in the hospital until we can get her oxygen levels titrated down. Hopefully we can look at discharge back to the care home towards the end of this week. 07/26/20 Still on high flow O2, but respiratory is able to decrease this. She is down to 30 L and 40% FiO2. She is on day 8 of dexamethasone. Blood sugars remain elevated with this. And ranging from 197-330. Have increased her sliding scale dosage to medium range. Continue Accu-Checks 4 times daily. Continue strict I&O. Respiratory therapy to continue to titrate oxygen. I anticipate discharge back to the care home towards the end of the week when her O2 requirements are less. 07/27/20 Doing much better today. Only on 5 L of oxygen per nasal cannula satting 95%. Respiratory care continues to titrate oxygen down. She is on day 9 of dexamethasone. blood sugars are more controlled on sliding scale insulin today. Continue Accu-Cheks 4 times daily. Continue strict intake and output. Anticipating a discharge back to [facility] tomorrow or Saturday07/28/20 Vital signs stable. On 2 L of oxygen per nasal cannula. Requesting to go to [facility] today. Says she feels well. She is on day 10 of dexamethasone. Will anticipate discharge tomorrow. Respiratory care to continue titrating patient's O2. - Plan Plan:: I have seen and examined the patient independent of nurse practitioner Sarah Bryant and I have discussed the case with her. I have reviewed and agree with the assessment and plan as outlined for this patient by her. Please see orders. 07/28/20 Continue to monitor for hypoxia Continue to titrate oxygen Strict I&O's and daily weights. Accu-Cheks 4 times daily with sliding scale insulin coverage Pharmacy dosing Coumadin Dietitian consulting on caloric needs. The patient has received Rocephin and Zithromax for treatment of COVID associate d pneumonia. The patient has received convalescent plasma, remdesivir, and dexamethasone for treatment of COVID. financial services consultant for assistance with discharge planning and patient returning to the care home tomorrow.
[2020-07-28] MEDS: Dexamethasone 4 MG Tab PO SCH (16:58)
[2020-07-28] MEDS: Acetaminophen 325 MG Tab PO PRN (16:59)
[2020-07-28] MEDS ORDERED: Warfarin 4 MG Tab PO SCH (18:00)
[2020-07-28] MEDS: Simvastatin 20 MG Tab PO SCH (21:13)
[2020-07-28] MEDS: LORazepam 1 MG Tab PO SCH (21:14)
[2020-07-29] MEDS: Pantoprazole 40 MG Tab.CR PO SCH (06:01)
[2020-07-29 07:37] VITALS: BP 136/99; PULSE 75
[2020-07-29] MEDS: Insulin Lispro 100 Units/ML 3 ML Vial SUBCUT SCH ×2 (08:34→11:32)
[2020-07-29] MEDS: Diltiazem IR 60 MG Tab PO SCH (08:35)
[2020-07-29] MEDS: risperiDONE 1 MG Tab PO SCH (08:35)
[2020-07-29] MEDS: Potassium Chloride 20 MEQ Tab.ER PO SCH (08:35)
[2020-07-29] MEDS: Hydrochlorothiazide 12.5 MG Cap PO SCH (08:36)
[2020-07-29] MEDS: Sertraline 50 MG Tab PO SCH (08:36)
[2020-07-29] MEDS: Allopurinol 100 MG Tab PO SCH (08:36)
[2020-07-29] MEDS: Atenolol 25 MG Tab PO SCH (08:38)
[2020-07-29] MEDS ORDERED: FLU VACC QS2020-21(6MOS UP)/PF 60 MCG/0.5 ML SYRINGE IM ONE (12:00)
--- NOTE | 2020-07-29 12:30 | PCM.DCSUM1 ---
Discharge Summary - Hospital Course Free Text/Narrative:: 55-year-old female from [facility] presented to the emergency department with cough, fever, chills, shortness of breath, and previously diagnosed with COVID- 19. Patient states that on Saturday they put her in isolation because she had a positive COVID test. She has a history of chronic atrial fibrillation, obesity, schizophrenia, and CHF. When she arrived to the emergency department her oxygen saturations were 86% on room air. In the emergency department they also started her on 4 L which improved her oxygen saturations. Patient is a poor historian and history was partly obtained through the chart notes. Initial lab work significant for white count of 7.05, INR 1.52 (she is on Coumadin) d-dimer 0.34, C-reactive protein 10.1, LDH 262, estimated GFR 43, creatinine 1.3, BUN 23. ABG: pH 7.42, PCO2 45, PO2 64, HCO3 28.4, oxygen saturation 90.4% on 4.5 L of O2 via nasal cannula, lactic acid 3.1, ferritin 226, SARS-CoV-2 RNA positive chest x-ray shows multiple diffuse infiltrates suspicious for viral pneumonia. Diagnosis: Stroke: No - Discharge Data Discharge Date: 07/29/20 (Admit date: 07/19/20) Discharge Disposition: DC/Tfer to SNF 03 Condition: Good - Referral to Home Health Primary Care Physician: Mark Anthony Burns MD - Discharge Diagnosis/Problem(s) (1) Pneumonia due to COVID-19 virus SNOMED Code(s): 930522612444099541 ICD Code: U07.1 - COVID-19; J12.89 - OTHER VIRAL PNEUMONIA Status: Acute Priority: High Current Visit: Yes (2) Renal insufficiency SNOMED Code(s): 129885183, 163161661 ICD Code: N28.9 - DISORDER OF KIDNEY AND URETER, UNSPECIFIED Status: Acute Priority: High Current Visit: Yes (3) Afib, Atrial fibrillation SNOMED Code(s): 25229143 ICD Code: I48.91 - UNSPECIFIED ATRIAL FIBRILLATION Status: Chronic Priority: Medium Current Visit: No (4) HTN, Essential hypertension SNOMED Code(s): 99752597 ICD Code: I10 - ESSENTIAL (PRIMARY) HYPERTENSION Status: Chronic Priority: Medium Current Visit: No (5) Morbid obesity SNOMED Code(s): 774039657 ICD Code: E66.01 - MORBID (SEVERE) OBESITY DUE TO EXCESS CALORIES Status: Chronic Priority: Medium Current Visit: No - Patient Summary/Data Consults: Consultations 07/19/20 19:04 Respiratory Care Assess and Treatment [CONS] Routine Hospital Course: 07/20/20 * Requiring 6L/NC * Requiring sliding scale insulin starting today * Day 2 Remdesivir and Dexamethasone * Day 2 Rocephin and Zithromax * Awaiting BC results * Diabetic diet * Awaiting A1C Plan * Chest x-ray in the morning * FiO2 to keep SPO2 between 88 and 94%. Currently on 6L/NC * Monitor I's and O's closely. Patient is at risk for fluid overload which is dangerous in this patient population. * Continue atenolol and diltiazem for rate control. * Pharmacy to dose warfarin. * Mcneal catheter for strict I's and O's * Limited echocardiogram in the morning to assess for left heart function and diastolic dysfunction * Monitor for hypoxemia 07/21/20 * Requiring high-flow O2. * Requiring sliding scale insulin starting today * Day 3 Remdesivir and Dexamethasone * Day 3 Rocephin and Zithromax * Blood cultures show no growth after 24 hours * Diabetic diet * A1C is 6.40 * Limited echo technically difficult study with suboptimal image quality related to body habitus. Unable to assess left ventricular ejection fraction or regional wall motion. Valves not well visualized. Recommend use of Definity contrast with future studies. * D-dimer is up from 0.27 to 0.32 * BUN 24 * creatinine 0.8 * GFR greater than 60 * C-reactive protein 6.7 * Blood cultures show no growth after two days * UA is unremarkable for infection. Plan * FiO2 to keep SPO2 between 88 and 94%. High flow O2 * Monitor I's and O's closely. Patient is at risk for fluid overload which is dangerous in this patient population. * Continue atenolol and diltiazem for rate control. * Pharmacy to dose warfarin. * Mcneal catheter for strict I's and O's * Start alogliptin today * Monitor for hypoxemia 07/22/20 * Requiring high-flow O2. * Requiring sliding scale insulin * Day 4 Remdesivir and Dexamethasone * Day 4 Rocephin * Diabetiic diet * D-dimer 0.35 * Potassium 3.8 * BUN 22 * Creatinine 0.8 * Phosphorus 2.8 * Magnesium 1.8 * CRP 5.8 * Blood cultures show no growth after 3 days Plan * FiO2 to keep SPO2 between 88 and 94%. High flow O2 * Monitor I's and O's closely. Patient is at risk for fluid overload which is dangerous in this patient population. * Continue atenolol and diltiazem for rate control. * Pharmacy to dose warfarin. * Mcneal catheter for strict I's and O's * Monitor for hypoxemia * Magnesium 2 g IV today * Potassium 20 mEq by mouth today * Respiratory therapy to continue monitor and attempting to titrate O2 for patient 07/23/2020 The patient will be kept on high flow oxygen to keep her saturations greater than 90%. The patient will also be maintained on appropriate ADA diet and sliding scale insulin for her blood sugars. She also has been encouraged and taught how to use the incentive spirometer. Patient has been encouraged to ambulate. We will continue with DVT prophylaxis with use of warfarin. Repeat laboratory studies have been ordered. 07/24/2020 Patient would kept on oxygen to help keep her saturations above 90%. She will be maintained on appropriate diet as tolerated. The patient is to be using the incentive spirometer. Continue with DVT prophylaxis with use of warfarin. Repeat laboratory studies have been ordered. It should be appropriate for discharge back to halfway once her oxygen demands have improved. 07/25/20 Patient is still requiring high flow O2 to keep saturations greater than 90%. Respiratory care continues to titrate this down. She continues to use her incentive spirometer. Magnesium was 1.7 today she received 2 g of IV magnesium for replacement. Continue to monitor intake and output. Pharmacy is dosing Coumadin. Patient will remain in the hospital until we can get her oxygen levels titrated down. Hopefully we can look at discharge back to the halfway towards the end of this week. 07/26/20 Still on high flow O2, but respiratory is able to decrease this. She is down to 30 L and 40% FiO2. She is on day 8 of dexamethasone. Blood sugars remain elevated with this. And ranging from 197-330. Have increased her sliding scale dosage to medium range. Continue Accu-Checks 4 times daily. Continue strict I&O. Respiratory therapy to continue to titrate oxygen. I anticipate discharge back to the halfway towards the end of the week when her O2 requirements are less. 07/27/20 Doing much better today. Only on 5 L of oxygen per nasal cannula satting 95%. Respiratory care continues to titrate oxygen down. She is on day 9 of dexamethasone. blood sugars are more controlled on sliding scale insulin today. Continue Accu-Cheks 4 times daily. Continue strict intake and output. Anticipating a discharge back to [facility] tomorrow or Saturday07/28/20 Vital signs stable. On 2 L of oxygen per nasal cannula. Requesting to go to [facility] today. Says she feels well. She is on day 10 of dexamethasone. Will anticipate discharge tomorrow. Respiratory care to continue titrating patient's O2. - Plan Plan:: I have seen and examined the patient independent of nurse practitioner Sarah Bryant and I have discussed the case with her. I have reviewed and agree with the assessment and plan as outlined for this patient by her. Please see orders. 07/28/20 Continue to monitor for hypoxia Continue to titrate oxygen Strict I&O's and daily weights. Accu-Cheks 4 times daily with sliding scale insulin coverage Pharmacy dosing Coumadin Dietitian consulting on caloric needs. The patient has received Rocephin and Zithromax for treatment of COVID associated pneumonia. The patient has received convalescent plasma, remdesivir, and dexamethasone for treatment of COVID. instructional support services director for assistance with discharge planning and patient returning to the halfway tomorrow. 07/29/20 Vital signs and labs are stable today. Patient is down to 2 L of oxygen per nasal cannula. She has completed her full course of treatment for the COVID infection. Will discharge back to the halfway today. She states she is feeling well has no complaints and her lungs are clear. We will continue to check her blood sugar twice daily at the halfway and to follow-up with regarding the results. Strongly encourage that she continue to use her incentive spirometer at the halfway. - Patient Instructions Diet: Diabetic Diet Activity: As Tolerated Other/Special Instructions: May discharge back to the halfway. Oxygen at 2 L per nasal cannula. May titrate oxygen to keep sats greater than 90%. Recheck INR on Saturday and call Dr. Burns for Coumadin dosing. Appointment with Dr. Burns at the clinic in 1 week for follow-up with blood sugars and oxygen needs. Patient was on dexamethasone while in the hospital, and did require sliding scale insulin at that time. Check blood sugars twice daily and keep a record of patient's blood sugars. Bring this blood sugar log to the appointment with Dr. Burns. Continue using incentive spirometer. Ambulate 3 times daily - Discharge Plan *PRESCRIPTION DRUG MONITORING PROGRAM REVIEWED*: No *COPY OF PRESCRIPTION DRUG MONITORING REPORT IN PATIENT LING: No Prescriptions/Med Rec: Warfarin [Coumadin] 2.5 mg PO DAILY 2 Days #2 tab Home Medications: Home Meds Acetaminophen 650 mg PO Q4H PRN 07/19/20 [History] Acetaminophen [Tylenol] 650 mg PO DAILY 07/19/20 [History] Allopurinol [Zyloprim] 200 mg PO DAILY 07/19/20 [History] Benzoyl Peroxide [Benzoyl Peroxide 10% Lotion] 1 applic TOP BID PRN 07/19/20 [History] Calcium Carbonate [Tums] 500 mg PO DAILY PRN 07/19/20 [History] Clotrimazole [Clotrimazole 1%] 1 applic TOP BID PRN 07/19/20 [History] Diltiazem [Cardizem] 60 mg PO BID 07/19/20 [History] Fish Oil/[place]-3 Fatty Acids [Fish Oil 1,000 MG] 2,000 mg PO BID 07/19/20 [History] LORazepam [Ativan] 1 mg PO BEDTIME 07/19/20 [History] Mag Hydrox/Aluminum Hyd/Simeth [Mylanta Maximum Strength Liq] 10 ml PO DAILY PRN 07/19/20 [History] Multivitamin 1 tab PO DAILY 07/19/20 [History] PARoxetine HCL [Paxil] 30 mg PO DAILY 07/19/20 [History] Pantoprazole Sodium [Protonix] 40 mg PO DAILY 07/19/20 [History] Potassium Chloride 20 meq PO DAILY 07/19/20 [History] Pravastatin [Pravachol] 40 mg PO BEDTIME 07/19/20 [History] Sertraline [Zoloft] 150 mg PO DAILY 07/19/20 [History] Triamcinolone Acetonide [Triamcinolone Acetonide 0.5% Oint] 1 applic TOP BID PRN 07/19/20 [History] Warfarin [Coumadin] 5 mg PO DAILY 07/19/20 [History] atenoloL [Atenolol] 25 mg PO DAILY 07/19/20 [History] hydroCHLOROthiazide [Hydrochlorothiazide] 12.5 mg PO DAILY 07/19/20 [History] risperiDONE [Risperdal] 2 mg PO DAILY 07/19/20 [History] risperiDONE [Risperdal] 4 mg PO BEDTIME 07/19/20 [History] Warfarin [Coumadin] 2.5 mg PO DAILY 2 Days #2 tab 07/29/20 [Rx] Oxygen Therapy Mode: Nasal Cannula Oxygen Flow Rate (L/min): 2 Maintain SpO2% greater than: 90 Patient Handouts: Sepsis, Diagnosis, Adult Referrals: Mark Anthony Burns MD [Primary Care Provider] - 08/03/20 1:00 pm (Please follow up with Dr. Burns on August 03 at 1pm.) - Discharge Summary/Plan Comment DC Time >30 min.: Yes (halfway transfer) - General Info Date of Service: 07/29/20 Admission Dx/Problem (Free Text: Admission Diagnosis/Problem Admission Diagnosis/Problem Pneumonia Functional Status: Reports: Pain Controlled, Tolerating Diet, Urinating, Incentive Spirometry - Review of Systems General: Reports: No Symptoms HEENT: Reports: No Symptoms Pulmonary: Reports: No Symptoms Cardiovascular: Reports: No Symptoms Gastrointestinal: Reports: No Symptoms Genitourinary: Reports: Incontinence Musculoskeletal: Reports: No Symptoms Skin: Reports: No Symptoms Neurological: Reports: No Symptoms Psychiatric: Reports: No Symptoms - Patient Data Vitals - Most Recent: Last Vital Signs Temp 97.5 F 07/29/20 07:35 Pulse 75 07/29/20 08:38 Resp 18 07/29/20 07:35 BP 136/99 H 07/29/20 08:38 Pulse Ox 96 07/29/20 08:09 Weight - Most Recent: 369 lb 11.2 oz I&O - Last 24 hours: Intake & Output 07/28/20 07/29/20 07/29/20 22:59 06:59 14:59 Intake Total 0 800 240 Output Total 500 Balance 0 300 240 Lab Results - Last 24 hrs: Laboratory Results - last 24 hr 07/28/20 07/28/20 07/29/20 Range/Units 16:55 20:16 06:00 WBC (3.98-10.04) K/mm3 RBC (3.98-5.22) M/mm3 Hgb (11.2-15.7) gm/dl Hct (34.1-44.9) % MCV (79.4-94.8) fl MCH (25.6-32.2) pg MCHC (32.2-35.5) g/dl RDW Std Deviation (36.4-46.3) fL Plt Count (182-369) K/mm3 MPV (9.4-12.3) fl Neut % (Auto) (34.0-71.1) % Lymph % (Auto) (19.3-51.7) % [place] % (Auto) (4.7-12.5) % Eos % (Auto) (0.7-5.8) Baso % (Auto) (0.1-1.2) % Neut # (Auto) (1.56-6.13) K/mm3 Lymph # (Auto) (1.18-3.74) K/mm3 [place] # (Auto) (0.24-0.36) K/mm3 Eos # (Auto) (0.04-0.36) K/mm3 Baso # (Auto) (0.01-0.08) K/mm3 Manual Slide Review PT (9.7-11.7) SECONDS INR Sodium (136-145) mEq/L Potassium (3.5-5.1) mEq/L Chloride (98-107) mEq/L Carbon Dioxide (21-32) mEq/L Anion Gap (5-15) BUN (7-18) mg/dL Creatinine (0.55-1.02) mg/dL Est Cr Clr Drug Dosing mL/min Estimated GFR (MDRD) (>60) mL/min BUN/Creatinine Ratio (14-18) Glucose (74-106) mg/dL POC Glucose 136 H 167 H 161 H (70-105) mg/dL Calcium (8.5-10.1) mg/dL Magnesium (1.8-2.4) mg/dl Total Bilirubin (0.2-1.0) mg/dL AST (15-37) U/L ALT (14-59) U/L Alkaline Phosphatase (46-116) U/L Total Protein (6.4-8.2) g/dl Albumin (3.4-5.0) g/dl Globulin gm/dL Albumin/Globulin Ratio (1-2) 07/29/20 07/29/20 07/29/20 Range/Units 06:10 06:10 06:10 WBC 10.77 H (3.98-10.04) K/mm3 RBC 5.36 H (3.98-5.22) M/mm3 Hgb 16.8 H D (11.2-15.7) gm/dl Hct 52.3 H (34.1-44.9) % MCV 97.6 H (79.4-94.8) fl MCH 31.3 (25.6-32.2) pg MCHC 32.1 L (32.2-35.5) g/dl RDW Std Deviation 50.6 H (36.4-46.3) fL Plt Count 392 H (182-369) K/mm3 MPV 9.1 L (9.4-12.3) fl Neut % (Auto) 80.0 H (34.0-71.1) % Lymph % (Auto) 9.4 L (19.3-51.7) % [place] % (Auto) 8.0 (4.7-12.5) % Eos % (Auto) 0.1 L (0.7-5.8) Baso % (Auto) 0.3 (0.1-1.2) % Neut # (Auto) 8.62 H (1.56-6.13) K/mm3 Lymph # (Auto) 1.01 L (1.18-3.74) K/mm3 [place] # (Auto) 0.86 H (0.24-0.36) K/mm3 Eos # (Auto) 0.01 L (0.04-0.36) K/mm3 Baso # (Auto) 0.03 (0.01-0.08) K/mm3 Manual Slide Review Abnormal smear PT 36.5 H (9.7-11.7) SECONDS INR 3.50 Sodium 138 (136-145) mEq/L Potassium 4.4 (3.5-5.1) mEq/L Chloride 100 (98-107) mEq/L Carbon Dioxide 28 (21-32) mEq/L Anion Gap 14.4 (5-15) BUN 34 H (7-18) mg/dL Creatinine 0.9 (0.55-1.02) mg/dL Est Cr Clr Drug Dosing 66.12 mL/min Estimated GFR (MDRD) > 60 (>60) mL/min BUN/Creatinine Ratio 37.8 H (14-18) Glucose 176 H (74-106) mg/dL POC Glucose (70-105) mg/dL Calcium 10.0 (8.5-10.1) mg/dL Magnesium 2.1 (1.8-2.4) mg/dl Total Bilirubin 0.4 (0.2-1.0) mg/dL AST 13 L (15-37) U/L ALT 33 (14-59) U/L Alkaline Phosphatase 39 L (46-116) U/L Total Protein 8.2 (6.4-8.2) g/dl Albumin 3.2 L (3.4-5.0) g/dl Globulin 5.0 gm/dL Albumin/Globulin Ratio 0.6 L (1-2) 10/16/20 Range/Units 11:09 WBC (3.98-10.04) K/mm3 RBC (3.98-5.22) M/mm3 Hgb (11.2-15.7) gm/dl Hct (34.1-44.9) % MCV (79.4-94.8) fl MCH (25.6-32.2) pg MCHC (32.2-35.5) g/dl RDW Std Deviation (36.4-46.3) fL Plt Count (182-369) K/mm3 MPV (9.4-12.3) fl Neut % (Auto) (34.0-71.1) % Lymph % (Auto) (19.3-51.7) % [place] % (Auto) (4.7-12.5) % Eos % (Auto) (0.7-5.8) Baso % (Auto) (0.1-1.2) % Neut # (Auto) (1.56-6.13) K/mm3 Lymph # (Auto) (1.18-3.74) K/mm3 [place] # (Auto) (0.24-0.36) K/mm3 Eos # (Auto) (0.04-0.36) K/mm3 Baso # (Auto) (0.01-0.08) K/mm3 Manual Slide Review PT (9.7-11.7) SECONDS INR Sodium (136-145) mEq/L Potassium (3.5-5.1) mEq/L Chloride (98-107) mEq/L Carbon Dioxide (21-32) mEq/L Anion Gap (5-15) BUN (7-18) mg/dL Creatinine (0.55-1.02) mg/dL Est Cr Clr Drug Dosing mL/min Estimated GFR (MDRD) (>60) mL/min BUN/Creatinine Ratio (14-18) Glucose (74-106) mg/dL POC Glucose 138 H (70-105) mg/dL Calcium (8.5-10.1) mg/dL Magnesium (1.8-2.4) mg/dl Total Bilirubin (0.2-1.0) mg/dL AST (15-37) U/L ALT (14-59) U/L Alkaline Phosphatase (46-116) U/L Total Protein (6.4-8.2) g/dl Albumin (3.4-5.0) g/dl Globulin gm/dL Albumin/Globulin Ratio (1-2) Med Orders - Current: Current Medications Acetaminophen (Tylenol) 650 mg PO Q4H PRN PRN Reason: Fever Greater Than 101 Last Admin: 07/28/20 16:59 Dose: 650 mg Documented by: Al Hydroxide/Mg Hydroxide (Mag-Al Plus) 30 ml PO Q4H PRN PRN Reason: Dyspepsia Last Admin: 07/27/20 18:41 Dose: 30 ml Documented by: Allopurinol (Zyloprim) 200 mg PO DAILY [facility] Last Admin: 07/29/20 08:36 Dose: 200 mg Documented by: Alogliptin Benzoate (Alogliptin) 25 mg PO DAILY [facility] Last Admin: 07/29/20 08:35 Dose: 25 mg Documented by: Atenolol (Tenormin) 25 mg PO DAILY [facility] Last Admin: 07/29/20 08:38 Dose: 25 mg Documented by: Calcium Carbonate/Glycine (Tums) 500 mg PO DAILY PRN PRN Reason: GERD Last Admin: 07/28/20 13:56 Dose: 500 mg Documented by: Diltiazem HCl (Cardizem) 60 mg PO BID [facility] Last Admin: 07/29/20 08:35 Dose: 60 mg Documented by: Hydrochlorothiazide (Hydrochlorothiazide) 12.5 mg PO DAILY [facility] Last Admin: 07/29/20 08:36 Dose: 12.5 mg Documented by: Insulin Human Lispro (Humalog) 0 unit SUBCUT QIDACANDBED [facility]; Protocol Last Admin: 07/29/20 11:32 Dose: Not Given Documented by: Lorazepam (Ativan) 1 mg PO BEDTIME [facility] Last Admin: 07/28/20 21:14 Dose: 1 mg Documented by: Pantoprazole Sodium (Protonix) 40 mg PO DAILY@0700 [facility] Last Admin: 07/29/20 06:01 Dose: 40 mg Documented by: Potassium Chloride (Klor-Con M20) 20 meq PO DAILY [facility] Last Admin: 07/29/20 08:35 Dose: 20 meq Documented by: Risperidone (Risperidal) 2 mg PO DAILY [facility] Last Admin: 07/29/20 08:35 Dose: 2 mg Documented by: Risperidone (Risperidal) 4 mg PO BEDTIME [facility] Last Admin: 07/28/20 21:14 Dose: 4 mg Documented by: Sertraline HCl (Zoloft) 150 mg PO DAILY [facility] Last Admin: 07/29/20 08:36 Dose: 150 mg Documented by: Simvastatin (Zocor) 20 mg PO BEDTIME [facility] Last Admin: 07/28/20 21:13 Dose: 20 mg Documented by: Sodium Chloride (Saline Flush) 10 ml FLUSH ASDIRECTED PRN PRN Reason: Keep Vein Open Last Admin: 07/19/20 11:46 Dose: 10 ml Documented by: Warfarin Sodium (Pharmacy To Dose - Warfarin) 1 dose .XX ASDIRECTED PRN PRN Reason: RX TO DOSE WARFARIN Discontinued Medications Dexamethasone (Dexamethasone) 6 mg IVPUSH ONETIME ONE Stop: 07/19/20 14:20 Last Admin: 07/19/20 15:07 Dose: 6 mg Documented by: Dexamethasone (Dexamethasone) 6 mg PO Q24H [facility] Stop: 07/28/20 15:01 Last Admin: 07/25/20 20:24 Dose: Not Given Documented by: Dexamethasone (Dexamethasone) 6 mg PO Q24H [facility] Stop: 07/28/20 17:01 Last Admin: 07/28/20 16:58 Dose: 6 mg Documented by: Furosemide (Lasix) 20 mg IVPUSH ONETIME ONE Stop: 07/19/20 23:31 Last Admin: 07/20/20 00:05 Dose: 20 mg Documented by: Sodium Chloride (Normal Saline) 1,000 mls @ 1,000 mls/hr IV ONETIME ONE Stop: 07/19/20 13:41 Last Admin: 07/19/20 14:24 Dose: 1,000 mls/hr Documented by: Sodium Chloride (Normal Saline) 1,000 mls @ 75 mls/hr IV ASDIRECTED [facility] Remdesivir 200 mg/ Sodium (Chloride) 250 mls @ 250 mls/hr IV ONETIME ONE Stop: 07/19/20 21:29 Last Admin: 07/19/20 21:49 Dose: 250 mls/hr Documented by: Remdesivir 100 mg/ Sodium (Chloride) 100 mls @ 100 mls/hr IV Q24H [facility] Stop: 07/23/20 21:59 Last Admin: 07/23/20 21:43 Dose: 100 mls/hr Documented by: Sodium Chloride (Normal Saline) 250 mls @ 50 mls/hr IV ASDIRECTED [facility] Last Admin: 07/19/20 23:30 Dose: 50 mls/hr Documented by: Ceftriaxone Sodium 2 gm/ (Sodium Chloride) 100 mls @ 200 mls/hr IV Q24H [facility] Stop: 07/24/20 00:29 Last Admin: 07/24/20 00:01 Dose: 200 mls/hr Documented by: Azithromycin 500 mg/ Sodium (Chloride) 250 mls @ 250 mls/hr IV Q24H [facility] Stop: 07/22/20 01:29 Last Admin: 07/22/20 00:45 Dose: 250 mls/hr Documented by: Magnesium Sulfate (Magnesium Sulfate In Water Premix) 2 gm in 50 mls @ 25 mls/hr IV ONETIME ONE Stop: 07/22/20 11:29 Last Admin: 07/22/20 09:34 Dose: 25 mls/hr Documented by: Magnesium Sulfate (Magnesium Sulfate In Water Premix) 2 gm in 50 mls @ 25 mls/hr IV ONETIME ONE Stop: 07/25/20 12:59 Last Admin: 07/25/20 11:13 Dose: 25 mls/hr Documented by: Influenza Virus Vaccine (Fluzone Quad 3931-3150 Syringe) 60 mcg IM .ONCE ONE Stop: 07/29/20 12:01 Last Admin: 07/29/20 11:54 Dose: 60 mcg Documented by: Ondansetron HCl (Zofran) 4 mg IV Q4H PRN PRN Reason: Nausea/Vomiting Pantoprazole Sodium (Protonix) 40 mg PO DAILY@0700 [facility] Potassium Chloride (Klor-Con M20) 20 meq PO ONETIME ONE Stop: 07/22/20 09:02 Last Admin: 07/22/20 09:33 Dose: 20 meq Documented by: Warfarin Sodium (Coumadin) 5 mg PO ONETIME ONE Stop: 07/19/20 23:01 Last Admin: 07/19/20 23:32 Dose: 5 mg Documented by: Warfarin Sodium (Coumadin) 7.5 mg PO QPM [facility] Stop: 07/20/20 18:01 Last Admin: 07/20/20 17:09 Dose: 7.5 mg Documented by: Warfarin Sodium (Coumadin) 7.5 mg PO QPM [facility] Stop: 07/21/20 18:01 Last Admin: 07/21/20 17:33 Dose: 7.5 mg Documented by: Warfarin Sodium (Coumadin) 7.5 mg PO QPM [facility] Stop: 07/22/20 18:01 Last Admin: 07/22/20 18:10 Dose: 7.5 mg Documented by: Warfarin Sodium (Coumadin) 4 mg PO QPM [facility] Stop: 07/23/20 18:01 Last Admin: 07/23/20 18:07 Dose: 4 mg Documented by: Warfarin Sodium (Coumadin) 4 mg PO QPM [facility] Stop: 07/24/20 18:01 Last Admin: 07/24/20 17:17 Dose: 4 mg Documented by: Warfarin Sodium (Coumadin) 5 mg PO QPM [facility] Stop: 07/25/20 18:01 Last Admin: 07/25/20 19:36 Dose: 5 mg Documented by: Warfarin Sodium (Coumadin) 5 mg PO ONETIME ONE Stop: 07/26/20 18:01 Last Admin: 07/26/20 17:53 Dose: 5 mg Documented by: Warfarin Sodium (Coumadin) 5 mg PO QPM [facility] Stop: 07/27/20 18:01 Last Admin: 07/27/20 18:42 Dose: 5 mg Documented by: Warfarin Sodium (Coumadin) 4 mg PO QPM [facility] Stop: 07/28/20 18:01 Last Admin: 07/28/20 16:59 Dose: 4 mg Documented by: - Exam Quality Assessment: Reports: Supplemental Oxygen (2 L per nasal cannula) General: Reports: Alert, Oriented, Cooperative, No Acute Distress HEENT: Reports: Pupils Equal, Pupils Reactive, Mucous Membr. Moist/[place] Neck: Reports: Supple, Trachea Midline. Denies: Lymphadenopathy Lungs: Reports: Clear to Auscultation, Normal Respiratory Effort Cardiovascular: Reports: Regular Rate, Irregular Rhythm GI/Abdominal Exam: Normal Bowel Sounds, Soft, Non-Tender, No Distention (Female) Exam: Deferred Rectal (Female) Exam: Deferred Back Exam: Reports: Normal Inspection, Full Range of Motion Extremities: Normal Inspection, Normal Range of Motion, Non-Tender, No Pedal Edema, Normal Capillary Refill Skin: Reports: Warm, Dry, Intact Neurological: Reports: No New Focal Deficit Psy/Mental Status: Reports: Alert, Normal Affect, Normal Mood
[2020-07-29] MEDS ORDERED: Warfarin 2.5 MG Tab PO SCH (18:00)
== END 2020-07-29 12:11 | DRG 177 ==
LOC: JD.ED 11:17 → JD.MS 16:01
PROVIDERS: ADMIT Family Medicine; ATTEND Family Medicine
PROC: 8E0ZXY6 Isolation (ICD-10-PCS; principal; 2020-07-19)
PROC: XW033E5 Introduction of Remdesivir Anti-infective into Peripheral Vein, Percutaneous Approach, New Technology Group 5 (ICD-10-PCS; 2020-07-19)
PROC: 5A0955A Assistance with Respiratory Ventilation, Greater than 96 Consecutive Hours, High Flow/Velocity Cannula (ICD-10-PCS; 2020-07-19)
PROC: XW13325 Transfusion of Convalescent Plasma (Nonautologous) into Peripheral Vein, Percutaneous Approach, New Technology Group 5 (ICD-10-PCS; 2020-07-19)
DX: U07.1 COVID-19 (principal); J12.89 Other viral pneumonia; R09.02 Hypoxemia; I48.20 Chronic atrial fibrillation, unspecified; I48.91 Unspecified atrial fibrillation; E87.2 Acidosis; Z68.43 Body mass index [BMI] 50.0-59.9, adult; F20.9 Schizophrenia, unspecified; I50.9 Heart failure, unspecified; N28.9 Disorder of kidney and ureter, unspecified; E66.01 Morbid (severe) obesity due to excess calories; K21.9 Gastro-esophageal reflux disease without esophagitis; M19.90 Unspecified osteoarthritis, unspecified site; M10.9 Gout, unspecified; F41.9 Anxiety disorder, unspecified; F32.9 Major depressive disorder, single episode, unspecified; I11.0 Hypertensive heart disease with heart failure; E78.5 Hyperlipidemia, unspecified; Z79.01 Long term (current) use of anticoagulants; Z79.899 Other long term (current) drug therapy; Z88.1 Allergy status to other antibiotic agents; Z87.440 Personal history of urinary (tract) infections; Z90.710 Acquired absence of both cervix and uterus; Z79.52 Long term (current) use of systemic steroids
CPT/HCPCS: 36415; 36600; 71045; 80053; 82728; 82803; 83605; 83615; 85025; 85379; 85610; 85730; 86140; 86900; 86901; 87040 ×2; 93005; 96361; 96374; 99285; J1100; J7030; U0002; 36430; 51702; 80048; 81001; 82306; 82962; 83036; 83735; 84100; 84145; 84484; 86141; 87641; 90686; 93010; 93308; 94667; 94668; 94760; 94761; A9270-GY; G0008; J0456; J0696; J1815-GY; J2405; J3475; J7050; J8540; P9017

== ENCOUNTER 2020-10-11 11:15 | Inpatient (IN) | payer MEDICARE, MEDICAID ==
[2020-10-11] MEDS ORDERED: Sodium Chloride 0.9% 10 ML Syringe FLUSH PRN (11:40)
--- NOTE | 2020-10-11 12:04 | EDM.PDOC ---
ED HPI GENERAL MEDICAL PROBLEM - General Chief Complaint: Respiratory Problem Stated Complaint: [facility] Time Seen by Provider: 10/11/20 11:40 Source of Information: Reports: Patient, Long Term Records, RN Notes Reviewed History Limitations: Reports: No Limitations - History of Present Illness INITIAL COMMENTS - FREE TEXT/NARRATIVE: Patient is a 55-year-old female presenting to the emergency department from [facility] in [place] with complaints of a wet cough and hypoxia. Patient states that approximately 4 days ago, she developed a harsh, wet cough. Today nurses at the home checked her oxygen she was found to be in the 70s on room air. Oxygen saturation on triage was 85% on room air. Patient denies feeling short of breath. States she had COVID-19 in June and briefly had home oxygen after that, however she has been off oxygen for quite some time now. She denies any history of congestive heart failure. She does have chronic A. f ib and is on Coumadin. She denies any chest pain. Denies fever, chills, nausea, or vomiting. She has no nasal or sinus congestion. - Related Data Allergies Allergy/AdvReac Type Severity Reaction Status Date / Time amoxicillin Allergy Rash Verified 10/11/20 11:32 Home Meds: Home Meds Acetaminophen 650 mg PO Q4H PRN 07/19/20 [History] Acetaminophen [Tylenol] 650 mg PO DAILY 07/19/20 [History] Allopurinol [Zyloprim] 200 mg PO DAILY 07/19/20 [History] Benzoyl Peroxide [Benzoyl Peroxide 10% Lotion] 1 applic TOP BID PRN 07/19/20 [History] Calcium Carbonate [Tums] 500 mg PO ASDIRECTED PRN 07/19/20 [History] Diltiazem [Cardizem] 60 mg PO BID 07/19/20 [History] Fish Oil/[place]-3 Fatty Acids [Fish Oil 1,000 MG] 2,000 mg PO BID 07/19/20 [History] LORazepam [Ativan] 1 mg PO BEDTIME 07/19/20 [History] Mag Hydrox/Aluminum Hyd/Simeth [Mylanta Maximum Strength Liq] 10 ml PO ASDIRECTED PRN 07/19/20 [History] Multivitamin 1 tab PO DAILY 07/19/20 [History] PARoxetine HCL [Paxil] 30 mg PO DAILY 07/19/20 [History] Pantoprazole Sodium [Protonix] 40 mg PO DAILY 07/19/20 [History] Potassium Chloride 20 meq PO DAILY 07/19/20 [History] Pravastatin [Pravachol] 40 mg PO BEDTIME 07/19/20 [History] Sertraline [Zoloft] 150 mg PO DAILY 07/19/20 [History] Triamcinolone Acetonide [Triamcinolone Acetonide 0.5% Oint] 1 applic TOP BID PRN 07/19/20 [History] Warfarin [Coumadin] 5 mg PO DAILY 07/19/20 [History] atenoloL [Atenolol] 25 mg PO DAILY 07/19/20 [History] hydroCHLOROthiazide [Hydrochlorothiazide] 12.5 mg PO DAILY 07/19/20 [History] risperiDONE [Risperdal] 2 mg PO BID 07/19/20 [History] metFORMIN HCl [Metformin ER Osmotic] 1,000 mg PO DAILY 10/11/20 [History] Past Medical History Cardiovascular History: Reports: Afib, Hypertension, SOB on Exertion Respiratory History: Reports: SOB Gastrointestinal History: Reports: GERD Genitourinary History: Reports: UTI, Recurrent, Other (See Below) Musculoskeletal History: Reports: Arthritis, Gout Other Musculoskeletal History: athritis/gout to bilateral lower extremities Neurological History: Reports: Headaches, Chronic Psychiatric History: Reports: Anxiety, Depression, Panic Attack Endocrine/Metabolic History: Reports: Obesity/BMI 30+ Oncologic (Cancer) History: Reports: Other (See Below) Other Oncologic History: 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 - Infectious Disease History Infectious Disease History: Reports: Novel Coronavirus - Past Surgical History GI Surgical History: Reports: None Female Surgical History: Reports: Hysterectomy Endocrine Surgical History: Reports: None Neurological Surgical History: Reports: None Musculoskeletal Surgical History: Reports: None Oncologic Surgical History: Reports: None Dermatological Surgical History: Reports: None Social & Family History - Family History Cardiac: Reports: SD Respiratory: Reports: COPD GI: Reports: None Hematologic: Reports: None Immunologic: Reports: None Oncologic: Reports: Brain, Lung - Caffeine Use Caffeine Use: Reports: None ED ROS GENERAL - Review of Systems Review Of Systems: See Below Constitutional: Denies: Fever, Chills, Weakness, Fatigue, Decreased Appetite HEENT: Reports: No Symptoms. Denies: Rhinitis, Sinus Problem, Throat Pain Respiratory: Reports: Cough. Denies: Shortness of Breath, Pleuritic Chest Pain Cardiovascular: Reports: No Symptoms Endocrine: Reports: No Symptoms GI/Abdominal: Reports: No Symptoms. Denies: Abdominal Pain, Diarrhea, Nausea, Vomiting : Reports: No Symptoms. Denies: Dysuria Musculoskeletal: Reports: No Symptoms Skin: Reports: No Symptoms Neurological: Reports: No Symptoms Psychiatric: Reports: No Symptoms Hematologic/Lymphatic: Reports: No Symptoms Immunologic: Reports: No Symptoms ED EXAM, GENERAL - Physical Exam Exam: See Below General Appearance: Alert, WD/WN, No Apparent Distress Respiratory/Chest: No Respiratory Distress, No Accessory Muscle Use, Chest Non- Tender, Rhonchi (throughout) Cardiovascular: Normal Peripheral Pulses, No Edema, No Gallop, No JVD, No Murmur, No Rub, Other (irregularly irregular) GI/Abdominal: Normal Bowel Sounds, Soft, Non-Tender, No Organomegaly, No Distention, No Abnormal Bruit, No Mass Neurological: Alert, Oriented, CN II-XII Intact, Normal Cognition, Normal Gait, Normal Reflexes, No Motor/Sensory Deficits Psychiatric: Normal Affect, Normal Mood Skin Exam: Warm, Dry, Intact, Normal Color, No Rash Course - Vital Signs Last Recorded V/S: Last Vital Signs Temp 97.1 F 10/11/20 11:28 Pulse 91 10/11/20 11:28 Resp 24 H 10/11/20 11:28 BP 158/84 H 10/11/20 11:28 Pulse Ox 85 L 10/11/20 11:28 - Orders/Labs/Meds Orders: Active Orders 24 hr Category Date Time Status Patient Status [ADT] Routine ADT 10/11/20 14:04 Active EKG Documentation Completion [RC] STAT Care 10/11/20 11:42 Active Peripheral IV Care [RC] . DIRECTED Care 10/11/20 11:43 Active CULTURE BLOOD [BC] Stat Lab 10/11/20 12:31 Received CULTURE BLOOD [BC] Stat Lab 10/11/20 12:31 Received Sodium Chloride 0.9% [Saline Flush] Med 10/11/20 11:40 Active 10 ml FLUSH ASDIRECTED PRN Blood Culture x2 Reflex Set [OM.PC] Stat Oth 10/11/20 11:59 Ordered Peripheral IV Insertion Adult [OM.PC] Stat Oth 10/11/20 11:41 Ordered Medication Orders Sodium Chloride (Saline Flush) 10 ml FLUSH ASDIRECTED PRN PRN Reason: Keep Vein Open Last Admin: 10/11/20 11:56 Dose: 10 ml Documented by: GEOVANY Labs: Laboratory Tests 10/11/20 10/11/20 10/11/20 Range/Units 11:25 11:25 11:25 WBC 7.66 (3.98-10.04) K/mm3 RBC 4.98 (3.98-5.22) M/mm3 Hgb 15.7 (11.2-15.7) gm/dl Hct 50.0 H (34.1-44.9) % MCV 100.4 H (79.4-94.8) fl MCH 31.5 (25.6-32.2) pg MCHC 31.4 L (32.2-35.5) g/dl RDW Std Deviation 56.1 H (36.4-46.3) fL Plt Count 284 D (182-369) K/mm3 MPV 8.6 L (9.4-12.3) fl Neut % (Auto) 65.2 (34.0-71.1) % Lymph % (Auto) 19.7 (19.3-51.7) % [place] % (Auto) 10.3 (4.7-12.5) % Eos % (Auto) 3.8 (0.7-5.8) Baso % (Auto) 0.5 (0.1-1.2) % Neut # (Auto) 4.99 (1.56-6.13) K/mm3 Lymph # (Auto) 1.51 (1.18-3.74) K/mm3 [place] # (Auto) 0.79 H (0.24-0.36) K/mm3 Eos # (Auto) 0.29 (0.04-0.36) K/mm3 Baso # (Auto) 0.04 (0.01-0.08) K/mm3 PT (9.7-12.0) SECONDS INR D-Dimer, Quantitative < 0.19 L (0.19-0.50) mg/L Sodium 141 (136-145) mEq/L Potassium 3.9 (3.5-5.1) mEq/L Chloride 102 (98-107) mEq/L Carbon Dioxide 27 (21-32) mEq/L Anion Gap 15.9 H (5-15) BUN 17 (7-18) mg/dL Creatinine 1.0 (0.55-1.02) mg/dL Est Cr Clr Drug Dosing 59.51 mL/min Estimated GFR (MDRD) 58 (>60) mL/min BUN/Creatinine Ratio 17.0 (14-18) Glucose 117 H (74-106) mg/dL Lactic Acid (0.4-2.0) mmol/L Calcium 9.7 (8.5-10.1) mg/dL Total Bilirubin 0.4 (0.2-1.0) mg/dL AST 17 (15-37) U/L ALT 17 (14-59) U/L Alkaline Phosphatase 47 (46-116) U/L Troponin I < 0.017 (0.00-0.056) ng/mL C-Reactive Protein 4.1 H* (<1.0) mg/dL NT-Pro-B Natriuret Pep (0-125) pg/mL Total Protein 8.5 H (6.4-8.2) g/dl Albumin 3.5 (3.4-5.0) g/dl Globulin 5.0 gm/dL Albumin/Globulin Ratio 0.7 L (1-2) Influenza Type A RNA (NEGATIVE) Influenza Type B RNA (NEGATIVE) SARS-CoV-2 RNA (GIOVANNI) (NEGATIVE) 10/11/20 10/11/20 10/11/20 Range/Units 11:25 11:25 11:59 WBC (3.98-10.04) K/mm3 RBC (3.98-5.22) M/mm3 Hgb (11.2-15.7) gm/dl Hct (34.1-44.9) % MCV (79.4-94.8) fl MCH (25.6-32.2) pg MCHC (32.2-35.5) g/dl RDW Std Deviation (36.4-46.3) fL Plt Count (182-369) K/mm3 MPV (9.4-12.3) fl Neut % (Auto) (34.0-71.1) % Lymph % (Auto) (19.3-51.7) % [place] % (Auto) (4.7-12.5) % Eos % (Auto) (0.7-5.8) Baso % (Auto) (0.1-1.2) % Neut # (Auto) (1.56-6.13) K/mm3 Lymph # (Auto) (1.18-3.74) K/mm3 [place] # (Auto) (0.24-0.36) K/mm3 Eos # (Auto) (0.04-0.36) K/mm3 Baso # (Auto) (0.01-0.08) K/mm3 PT 19.9 H (9.7-12.0) SECONDS INR 1.88 D-Dimer, Quantitative (0.19-0.50) mg/L Sodium (136-145) mEq/L Potassium (3.5-5.1) mEq/L Chloride (98-107) mEq/L Carbon Dioxide (21-32) mEq/L Anion Gap (5-15) BUN (7-18) mg/dL Creatinine (0.55-1.02) mg/dL Est Cr Clr Drug Dosing mL/min Estimated GFR (MDRD) (>60) mL/min BUN/Creatinine Ratio (14-18) Glucose (74-106) mg/dL Lactic Acid (0.4-2.0) mmol/L Calcium (8.5-10.1) mg/dL Total Bilirubin (0.2-1.0) mg/dL AST (15-37) U/L ALT (14-59) U/L Alkaline Phosphatase (46-116) U/L Troponin I (0.00-0.056) ng/mL C-Reactive Protein (<1.0) mg/dL NT-Pro-B Natriuret Pep 818 H (0-125) pg/mL Total Protein (6.4-8.2) g/dl Albumin (3.4-5.0) g/dl Globulin gm/dL Albumin/Globulin Ratio (1-2) Influenza Type A RNA Negative (NEGATIVE) Influenza Type B RNA Negative (NEGATIVE) SARS-CoV-2 RNA (GIOVANNI) Negative (NEGATIVE) 10/11/20 Range/Units 12:31 WBC (3.98-10.04) K/mm3 RBC (3.98-5.22) M/mm3 Hgb (11.2-15.7) gm/dl Hct (34.1-44.9) % MCV (79.4-94.8) fl MCH (25.6-32.2) pg MCHC (32.2-35.5) g/dl RDW Std Deviation (36.4-46.3) fL Plt Count (182-369) K/mm3 MPV (9.4-12.3) fl Neut % (Auto) (34.0-71.1) % Lymph % (Auto) (19.3-51.7) % [place] % (Auto) (4.7-12.5) % Eos % (Auto) (0.7-5.8) Baso % (Auto) (0.1-1.2) % Neut # (Auto) (1.56-6.13) K/mm3 Lymph # (Auto) (1.18-3.74) K/mm3 [place] # (Auto) (0.24-0.36) K/mm3 Eos # (Auto) (0.04-0.36) K/mm3 Baso # (Auto) (0.01-0.08) K/mm3 PT (9.7-12.0) SECONDS INR D-Dimer, Quantitative (0.19-0.50) mg/L Sodium (136-145) mEq/L Potassium (3.5-5.1) mEq/L Chloride (98-107) mEq/L Carbon Dioxide (21-32) mEq/L Anion Gap (5-15) BUN (7-18) mg/dL Creatinine (0.55-1.02) mg/dL Est Cr Clr Drug Dosing mL/min Estimated GFR (MDRD) (>60) mL/min BUN/Creatinine Ratio (14-18) Glucose (74-106) mg/dL Lactic Acid 1.9 (0.4-2.0) mmol/L Calcium (8.5-10.1) mg/dL Total Bilirubin (0.2-1.0) mg/dL AST (15-37) U/L ALT (14-59) U/L Alkaline Phosphatase (46-116) U/L Troponin I (0.00-0.056) ng/mL C-Reactive Protein (<1.0) mg/dL NT-Pro-B Natriuret Pep (0-125) pg/mL Total Protein (6.4-8.2) g/dl Albumin (3.4-5.0) g/dl Globulin gm/dL Albumin/Globulin Ratio (1-2) Influenza Type A RNA (NEGATIVE) Influenza Type B RNA (NEGATIVE) SARS-CoV-2 RNA (GIOVANNI) (NEGATIVE) Meds: Medications Generic Name Dose Route Start Last Admin Trade Name Freq PRN Reason Stop Dose Admin Sodium Chloride 10 ml 10/11/20 11:40 10/11/20 11:56 Saline Flush FLUSH 10 ml ASDIRECTED PRN Administration Keep Vein Open Discontinued Medications Generic Name Dose Route Start Last Admin Trade Name Freq PRN Reason Stop Dose Admin Furosemide 40 mg 10/11/20 12:37 10/11/20 13:45 Lasix IVPUSH 10/11/20 12:38 40 mg NOW ONE Administration - Re-Assessments/Exams Free Text/Narrative Re-Assessment/Exam: Patient is a 55-year-old female presenting to the emergency department from [facility] with complaints of a wet cough and hypoxia. On exam, she does have diffuse rhonchi throughout her lung duran. Oxygen is currently 92 to 93% on 3 L by nasal cannula. She is had no fever, chills, nausea, or vomiting. Denies a history of congestive heart failure. Patient did have Covid 3 months ago and was hospitalized at that time. She did go home on a small amount of oxygen, however has been off it for some time. I have ordered CBC, CMP, CRP, D-dimer, troponin, proBNP, 1 view chest, EKG. 10/11/20 12:47 Hematology was significant for CRP minimally elevated at 4.1, proBNP 818. Troponin was negative. Chest x-ray shows pulmonary vascular congestion as well as a small right-sided pleural effusion consistent with CHF. I have ordered a CT of the chest without contrast to evaluate for possible underlying pneumonia. Also ordered Lasix 40 mg IV. 10/11/20 13:[address] official read by radiology is pending. Called and spoke with hospitalist, Dr. Yen. He has accepted the patient for admission. 10/11/20 14:07 Radiologist interpretation of the CT scan shows no acute findings. Departure - Departure Time of Disposition: 14:08 Disposition: Admitted As Inpatient 66 Condition: Good Clinical Impression: Hypoxia Acute exacerbation of CHF (congestive heart failure) Qualifiers: Heart failure type: unspecified Qualified Code(s): I50.9 - Heart failure, unspecified - Discharge Information Referrals: Mark Anthony Burns MD [Primary Care Provider] - Forms: ED Department Discharge Sepsis Event Note (ED) - Evaluation Sepsis Screening Result: Possible Sepsis Risk - Focused Exam Vital Signs: Vital Signs Temp Pulse Resp BP Pulse Ox 10/11/20 11:28 97.1 F 91 24 H 158/84 H 85 L - My Orders Last 24 Hours: My Active Orders 10/11/20 11:40 Sodium Chloride 0.9% [Saline Flush] 10 ml FLUSH ASDIRECTED PRN 10/11/20 11:41 Peripheral IV Insertion Adult [OM.PC] Stat 10/11/20 11:42 EKG Documentation Completion [RC] STAT 10/11/20 11:43 Peripheral IV Care [RC] . DIRECTED 10/11/20 11:59 Blood Culture x2 Reflex Set [OM.PC] Stat 10/11/20 12:31 CULTURE BLOOD [BC] Stat CULTURE BLOOD [BC] Stat 10/11/20 14:04 Patient Status [ADT] Routine - Assessment/Plan Last 24 Hours: My Active Orders 10/11/20 11:40 Sodium Chloride 0.9% [Saline Flush] 10 ml FLUSH ASDIRECTED PRN 10/11/20 11:41 Peripheral IV Insertion Adult [OM.PC] Stat 10/11/20 11:42 EKG Documentation Completion [RC] STAT 10/11/20 11:43 Peripheral IV Care [RC] . DIRECTED 10/11/20 11:59 Blood Culture x2 Reflex Set [OM.PC] Stat 10/11/20 12:31 CULTURE BLOOD [BC] Stat CULTURE BLOOD [BC] Stat 10/11/20 14:04 Patient Status [ADT] Routine
--- NOTE | 2020-10-11 12:14 | CR ---
Chest: Portable view of the chest was obtained. Comparison: Prior chest x-ray of 12/08/14. Heart is enlarged. Pulmonary vessels are congested. Possible small right-sided pleural effusion is seen. Bony structures are grossly intact. Impression: 1. Findings suspicious for CHF. Diagnostic code #3
[2020-10-11] MEDS ORDERED: Furosemide 40 MG/4 ML VIAL IVPUSH ONE (12:37)
[2020-10-11 12:47] LABS: CORONAVIRUS COVID-19 NAA NEGATIVE (NEGATIVE)
--- NOTE | 2020-10-11 14:03 | CT ---
CT chest Technique: Multiple axial sections through the chest were obtained. Intravenous contrast was not utilized. Reconstructed coronal and sagittal images were obtained. Findings: Lung window settings show no definite acute parenchymal change. Very slight atelectasis is seen within the left lung base. Thyroid gland is enlarged with mild substernal extension compatible with goitrous enlargement. Small lymph nodes are noted within the mediastinum which are felt to be incidental. No pericardial thickening is seen. Small portion of the visualized upper abdominal structures show calcified gallstones within the gallbladder. Bone window settings show diffuse degenerative change within the spine. Nothing acute is seen within the visualized osseous structures. Impression: 1. Findings as noted above. 2. Nothing acute is appreciated. Diagnostic code #2
[2020-10-11] MEDS ORDERED: Albuterol 0.083% 2.5 MG/3 ML Neb Soln NEB PRN (15:14)
[2020-10-11] MEDS ORDERED: Ondansetron 4 MG/2 ML SDV IV PRN (15:14)
[2020-10-11] MEDS ORDERED: Albuterol/Ipratropium 3.0-0.5 MG/3 ML Neb Soln NEB PRN (15:14)
[2020-10-11] MEDS ORDERED: Acetaminophen 325 MG Tab PO PRN (15:14)
[2020-10-11] MEDS ORDERED: Calcium Carbonate 500 MG Tab.Chew PO PRN (15:19)
--- NOTE | 2020-10-11 15:23 | PCM.HP.2 ---
H&P History of Present Illness - General Date of Service: 10/11/20 Admit Problem/Dx: Admission Diagnosis/Problem Admission Diagnosis/Problem Congestive heart failure - History of Present Illness Initial Comments - Free Text/Narative: 55-year-old female known to the hospital service after developing Covid pneumoni a and was hospitalized for 10 days 3 months ago. Patient returns to the emergency department with worsening shortness of breath, wet cough, and hypoxemia. Patient was sent home on 2 L/min via nasal cannula of O2 which they weaned off over the next several weeks. She has been off of oxygen she states for less than 1 month. She has had worsening fatigue and shortness of breath and presented with oxygen saturations in the mid 80s here but it was reportedly in the 70s at [facility]. Patient has a history of chronic atrial fibrillation treated with Coumadin for anticoagulation but no history of heart failure. Echocardiogram done on last visit was poor quality because of body habitus and recommendations were to get the follow-up echocardiogram with Definity contrast. Unfortunately, we do not carry that. Patient currently states she is feeling much better after getting oxygen but she is tired. In the emergency department she was placed on 3 L via nasal cannula and CT of the chest showed no acute findings with normal lung parenchyma. There was some concern for an enlarged thyroid gland consistent with goitrous enlargement. BNP was slightly elevated at 818. Patient was given 40 mg of IV Lasix. Chest x-ray was suspicious for CHF at this certainly was not confirmed on CT scan. Patient is being admitted for possible new onset CHF with the elevated BNP and hypoxemia. - Related Data Allergies/Adverse Reactions: Allergies Allergy/AdvReac Type Severity Reaction Status Date / Time No Known Drug Allergies Allergy none Verified 10/11/20 15:33 Home Medications: Home Meds Acetaminophen 650 mg PO Q4H PRN 07/19/20 [History] Acetaminophen [Tylenol] 650 mg PO DAILY 07/19/20 [History] Allopurinol [Zyloprim] 200 mg PO DAILY 07/19/20 [History] Benzoyl Peroxide [Benzoyl Peroxide 10% Lotion] 1 applic TOP BID PRN 07/19/20 [History] Calcium Carbonate [Tums] 500 mg PO ASDIRECTED PRN 07/19/20 [History] Diltiazem [Cardizem] 60 mg PO BID 07/19/20 [History] Fish Oil/[place]-3 Fatty Acids [Fish Oil 1,000 MG] 2,000 mg PO BID 07/19/20 [History] LORazepam [Ativan] 1 mg PO BEDTIME 07/19/20 [History] Mag Hydrox/Aluminum Hyd/Simeth [Mylanta Maximum Strength Liq] 10 ml PO ASDIRECTED PRN 07/19/20 [History] Multivitamin 1 tab PO DAILY 07/19/20 [History] PARoxetine HCL [Paxil] 30 mg PO DAILY 07/19/20 [History] Pantoprazole Sodium [Protonix] 40 mg PO DAILY 07/19/20 [History] Potassium Chloride 20 meq PO DAILY 07/19/20 [History] Pravastatin [Pravachol] 40 mg PO BEDTIME 07/19/20 [History] Sertraline [Zoloft] 150 mg PO DAILY 07/19/20 [History] Triamcinolone Acetonide [Triamcinolone Acetonide 0.5% Oint] 1 applic TOP BID PRN 07/19/20 [History] Warfarin [Coumadin] 5 mg PO DAILY 07/19/20 [History] atenoloL [Atenolol] 25 mg PO DAILY 07/19/20 [History] hydroCHLOROthiazide [Hydrochlorothiazide] 12.5 mg PO DAILY 07/19/20 [History] risperiDONE [Risperdal] 2 mg PO BID 07/19/20 [History] Sucralfate 1 gm PO QID 10/11/20 [History] metFORMIN HCl [Metformin ER Osmotic] 1,000 mg PO DAILY 10/11/20 [History] Past Medical History Cardiovascular History: Reports: Afib, Hypertension, SOB on Exertion Respiratory History: Reports: SOB Gastrointestinal History: Reports: GERD Genitourinary History: Reports: UTI, Recurrent, Other (See Below) Musculoskeletal History: Reports: Arthritis, Gout Other Musculoskeletal History: athritis/gout to bilateral lower extremities Neurological History: Reports: Headaches, Chronic Psychiatric History: Reports: Anxiety, Depression, Panic Attack Endocrine/Metabolic History: Reports: Obesity/BMI 30+ Oncologic (Cancer) History: Reports: Other (See Below) Other Oncologic History: 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 - Infectious Disease History Infectious Disease History: Reports: Novel Coronavirus - Past Surgical History GI Surgical History: Reports: None Female Surgical History: Reports: Hysterectomy Endocrine Surgical History: Reports: None Neurological Surgical History: Reports: None Musculoskeletal Surgical History: Reports: None Oncologic Surgical History: Reports: None Dermatological Surgical History: Reports: None Social & Family History - Family History Cardiac: Reports: HI Respiratory: Reports: COPD GI: Reports: None Hematologic: Reports: None Immunologic: Reports: None Oncologic: Reports: Brain, Lung - Tobacco Use Tobacco Use Status *Q: Never Tobacco User - Caffeine Use Caffeine Use: Reports: None H&P Review of Systems - Review of Systems: Review Of Systems: Comprehensive ROS is negative, except as noted in HPI. Exam - Exam Exam: See Below - Vital Signs Vital Signs: Last Vital Signs Temp 97.7 F 10/11/20 14:32 Pulse 103 H 10/11/20 14:32 Resp 24 H 10/11/20 14:32 BP 119/82 10/11/20 14:32 Pulse Ox 91 L 10/11/20 14:32 Weight: 382 lb 9.6 oz - Exam Quality Assessment: Supplemental Oxygen General: Alert, Oriented, 4 HEENT: Conjunctiva Clear, Hearing Intact, Mucosa Moist & [place], Normal Nasal Septum Neck: Supple, Trachea Midline, 2 Lungs: Normal Respiratory Effort, Other (Upper airway gurgling throughout both lung duran. Difficult to discern crackles or rales.) Cardiovascular: Irregular Rhythm (Rate and rhythm) GI/Abdominal Exam: Normal Bowel Sounds, Soft, Non-Tender, No Abnormal Bruit, Distended (Morbidly obese) Extremities: Normal Inspection, Normal Range of Motion, Non-Tender, No Pedal Edema, Normal Capillary Refill Peripheral Pulses: 1+: Posterior Tibial (L), Posterior Tibial (R), Dorsalis Pedis (L), Dorsalis Pedis (R) Skin: Warm, Dry, Intact Neuro Extensive - Mental Status: Alert, Oriented x3, Normal Mood/Affect, Memory Intact Psychiatric: Alert, Normal Affect, Normal Mood - Patient Data Lab Results Last 24 hrs: Laboratory Results - last 24 hr 10/11/20 10/11/20 10/11/20 Range/Units 11:25 11:25 11:25 WBC 7.66 (3.98-10.04) K/mm3 RBC 4.98 (3.98-5.22) M/mm3 Hgb 15.7 (11.2-15.7) gm/dl Hct 50.0 H (34.1-44.9) % MCV 100.4 H (79.4-94.8) fl MCH 31.5 (25.6-32.2) pg MCHC 31.4 L (32.2-35.5) g/dl RDW Std Deviation 56.1 H (36.4-46.3) fL Plt Count 284 D (182-369) K/mm3 MPV 8.6 L (9.4-12.3) fl Neut % (Auto) 65.2 (34.0-71.1) % Lymph % (Auto) 19.7 (19.3-51.7) % [place] % (Auto) 10.3 (4.7-12.5) % Eos % (Auto) 3.8 (0.7-5.8) Baso % (Auto) 0.5 (0.1-1.2) % Neut # (Auto) 4.99 (1.56-6.13) K/mm3 Lymph # (Auto) 1.51 (1.18-3.74) K/mm3 [place] # (Auto) 0.79 H (0.24-0.36) K/mm3 Eos # (Auto) 0.29 (0.04-0.36) K/mm3 Baso # (Auto) 0.04 (0.01-0.08) K/mm3 PT (9.7-12.0) SECONDS INR D-Dimer, Quantitative < 0.19 L (0.19-0.50) mg/L Sodium 141 (136-145) mEq/L Potassium 3.9 (3.5-5.1) mEq/L Chloride 102 (98-107) mEq/L Carbon Dioxide 27 (21-32) mEq/L Anion Gap 15.9 H (5-15) BUN 17 (7-18) mg/dL Creatinine 1.0 (0.55-1.02) mg/dL Est Cr Clr Drug Dosing 59.51 mL/min Estimated GFR (MDRD) 58 (>60) mL/min BUN/Creatinine Ratio 17.0 (14-18) Glucose 117 H (74-106) mg/dL Lactic Acid (0.4-2.0) mmol/L Calcium 9.7 (8.5-10.1) mg/dL Total Bilirubin 0.4 (0.2-1.0) mg/dL AST 17 (15-37) U/L ALT 17 (14-59) U/L Alkaline Phosphatase 47 (46-116) U/L Troponin I < 0.017 (0.00-0.056) ng/mL C-Reactive Protein 4.1 H* (<1.0) mg/dL NT-Pro-B Natriuret Pep (0-125) pg/mL Total Protein 8.5 H (6.4-8.2) g/dl Albumin 3.5 (3.4-5.0) g/dl Globulin 5.0 gm/dL Albumin/Globulin Ratio 0.7 L (1-2) Influenza Type A RNA (NEGATIVE) Influenza Type B RNA (NEGATIVE) SARS-CoV-2 RNA (GIOVANNI) (NEGATIVE) 10/11/20 10/11/20 10/11/20 Range/Units 11:25 11:25 11:59 WBC (3.98-10.04) K/mm3 RBC (3.98-5.22) M/mm3 Hgb (11.2-15.7) gm/dl Hct (34.1-44.9) % MCV (79.4-94.8) fl MCH (25.6-32.2) pg MCHC (32.2-35.5) g/dl RDW Std Deviation (36.4-46.3) fL Plt Count (182-369) K/mm3 MPV (9.4-12.3) fl Neut % (Auto) (34.0-71.1) % Lymph % (Auto) (19.3-51.7) % [place] % (Auto) (4.7-12.5) % Eos % (Auto) (0.7-5.8) Baso % (Auto) (0.1-1.2) % Neut # (Auto) (1.56-6.13) K/mm3 Lymph # (Auto) (1.18-3.74) K/mm3 [place] # (Auto) (0.24-0.36) K/mm3 Eos # (Auto) (0.04-0.36) K/mm3 Baso # (Auto) (0.01-0.08) K/mm3 PT 19.9 H (9.7-12.0) SECONDS INR 1.88 D-Dimer, Quantitative (0.19-0.50) mg/L Sodium (136-145) mEq/L Potassium (3.5-5.1) mEq/L Chloride (98-107) mEq/L Carbon Dioxide (21-32) mEq/L Anion Gap (5-15) BUN (7-18) mg/dL Creatinine (0.55-1.02) mg/dL Est Cr Clr Drug Dosing mL/min Estimated GFR (MDRD) (>60) mL/min BUN/Creatinine Ratio (14-18) Glucose (74-106) mg/dL Lactic Acid (0.4-2.0) mmol/L Calcium (8.5-10.1) mg/dL Total Bilirubin (0.2-1.0) mg/dL AST (15-37) U/L ALT (14-59) U/L Alkaline Phosphatase (46-116) U/L Troponin I (0.00-0.056) ng/mL C-Reactive Protein (<1.0) mg/dL NT-Pro-B Natriuret Pep 818 H (0-125) pg/mL Total Protein (6.4-8.2) g/dl Albumin (3.4-5.0) g/dl Globulin gm/dL Albumin/Globulin Ratio (1-2) Influenza Type A RNA Negative (NEGATIVE) Influenza Type B RNA Negative (NEGATIVE) SARS-CoV-2 RNA (GIOVANNI) Negative (NEGATIVE) 10/11/20 Range/Units 12:31 WBC (3.98-10.04) K/mm3 RBC (3.98-5.22) M/mm3 Hgb (11.2-15.7) gm/dl Hct (34.1-44.9) % MCV (79.4-94.8) fl MCH (25.6-32.2) pg MCHC (32.2-35.5) g/dl RDW Std Deviation (36.4-46.3) fL Plt Count (182-369) K/mm3 MPV (9.4-12.3) fl Neut % (Auto) (34.0-71.1) % Lymph % (Auto) (19.3-51.7) % [place] % (Auto) (4.7-12.5) % Eos % (Auto) (0.7-5.8) Baso % (Auto) (0.1-1.2) % Neut # (Auto) (1.56-6.13) K/mm3 Lymph # (Auto) (1.18-3.74) K/mm3 [place] # (Auto) (0.24-0.36) K/mm3 Eos # (Auto) (0.04-0.36) K/mm3 Baso # (Auto) (0.01-0.08) K/mm3 PT (9.7-12.0) SECONDS INR D-Dimer, Quantitative (0.19-0.50) mg/L Sodium (136-145) mEq/L Potassium (3.5-5.1) mEq/L Chloride (98-107) mEq/L Carbon Dioxide (21-32) mEq/L Anion Gap (5-15) BUN (7-18) mg/dL Creatinine (0.55-1.02) mg/dL Est Cr Clr Drug Dosing mL/min Estimated GFR (MDRD) (>60) mL/min BUN/Creatinine Ratio (14-18) Glucose (74-106) mg/dL Lactic Acid 1.9 (0.4-2.0) mmol/L Calcium (8.5-10.1) mg/dL Total Bilirubin (0.2-1.0) mg/dL AST (15-37) U/L ALT (14-59) U/L Alkaline Phosphatase (46-116) U/L Troponin I (0.00-0.056) ng/mL C-Reactive Protein (<1.0) mg/dL NT-Pro-B Natriuret Pep (0-125) pg/mL Total Protein (6.4-8.2) g/dl Albumin (3.4-5.0) g/dl Globulin gm/dL Albumin/Globulin Ratio (1-2) Influenza Type A RNA (NEGATIVE) Influenza Type B RNA (NEGATIVE) SARS-CoV-2 RNA (GIOVANNI) (NEGATIVE) Result Diagrams: 10/11/20 11:25 10/11/20 11:25 Sepsis Event Note - Evaluation Sepsis Screening Result: Possible Sepsis Risk - Focused Exam Vital Signs: Vital Signs Temp Temp Pulse Pulse Resp BP BP 10/11/20 14:32 97.7 F 103 H 24 H 119/82 10/11/20 11:28 97.1 F 91 24 H 158/84 H Pulse Ox 10/11/20 14:32 91 L 10/11/20 11:28 85 L - Problem List (1) Bronchitis SNOMED Code(s): 26971471 ICD Code: J40 - BRONCHITIS, NOT SPECIFIED ACUTE OR CHRONIC Status: Acute Current Visit: Yes (2) Acute exacerbation of CHF (congestive heart failure) SNOMED Code(s): 818976222, 09053710064576 ICD Code: I50.9 - HEART FAILURE, UNSPECIFIED Status: Acute Current Visit: Yes Qualifiers: Heart failure type: unspecified Qualified Code(s): I50.9 - Heart failure, unspecified (3) Afib, Atrial fibrillation SNOMED Code(s): 58781280 ICD Code: I48.91 - UNSPECIFIED ATRIAL FIBRILLATION Status: Chronic Priority: Medium Current Visit: No (4) HTN, Essential hypertension SNOMED Code(s): 40409352 ICD Code: I10 - ESSENTIAL (PRIMARY) HYPERTENSION Status: Chronic Pr iority: Medium Current Visit: No Problem List Initiated/Reviewed/Updated: Yes Orders Last 24hrs: Active Orders 24 hr Category Date Time Status Patient Status [ADT] Routine ADT 10/11/20 14:04 Active Antiembolic Devices [RC] PER UNIT ROUTINE Care 10/11/20 15:15 Ordered Blood Glucose Check, Bedside [RC] WITHMEALSANDBED Care 10/11/20 15:17 Ordered Intake and Output Strict [RC] ASDIRECTED Care 10/11/20 15:16 Ordered Oxygen Therapy [RC] PRN Care 10/11/20 15:14 Ordered RT Aerosol Therapy [RC] ASDIRECTED Care 10/11/20 15:15 Ordered RT Chest Physiotherapy [RC] ASDIRECTED Care 10/11/20 15:16 Ordered RT Incentive Spirometry [RC] ASDIRECTED Care 10/11/20 15:16 Ordered Up With Assistance [RC] ASDIRECTED Care 10/11/20 15:14 Ordered VTE/DVT Education [RC] PER UNIT ROUTINE Care 10/11/20 15:14 Ordered Vital Signs [RC] Q4H Care 10/11/20 15:14 Ordered Respiratory Care Assess and Treatment [CONS] Routine Cons 10/11/20 15:14 Ordered Consistent Carbohydrate Diet [DIET] Diet 10/11/20 Dinner Ordered CBC WITH AUTO DIFF [HEME] AM Lab 10/12/20 05:11 Ordered CMP [COMPREHENSIVE METABOLIC PN,CMP] [CHEM] AM Lab 10/12/20 05:11 Ordered CULTURE BLOOD [BC] Stat Lab 10/11/20 12:31 Received CULTURE BLOOD [BC] Stat Lab 10/11/20 12:31 Received INR,PT,PROTHROMBIN TIME [COAG] AM Lab 10/14/20 05:11 Ordered INR,PT,PROTHROMBIN TIME [COAG] AM Lab 10/15/20 05:11 Ordered INR,PT,PROTHROMBIN TIME [COAG] AM Lab 10/16/20 05:11 Ordered INR,PT,PROTHROMBIN TIME [COAG] AM Lab 10/12/20 05:11 Ordered INR,PT,PROTHROMBIN TIME [COAG] AM Lab 10/13/20 05:11 Ordered MAGNESIUM [CHEM] AM Lab 10/12/20 05:11 Ordered METH-RESIST S.AUR,MRSA BY PCR [MOLEC] Routine Lab 10/11/20 14:30 Received PHOSPHORUS [CHEM] AM Lab 10/12/20 05:11 Ordered PRO B-TYPE NATRIUR PEPT,BNPPRO [CHEM] Routine Lab 10/12/20 05:11 Ordered Acetaminophen [TylenoL] Med 10/11/20 15:14 Ordered 650 mg PO Q4H PRN Albuterol [Proventil Neb Soln] Med 10/11/20 15:14 Ordered 2.5 mg NEB Q2H PRN Albuterol/Ipratropium [DuoNeb 3.0-0.5 MG/3 ML] Med 10/11/20 15:14 Ordered 3 ml NEB Q4H PRN Calcium Carbonate [Tums] Med 10/11/20 15:19 Ordered 500 mg PO ASDIRECTED PRN Furosemide [Lasix] Med 10/12/20 09:00 Ordered 40 mg IVPUSH DAILY Insulin Lispro [HumaLOG] Med 10/11/20 17:00 Ordered See Protocol SUBCUT QIDACANDBED LORazepam [Ativan] Med 10/11/20 21:00 Ordered 1 mg PO BEDTIME Ondansetron [Zofran] Med 10/11/20 15:14 Ordered 4 mg IV Q4H PRN PARoxetine HCL [Paxil] Med 10/12/20 09:00 Ordered 30 mg PO DAILY Pantoprazole Med 10/12/20 09:00 Ordered 40 mg PO DAILY Pharmacy to Dose - Warfarin Med 10/11/20 15:30 Ordered 1 dose .XX ASDIRECTED Potassium Chloride [Potassium Chloride] Med 10/12/20 09:00 Ordered 20 meq PO DAILY Pravastatin Sodium Med 10/11/20 21:00 Ordered 40 mg PO BEDTIME Sertraline Med 10/12/20 09:00 Ordered 150 mg PO DAILY Sodium Chloride 0.9% [Saline Flush] Med 10/11/20 11:40 Active 10 ml FLUSH ASDIRECTED PRN allopurinoL [Zyloprim] Med 10/12/20 09:00 Ordered 200 mg PO DAILY risperiDONE [Risperdal] Med 10/11/20 21:00 Ordered 2 mg PO BID Blood Culture x2 Reflex Set [OM.PC] Stat Oth 10/11/20 11:59 Ordered Peripheral IV Insertion Adult [OM.PC] Stat Oth 10/11/20 11:41 Ordered Sequential Compression Device [OM.PC] Per Unit Routine Oth 10/11/20 15:14 Ordered Resuscitation Status Routine Resus Stat 10/11/20 14:54 Ordered Medication Orders Acetaminophen (Tylenol) 650 mg PO Q4H PRN PRN Reason: Pain (Mild 1-3)/fever Albuterol (Proventil Neb Soln) 2.5 mg NEB Q2H PRN PRN Reason: Shortness Of Breath/wheezing Albuterol/Ipratropium (Duoneb 3.0-0.5 Mg/3 Ml) 3 ml NEB Q4H PRN PRN Reason: Shortness Of Breath/wheezing Furosemide (Lasix) 40 mg IVPUSH DAILY [facility] Insulin Human Lispro (Humalog) 0 unit SUBCUT QIDACANDBED [facility]; Protocol Ondansetron HCl (Zofran) 4 mg IV Q4H PRN PRN Reason: Nausea/Vomiting Sodium Chloride (Saline Flush) 10 ml FLUSH ASDIRECTED PRN PRN Reason: Keep Vein Open Last Admin: 10/11/20 11:56 Dose: 10 ml Documented by: GEOVANY Assessment/Plan Comment:: Assessment 55-year-old female with history of recent COVID-19 pneumonia 3 months ago, schizophrenia, morbid obesity, diabetes, hypertension, atrial fibrillation, and heart failure presents with worsening hypoxemia and shortness of breath. * Signs and symptoms consistent with exacerbation of CHF * There appears to be underlying bronchitis component to her respiratory illness * BNP 818 * Echocardiogram from June was of poor quality secondary body habitus. Recommendation for Definity contrast which we do not have at this facility. * Given 40 mg of Lasix IV in the emergency department * On both atenolol and diltiazem for atrial fibrillation * CT of the chest did not show significant pulmonary congestion * Chest x-ray was suggestive of CHF * Hypertension treated with atenolol, diltiazem, hydrochlorothiazide * Warfarin for stroke prophylaxis. INR 1.8 on admission. Schizophrenia, depression, anxiety, social phobia * Review of her medication shows she is on both Paxil and Zoloft prescribed by 2 different providers. * Patient is also on Risperdal 2 mg twice a day Type 2 diabetes * Hemoglobin A1c from July 20, 2020 was 6.4%. * Controlled with oral medications including Metformin, Januvia Plan * Admit to medical floor on telemetry * Continue diuresis. Lasix 40 mg IV in the morning * Unfortunately unable to get echocardiogram secondary to body habitus. This will need to be done as outpatient in [place]. * Hold atenolol * Change Cardizem to Cardizem CD 120 mg daily. She will get Cardizem IR 60 mg tonight and then start long-acting Cardizem tomorrow. * Patient is on 2 separate SSRIs. This looks to be likely overlooked because of 2 different providers ordering the same medication. I will stop her Paxil while she is here in the hospital and have her reevaluate this as an outpatient. Continue her other mood medications as prescribed. * Increase Zoloft to 200 mg because of the decrease in serotonin secondary to stopping Paxil. * Sliding scale insulin * Warfarin pharmacy to dose * Daily INR * Recheck CBC, CMP, mag, hemoglobin A1c, TSH in the morning * DuoNeb as needed * RT to consult * Incentive spirometer and Acapella * DVT prophylaxis with warfarin and SCDs * CODE STATUS: Full code * Length of stay likely 2 to 3 days. - Mortality Measure Prognosis:: Good
[2020-10-11] MEDS ORDERED: Warfarin 5 MG Tab PO ONE (18:00)
[2020-10-11] MEDS ORDERED: Diltiazem 50 MG/10 ML SDV IVPUSH ONE (20:14)
[2020-10-11] MEDS: LORazepam 1 MG Tab PO SCH (20:31)
[2020-10-11] MEDS: risperiDONE 1 MG Tab PO SCH (20:34)
[2020-10-11] MEDS: Simvastatin 20 MG Tab PO SCH (20:34)
[2020-10-11] MEDS ORDERED: Diltiazem IR 60 MG Tab PO ONE (21:00)
[2020-10-12] MEDS: Pantoprazole 40 MG Tab.CR PO SCH (06:42)
--- NOTE | 2020-10-12 07:57 | PCM.PN ---
- General Info Date of Service: 10/12/20 Admission Dx/Problem (Free Text): Admission Diagnosis/Problem Admission Diagnosis/Problem Congestive heart failure Subjective Update: The patient is a 55-year-old lady who was admitted yesterday to acute hospitalization out of concern for congestive heart failure. The patient was hospitalized previously for 10 days due to Covid pneumonia. The patient came from detention. The patient today says that she still feels short of breath. She has a cough. The patient has been tolerating her diet. She has a history of chronic atrial fibrillation and an inconclusive 2D echocardiogram. Functional Status: Reports: Pain Controlled, Tolerating Diet - Review of Systems General: Reports: No Symptoms HEENT: Reports: No Symptoms Pulmonary: Reports: Shortness of Breath, Cough Cardiovascular: Reports: No Symptoms Gastrointestinal: Reports: No Symptoms Genitourinary: Reports: No Symptoms Musculoskeletal: Reports: No Symptoms Skin: Reports: No Symptoms Neurological: Reports: No Symptoms Psychiatric: Reports: No Symptoms - Patient Data Vitals - Most Recent: Last Vital Signs Temp 36.4 C 10/12/20 05:20 Pulse 95 10/12/20 05:20 Resp 18 10/12/20 05:20 BP 122/60 10/12/20 05:20 Pulse Ox 93 L 10/12/20 05:20 Weight - Most Recent: 172.819 kg I&O - Last 24 Hours: Intake & Output 10/11/20 10/12/20 10/12/20 22:59 06:59 14:59 Intake Total 475 Output Total 300 Balance 175 Lab Results Last 24 Hours: Laboratory Results - last 24 hr 10/11/20 10/11/20 10/11/20 Range/Units 11:25 11:25 11:25 WBC 7.66 (3.98-10.04) K/mm3 RBC 4.98 (3.98-5.22) M/mm3 Hgb 15.7 (11.2-15.7) gm/dl Hct 50.0 H (34.1-44.9) % MCV 100.4 H (79.4-94.8) fl MCH 31.5 (25.6-32.2) pg MCHC 31.4 L (32.2-35.5) g/dl RDW Std Deviation 56.1 H (36.4-46.3) fL Plt Count 284 D (182-369) K/mm3 MPV 8.6 L (9.4-12.3) fl Neut % (Auto) 65.2 (34.0-71.1) % Lymph % (Auto) 19.7 (19.3-51.7) % Phelps % (Auto) 10.3 (4.7-12.5) % Eos % (Auto) 3.8 (0.7-5.8) Baso % (Auto) 0.5 (0.1-1.2) % Neut # (Auto) 4.99 (1.56-6.13) K/mm3 Lymph # (Auto) 1.51 (1.18-3.74) K/mm3 Phelps # (Auto) 0.79 H (0.24-0.36) K/mm3 Eos # (Auto) 0.29 (0.04-0.36) K/mm3 Baso # (Auto) 0.04 (0.01-0.08) K/mm3 PT (9.7-12.0) SECONDS INR D-Dimer, Quantitative < 0.19 L (0.19-0.50) mg/L Sodium 141 (136-145) mEq/L Potassium 3.9 (3.5-5.1) mEq/L Chloride 102 (98-107) mEq/L Carbon Dioxide 27 (21-32) mEq/L Anion Gap 15.9 H (5-15) BUN 17 (7-18) mg/dL Creatinine 1.0 (0.55-1.02) mg/dL Est Cr Clr Drug Dosing 59.51 mL/min Estimated GFR (MDRD) 58 (>60) mL/min BUN/Creatinine Ratio 17.0 (14-18) Glucose 117 H (74-106) mg/dL POC Glucose (70-105) mg/dL Lactic Acid (0.4-2.0) mmol/L Calcium 9.7 (8.5-10.1) mg/dL Phosphorus (2.6-4.7) mg/dL Magnesium (1.8-2.4) mg/dl Total Bilirubin 0.4 (0.2-1.0) mg/dL AST 17 (15-37) U/L ALT 17 (14-59) U/L Alkaline Phosphatase 47 (46-116) U/L Troponin I < 0.017 (0.00-0.056) ng/mL C-Reactive Protein 4.1 H* (<1.0) mg/dL NT-Pro-B Natriuret Pep (0-125) pg/mL Total Protein 8.5 H (6.4-8.2) g/dl Albumin 3.5 (3.4-5.0) g/dl Globulin 5.0 gm/dL Albumin/Globulin Ratio 0.7 L (1-2) Influenza Type A RNA (NEGATIVE) Influenza Type B RNA (NEGATIVE) SARS-CoV-2 RNA (GIOVANNI) (NEGATIVE) MRSA (PCR) 10/11/20 10/11/20 10/11/20 Range/Units 11:25 11:25 11:59 WBC (3.98-10.04) K/mm3 RBC (3.98-5.22) M/mm3 Hgb (11.2-15.7) gm/dl Hct (34.1-44.9) % MCV (79.4-94.8) fl MCH (25.6-32.2) pg MCHC (32.2-35.5) g/dl RDW Std Deviation (36.4-46.3) fL Plt Count (182-369) K/mm3 MPV (9.4-12.3) fl Neut % (Auto) (34.0-71.1) % Lymph % (Auto) (19.3-51.7) % Phelps % (Auto) (4.7-12.5) % Eos % (Auto) (0.7-5.8) Baso % (Auto) (0.1-1.2) % Neut # (Auto) (1.56-6.13) K/mm3 Lymph # (Auto) (1.18-3.74) K/mm3 Phelps # (Auto) (0.24-0.36) K/mm3 Eos # (Auto) (0.04-0.36) K/mm3 Baso # (Auto) (0.01-0.08) K/mm3 PT 19.9 H (9.7-12.0) SECONDS INR 1.88 D-Dimer, Quantitative (0.19-0.50) mg/L Sodium (136-145) mEq/L Potassium (3.5-5.1) mEq/L Chloride (98-107) mEq/L Carbon Dioxide (21-32) mEq/L Anion Gap (5-15) BUN (7-18) mg/dL Creatinine (0.55-1.02) mg/dL Est Cr Clr Drug Dosing mL/min Estimated GFR (MDRD) (>60) mL/min BUN/Creatinine Ratio (14-18) Glucose (74-106) mg/dL POC Glucose (70-105) mg/dL Lactic Acid (0.4-2.0) mmol/L Calcium (8.5-10.1) mg/dL Phosphorus (2.6-4.7) mg/dL Magnesium (1.8-2.4) mg/dl Total Bilirubin (0.2-1.0) mg/dL AST (15-37) U/L ALT (14-59) U/L Alkaline Phosphatase (46-116) U/L Troponin I (0.00-0.056) ng/mL C-Reactive Protein (<1.0) mg/dL NT-Pro-B Natriuret Pep 818 H (0-125) pg/mL Total Protein (6.4-8.2) g/dl Albumin (3.4-5.0) g/dl Globulin gm/dL Albumin/Globulin Ratio (1-2) Influenza Type A RNA Negative (NEGATIVE) Influenza Type B RNA Negative (NEGATIVE) SARS-CoV-2 RNA (GIOVANNI) Negative (NEGATIVE) MRSA (PCR) 10/11/20 10/11/20 10/11/20 Range/Units 12:31 14:30 16:07 WBC (3.98-10.04) K/mm3 RBC (3.98-5.22) M/mm3 Hgb (11.2-15.7) gm/dl Hct (34.1-44.9) % MCV (79.4-94.8) fl MCH (25.6-32.2) pg MCHC (32.2-35.5) g/dl RDW Std Deviation (36.4-46.3) fL Plt Count (182-369) K/mm3 MPV (9.4-12.3) fl Neut % (Auto) (34.0-71.1) % Lymph % (Auto) (19.3-51.7) % Phelps % (Auto) (4.7-12.5) % Eos % (Auto) (0.7-5.8) Baso % (Auto) (0.1-1.2) % Neut # (Auto) (1.56-6.13) K/mm3 Lymph # (Auto) (1.18-3.74) K/mm3 Phelps # (Auto) (0.24-0.36) K/mm3 Eos # (Auto) (0.04-0.36) K/mm3 Baso # (Auto) (0.01-0.08) K/mm3 PT (9.7-12.0) SECONDS INR D-Dimer, Quantitative (0.19-0.50) mg/L Sodium (136-145) mEq/L Potassium (3.5-5.1) mEq/L Chloride (98-107) mEq/L Carbon Dioxide (21-32) mEq/L Anion Gap (5-15) BUN (7-18) mg/dL Creatinine (0.55-1.02) mg/dL Est Cr Clr Drug Dosing mL/min Estimated GFR (MDRD) (>60) mL/min BUN/Creatinine Ratio (14-18) Glucose (74-106) mg/dL POC Glucose 94 (70-105) mg/dL Lactic Acid 1.9 (0.4-2.0) mmol/L Calcium (8.5-10.1) mg/dL Phosphorus (2.6-4.7) mg/dL Magnesium (1.8-2.4) mg/dl Total Bilirubin (0.2-1.0) mg/dL AST (15-37) U/L ALT (14-59) U/L Alkaline Phosphatase (46-116) U/L Troponin I (0.00-0.056) ng/mL C-Reactive Protein (<1.0) mg/dL NT-Pro-B Natriuret Pep (0-125) pg/mL Total Protein (6.4-8.2) g/dl Albumin (3.4-5.0) g/dl Globulin gm/dL Albumin/Globulin Ratio (1-2) Influenza Type A RNA (NEGATIVE) Influenza Type B RNA (NEGATIVE) SARS-CoV-2 RNA (GOIVANNI) (NEGATIVE) MRSA (PCR) Negative 10/11/20 10/12/20 10/12/20 Range/Units 20:27 05:50 06:12 WBC 7.50 (3.98-10.04) K/mm3 RBC 4.77 (3.98-5.22) M/mm3 Hgb 15.2 (11.2-15.7) gm/dl Hct 48.3 H (34.1-44.9) % MCV 101.3 H (79.4-94.8) fl MCH 31.9 (25.6-32.2) pg MCHC 31.5 L (32.2-35.5) g/dl RDW Std Deviation 56.6 H (36.4-46.3) fL Plt Count 284 (182-369) K/mm3 MPV 8.5 L (9.4-12.3) fl Neut % (Auto) 75.4 H (34.0-71.1) % Lymph % (Auto) 13.3 L (19.3-51.7) % Phelps % (Auto) 7.3 (4.7-12.5) % Eos % (Auto) 3.3 (0.7-5.8) Baso % (Auto) 0.4 (0.1-1.2) % Neut # (Auto) 5.65 (1.56-6.13) K/mm3 Lymph # (Auto) 1.00 L (1.18-3.74) K/mm3 Phelps # (Auto) 0.55 H (0.24-0.36) K/mm3 Eos # (Auto) 0.25 (0.04-0.36) K/mm3 Baso # (Auto) 0.03 (0.01-0.08) K/mm3 PT (9.7-12.0) SECONDS INR D-Dimer, Quantitative (0.19-0.50) mg/L Sodium (136-145) mEq/L Potassium (3.5-5.1) mEq/L Chloride (98-107) mEq/L Carbon Dioxide (21-32) mEq/L Anion Gap (5-15) BUN (7-18) mg/dL Creatinine (0.55-1.02) mg/dL Est Cr Clr Drug Dosing mL/min Estimated GFR (MDRD) (>60) mL/min BUN/Creatinine Ratio (14-18) Glucose (74-106) mg/dL POC Glucose 101 133 H (70-105) mg/dL Lactic Acid (0.4-2.0) mmol/L Calcium (8.5-10.1) mg/dL Phosphorus (2.6-4.7) mg/dL Magnesium (1.8-2.4) mg/dl Total Bilirubin (0.2-1.0) mg/dL AST (15-37) U/L ALT (14-59) U/L Alkaline Phosphatase (46-116) U/L Troponin I (0.00-0.056) ng/mL C-Reactive Protein (<1.0) mg/dL NT-Pro-B Natriuret Pep (0-125) pg/mL Total Protein (6.4-8.2) g/dl Albumin (3.4-5.0) g/dl Globulin gm/dL Albumin/Globulin Ratio (1-2) Influenza Type A RNA (NEGATIVE) Influenza Type B RNA (NEGATIVE) SARS-CoV-2 RNA (GIOVANNI) (NEGATIVE) MRSA (PCR) 10/12/20 10/12/20 10/12/20 Range/Units 06:12 06:12 06:12 WBC (3.98-10.04) K/mm3 RBC (3.98-5.22) M/mm3 Hgb (11.2-15.7) gm/dl Hct (34.1-44.9) % MCV (79.4-94.8) fl MCH (25.6-32.2) pg MCHC (32.2-35.5) g/dl RDW Std Deviation (36.4-46.3) fL Plt Count (182-369) K/mm3 MPV (9.4-12.3) fl Neut % (Auto) (34.0-71.1) % Lymph % (Auto) (19.3-51.7) % Phelps % (Auto) (4.7-12.5) % Eos % (Auto) (0.7-5.8) Baso % (Auto) (0.1-1.2) % Neut # (Auto) (1.56-6.13) K/mm3 Lymph # (Auto) (1.18-3.74) K/mm3 Phelps # (Auto) (0.24-0.36) K/mm3 Eos # (Auto) (0.04-0.36) K/mm3 Baso # (Auto) (0.01-0.08) K/mm3 PT 20.2 H (9.7-12.0) SECONDS INR 1.91 D-Dimer, Quantitative (0.19-0.50) mg/L Sodium 141 (136-145) mEq/L Potassium 3.8 (3.5-5.1) mEq/L Chloride 102 (98-107) mEq/L Carbon Dioxide 32 (21-32) mEq/L Anion Gap 10.8 (5-15) BUN 18 (7-18) mg/dL Creatinine 1.0 (0.55-1.02) mg/dL Est Cr Clr Drug Dosing 59.51 mL/min Estimated GFR (MDRD) 58 (>60) mL/min BUN/Creatinine Ratio 18.0 (14-18) Glucose 128 H (74-106) mg/dL POC Glucose (70-105) mg/dL Lactic Acid (0.4-2.0) mmol/L Calcium 9.5 (8.5-10.1) mg/dL Phosphorus 3.8 (2.6-4.7) mg/dL Magnesium 1.7 L (1.8-2.4) mg/dl Total Bilirubin 0.4 (0.2-1.0) mg/dL AST 14 L (15-37) U/L ALT 16 (14-59) U/L Alkaline Phosphatase 43 L (46-116) U/L Troponin I (0.00-0.056) ng/mL C-Reactive Protein (<1.0) mg/dL NT-Pro-B Natriuret Pep 349 H (0-125) pg/mL Total Protein 8.1 (6.4-8.2) g/dl Albumin 3.3 L (3.4-5.0) g/dl Globulin 4.8 gm/dL Albumin/Globulin Ratio 0.7 L (1-2) Influenza Type A RNA (NEGATIVE) Influenza Type B RNA (NEGATIVE) SARS-CoV-2 RNA (GIOVANNI) (NEGATIVE) MRSA (PCR) Med Orders - Current: Current Medications Acetaminophen (Tylenol) 650 mg PO Q4H PRN PRN Reason: Pain (Mild 1-3)/fever Albuterol (Proventil Neb Soln) 2.5 mg NEB Q2H PRN PRN Reason: Shortness Of Breath/wheezing Albuterol/Ipratropium (Duoneb 3.0-0.5 Mg/3 Ml) 3 ml NEB Q4H PRN PRN Reason: Shortness Of Breath/wheezing Allopurinol (Zyloprim) 200 mg PO DAILY [facility] Calcium Carbonate/Glycine (Tums) 500 mg PO ASDIRECTED PRN PRN Reason: GERD Diltiazem HCl (Cardizem Cd) 120 mg PO DAILY [facility] Furosemide (Lasix) 40 mg IVPUSH DAILY [facility] Insulin Human Lispro (Humalog) 0 unit SUBCUT QIDACANDBED [facility]; Protocol Last Admin: 10/12/20 06:42 Dose: Not Given Documented by: Lorazepam (Ativan) 1 mg PO BEDTIME [facility] Last Admin: 10/11/20 20:31 Dose: 1 mg Documented by: Ondansetron HCl (Zofran) 4 mg IV Q4H PRN PRN Reason: Nausea/Vomiting Pantoprazole Sodium (Protonix) 40 mg PO DAILY@0700 [facility] Last Admin: 10/12/20 06:42 Dose: 40 mg Documented by: Potassium Chloride (Klor-Con M20) 20 meq PO DAILY [facility] Risperidone (Risperidal) 2 mg PO BID [facility] Last Admin: 10/11/20 20:34 Dose: 2 mg Documented by: Sertraline HCl (Zoloft) 200 mg PO DAILY [facility] Simvastatin (Zocor) 20 mg PO BEDTIME [facility] Last Admin: 10/11/20 20:34 Dose: 20 mg Documented by: Sodium Chloride (Saline Flush) 10 ml FLUSH ASDIRECTED PRN PRN Reason: Keep Vein Open Last Admin: 10/11/20 11:56 Dose: 10 ml Documented by: Warfarin Sodium (Pharmacy To Dose - Warfarin) 1 dose .XX ASDIRECTED [facility] Discontinued Medications Diltiazem HCl (Cardizem) 60 mg PO ONETIME ONE Stop: 10/11/20 21:01 Last Admin: 10/11/20 20:39 Dose: 60 mg Documented by: Diltiazem HCl (Cardizem) 10 mg IVPUSH ONETIME ONE Stop: 10/11/20 20:15 Last Admin: 10/11/20 21:53 Dose: Not Given Documented by: Furosemide (Lasix) 40 mg IVPUSH NOW ONE Stop: 10/11/20 12:38 Last Admin: 10/11/20 13:45 Dose: 40 mg Documented by: Paroxetine HCl (Paxil) 30 mg PO DAILY [facility] Sertraline HCl (Zoloft) 150 mg PO DAILY [facility] Warfarin Sodium (Coumadin) 5 mg PO ONETIME ONE Stop: 10/11/20 18:01 Last Admin: 10/11/20 17:09 Dose: 5 mg Documented by: - Exam Quality Assessment: Supplemental Oxygen, DVT Prophylaxis General: Alert, Oriented, Other (Morbidly obese) HEENT: Pupils Equal, Pupils Reactive, EOMI. No: Mucous Membr. Moist/Peebles (Dry) Neck: Supple, Trachea Midline Lungs: Normal Respiratory Effort, Rales (Bibasilar) Cardiovascular: Regular Rate, Irregular Rhythm GI/Abdominal Exam: Normal Bowel Sounds (Difficult to assess secondary to the patient's body habitus.), Non-Tender, No Distention (Female) Exam: Deferred Back Exam: Normal Inspection Extremities: Normal Inspection, No Pedal Edema Skin: Warm, Dry, Intact Neurological: No New Focal Deficit Psy/Mental Status: Alert, Normal Affect, Normal Mood Sepsis Event Note - Evaluation Sepsis Screening Result: No Definite Risk - Focused Exam Vital Signs: Vital Signs Temp Pulse Resp BP Pulse Ox 10/12/20 05:20 36.4 C 95 18 122/60 93 L 10/11/20 20:38 35.9 C L 90 22 H 138/65 92 L - Problem List & Annotations (1) Acute exacerbation of CHF (congestive heart failure) SNOMED Code(s): 144490374, 61227063096090 Code(s): I50.9 - HEART FAILURE, UNSPECIFIED Status: Acute Current Visit: Yes Qualifiers: Heart failure type: unspecified Qualified Code(s): I50.9 - Heart failure, unspecified (2) Obesity hypoventilation syndrome SNOMED Code(s): 682367696 Code(s): E66.2 - MORBID (SEVERE) OBESITY WITH ALVEOLAR HYPOVENTILATION Status: Chronic Priority: High Current Visit: Yes (3) Afib, Atrial fibrillation SNOMED Code(s): 82081388 Code(s): I48.91 - UNSPECIFIED ATRIAL FIBRILLATION Status: Chronic Priority: Medium Current Visit: No (4) HTN, Essential hypertension SNOMED Code(s): 92796345 Code(s): I10 - ESSENTIAL (PRIMARY) HYPERTENSION Status: Chronic Priority: Medium Current Visit: No (5) Morbid obesity SNOMED Code(s): 919597089 Code(s): E66.01 - MORBID (SEVERE) OBESITY DUE TO EXCESS CALORIES Status: Chronic Priority: Medium Current Visit: No - Problem List Review Problem List Initiated/Reviewed/Updated: Yes - Plan Plan:: Assessment 55-year-old female with history of recent COVID-19 pneumonia 3 months ago, schizophrenia, morbid obesity, diabetes, hypertension, atrial fibrillation, and heart failure presents with worsening hypoxemia and shortness of breath. * Signs and symptoms consistent with exacerbation of CHF * There appears to be underlying bronchitis component to her respiratory illness * BNP 818 * Echocardiogram from June was of poor quality secondary body habitus. Recommendation for Definity contrast which we do not have at this facility. * Given 40 mg of Lasix IV in the emergency department * On both atenolol and diltiazem for atrial fibrillation * CT of the chest did not show significant pulmonary congestion * Chest x-ray was suggestive of CHF * Hypertension treated with atenolol, diltiazem, hydrochlorothiazide * Warfarin for stroke prophylaxis. INR 1.8 on admission. Schizophrenia, depression, anxiety, social phobia * Review of her medication shows she is on both Paxil and Zoloft prescribed by 2 different providers. * Patient is also on Risperdal 2 mg twice a day Type 2 diabetes * Hemoglobin A1c from July 20, 2020 was 6.4%. * Controlled with oral medications including Metformin, Januvia Plan * Admit to medical floor on telemetry * Continue diuresis. Lasix 40 mg IV in the morning * Unfortunately unable to get echocardiogram secondary to body habitus. This will need to be done as outpatient in [place]. * Hold atenolol * Change Cardizem to Cardizem CD 120 mg daily. She will get Cardizem IR 60 mg tonight and then start long-acting Cardizem tomorrow. * Patient is on 2 separate SSRIs. This looks to be likely overlooked because of 2 different providers ordering the same medication. I will stop her Paxil while she is here in the hospital and have her reevaluate this as an outpatient. Continue her other mood medications as prescribed. * Increase Zoloft to 200 mg because of the decrease in serotonin secondary to stopping Paxil. * Sliding scale insulin * Warfarin pharmacy to dose * Daily INR * Recheck CBC, CMP, mag, hemoglobin A1c, TSH in the morning * DuoNeb as needed * RT to consult * Incentive spirometer and Acapella * DVT prophylaxis with warfarin and SCDs * CODE STATUS: Full code * Length of stay likely 2 to 3 days. * 10/12/2020 The patient is a 55-year-old lady who is doing better today apparently. She was admitted secondary to congestive heart failure. The patient will be diuresed as scheduled. She is also morbidly obese and this is likely contributing to the patient's hypoxia. The patient's oxygen will be maintained to keep her saturations between 90 and 92%. The previous chest x-ray was difficult secondary to her body habitus as well as the 2D echocardiogram. The patient might likely need to have 2D echocardiogram repeated as an outpatient at the specialty clinic. The patient will continue on her appropriate diet as tolerated. She has been encouraged to ambulate. Repeat laboratory studies have been ordered. The patient will need to have physical therapy evaluation to determine appropriateness for discharge back to detention.
[2020-10-12] MEDS: Allopurinol 100 MG Tab PO SCH (08:12)
[2020-10-12] MEDS: Sertraline 50 MG Tab PO SCH (08:13)
[2020-10-12] MEDS: risperiDONE 1 MG Tab PO SCH ×2 (08:14→20:18)
[2020-10-12] MEDS: Diltiazem 120 MG Cap.CD PO SCH (08:14)
[2020-10-12] MEDS: Furosemide 40 MG/4 ML VIAL IVPUSH SCH (08:15)
[2020-10-12] MEDS: Potassium Chloride 20 MEQ Tab.ER PO SCH (08:15)
[2020-10-12] MEDS ORDERED: Sertraline 50 MG Tab PO SCH (09:00)
[2020-10-12] MEDS ORDERED: Warfarin 5 MG Tab PO SCH (18:00)
[2020-10-12] MEDS: LORazepam 1 MG Tab PO SCH (20:18)
[2020-10-12] MEDS: Simvastatin 20 MG Tab PO SCH (20:18)
[2020-10-13] MEDS: Pantoprazole 40 MG Tab.CR PO SCH (06:03)
[2020-10-13] MEDS: Sertraline 50 MG Tab PO SCH (08:19)
[2020-10-13] MEDS: Diltiazem 120 MG Cap.CD PO SCH (08:20)
[2020-10-13] MEDS: risperiDONE 1 MG Tab PO SCH (08:20)
[2020-10-13] MEDS: Allopurinol 100 MG Tab PO SCH (08:20)
[2020-10-13 08:21] VITALS: BP 105/76; PULSE 108
[2020-10-13] MEDS: Furosemide 40 MG/4 ML VIAL IVPUSH SCH (08:21)
[2020-10-13] MEDS: Potassium Chloride 20 MEQ Tab.ER PO SCH (08:21)
--- NOTE | 2020-10-13 09:10 | PCM.DCSUM1 ---
Discharge Summary - Hospital Course Free Text/Narrative:: Patient was admitted secondary to hypoxia associated with possible congestive heart failure. The patient is also 3 months post Covid. Diagnosis: Stroke: No - Discharge Data Discharge Date: 10/13/20 Discharge Disposition: DC/Tfer to SNF 03 Condition: Fair - Referral to Home Health Primary Care Physician: Mark Anthony Burns MD - Discharge Diagnosis/Problem(s) (1) Acute exacerbation of CHF (congestive heart failure) SNOMED Code(s): 693791555, [id number] ICD Code: I50.9 - HEART FAILURE, UNSPECIFIED Status: Chronic Priority: High Current Visit: Yes Qualifiers: Heart failure type: unspecified Qualified Code(s): I50.9 - Heart failure, unspecified (2) Obesity hypoventilation syndrome SNOMED Code(s): 241088808 ICD Code: E66.2 - MORBID (SEVERE) OBESITY WITH ALVEOLAR HYPOVENTILATION Status: Chronic Priority: High Current Visit: Yes (3) Afib, Atrial fibrillation SNOMED Code(s): 18740974 ICD Code: I48.91 - UNSPECIFIED ATRIAL FIBRILLATION Status: Chronic Priority: Medium Current Visit: No (4) HTN, Essential hypertension SNOMED Code(s): 24494424 ICD Code: I10 - ESSENTIAL (PRIMARY) HYPERTENSION Status: Chronic Priority: Medium Current Visit: No (5) Morbid obesity SNOMED Code(s): 460844015 ICD Code: E66.01 - MORBID (SEVERE) OBESITY DUE TO EXCESS CALORIES Status: Chronic Priority: Medium Current Visit: No - Patient Summary/Data Consults: Consultations 10/11/20 15:14 Respiratory Care Assess and Treatment [CONS] Routine 10/12/20 10:02 Consult to Physical Therapy [PT Evaluation and Treatment] [CONS] Routine Hospital Course: The patient is a 55-year-old lady who was admitted to acute hospitalization on October 11, 2020. The patient was noted in the emergency department to have worsening shortness of breath, wet cough and hypoxemia. The patient also had Covid pneumonia 3 months ago. The patient reports that she has had worsening fatigue and shortness of breath and presented with oxygen saturations that were in the mid 80s. This was thought to be new onset congestive heart failure and s he had a 2D echocardiogram which was obtained on her previous visit. The 2D echocardiogram was considered to be technically suboptimal. This was secondary to the patient's body habitus. The patient had been recommended to have a 2D echocardiogram with Definity contrast. The patient had been admitted and she was started on 40 mg of Lasix IV daily. This did allow the patient to lose weight and her breathing was better. The patient was also on oxygen support to keep her saturations above 90% and she had been using oxygen at 4.5 L/min. The patient has been recommended to follow-up as an outpatient with cardiology for further evaluation and treatment especially given the patient's body habitus. The patient also likely has obesity hypoventilation syndrome which has been contributing to her poor oxygen saturation. The patient was queried and she felt that she could go home safely. [facility] and arrangements were made for her to go home. The patient also had been given a prescription for Lasix 20 mg p.o. twice daily. The patient also has been recommended to follow-up with her primary care physician. The patient also has been recommended to continue with her current diet as tolerated. The patient is also to have activity as tolerated. The patient has been otherwise hemodynamically stable and she has been discharged with recommendations to follow-up on the above orders. A prescription was given for the patient to have 2D echocardiogram with Definity contrast as an outpatient. This contrast material is not carried at this hospital. - Patient Instructions Diet: Diabetic Diet Activity: As Tolerated - Discharge Plan *PRESCRIPTION DRUG MONITORING PROGRAM REVIEWED*: No *COPY OF PRESCRIPTION DRUG MONITORING REPORT IN PATIENT LING: No Prescriptions/Med Rec: Guaifenesin/Pseudoephedrne HCl [Guaifenesin-Pse ER 1200-120 mg] 1 each PO Q4H PRN #30 tab.er.12h PRN Reason: Cough Furosemide [Lasix] 20 mg PO BID #60 tab Home Medications: Home Meds Acetaminophen 650 mg PO Q4H PRN 07/19/20 [History] Acetaminophen [Tylenol] 650 mg PO DAILY 07/19/20 [History] Allopurinol [Zyloprim] 200 mg PO DAILY 07/19/20 [History] Benzoyl Peroxide [Benzoyl Peroxide 10% Lotion] 1 applic TOP BID PRN 07/19/20 [History] Calcium Carbonate [Tums] 500 mg PO ASDIRECTED PRN 07/19/20 [History] Fish Oil/Bet[place]da-3 Fatty Acids [Fish Oil 1,000 MG] 2,000 mg PO BID 07/19/20 [History] LORazepam [Ativan] 1 mg PO BEDTIME 07/19/20 [History] Mag Hydrox/Aluminum Hyd/Simeth [Mylanta Maximum Strength Liq] 10 ml PO ASDIRECTED PRN 07/19/20 [History] Multivitamin 1 tab PO DAILY 07/19/20 [History] Pantoprazole Sodium [Protonix] 40 mg PO DAILY 07/19/20 [History] Potassium Chloride 20 meq PO DAILY 07/19/20 [History] Pravastatin [Pravachol] 40 mg PO BEDTIME 07/19/20 [History] Sertraline [Zoloft] 200 mg PO DAILY 07/19/20 [History] Triamcinolone Acetonide [Triamcinolone Acetonide 0.5% Oint] 1 applic TOP BID PRN 07/19/20 [History] atenoloL [Atenolol] 25 mg PO DAILY 07/19/20 [History] hydroCHLOROthiazide [Hydrochlorothiazide] 12.5 mg PO DAILY 07/19/20 [History] risperiDONE [Risperdal] 2 mg PO BID 07/19/20 [History] Sucralfate 1 gm PO QID 10/11/20 [History] metFORMIN HCl [Metformin ER Osmotic] 1,000 mg PO DAILY 10/11/20 [History] Diltiazem [Cardizem CD] 120 mg PO DAILY cap.cd 10/13/20 [Rx] Furosemide [Lasix] 20 mg PO BID #60 tab 10/13/20 [Rx] Guaifenesin/Pseudoephedrne HCl [Guaifenesin-Pse ER 1200-120 mg] 1 each PO Q4H PRN #30 tab.er.12h 10/13/20 [Rx] Warfarin [Coumadin] 5 mg PO QPM tablet 10/13/20 [Rx] Oxygen Therapy Mode: Nasal Cannula Oxygen Flow Rate (L/min): 4.5 Maintain SpO2% greater than: 92 Patient Handouts: Heart Failure, Self Care, [id number], Home Oxygen Use, Adult, Heart Failure, Diagnosis, [id number], Living With Heart Failure, Heart Failure and Exercise Forms: ED Department Discharge Referrals: Gavino Nicole MD [Ordering Only Provider] - 10/31/20 12:00 pm (Appointment is for noon caryn time , has labs at noon and appointment with Dr. Nicole at 1300 caryn time.) Mark Anthony Burns MD [Primary Care Provider] - 10/21/20 1:00 pm (come 15 minutes prio to register.) - Discharge Summary/Plan Comment DC Time >30 min.: Yes - General Info Date of Service: 10/13/20 Admission Dx/Problem (Free Text: Admission Diagnosis/Problem Admission Diagnosis/Problem Congestive heart failure Subjective Update: The patient is doing much better today. She has been tolerating her diet. The patient has been ambulating by herself. The patient feels like she can go back to the assisted. Functional Status: Reports: Pain Controlled, Tolerating Diet - Review of Systems General: Reports: No Symptoms HEENT: Reports: No Symptoms Pulmonary: Reports: Shortness of Breath, Cough Cardiovascular: Reports: No Symptoms Gastrointestinal: Reports: No Symptoms Genitourinary: Reports: No Symptoms Musculoskeletal: Reports: No Symptoms Skin: Reports: No Symptoms Neurological: Reports: No Symptoms Psychiatric: Reports: No Symptoms - Patient Data Vitals - Most Recent: Last Vital Signs Temp 36.9 C 10/13/20 07:15 Pulse 108 H 10/13/20 08:20 Resp 18 10/13/20 07:15 BP 105/76 10/13/20 08:20 Pulse Ox 91 L 10/13/20 08:05 Weight - Most Recent: 171.685 kg I&O - Last 24 hours: Intake & Output 10/12/20 10/13/20 10/13/20 22:59 06:59 14:59 Intake Total 540 150 Output Total 850 326 Balance -310 -176 Lab Results - Last 24 hrs: Laboratory Results - last 24 hr 10/12/20 10/12/20 10/12/20 Range/Units 10:13 16:37 20:29 PT (9.7-12.0) SECONDS INR POC Glucose 145 H 138 H 146 H (70-105) mg/dL 10/13/20 10/13/20 Range/Units 06:05 06:06 PT 21.4 H (9.7-12.0) SECONDS INR 2.03 POC Glucose 113 H (70-105) mg/dL JUWAN Results - Last 24 hrs: Microbiology 10/11/20 12:31 Aerobic Blood Culture - Preliminary Blood - Venous - Lab Draw NO GROWTH AFTER 1 DAY Anaerobic Blood Culture - Preliminary NO GROWTH AFTER 1 DAY 10/11/20 12:31 Aerobic Blood Culture - Preliminary Blood - Venous NO GROWTH AFTER 1 DAY Anaerobic Blood Culture - Preliminary NO GROWTH AFTER 1 DAY Med Orders - Current: Current Medications Acetaminophen (Tylenol) 650 mg PO Q4H PRN PRN Reason: Pain (Mild 1-3)/fever Albuterol (Proventil Neb Soln) 2.5 mg NEB Q2H PRN PRN Reason: Shortness Of Breath/wheezing Albuterol/Ipratropium (Duoneb 3.0-0.5 Mg/3 Ml) 3 ml NEB Q4H PRN PRN Reason: Shortness Of Breath/wheezing Allopurinol (Zyloprim) 200 mg PO DAILY [facility] Last Admin: 10/13/20 08:20 Dose: 200 mg Documented by: Calcium Carbonate/Glycine (Tums) 500 mg PO ASDIRECTED PRN PRN Reason: GERD Diltiazem HCl (Cardizem Cd) 120 mg PO DAILY [facility] Last Admin: 10/13/20 08:20 Dose: 120 mg Documented by: Furosemide (Lasix) 40 mg IVPUSH DAILY [facility] Last Admin: 10/13/20 08:21 Dose: 40 mg Documented by: Insulin Human Lispro (Humalog) 0 unit SUBCUT QIDACANDBED [facility]; Protocol Last Admin: 10/13/20 07:47 Dose: Not Given Documented by: Lorazepam (Ativan) 1 mg PO BEDTIME [facility] Last Admin: 10/12/20 20:18 Dose: 1 mg Documented by: Ondansetron HCl (Zofran) 4 mg IV Q4H PRN PRN Reason: Nausea/Vomiting Pantoprazole Sodium (Protonix) 40 mg PO DAILY@0700 [facility] Last Admin: 10/13/20 06:03 Dose: 40 mg Documented by: Potassium Chloride (Klor-Con M20) 20 meq PO DAILY [facility] Last Admin: 10/13/20 08:21 Dose: 20 meq Documented by: Risperidone (Risperidal) 2 mg PO BID [facility] Last Admin: 10/13/20 08:20 Dose: 2 mg Documented by: Sertraline HCl (Zoloft) 200 mg PO DAILY [facility] Last Admin: 10/13/20 08:19 Dose: 200 mg Documented by: Simvastatin (Zocor) 20 mg PO BEDTIME [facility] Last Admin: 10/12/20 20:18 Dose: 20 mg Documented by: Sodium Chloride (Saline Flush) 10 ml FLUSH ASDIRECTED PRN PRN Reason: Keep Vein Open Last Admin: 10/11/20 11:56 Dose: 10 ml Documented by: Warfarin Sodium (Pharmacy To Dose - Warfarin) 1 dose .XX ASDIRECTED [facility] Warfarin Sodium (Coumadin) 5 mg PO QPM [facility] Stop: 10/13/20 18:01 Discontinued Medications Diltiazem HCl (Cardizem) 60 mg PO ONETIME ONE Stop: 10/11/20 21:01 Last Admin: 10/11/20 20:39 Dose: 60 mg Documented by: Diltiazem HCl (Cardizem) 10 mg IVPUSH ONETIME ONE Stop: 10/11/20 20:15 Last Admin: 10/11/20 21:53 Dose: Not Given Documented by: Furosemide (Lasix) 40 mg IVPUSH NOW ONE Stop: 10/11/20 12:38 Last Admin: 10/11/20 13:45 Dose: 40 mg Documented by: Magnesium Sulfate/Dextrose 1 (gm/ Premix) 100 mls @ 100 mls/hr IV ONETIME ONE Stop: 10/12/20 11:59 Last Admin: 10/12/20 11:41 Dose: 100 mls/hr Documented by: Paroxetine HCl (Paxil) 30 mg PO DAILY [facility] Sertraline HCl (Zoloft) 150 mg PO DAILY [facility] Warfarin Sodium (Coumadin) 5 mg PO ONETIME ONE Stop: 10/11/20 18:01 Last Admin: 10/11/20 17:09 Dose: 5 mg Documented by: Warfarin Sodium (Coumadin) 5 mg PO QPM [facility] Stop: 10/12/20 18:01 Last Admin: 10/12/20 18:15 Dose: 5 mg Documented by: - Exam Quality Assessment: Reports: Supplemental Oxygen General: Reports: Alert, Oriented, Cooperative, No Acute Distress, Other (Morbidly obese) HEENT: Reports: Pupils Equal, Pupils Reactive, EOMI, Mucous Membr. Moist/[place] Neck: Reports: Supple, Trachea Midline Lungs: Reports: Clear to Auscultation, Normal Respiratory Effort Cardiovascular: Reports: Regular Rate, Regular Rhythm GI/Abdominal Exam: Normal Bowel Sounds (Unable to hear adequately secondary to the patient's body habitus but some louder sounds were heard.), Soft, Non- Tender, No Distention (Female) Exam: Deferred Rectal (Female) Exam: Deferred Back Exam: Reports: Normal Inspection, Full Range of Motion Extremities: Normal Inspection, No Pedal Edema Skin: Reports: Warm, Dry, Intact Neurological: Reports: No New Focal Deficit Psy/Mental Status: Reports: Alert, Normal Affect
[2020-10-13] MEDS ORDERED: Warfarin 5 MG Tab PO SCH (18:00)
== END 2020-10-13 11:05 | DRG 292 ==
LOC: JD.ED 11:15 → JD.MS 14:04
PROVIDERS: ADMIT Family Medicine; ATTEND Family Medicine
DX: I11.0 Hypertensive heart disease with heart failure (principal); E66.2 Morbid (severe) obesity with alveolar hypoventilation; R09.02 Hypoxemia; I48.91 Unspecified atrial fibrillation; I48.20 Chronic atrial fibrillation, unspecified; Z68.44 Body mass index [BMI] 60.0-69.9, adult; I50.9 Heart failure, unspecified; K21.9 Gastro-esophageal reflux disease without esophagitis; F41.9 Anxiety disorder, unspecified; Z88.1 Allergy status to other antibiotic agents; M19.90 Unspecified osteoarthritis, unspecified site; M10.9 Gout, unspecified; F41.0 Panic disorder [episodic paroxysmal anxiety]; Z20.828 Contact with and (suspected) exposure to other viral communicable diseases; Z86.19 Personal history of other infectious and parasitic diseases; F32.9 Major depressive disorder, single episode, unspecified; J20.9 Acute bronchitis, unspecified; E11.9 Type 2 diabetes mellitus without complications; F20.9 Schizophrenia, unspecified; F40.10 Social phobia, unspecified; Z79.01 Long term (current) use of anticoagulants; Z79.84 Long term (current) use of oral hypoglycemic drugs; Z79.899 Other long term (current) drug therapy
CPT/HCPCS: 0240U; 36415; 71045; 71250; 80053; 82962; 83605; 83735; 83880; 84100; 84484; 85025; 85379; 85610; 86140; 87040; 87641; 93005; 94667; 94761; 96374; 97110; 97162; 97530; 99285; 93010; A9270-GY; J1940; J3475

== ENCOUNTER 2021-06-11 15:49 | Emergency (ER) | payer MEDICARE, MEDICAID ==
[2021-06-11 15:54] VITALS: BP 144/85; PULSE 99
[2021-06-11] MEDS ORDERED: Sodium Chloride 0.9% 10 ML Syringe FLUSH PRN (16:09)
[2021-06-11] MEDS ORDERED: cefTRIAXone 2 GM in Sodium Chloride 0.9% 100 ML IV ONE (16:11)
[2021-06-11] MEDS ORDERED: Sodium Chloride 0.9% 1,000 ML IV SCH (16:15)
--- NOTE | 2021-06-11 16:19 | EDM.PDOC ---
ED HPI GENERAL MEDICAL PROBLEM - General Chief Complaint: Skin Complaint Stated Complaint: HERBERT AMB Time Seen by Provider: 06/11/21 16:00 Source of Information: Reports: Patient, EMS, Intermediate Records History Limitations: Reports: No Limitations - History of Present Illness INITIAL COMMENTS - FREE TEXT/NARRATIVE: The patient presents by [facility] from [facility] for chills, fever and possible abdominal cellulitis. The patient said she was feeling good until a couple hours ago. She started having a fever or 102 and chills. She was also shaking. They did a rapid 15 minute COVID 19 test and that was negative. She has been dealing with cellulitis on her abdominal wall panus for months. She has been on antibiotics twice and just stopped some antibiotics. She did see a surgeon Dr Rasmussen and according to the patient they may do surgery later. She has no shortness of breath. She has a mild cough. She has no chest pain. She does have a large red area to the panus of her abdominal wall and there is some break down of skin. Onset: Gradual Duration: Hour(s): Severity: Moderate Improves with: Reports: None Worsens with: Reports: None Associated Symptoms: Reports: Cough, Fever/Chills. Denies: Chest Pain, Headaches, Nausea/Vomiting, Shortness of Breath - Related Data Allergies Allergy/AdvReac Type Severity Reaction Status Date / Time No Known Drug Allergies Allergy none Verified 06/11/21 15:57 Home Meds: Home Meds Acetaminophen [Tylenol] 650 mg PO DAILY 07/19/20 [History] Benzoyl Peroxide [Benzoyl Peroxide 10% Lotion] 1 applic TOP BID PRN 07/19/20 [History] Calcium Carbonate [Tums] 500 mg PO ASDIRECTED PRN 07/19/20 [History] Fish Oil/[place]-3 Fatty Acids [Fish Oil 1,000 MG] 2,000 mg PO BID 07/19/20 [History] LORazepam [Ativan] 1 mg PO BEDTIME 07/19/20 [History] Mag Hydrox/Aluminum Hyd/Simeth [Mylanta Maximum Strength Liq] 10 ml PO ASDIRECTED PRN 07/19/20 [History] Multivitamin 1 tab PO DAILY 07/19/20 [History] Pantoprazole Sodium [Protonix] 40 mg PO DAILY 07/19/20 [History] Potassium Chloride 20 meq PO DAILY 07/19/20 [History] Sertraline [Zoloft] 200 mg PO DAILY 07/19/20 [History] Triamcinolone Acetonide [Triamcinolone Acetonide 0.5% Oint] 1 applic TOP BID PRN 07/19/20 [History] allopurinoL [Zyloprim] 200 mg PO DAILY 07/19/20 [History] atenoloL [Atenolol] 25 mg PO DAILY 07/19/20 [History] risperiDONE [Risperdal] 1 mg PO TID 07/19/20 [History] metFORMIN HCl [Metformin ER Osmotic] 1,000 mg PO DAILY 10/11/20 [History] Diltiazem [Cardizem CD] 120 mg PO DAILY cap.cd 10/13/20 [Rx] Furosemide [Lasix] 20 mg PO BID #60 tab 10/13/20 [Rx] Guaifenesin/Pseudoephedrne HCl [Guaifenesin-Pse ER 1200-120 mg] 1 each PO Q4H PRN #30 tab.er.12h 10/13/20 [Rx] Furosemide [Lasix] 40 mg PO BID 06/11/21 [History] Pravastatin [Pravachol] 40 mg PO BEDTIME 06/11/21 [History] Warfarin Sodium [Jantoven] 5 mg PO ASDIRECTED 06/11/21 [History] Warfarin Sodium [Jantoven] 7.5 mg PO ASDIRECTED 06/11/21 [History] Past Medical History Cardiovascular History: Reports: Afib, Hypertension, SOB on Exertion Respiratory History: Reports: SOB Gastrointestinal History: Reports: GERD Genitourinary History: Reports: UTI, Recurrent Musculoskeletal History: Reports: Arthritis, Gout Other Musculoskeletal History: athritis/gout to bilateral lower extremities Neurological History: Reports: Headaches, Chronic Psychiatric History: Reports: Anxiety, Depression, Panic Attack, Schizophrenia Endocrine/Metabolic History: Reports: Diabetes, Type II, Obesity/BMI 30+ Oncologic (Cancer) History: Reports: Other (See Below) Other Oncologic History: 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 Dermatologic History: Reports: Cellulitis - Infectious Disease History Infectious Disease History: Reports: Novel Coronavirus - Past Surgical History GI Surgical History: Reports: None Female Surgical History: Reports: Hysterectomy Endocrine Surgical History: Reports: None Neurological Surgical History: Reports: None Musculoskeletal Surgical History: Reports: None Oncologic Surgical History: Reports: None Dermatological Surgical History: Reports: None Social & Family History - Family History Cardiac: Reports: [place] Respiratory: Reports: COPD GI: Reports: None Hematologic: Reports: None Immunologic: Reports: None Oncologic: Reports: Brain, Lung - Tobacco Use Tobacco Use Status *Q: Never Tobacco User Second Hand Smoke Exposure: No - Caffeine Use Caffeine Use: Reports: Soda - Recreational Drug Use Recreational Drug Use: No ED ROS GENERAL - Review of Systems Review Of Systems: See Below Constitutional: Reports: Fever, Chills, Malaise, Weakness, Fatigue HEENT: Reports: No Symptoms Respiratory: Reports: Cough. Denies: Shortness of Breath Cardiovascular: Reports: No Symptoms Endocrine: Reports: No Symptoms GI/Abdominal: Reports: No Symptoms : Reports: No Symptoms Musculoskeletal: Reports: No Symptoms Skin: Reports: Other (Erythema and some skin beak down to her abdominal panus) ED EXAM, SKIN/RASH Exam: See Below Exam Limited By: No Limitations General Appearance: Alert, No Apparent Distress Ears: Normal External Exam Throat/Mouth: Normal Inspection Head: Atraumatic, Normocephalic Neck: Normal Inspection Respiratory/Chest: No Respiratory Distress, Lungs Clear, Normal Breath Sounds Cardiovascular: Regular Rate, Rhythm, No Edema, No Murmur GI/Abdominal: Soft, No Organomegaly, No Mass, Other (Large abdominal panus with erythema and some skin breakdown.) Course - Vital Signs Last Recorded V/S: Last Vital Signs Temp 99.6 F 06/11/21 15:53 Pulse 99 06/11/21 15:53 Resp 20 06/11/21 15:53 BP 144/85 H 06/11/21 15:53 Pulse Ox 90 L 06/11/21 15:53 - Orders/Labs/Meds Orders: Active Orders 24 hr Category Date Time Status Cardiac Monitoring [RC] . DIRECTED Care 06/11/21 16:09 Active Oxygen Therapy [RC] PRN Care 06/11/21 16:09 Active Peripheral IV Care [RC] . DIRECTED Care 06/11/21 16:10 Active Chest 1V Frontal [CR] Stat Exams 06/11/21 16:10 Taken BLOOD CULTURE [MREF] Stat Lab 06/11/21 16:29 Received BLOOD CULTURE [MREF] Stat Lab 06/11/21 16:36 Received Sodium Chloride 0.9% [Normal Saline] 1,000 ml Med 06/11/21 16:15 Active IV ASDIRECTED Sodium Chloride 0.9% [Saline Flush] Med 06/11/21 16:09 Active 10 ml FLUSH ASDIRECTED PRN Blood Culture x2 Reflex Set [OM.PC] Stat Ot 06/11/21 16:10 Ordered Peripheral IV Insertion Adult [OM.PC] Stat Ot 06/11/21 16:09 Ordered Medication Orders Sodium Chloride (Normal Saline) 1,000 mls @ 125 mls/hr IV ASDIRECTED ALYSON Last Admin: 06/11/21 16:26 Dose: 125 mls/hr Documented by: ASH Sodium Chloride (Sodium Chloride 0.9% 10 Ml Syringe) 10 ml FLUSH ASDIRECTED PRN PRN Reason: Keep Vein Open Last Admin: 06/11/21 16:26 Dose: 10 ml Documented by: ASH Labs: Laboratory Tests 06/11/21 06/11/21 06/11/21 Range/Units 16:10 16:36 16:36 WBC 21.23 H (3.98-10.04) K/mm3 RBC 4.68 (3.98-5.22) M/mm3 Hgb 14.4 (11.2-15.7) gm/dl Hct 45.7 H (34.1-44.9) % MCV 97.6 H D (79.4-94.8) fl MCH 30.8 (25.6-32.2) pg MCHC 31.5 L (32.2-35.5) g/dl RDW Std Deviation 52.3 H (36.4-46.3) fL Plt Count 325 (182-369) K/mm3 MPV 8.7 L (9.4-12.3) fl Neut % (Auto) 93.6 H (34.0-71.1) % Lymph % (Auto) 2.6 L (19.3-51.7) % [place] % (Auto) 2.8 L (4.7-12.5) % Eos % (Auto) 0.4 L (0.7-5.8) Baso % (Auto) 0.1 (0.1-1.2) % Neut # (Auto) 19.86 H (1.56-6.13) K/mm3 Lymph # (Auto) 0.55 L (1.18-3.74) K/mm3 [place] # (Auto) 0.60 H (0.24-0.36) K/mm3 Eos # (Auto) 0.08 (0.04-0.36) K/mm3 Baso # (Auto) 0.03 (0.01-0.08) K/mm3 Manual Slide Review Abnormal smear PT (9.7-12.0) SECONDS INR Sodium 142 (136-145) mEq/L Potassium 4.8 (3.5-5.1) mEq/L Chloride 102 (98-107) mEq/L Carbon Dioxide 31 (21-32) mEq/L Anion Gap 13.8 (5-15) BUN 18 (7-18) mg/dL Creatinine 1.0 (0.55-1.02) mg/dL Est Cr Clr Drug Dosing 58.81 mL/min Estimated GFR (MDRD) 57 (>60) mL/min BUN/Creatinine Ratio 18.0 (14-18) Glucose 113 H (70-99) mg/dL Lactic Acid (0.4-2.0) mmol/L Calcium 9.5 (8.5-10.1) mg/dL Total Bilirubin 0.3 (0.2-1.0) mg/dL AST 15 (15-37) U/L ALT 18 (14-59) U/L Alkaline Phosphatase 62 (46-116) U/L C-Reactive Protein 4.3 H* (<1.0) mg/dL Total Protein 8.5 H (6.4-8.2) g/dl Albumin 3.1 L (3.4-5.0) g/dl Globulin 5.4 gm/dL Albumin/Globulin Ratio 0.6 L (1-2) SARS-CoV-2 RNA (GIOVANNI) Negative (NEGATIVE) 06/11/21 06/11/21 Range/Units 16:36 16:36 WBC (3.98-10.04) K/mm3 RBC (3.98-5.22) M/mm3 Hgb (11.2-15.7) gm/dl Hct (34.1-44.9) % MCV (79.4-94.8) fl MCH (25.6-32.2) pg MCHC (32.2-35.5) g/dl RDW Std Deviation (36.4-46.3) fL Plt Count (182-369) K/mm3 MPV (9.4-12.3) fl Neut % (Auto) (34.0-71.1) % Lymph % (Auto) (19.3-51.7) % [place] % (Auto) (4.7-12.5) % Eos % (Auto) (0.7-5.8) Baso % (Auto) (0.1-1.2) % Neut # (Auto) (1.56-6.13) K/mm3 Lymph # (Auto) (1.18-3.74) K/mm3 [place] # (Auto) (0.24-0.36) K/mm3 Eos # (Auto) (0.04-0.36) K/mm3 Baso # (Auto) (0.01-0.08) K/mm3 Manual Slide Review PT 23.6 H (9.7-12.0) SECONDS INR 2.24 Sodium (136-145) mEq/L Potassium (3.5-5.1) mEq/L Chloride (98-107) mEq/L Carbon Dioxide (21-32) mEq/L Anion Gap (5-15) BUN (7-18) mg/dL Creatinine (0.55-1.02) mg/dL Est Cr Clr Drug Dosing mL/min Estimated GFR (MDRD) (>60) mL/min BUN/Creatinine Ratio (14-18) Glucose (70-99) mg/dL Lactic Acid 2.8 H* (0.4-2.0) mmol/L Calcium (8.5-10.1) mg/dL Total Bilirubin (0.2-1.0) mg/dL AST (15-37) U/L ALT (14-59) U/L Alkaline Phosphatase (46-116) U/L C-Reactive Protein (<1.0) mg/dL Total Protein (6.4-8.2) g/dl Albumin (3.4-5.0) g/dl Globulin gm/dL Albumin/Globulin Ratio (1-2) SARS-CoV-2 RNA (GIOVANNI) (NEGATIVE) Meds: Medications Generic Name Dose Route Start Last Admin Trade Name Freq PRN Reason Stop Dose Admin Sodium Chloride 1,000 mls @ 125 mls/hr 06/11/21 16:15 06/11/21 16:26 Normal Saline IV 125 mls/hr ASDIRECTED ALYSON Administration Sodium Chloride 10 ml 06/11/21 16:09 06/11/21 16:26 Sodium Chloride 0.9% 10 Ml Syringe FLUSH 10 ml ASDIRECTED PRN Administration Keep Vein Open Discontinued Medications Generic Name Dose Route Start Last Admin Trade Name Freq PRN Reason Stop Dose Admin Ceftriaxone Sodium 2 gm/ 100 mls @ 200 mls/hr 06/11/21 16:11 06/11/21 16:26 Sodium Chloride IV 06/11/21 16:40 200 mls/hr ONETIME ONE Administration - Re-Assessments/Exams Free Text/Narrative Re-Assessment/Exam: 06/11/21 16:21 I ordered an IV NS at 125ml/hr, CXR, oxygen as needed, COVID 19, labs, blood cultures, lactic acid and rocephin 2 grams IV. 06/11/21 17:29 Her WBC was elevated at 21.23. Her INR is therapeutic at 2.24. Her lactic acid is elevated at 2.8. Her CRP is elevated at 4.3. She is COVID 19 negative. Her CXR shows cardiomegaly but no infiltrates. She has abdominal wall cellulitis with severe sepsis. We have no beds here. I called [facility] in [place] and talked with Dr Regan and he agreed to the admission. Departure - Departure Time of Disposition: 17:45 Disposition: DC/Tfer to [facility] Condition: Serious Clinical Impression: Abdominal wall cellulitis Sepsis Qualifiers: Sepsis type: sepsis due to unspecified organism Sepsis acute organ dysfunction status: unspecified Qualified Code(s): A41.9 - Sepsis, unspecified organism - Discharge Information Referrals: Mark Anthony Burns MD [Primary Care Provider] - Forms: ED Department Discharge Sepsis Event Note (ED) - Focused Exam Vital Signs: Vital Signs Temp Pulse Resp BP Pulse Ox 06/11/21 15:53 99.6 F 99 20 144/85 H 90 L - My Orders Last 24 Hours: My Active Orders 06/11/21 16:09 Cardiac Monitoring [RC] . DIRECTED Oxygen Therapy [RC] PRN Sodium Chloride 0.9% [Saline Flush] 10 ml FLUSH ASDIRECTED PRN Peripheral IV Insertion Adult [OM.PC] Stat 06/11/21 16:10 Peripheral IV Care [RC] . DIRECTED Chest 1V Frontal [CR] Stat Blood Culture x2 Reflex Set [OM.PC] Stat 06/11/21 16:15 Sodium Chloride 0.9% [Normal Saline] 1,000 ml IV ASDIRECTED 06/11/21 16:29 BLOOD CULTURE [MREF] Stat 06/11/21 16:36 BLOOD CULTURE [MREF] Stat - Assessment/Plan Last 24 Hours: My Active Orders 06/11/21 16:09 Cardiac Monitoring [RC] . DIRECTED Oxygen Therapy [RC] PRN Sodium Chloride 0.9% [Saline Flush] 10 ml FLUSH ASDIRECTED PRN Peripheral IV Insertion Adult [OM.PC] Stat 06/11/21 16:10 Peripheral IV Care [RC] . DIRECTED Chest 1V Frontal [CR] Stat Blood Culture x2 Reflex Set [OM.PC] Stat 06/11/21 16:15 Sodium Chloride 0.9% [Normal Saline] 1,000 ml IV ASDIRECTED 06/11/21 16:29 BLOOD CULTURE [MREF] Stat 06/11/21 16:36 BLOOD CULTURE [MREF] Stat
[2021-06-11] MEDS ORDERED: Vancomycin 2 GM in Sodium Chloride 0.9% 500 ML IV ONE (17:45)
--- NOTE | 2021-06-11 18:06 | CR ---
Chest: Portable view of the chest was obtained. Comparison: Prior chest x-ray of 10/11/20. Heart is enlarged. Pulmonary vessels are congested. Lungs otherwise are clear. Bony structures show nothing acute. Impression: 1. Findings suspicious for mild CHF. Please correlate with patient's symptoms. Diagnostic code #3
== END 2021-06-11 18:38 ==
LOC: JD.ED 15:49
DX: A41.9 Sepsis, unspecified organism (principal); L03.311 Cellulitis of abdominal wall; K21.9 Gastro-esophageal reflux disease without esophagitis; I48.91 Unspecified atrial fibrillation; I10 Essential (primary) hypertension; M10.9 Gout, unspecified; E11.9 Type 2 diabetes mellitus without complications; E66.9 Obesity, unspecified; Z68.43 Body mass index [BMI] 50.0-59.9, adult; Z79.899 Other long term (current) drug therapy; Z20.822 Contact with and (suspected) exposure to COVID-19
CPT/HCPCS: 36415; 71045; 80053; 83605; 85025; 85610; 86140; 87040; 94762; 96365; 96375; 99285; J0696; J3370; J7030; J7040; U0002

== ENCOUNTER 2022-07-02 15:52 | Inpatient (IN) | payer MEDICARE, MEDICAID ==
[2022-07-02] MEDS ORDERED: Sodium Chloride 0.9% 10 ML Syringe FLUSH PRN (16:09)
[2022-07-02 16:56] LABS: ESTIMATED GFR 44 mL/min (>60)
[2022-07-02 18:37] LABS: CORONAVIRUS COVID-19 NAA NEGATIVE (NEGATIVE)
[2022-07-02] MEDS ORDERED: cefTRIAXone 2 GM in Sodium Chloride 0.9% 100 ML IV ONE (19:17)
[2022-07-02] MEDS ORDERED: Vancomycin 2 GM in Sodium Chloride 0.9% 500 ML IV ONE (19:17)
[2022-07-02] MEDS ORDERED: LORazepam 0.5 MG Tab PO ONE (20:52)
[2022-07-02] MEDS ORDERED: risperiDONE 1 MG Tab PO SCH (21:00)
[2022-07-02] MEDS ORDERED: Vancomycin 1 GM SDV ONE (22:11)
[2022-07-02] MEDS ORDERED: Sodium Chloride 0.9% 500 ML ONE (22:13)
[2022-07-03] MEDS ORDERED: ALUMINUM HYDROXIDE PO PRN (14:22)
[2022-07-03] MEDS ORDERED: MAGNESIUM HYDROXIDE PO PRN (14:22)
[2022-07-03] MEDS ORDERED: SIMETHICONE PO PRN (14:22)
[2022-07-03] MEDS ORDERED: Warfarin 5 MG Tab PO SCH (14:30)
[2022-07-03] MEDS ORDERED: Warfarin 7.5 MG Tab PO SCH ×2 (14:30→18:00)
[2022-07-03] MEDS ORDERED: RISPERIDONE 2 MG PO SCH (15:00)
[2022-07-03] MEDS ORDERED: Piperacillin/Tazobactam 4.5 GM in Sodium Chloride 0.9% 100 ML IV SCH (16:45)
[2022-07-03] MEDS ORDERED: Aluminum Hydroxide/Magnesium Hydroxide/Simethicone Susp 30 ML Cup PO PRN (17:04)
[2022-07-03] MEDS: Cefepime 1 GM in Sodium Chloride 0.9% 50 ML IV SCH (18:24)
[2022-07-03] MEDS: Sodium Chloride 0.9% 1,000 ML IV SCH (18:25)
[2022-07-03] MEDS: Insulin Lispro 100 Unit/ML 3 ML KwikPen SUBCUT SCH ×2 (18:33→21:09)
[2022-07-03] MEDS: risperiDONE 1 MG Tab PO SCH (20:49)
[2022-07-03] MEDS: LORazepam 1 MG Tab PO SCH (20:49)
[2022-07-03] MEDS: Pravastatin 20 MG Tab PO SCH (20:50)
[2022-07-03] MEDS: Acetaminophen 325 MG Tab PO PRN (20:53)
[2022-07-03] MEDS ORDERED: VANCOmycin 1.5 GM/300 ML 1.5 GM in Premix Bag 1 BAG IV SCH (22:00)
[2022-07-04] MEDS: Sodium Chloride 0.9% 1,000 ML IV SCH (02:50)
[2022-07-04] MEDS: Cefepime 1 GM in Sodium Chloride 0.9% 50 ML IV SCH ×2 (05:58→18:11)
[2022-07-04] MEDS: Insulin Lispro 100 Unit/ML 3 ML KwikPen SUBCUT SCH ×4 (07:51→21:39)
[2022-07-04] MEDS ORDERED: Calcium Carbonate 500 MG Tab.Chew PO PRN (08:39)
[2022-07-04] MEDS: Cholecalciferol (Vitamin D3) 25 MCG Tab PO SCH ×2 (08:55→20:01)
[2022-07-04] MEDS: Pantoprazole 40 MG Tab.CR PO SCH (08:56)
[2022-07-04] MEDS: Diltiazem 120 MG Cap.CD PO SCH (08:56)
[2022-07-04] MEDS: Atenolol 25 MG Tab PO SCH (08:56)
[2022-07-04] MEDS: Allopurinol 100 MG Tab PO SCH (08:56)
[2022-07-04] MEDS: Sertraline 50 MG Tab PO SCH (08:56)
[2022-07-04] MEDS: risperiDONE 1 MG Tab PO SCH ×3 (08:56→20:00)
[2022-07-04] MEDS ORDERED: DILTIAZEM HCL 120 MG PO SCH (09:00)
[2022-07-04] MEDS ORDERED: risperiDONE 1 MG Tab PO SCH (09:00)
[2022-07-04] MEDS ORDERED: Magnesium Sulfate/Water 2 GM in Premix Bag 1 BAG IV ONE (11:00)
[2022-07-04] MEDS: VANCOmycin 1.25 GM/250 ML 1.25 GM in Premix Bag 1 BAG IV SCH (14:15)
[2022-07-04] MEDS ORDERED: Albuterol/Ipratropium 3.0-0.5 MG/3 ML Neb Soln NEB PRN (14:17)
[2022-07-04] MEDS ORDERED: Warfarin 7.5 MG Tab PO SCH (18:00)
[2022-07-04] MEDS: Acetaminophen 325 MG Tab PO PRN (19:59)
[2022-07-04] MEDS: Pravastatin 20 MG Tab PO SCH (20:01)
[2022-07-04] MEDS: LORazepam 1 MG Tab PO SCH (20:01)
[2022-07-04] MEDS ORDERED: Non-Formulary Medication 1 Each (Pravastatin Sodium 40 MG Tablet) PO SCH (21:00)
[2022-07-05] MEDS: VANCOmycin 1.25 GM/250 ML 1.25 GM in Premix Bag 1 BAG IV SCH (04:57)
[2022-07-05] MEDS ORDERED: VANCOmycin 1.25 GM/250 ML 1.25 GM in Premix Bag 1 BAG IV SCH (05:00)
[2022-07-05] MEDS ORDERED: Non-Formulary Medication 1 Each (Pantoprazole Sodium 40 MG Tablet.Dr) PO SCH (06:00)
[2022-07-05] MEDS: Cefepime 1 GM in Sodium Chloride 0.9% 50 ML IV SCH (06:28)
[2022-07-05] MEDS ORDERED: SERTRALINE HCL 200 MG PO SCH (08:00)
[2022-07-05] MEDS ORDERED: Magnesium Sulfate/Water 2 GM in Premix Bag 1 BAG IV ONE (08:02)
[2022-07-05] MEDS: Insulin Lispro 100 Unit/ML 3 ML KwikPen SUBCUT SCH ×2 (09:05→12:07)
[2022-07-05] MEDS: Diltiazem 120 MG Cap.CD PO SCH (09:07)
[2022-07-05] MEDS: Pantoprazole 40 MG Tab.CR PO SCH (09:10)
[2022-07-05] MEDS: Sertraline 50 MG Tab PO SCH (09:10)
[2022-07-05] MEDS: Allopurinol 100 MG Tab PO SCH (09:10)
[2022-07-05] MEDS: risperiDONE 1 MG Tab PO SCH ×2 (09:10→15:54)
[2022-07-05] MEDS: Atenolol 25 MG Tab PO SCH (09:10)
[2022-07-05] MEDS: Cholecalciferol (Vitamin D3) 25 MCG Tab PO SCH (09:10)
[2022-07-05 15:34] VITALS: BP 122/94; PULSE 84
[2022-07-05] MEDS ORDERED: Warfarin 3 MG Tab PO SCH (18:00)
== END 2022-07-05 17:04 | DRG 871 ==
LOC: JD.ED 15:52 → JD.MS 07-03 09:37 → UNDOADMIN 07-03 16:07 → UNDODISIN 07-05 17:04
PROVIDERS: ADMIT Hospitalist; ATTEND Hospitalist
DX: A41.9 Sepsis, unspecified organism (principal); R09.02 Hypoxemia; J18.9 Pneumonia, unspecified organism; L03.311 Cellulitis of abdominal wall; E66.2 Morbid (severe) obesity with alveolar hypoventilation; N17.9 Acute kidney failure, unspecified; I48.91 Unspecified atrial fibrillation; I10 Essential (primary) hypertension; K21.9 Gastro-esophageal reflux disease without esophagitis; Z86.16 Personal history of COVID-19; M19.90 Unspecified osteoarthritis, unspecified site; Z20.822 Contact with and (suspected) exposure to COVID-19; M10.9 Gout, unspecified; G89.29 Other chronic pain; R51.9 Headache, unspecified; F41.9 Anxiety disorder, unspecified; F32.89 Other specified depressive episodes; F20.9 Schizophrenia, unspecified; E11.9 Type 2 diabetes mellitus without complications; E78.5 Hyperlipidemia, unspecified; E83.42 Hypomagnesemia; Z86.59 Personal history of other mental and behavioral disorders; Z79.4 Long term (current) use of insulin; Z79.01 Long term (current) use of anticoagulants
CPT/HCPCS: 0240U; 36415; 71045; 80048; 80053; 80202; 82947; 83605; 83735; 83880; 84484; 85025; 85379; 85610; 85730; 87040; 87641; 93005; 94762; 96365; 96367; 99285; 93010; 99284; A9270-GY; J0692; J0696; J1815; J3370; J3475; J3490; J7030; J7040; U0002